=== PATIENT | male | born 1960 | race Caucasian/White ===

== ENCOUNTER 2023-05-03 13:20 | Emergency (ER) | payer MEDICARE, MEDICAID, SELFPAY ==
[2023-05-03 13:27] VITALS: BP 167/88; PULSE 70; RESP 18; TEMP 36.6; O2SAT 98; BMI 37.2
--- NOTE | 2023-05-03 13:41 | XR_ITS ---
The [address] [address] Patient Name: DIMITRY BENJAMIN MRN: [id number] date: 1960 Sex: M Assigned Patient Location: ER Current Patient Location: ED.MAIN Accession/Order Number: [id number] Exam Date: 05/03/2023 14:04 Report Date: 05/03/2023 14:52 At the request of: ROHITH TOUSSAINT Procedure: XR hip LT 2V w/ pelvis PROCEDURE: XR hip LT 2V w/ pelvis COMPARISON: None. HISTORY: pain FINDINGS: BONES:No acute fracture or dislocation. Mild to moderate bilateral hip osteoarthropathy, left greater than right. Moderate degenerative changes of the spine SOFT TISSUES:Negative. No visible soft tissue swelling. EFFUSION:None visible. OTHER: Negative. XR/XR hip LT 2V w/ pelvis IMPRESSION: Mild to moderate osteoarthritis Electronically authenticated by: DECLAN TORRES Date: 05/03/2023 14:52
--- NOTE | 2023-05-03 13:43 | PC.NURSE ---
left hip pain that has been progressively getting worse over the last 2 wks
[2023-05-03] MEDS: KETOROLAC TROMETHAMINE 60 MG/2 ML VIAL IM (14:17)
--- NOTE | 2023-05-03 14:34 | ED.GENADUL1 ---
HPI - General Adult General Chief complaint: Extremity Injury, Lower Stated complaint: LOWER BACK AND LEFT HIP PAIN Time Seen by Provider: 05/03/23 13:41 Source: patient Mode of arrival: Wheelchair History of Present Illness HPI narrative: 63-year-old male presents with chief complaint of left hip and lower lumbar pain. Patient states he started with lower lumbar pain approximate three weeks ago and now radiates down the buttock and leg he has numbness and tingling to his toes. Patient denies any injury or trauma. Patient denies loss of bowel or bladder function. Patient states she's having difficulty sitting and laying down due to pain. Denies a history of sciatica in the past Related Data Previous Rx's Medication Instructions Recorded prednisone 20 mg tablet 20 mg PO BID #10 tabs 05/03/23 Allergies Allergy/AdvReac Type Severity Reaction Status Date / Time No Known Drug Allergies Allergy Verified 05/03/23 13:32 Review of Systems ROS Narrative All Systems are negative except as noted/marked.All systems reviewed and otherwise negative Exam Narrative Exam Narrative: Nurses note and vital signs reviewed and patient is not hypoxic. General: The patient appears well and in no apparent distress. Patient is resting comfortably on cart. Skin: Warm, dry, no pallor noted. There is no rash noted. Respiratory: Patient is in no distress, no accessory muscle use, lungs are clear to auscultation, no wheezing, rales or rhonchi Back: non-tender, no CVA tenderness bilaterally to percussion. GI: Normal bowel sounds, no tenderness to palpation, no masses appreciated. No rebound, guarding, or rigidity noted. Musculoskeletal:Patient's lower extremity without swelling or deformity no leg shortening, full range of motion. Patient has increased pain with abduction and abduction states he has numbness and tingling, paresthesias lower extremity remainder of musculoskeletal exam unremarkable Neurological: A&O x4, normal speech Psychiatric: Cooperative Constitutional Vital Signs, click to edit/add: Last Vital Signs Temp 97.8 F 05/03/23 13:27 Pulse 70 05/03/23 13:27 Resp 18 05/03/23 13:27 BP 167/88 H 05/03/23 13:27 Pulse Ox 98 05/03/23 13:27 O2 Del Method Room Air 05/03/23 13:43 Course Vital Signs Vital signs: Vital Signs Temperature 97.8 F 05/03/23 13:27 Pulse Rate 70 05/03/23 13:27 Respiratory Rate 18 05/03/23 13:27 Blood Pressure 167/88 H 05/03/23 13:27 Pulse Oximetry 98 05/03/23 13:27 Oxygen Delivery Method Room Air 05/03/23 13:27 Temperature 97.8 F 05/03/23 13:27 Pulse Rate 70 05/03/23 13:27 Respiratory Rate 18 05/03/23 13:27 Blood Pressure 167/88 H 05/03/23 13:27 Pulse Oximetry 98 05/03/23 13:27 Oxygen Delivery Method Room Air 05/03/23 13:43 Medical Decision Making MDM Narrative Medical decision making narrative: Patient presented to the emergency room with lower lumbar pain radiating down the lower extremity consistent with sciatica. Medicated here with Toradol in the emergency room. X-rays performed showed no acute deformities or fractures. Patient encouraged to follow-up with his primary care physician PT therapy was discussed. Patient will be given a small prescription of pain medicine and steroids. MRSA follow-up as discussed. Rest ice to the lumbar region. Patient does walk with a cane. Medical Records Medical records reviewed: Yes I reviewed the patient's medical records Imaging Data hip: Attestation: I have reviewed the pertinent imaging results. My impression: neg Discharge Plan Discharge Chief Complaint: Extremity Injury, Lower Clinical Impression: Sciatica Patient Disposition: Home, Self-Care Time of Disposition Decision: 14:28 Condition: Good Prescriptions / Home Meds: New prednisone 20 mg tablet 20 mg PO BID Qty: 10 0RF Instructions: Sciatica (ED) Stand Alone Forms: Portal Instructions Referrals: Gerber Alvarado MD [Primary Care Provider] - 1 week
== END 2023-05-03 14:56 | disposition home or self-care (01) ==
PROVIDERS: Emergency Provider Emergency Medicine; PCP Family Medicine
DX: M54.42 Lumbago with sciatica, left side (principal)
CPT/HCPCS: 73502; 96372; 99284

== ENCOUNTER 2023-05-13 10:29 | Outpatient (OUT) | payer MEDICARE, MEDICAID, SELFPAY ==
[2023-05-13 11:03] LABS: Estimated Average Glucose 123 mg/dL; Glycohemoglobin A1C 5.9 % (4.5-6.2)
== END 2023-05-13 10:30 | disposition home or self-care (01) ==
LOC: LAB 10:31
PROVIDERS: PCP Family Medicine; Visit Provider Family Medicine
DX: E11.65 Type 2 diabetes mellitus with hyperglycemia (principal)
CPT/HCPCS: 36415; 83036

== ENCOUNTER 2023-09-18 09:05 | Outpatient (OUT) | payer MEDICARE, MEDICAID, SELFPAY ==
--- NOTE | 2023-09-18 09:08 | MR_ITS ---
[address] [address] Patient Name: DIMITRY BENJAMIN MRN: [facility]:[id number] date: 1960 Sex: M Assigned Patient Location: MRI Current Patient Location: MRI Accession/Order Number: [id number] Exam Date: 09/18/2023 09:52 Report Date: 09/18/2023 11:25 At the request of: FILIPE SALAZAR Procedure: MR lumbar spine wo con EXAM: MR lumbar spine wo con CLINICAL INDICATION: Degenerative Disc Disease M51.36 p COMPARISON: None TECHNIQUE/PROTOCOL: Noncontrast lumbar spine MR protocol (Sagittal T1, T2, STIR and axial T1, T2 sequences). FINDINGS: Segmentation: Normal. Conus: Terminates at L1. Spinal Cord and Cauda Equina: Normal. Pedicles: Digitally shortened. Epidural Space: Prominent dorsal epidural lipomatosis throughout the lumbar spine. Alignment: Normal. Marrow Signal: Degenerative marrow endplate changes at L2-L3. Vertebral Body Heights: Maintained. Sacroiliac Joints: Grossly normal given only partially visualized. Paraspinal Soft Tissues: Normal. Retroperitoneal Soft Tissues: No acute abnormalities. Spondylotic Changes: Multilevel spondylotic changes include diffuse disc desiccation and varying degrees of intervertebral disc height loss, osteophytic ridging, and facet/ligamentum flavum hypertrophy. T12-L1: Disc bulge indents the ventral thecal sac. This in conjunction with mild bilateral facet/ligamentum flavum hypertrophy and epidural lipomatosis overall results in moderate spinal canal narrowing. No high-grade foraminal narrowing. L1-L2: Disc bulge with left central disc protrusion together indent the ventral thecal sac. These in conjunction with mild bilateral facet/ligamentum flavum hypertrophy and epidural lipomatosis overall result in moderate spinal canal narrowing. Mild bilateral foraminal narrowing. L2-L3: Disc bulge effaces the ventral thecal sac. This in conjunction with mild bilateral facet/ligamentum flavum hypertrophy and epidural lipomatosis overall results in advanced spinal canal narrowing. Disc material extends into the right foramen and results in moderate right foraminal narrowing. Mild left foraminal narrowing. L3-L4: Disc bulge effaces the ventral thecal sac. This in conjunction with mild bilateral facet/ligamentum flavum hypertrophy and epidural lipomatosis overall results in advanced spinal canal narrowing. Moderate to advanced bilateral foraminal narrowing. L4-L5: Disc bulge effaces the ventral thecal sac. This in conjunction with moderate bilateral facet/ligamentum flavum hypertrophy and epidural lipomatosis overall results in advanced spinal canal narrowing. Advanced bilateral foraminal narrowing. L5-S1: No disc bulge or herniation. No high-grade spinal canal or foraminal narrowing. Mild bilateral facet hypertrophy. MR/MR lumbar spine wo con IMPRESSION: 1. Multilevel spondylotic changes are superimposed on congenitally shortened pedicles and epidural lipomatosis. Spinal canal narrowing is advanced at L2-L3, L3-L4, and L4-L5. 2. Foraminal narrowing is advanced bilaterally at L4-L5. Foraminal narrowing is moderate to advanced bilaterally at L3-L4. Electronically authenticated by: FANI SCHAFER Date: 09/18/2023 11:25
--- OUTSIDE RECORDS SUMMARY | 2023-09-18 09:22 | XMS_ITS | CCD ---
Author Organization [facility] Care Team Providers Care Defense Analyst Name Role Phone MARYDICK TORREY Referring Unavailable AMARO, MCKENNA A Primary Care Unavailable AMARO, MCKENNA A Referring Unavailable AMARO, MCKENNA A Primary Care Unavailable BURROUGHS, FORREST R Referring Unavailable AMARO, MCKENNA A Primary Care Unavailable BURROUGHS, FORREST R Referring Unavailable AMARO, MCKENNA A Primary Care Unavailable AMARO, MCKENNA A Primary Care Unavailable VILMA BROWN Attending Unavailable BURROUGHS, FORREST R Referring Unavailable AMARO, MCKENNA A Primary Care Unavailable MISC, DR AHMADI Attending Unavailable MISC, DR AHMADI Admitting Unavailable NADERER, DR FILIPE Rogel Consulting Unavailable NADERER, DR FILIPE Rogel Primary Care Unavailable NADERER, DR FILIEP Rogel Admitting Unavailable NADERER, DR FILIPE Rogel Attending Unavailable NADERER, DR FILIPE Rogel Primary Care Unavailable NADERER, DR FILIPE Rogel Admitting Unavailable NADERER, DR FILIPE Rogel Attending Unavailable NADERER, DR FILIPE Rogel Consulting Unavailable NADERER, DR FILIPE Rogel Primary Care Unavailable JOHN HERR Attending Unavailable NADERER, FILIPE Attending Unavailable Allergies Allergy Classification Reported Allergen(s) Allergy Type Date of Onset Reaction(s) Facility (1 source) Amino Acids Drug Allergy [facility] Repository Problems Problem Classification Problem Date Documented Da te Episodic/Chronic Diabetes mellitus with complications (5 sources) Type 2 diabetes mellitus with hyperglycemia; Translations: [TYPE 2 DM W/HYPERGLYCEMIA] Onset: 11-15-2021 Chronic Disorders of lipid metabolism (5 sources) Hyperlipidemia, unspecified; Translations: [HYPERLIPIDEMIA UNSPECIFIED] Onset: 10-13-2022 Chronic Essential hypertension (1 source) Essential (primary) hypertension; Translations: [ESSENTIAL PRIMARY HYPERTENSION] Onset: 10-25-2022 Chronic Other aftercare (5 sources) Other mcfp (current) drug therapy; Translations: [OTH RENEWABLE ENERGY CONSULTANT CURRENT DRUG THERAPY] Onset: 10-04-2022 Episodic Other nutritional; endocrine; and metabolic disorders (1 source) Morbid (severe) obesity due to excess calories; Translations: [MORBID SEVERE OBES D/T EXCESS MARIA FERNANDA] Onset: 10-13-2022 Chronic Other screening for suspected conditions (not mental disorders or infectious disease) (1 source) Encounter for screening for malignant neoplasm of prostate; Translations: [ENC SCREEN MALIG NEOPLASM PROSTATE] Onset: 10-25-2022 Episodic Results Test Name Value Interpretation Reference Range Facility CBC AUTO DIFFon 10-19-2022 BASO # 0.1 103/ul Normal 0.0-0.1 [facility] Comment on above: Performed By: #### C BC #### [facility] [address] [address] [address] Cindi Underwood Basophils/100 WBC (Bld) 0.5 % Normal 0.2-2.0 [facility] Comment on above: Performed By: #### C BC #### [facility] [address] [address] [address] Cindi Underwood EO # 0.2 103/ul Normal 0.0-0.7 [facility] Comment on above: Performed By: #### C BC #### [facility] [address] [address] [address] Cindi Underwood Eosinophils/100 WBC (Bld) 1.8 % Normal 0.9-7.0 [facility] Comment on above: Performed By: #### C BC #### [facility] [address] [address] [address] Cindi Underwood Erythrocyte distribution width (RBC) [Ratio] 14.5 % Normal 11.0-15.0 [facility] Comment on above: Performed By: #### C BC #### [facility] [address] [address] [address] Cindi Underwood Hematocrit (Bld) [Volume fraction] 52.4 % Normal 42.0-54.0 [facility] Comment on above: Performed By: #### C BC #### [facility] [address] [place] [address] Dr. Cindi Underwood Hemoglobin (Bld) [Mass/Vol] 17.3 g/dL Normal 14.0-18.0 [facility] Comment on above: Performed By: #### C BC #### [facility] [address] [place] [address] Dr. Cindi Underwood IG # 0.04 10e3/ul Critically high 0.00-0.03 [facility] Comment on above: Performed By: #### C BC #### [facility] [address] [place] [address] Dr. Cindi Underwood IG % 0.4 % Normal 0.0-0.5 [facility] Comment on above: Performed By: #### C BC #### [facility] [address] [place] [address] Dr. Cindi Underwood LYMPH # 1.9 103/ul Normal 1.2-3.8 [facility] Comment on above: Performed By: #### C BC #### [facility] [address] [place] [address] Dr. Cindi Underwood Lymphocytes/100 WBC (Bld) 20.8 % Normal 20.5-60.0 [facility] Comment on above: Performed By: #### C BC #### [facility] [address] [place] [address] Dr. Cindi Underwood MANUAL DIFF REQ NO Normal [facility] Comment on above: Performed By: #### C BC #### [facility] [address] [place] [address] Dr. Cindi Underwood MCH (RBC) [Entitic mass] 30.7 pg Normal 25.9-34.0 [facility] Comment on above: Performed By: #### C BC #### [facility] [address] [place] [address] Dr. Cindi Underwood MCHC (RBC) [Mass/Vol] 33.0 g/dL Normal 29.9-35.2 [facility] Comment on above: Performed By: #### C BC #### [facility] [address] [place] [address] Dr. Cindi Underwood MCV (RBC) [Entitic vol] 93.1 fL Normal 80.0-94.0 [facility] Comment on above: Performed By: #### C BC #### [facility] [address] [place] [address] Dr. Cindi Underwood MONO # 0.5 103/ul Normal 0.3-0.8 [facility] Comment on above: Performed By: #### C BC #### [facility] [address] [place] [address] Dr. Cindi Underwood Monocytes/100 WBC (Bld) 5.6 % Normal 1.7-12.0 [facility] Comment on above: Performed By: #### C BC #### [facility] [address] [place] [address] Dr. Cindi Underwood NEUT # 6.5 103/ul Normal 1.4-6.5 [facility] Comment on above: Performed By: #### C BC #### [facility] [address] [place] [address] Dr. Cindi Underwood Neutrophils/100 WBC (Bld) 70.9 % Normal 43.0-75.0 [facility] Comment on above: Performed By: #### C BC #### [facility] [address] [place] [address] Dr. Cindi Underwood Platelet mean volume (Bld) [Entitic vol] 10.8 fL Normal 9.5-13.5 [facility] Comment on above: Performed By: #### C BC #### [facility] [address] [place] [address] Dr. Cindi Underwood PLT 190 103/ul Normal 150-450 [facility] Comment on above: Performed By: #### C BC #### [facility] [address] [place] [address] Dr. Cindi Underwood RBC 5.63 106/ul Normal 4.70-6.10 [facility] Comment on above: Performed By: #### C BC #### [facility] [address] [place] [address] Dr. Cindi Underwood WBC 9.1 103/ul Normal 4.0-11.0 [facility] Comment on above: Performed By: #### C BC #### [facility] [address] [address] [address] Cindi Underwood GLYCOHEMOGLOBIN A1Con 2022 ADA RECOMMENDATION SEE BELOW Normal [facility] Comment on above: Result Comment: ADA RECOMMENDED LIMIT 4.0 - 6.0 ADA THERAPEUTIC TARGET < 7.0 ACTION SUGGESTED > 7.0 Performed By: #### A 1C #### [facility] [address] [address] [address] Cindi Underwood Glucose [Mass/Vol] 163 mg/dL Normal [facility] Comment on above: Performed By: #### A 1C #### [facility] [address] [address] [address] Cindi Underwood HbA1c (Bld) [Mass fraction] 7.3 % Critically high 4.5-6.2 [facility] Comment on above: Performed By: #### A 1C #### [facility] [address] [place] [address] Dr. Cindi Underwood LIPID PROFILEon 10-19-2022 CHOL-HDL RATIO NORM SEE BELOW Normal [facility] Comment on above: Result Comment: 3.3 - 4.4 LOW RISK 4.4 - 7.1 AVERAGE RISK 7.1 - 11.0 MODERATE RISK >11.0 HIGH RISK Performed By: #### L IPID, TSH, BMP, LIVER #### [facility] [address] [address] [address] Cindi Underwood Cholesterol [Mass/Vol] 189 mg/dL Normal <=200 [facility] Comment on above: Performed By: #### L IPID, TSH, BMP, LIVER #### [facility] [address] [address] [address] Cindi Underwood Cholesterol in HDL [Mass/Vol] 33 mg/dL Critically low 40-60 [facility] Comment on above: Performed By: #### L IPID, TSH, BMP, LIVER #### [facility] [address] [address] [address] Cindi Underwood Cholesterol in LDL [Mass/Vol] 123.6 mg/dL Normal [facility] Comment on above: Performed By: #### L IPID, TSH, BMP, LIVER #### [facility] [address] [place] [address] Dr. Cindi Underwood Cholesterol.total/C holesterol in HDL [Mass ratio] 5.7 {ratio} Normal [facility] Comment on above: Performed By: #### L IPID, TSH, BMP, LIVER #### [facility] [address] [address] [address] Cindi Underwood HDL NORMAL > or = 60 mg/dl - LO W CARDIOVASCULAR RISK <40 mg/dl - HIGH CARDIOVASCULAR RISK Normal [facility] Comment on above: Performed By: #### L IPID, TSH, BMP, LIVER #### [facility] [address] [place] [address] Dr. Cindi Underwood LDL CALC NORMAL SEE BELOW Normal [facility] Comment on above: Result Comment: <100 mg/dl OPTIMAL 100 - 129 mg/dl NEAR OR ABOVE OPTIMAL 130 - 159 mg/dl BORDERLINE HIGH 160 - 189 mg/dl HIGH >190 mg/dl VERY HIGH Performed By: #### L IPID, TSH, BMP, LIVER #### [facility] [address] [place] [address] Dr. Cindi Underwood Triglyceride [Mass/Vol] 162 mg/dL Critically high <=150 [facility] Comment on above: Performed By: #### L IPID, TSH, BMP, LIVER #### [facility] [address] [place] [address] Dr. Cindi Underwood VLDL CALC 32.4 mg/dL Normal [facility] Comment on above: Performed By: #### L IPID, TSH, BMP, LIVER #### [facility] [address] [address] [address] Cindi Underwood LIVER PROFILEon 10-19-2022 Albumin [Mass/Vol] 3.7 g/dL Normal 3.4-5.0 [facility] Comment on above: Performed By: #### L IPID, TSH, BMP, LIVER #### [facility] [address] [place] [address] Dr. Cindi Underwood Albumin/Globulin [Mass ratio] 0.9 {ratio} Normal [facility] Comment on above: Performed By: #### L IPID, TSH, BMP, LIVER #### [facility] [address] [address] [address] Cindi Underwood ALP [Catalytic activity/Vol] 89 U/L Normal 46-116 [facility] Comment on above: Performed By: #### L IPID, TSH, BMP, LIVER #### [facility] [address] [address] [address] Cindi Underwood ALT [Catalytic activity/Vol] 44 U/L Normal 16-63 [facility] Comment on above: Performed By: #### L IPID, TSH, BMP, LIVER #### [facility] [address] [place] [address] Dr. Cindi Underwood AST [Catalytic activity/Vol] 21 U/L Normal 15-37 [facility] Comment on above: Performed By: #### L IPID, TSH, BMP, LIVER #### [facility] [address] [place] [address] Dr. Cindi Underwood BILI, CONJUGATED 0.1 mg/dL Normal 0.0-0.2 [facility] Comment on above: Performed By: #### L IPID, TSH, BMP, LIVER #### [facility] [address] [place] [address] Dr. Cindi Underwood Bilirubin [Mass/Vol] 0.6 mg/dL Normal 0.2-1.0 [facility] Comment on above: Performed By: #### L IPID, TSH, BMP, LIVER #### [facility] [address] [place] [address] Dr. Cindi Underwood Globulin (S) [Mass/Vol] 4.1 g/dL Normal [facility] Comment on above: Performed By: #### L IPID, TSH, BMP, LIVER #### [facility] [address] [place] [address] Dr. Cindi Underwood Protein [Mass/Vol] 7.8 g/dL Normal 6.4-8.2 [facility] Comment on above: Performed By: #### L IPID, TSH, BMP, LIVER #### [facility] [address] [place] [address] Dr. Cindi Underwood MICROALBUMIN, RAND URon 04-2 mALB 2.9 mg/L Normal <=30.0 [facility] Comment on above: Performed By: #### M ALBR #### [facility] [address] [place] [address] Dr. Cindi Underwood PROF CHEM 8 (BAS METB)on Anion gap [Moles/Vol] 8.6 mmol/L Normal [facility] Comment on above: Performed By: #### L IPID, TSH, BMP, LIVER #### [facility] [address] [place] [address] Dr. Cindi Underwood Calcium [Mass/Vol] 9.2 mg/dL Normal 8.5-10.1 [facility] Comment on above: Performed By: #### L IPID, TSH, BMP, LIVER #### [facility] [address] [place] [address] Dr. Cindi Underwood Chloride [Moles/Vol] 102 mmol/L Normal 98-107 [facility] Comment on above: Performed By: #### L IPID, TSH, BMP, LIVER #### [facility] [address] [place] [address] Dr. Cindi Underwood CO2 [Moles/Vol] 34.3 mmol/L Critically high 21.0-32.0 [facility] Comment on above: Performed By: #### L IPID, TSH, BMP, LIVER #### [facility] [address] [place] [address] Dr. Cindi Underwood Creatinine [Mass/Vol] 0.87 mg/dL Normal 0.70-1.30 [facility] Comment on above: Performed By: #### L IPID, TSH, BMP, LIVER #### [facility] [address] [place] [address] Dr. Cindi Underwood EGFR-AF GHANAIAN >60 Normal >=60 [facility] Comment on above: Performed By: #### L IPID, TSH, BMP, LIVER #### [facility] [address] [address] [address] Cindi Underwood EGFR-NON AF GHANAIAN >60 Normal >=60 [facility] Comment on above: Performed By: #### L IPID, TSH, BMP, LIVER #### [facility] [address] [address] [address] Cindi Underwood Glucose [Mass/Vol] 132 mg/dL Critically high 74-106 T [facility] Comment on above: Performed By: #### L IPID, TSH, BMP, LIVER #### [facility] [address] [address] [address] Cindi Underwood Potassium [Moles/Vol] 3.9 mmol/L Normal 3.5-5.1 [facility] Comment on above: Performed By: #### L IPID, TSH, BMP, LIVER #### [facility] [address] [place] [address] Dr. Cindi Underwood Sodium [Moles/Vol] 141 mmol/L Normal 136-145 [facility] Comment on above: Performed By: #### L IPID, TSH, BMP, LIVER #### [facility] [address] [address] [address] Cindi Underwood Urea nitrogen [Mass/Vol] 9.0 mg/dL Normal 7.0-18.0 [facility] Comment on above: Performed By: #### L IPID, TSH, BMP, LIVER #### [facility] [address] [place] [address] Dr. Cindi Underwood Urea nitrogen/Creatinine [Mass ratio] 10.3 mg/mg Normal [facility] Comment on above: Performed By: #### L IPID, TSH, BMP, LIVER #### [facility] [address] [address] [address] Cindi Underwood TSHon 10-19-2022 TSH 2.454 uIU/mL Normal 0.358-3.740 [facility] Comment on above: Performed By: #### L IPID, TSH, BMP, LIVER #### [facility] [address] [place] [address] Dr. Cindi Underwood GLYCOHEMOGLOBIN A1Con 2021 ADA RECOMMENDATION SEE BELOW Normal [facility] Comment on above: Result Comment: ADA RECOMMENDED LIMIT 4.0 - 6.0 ADA THERAPEUTIC TARGET < 7.0 ACTION SUGGESTED > 7.0 Performed By: #### A 1C #### [facility] [address] [address] [address] Cindi Underwood Glucose [Mass/Vol] 160 mg/dL Normal [facility] Comment on above: Performed By: #### A 1C #### [facility] [address] [address] [address] Cindi Underwood HbA1c (Bld) [Mass fraction] 7.2 % Critically high 4.5-6.2 [facility] Comment on above: Performed By: #### A 1C #### [facility] [address] cervical spine wo conon 0 10-06-2020 CT cervical spine wo con [facility] [place] [address] CT Scan Report Signed Patient: Dimitry Benjamin MR#: [id number] : 1960 Acct:[id number] Age/Sex: 60 / M ADM Date: 10/06/20 Loc: ER Room: Type: [facility] ER Attending Dr: Ordering Provider: Albino New MD Date of Service: 10/06/20 CT/CT head/brain wo con: fall ([id number]) CT/CT cervical spine wo con: fall Copies to: Albino New MD CLINICAL DATA: Patient fell and hit the back of the head. Neck pain radiating to the shoulders. CT BRAIN WITHOUT CONTRAST: COMPARISON: None TECHNIQUE: Contiguous axial unenhanced images were obtained through the brain. This CT exam was performed using one or more following dose reduction techniques: Automated exposure control, adjustment of the mA and/or kV according to patient size, or use of iterative reconstruction technique. FINDINGS: The ventricles are within normal limits for size and position. A potential perivascular space is seen in the basal ganglia region on the right. There are no areas of abnormal attenuation. There is no hemorrhage, mass effect or extra-axial collections. The calvarium is intact. Minor ethmoid mucosal thickening is present. CT/CT head/brain wo con IMPRESSION: NO ACUTE INTRACRANIAL TRAUMA. CT CERVICAL SPINE WITHOUT CONTRAST WITH 3D RECONSTRUCTIONS: COMPARISON: 06/05/2019 TECHNIQUE: Spiral axial unenhanced images were obtained through the cervical spine. Sagittal, coronal and 3D volume-rendered reconstructions were also reviewed. This CT exam was performed using one or more following dose reduction techniques: Automated exposure control, adjustment of the mA and/or kV according to patient size, or use of iterative reconstruction technique. FINDINGS: There is reversal the normal cervical lordosis. Patient is status post anterior fusion with plate and screws extending from C3 through C7. Hardware is also present at the time the prior. The vertebral bodies show increasing sclerosis through this area. There is no definite acute fracture. There is still slight anterolisthesis of C2 on C3. There is disc space narrowing at the cervicothoracic junction. There is some endplate spurring and facet disease. There is multilevel thecal sac effacement and bilateral foraminal encroachment. The atlantoaxial relationship is maintained. The prevertebral soft tissues appear prominent however is uncertain if this is related to patient's habitus. Small shotty cervical lymph nodes are present. There is carotid artery plaque. IMPRESSION: POSTOPERATIVE AND DEGENERATIVE CHANGES. NO ACUTE BONY INJURY. Impression dictated by: Leona Argueta M.D.10/06/2020 4:49 PM Dictation Location: [place] [address] Transcribed By: [facility] 10/06/20 1649 Dictated By: Leona Argueta MD 10/06/20 1639 Signed By: 10/06/20 1649 Normal [facility] CT lumbar spine wo conon CT lumbar spine wo con [facility] [place] [address] CT Scan Report Signed Patient: Dimitry Benjamin MR#: [id number] : 1960 Acct:[id number] Age/Sex: 60 / M ADM Date: 10/06/20 Loc: ER Room: Type: [facility] ER Attending Dr: Ordering Provider: Albino New MD Date of Service: 10/06/20 CT/CT lumbar spine wo con: fall ([id number]) CT/CT thoracic spine wo con: fall Copies to: Albino New MD CT THORACIC AND LUMBAR SPINE WITHOUT CONTRAST WITH 3-D RECONSTRUCTIONS COMPARISON: None CLINICAL DATA: Patient fell and hit the back of head. Neck pain radiating to the shoulders. Spiral images were obtained through the thoracic and lumbar spine without contrast. Sagittal, coronal and 3-D Rendered reconstructions were reviewed. This CT exam was performed using one or more following dose reduction techniques: Automated exposure control, adjustment of the mA and/or kV according to patient size, or use of iterative reconstruction technique. The thoracic spine shows subtle dextroscoliotic curvature. No acute compression fractures or displacement are seen. There is partially imaged anterior fusion hardware at the lower cervical spine. No disproportionate thoracic disc space narrowing is identified though there is multilevel endplate spurring. The imaged ribs are intact. No paraspinal soft tissue abnormalities are present. The ascending aorta is ectatic and there is atherosclerotic disease. There are small mediastinal lymph nodes. The heart is borderline prominent. There is dependent atelectasis within the field of view. No pleural effusion or pneumothorax is seen. Subtle levoscoliotic curvature is present. There is partial sacralization of L5 on the right with a pseudoarthrosis. No lumbar compression fractures are noted. There is minor retrolisthesis of L1 on L2, L2 on L3 and L3 on L4. There is disc space narrowing L1-2 and L2-3. There is moderate endplate sclerosis at the L2-3 level. There is vacuum phenomenon from L1-2 through L4-5. There is endplate spurring. There is minor facet disease. There is also a small thecal sac from L2 down raising question of arachnoiditis. There is mild degenerative change at the SI joints. The sacrum, imaged iliac bones and proximal femora are intact. There is no dislocation at the hips. The abdominal viscera within the field of view show no significant findings. There is additional atherosclerotic disease involving the aorta and its branches. There are multiple calcifications of the prostate. There is no ascites or hematoma. CT/CT thoracic spine wo con IMPRESSION: NO ACUTE BONY INJURY. SLIGHT SCOLIOSIS AND MULTILEVEL DEGENERATIVE CHANGES, DESCRIBED. QUESTION OF ARACHNOIDITIS. Impression dictated by: Leona Argueta M.D.10/06/2020 5:20 PM Dictation Location: RADIO--02 Transcribed By: NIKHIL 10/06/201719 Dictated By: Leona Argueta MD 10/06/20 1650 Signed By: 10/06/20 1720 [facility] XR shoulder BI min 2Von XR shoulder BI min 2V [facility] [place] [address] XRay Report Signed Patient: Dimitry Benjamin MR#: [id number] : 1960 Acct:[id number] Age/Sex: 60 / M ADM Date: 10/06/20 Loc: ER Room: Type: [facility] ER Attending Dr: Ordering Provider: Albino New MD Date of Service: 10/06/20 XR/XR shoulder BI min 2V: Fall Copies to: Albino New MD BILATERAL SHOULDERS - 3 views each CLINICAL HISTORY: Patient fell off a chair and hit head on the ground. Bilateral shoulder pain, greater on the right. COMPARISON: None AP, Y and Grashey views were obtained. There is no acute fracture or dislocation. There is minor hypertrophic degenerative change at the acromioclavicular and inferior glenohumeral joints. There is also minor sclerosis at the greater tuberosities. A fusion plate and degenerative changes are visualized at the lower cervical spine. There are no significant soft tissue abnormalities. XR/XR shoulder BI min 2V IMPRESSION: NO ACUTE BONY INJURY. Impression dictated by: Leona Argueta M.D.10/06/2020 6:11 PM Dictation Location: --02 Transcribed By: NIKHIL 10/06/201810 Dictated By: Leona Argueta MD 10/06/20 1800 Signed By: 10/06/201810 [facility] Ambulatory Clinical Summaryo n 08-09-2020 Ambulatory Clinical Summary {[id number]}CD: [id number] [facility] Patient Educationon 08-09-19 Patient Education Benign Prostatic Hyperplasia You have an enlarged prostate. This is common in elderly males. It is called BPH. This stands for benign prostate hyperplasia. The prostate gland is located in base of the bladder. When it grows, the prostate blocks the urethra. This is the tube which drains urine from the bladder. SYMPTOMS ? Weak urine stream. ? Dribbling. ? Feeling like the bladder has not emptied completely. ? Difficulty starting urination. ? Getting up frequently at night to urinate. ? Urinating more frequently during the day. Complete urinary blockage or severe pain with urination requires immediate attention. DIAGNOSIS ? Your caregiver often has a good idea what is wrong by taking a history and doing a physical exam. ? Special x-rays may be done. TREATMENT ? For mild problems, no treatment may be necessary. ? If the problems are moderate, medications may provide relief. Some of these work by making the prostate gland smaller. The herb saw palmetto is commonly used. ? If complete blockage occurs, a Rodriguez catheter is usually left in place for a few days. ? Surgery is often needed for more severe problems. TURP is the prostate surgery for BPH which is done through the urethra. TURP stands for transurethral resection of the prostate. It involves cutting away chips from the prostate. It is done by removing chips so that they can come out through the penis. ? Techniques using heat, microwave and laser to remove the prostate blockage are also being used. HOME CARE INSTRUCTIONS ? Give yourself time when you urinate. ? Stay away from alcohol. ? Beverages containing caffeine such as coffee, tea and irais can make the problems worse. ? Decongestants, antihistamines, and some prescription medicines can also make the problem worse. ? Follow up with your caregiver for further treatment as recommended. SEEK IMMEDIATE MEDICAL CARE IF: ? You develop increased pain with urination or are unable to pass your water. ? You develop severe abdominal pain, vomiting, a high fever, or fainting. ? You develop back pain or blood in your urine. MAKE SURE YOU: ? Understand these instructions. ? Will watch your condition. ? Will get help right away if you are not doing well or get worse. Document Released: 06/17/2006 Document Revised: 09/08/2012 Document Reviewed: 02/20/2008 ExitCare? Patient Information ?2013 [employer] [facility]. [facility] Urology Office/Clinic Noteon 08-09-2020 Urology Office/Clinic Note Chief Complaint This is a 60 year old male with the H/O of urgency, incomplete bladder emptying, BPH with LUTS, membraanous urethral stricture, Rt flank pain and urge incontinence HPI Staff Pt. is here to discuss plan since insurance denied CT. Flomax 0.4 BID therapy. Pain with urination:No Blood in urine:No Incomplete bladder emptying:No Frequency:No Urgency:No Nocturia:Mild2-3x's Stream:No pt. states good stream Post-void dribbling:mild Leaking before getting to the restroom:mild Urinary incontinence without sensory awareness:No Flank/Back pain:No Abdominal pain:No History of Present Illness reviewed UA. reviewed last encounter. reviewed PVR. There have been no associated fever, chills, flank pain or blood in the urine. Pt is not having any burning with voiding. Review of Systems ROS - Provider Constitutional: denies weight loss, denies hot flashes. Eyes: denies eye problems. Gastrointestinal: denies nausea, denies vomiting. Cardiovascular: denies chest pain or angina. Integumentary: no dryness Musculoskeletal: denies musculoskeletal symptoms. ENMT: denies otopharyngeal symptoms. Respiratory: no shortness of breath. Heme/Lymph: denies easy bleeding tendency, denies easy bruising tendency. Psychiatric: no confusion, no anxiety. Genitourinary: denies dysuria, denies hematuria, denies discharge, denies urinary frequency, denies urinary hesitancy, mild nocturia, mild incontinence, denies genital sores, denies decreased libido, and denies erectile dysfunction. Physical Exam Vitals & Measurements HR: 75(Peripheral) RR: 16 BP: 158/86 HT: 173 cm HT: 173.0 cm WT: 129.9 kg WT: 129.9 kg BMI: 43.4 General Appearance: alert, no distress, well nourished, well developed male. Genitourinary: normal scrotum, normal testes, normal urethra, normal epididymis, normal vas deferens/spermatic cord. Flank Pain: none. Bladder: nonpalpable. Prostate: normal prostate, estimated weight 35 gms, no hard nodule observed. Assessment/Plan This patient's voiding pattern has significantly improved after increasing the dose of tamsulosin to 0.4 mg twice a day. His PVR today was less than 100 cc and he states that he is emptying his bladder completely now the flank pain that he complained of before has resolved. Urinalysis today was negative for infection. We will plan to continue tamsulosin 0.4 mg twice a day. A new prescription has been sent to the drugstore. We will plan to see how he is doing in 3 months. He has been started to contact our office if for some reason his voiding pattern should resolve in something less than optimal. We did discuss the possibility of cystoscopy and dilation of his urethral stricture if needed in the future. 1. BPH with urinary obstruction (N40.1: Benign prostatic hyperplasia with lower urinary tract symptoms) Tamsulosin dosage was increased at the last encounter. Tamsulosin 0.4mg BID therapy, pt states that he as seen improvement. Pt states that he is having a mild nocturia with 2-3x a night along with post dribbling. PVR today is showing 82ml compared to last PVR at 518ml done 05/2020. UA is clear of any blood or infections at this time. D/C Oxybutynin therapy and will send a new rx for Tamsulosin therapy. Pt will return in 3 months with PVR. Pt is to call the office if there is any changes in sx. Ordered: Urnls Dip Stick Auto w/o Microscopy POC 96366 2. 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 3. Urge incontinence (N39.41: Urge incontinence) Pt is having some leaking on the way to the bathroom. Orders: ciprofloxacin, 500 mg = 1 tab(s), Oral, q12hr, take 1 tablet the day prior to procedure, take 2nd tablet the day of the procedure, # 2 tab(s), Refills(s) 0, Pharmacy: [facility] [facility] 173, cm, 12/08/19 13:22:00 EDT, Height/Length Measured, 115, kg, 12/08/19... tamsulosin, 0.4 mg = 1 cap(s), Oral, Daily, # 30 cap(s), Refills(s) 1, Pharmacy: [facility] 173, cm, 05/24/20 8:18:00 EST, Height/Length Dosing, 115, kg, 05/24/20 8:18:00 EST, Weight Dosing tamsulosin, 0.4 mg = 1 cap(s), Oral, BID, # 60 cap(s), Refills(s) 3, [facility]acy: [facility] [facility], 173, cm, 08/09/20 13:55:00 EST, Height/Length Dosing, 129.9, kg, 08/09/20 13:55:00 EST, Weight Dosing I have reviewed the previous health record information and history for this patient from Dr. Gonzalez Follow-up With When Contact Information Carlos Elizalde MD, King Stark In 3 months [facility] [address], [place] [id number]- Additional Instructions: PVR Patient Education Benign Prostatic Hyperplasia I, Puja Garvin, personally scribed for Dr. Gonzalez on 08/09/2020 14:47:58. . Documentation recorded by the scribe, Puja Garvin, accurately reflects the services(s) I performed and decisions made by me. Authenticated by Dr. Gonzalez on 08/09/2020 14:50:49. Problem List/Past Medical History Ongoing Arthritis BPH with urinary obstruction Chronic obstructive pulmonary disease Depression Diabetes type 2, controlled Dysuria Edema of scrotum Enuresis Frequency of urination Hyperlipidemia Hypertension Incomplete bladder emptying Membranous urethral stricture Mixed incontinence Nocturia PTSD (post-traumatic stress disorder) Right flank pain Urge incontinence Urgency incontinence Urgency of urination Historical No qualifying data Procedure/Surgical History Cystourethroscopy with dilation of urethral stricture (01/18/2020), History of surgical procedure on cervical spine. Medications alprazolam 1 mg Tab, 1 mg= 1 tab(s), Oral, TID, PRN amLODIPine 10 mg Tab, 10 mg= 1 tab(s), Oral, Daily hydrochlorothiazide, 25 mg, Oral, Daily paroxetine 20 mg Tab, 20 mg= 1 tab(s), Oral, Daily polymyxin B ophthalmic traZODONE 100 mg Tab, 100 mg= 1 tab(s), Oral, Daily Allergies No Known Allergies Social History Alcohol - Low Risk, 12/08/2019 Substance Abuse - Denies Substance Abuse, 01/18/2020 Tobacco - High Risk, 01/18/2020 10 or more cigarettes (1/2 pack or more)/day in last 30 days Tobacco Use:. Cigarettes, Yes, 08/09/2020 Family History Arthritis: Father. Diabetes mellitus: Mother. Hypertension: Mother. Primary malignant neoplasm of bone: Sister. Lab Results Ambulatory Point of Care Results Bilirubin Urine Dipstick: Negative (08/09/20 13:46:00) Blood Urine Dipstick: Negative (08/09/20 13:46:00) Glucose Urine Dipstick: Negative (08/09/20 13:46:00) Ketones Urine Dipstick: Negative (08/09/20 13:46:00) Leukocytes Urine Dipstick: Negative (08/09/20 13:46:00) Nitrite Urine Dipstick: Negative (08/09/20 13:46:00) Protein Urine Dipstick: Negative (08/09/20 13:46:00) Specific [place] Urine Dipstick: 1.025 (08/09/20 13:46:00) Urine Appearance Urine Dipstick: Clear (08/09/20 13:46:00) Urine Color Urine Dipstick: Yellow (08/09/20 13:46:00) Urobilinogen Urine Dipstick: 2 EU/dl (08/09/20 13:46:00) pH Urine Dipstick: 7 (08/09/20 13:46:00) Diagnostic Results Urinalysis was reviewed and shows no evidence of infection. PVR today was 82 cc. [facility] Comment on above: Result Comment: Elec tronically Signed By: Carlos Elizalde MD, King Stark\.br\Date and Time Signed: 08/09/20 14:51 EST\.br\Electronically Co-Signed By: Puja Garvin MA\.br\Date and Time Co-Signed: 08/09/20 14:48 EST Pre-Certification Formon Pre-Certification Form [id number]:127 [facility] Ambulatory Clinical Summaryo n 06-28-2020 Ambulatory Clinical Summary {[id number]}CD: [id number] [facility] Patient Educationon 06-28-20 20 Patient Education Family Medicine Abdominal Pain Abdominal pain can be caused by many things. Your caregiver decides the seriousness of your pain by an examination and possibly blood tests and X-rays. Many cases can be observed and treated at home. Most abdominal pain is not caused by a disease and will probably improve without treatment. However, in many cases, more time must pass before a clear cause of the pain can be found. Before that point, it may not be known if you need more testing, or if hospitalization or surgery is needed. HOME CARE INSTRUCTIONS ? Do not take laxatives unless directed by your caregiver. ? Take pain medicine only as directed by your caregiver. ? Only take [id number] or prescription medicines for pain, discomfort, or fever as directed by your caregiver. ? Try a clear liquid diet (broth, tea, or water) for as long as directed by your caregiver. Slowly move to a bland diet as tolerated. SEEK IMMEDIATE MEDICAL CARE IF: ? The pain does not go away. ? You have a fever. ? You keep throwing up (vomiting ). ? The pain is felt only in portions of the abdomen. Pain in the right side could possibly be appendicitis. In an adult, pain in the left lower portion of the abdomen could be colitis or diverticulitis. ? You pass bloody or black tarry stools. MAKE SURE YOU: ? Understand these instructions. ? Will watch your condition. ? Will get help right away if you are not doing well or get worse. Document Released: 03/27/2006 Document Revised: 09/08/2012 Document Reviewed: 02/02/2009 ExitCare? Patient Information ?2013 [employer] [facility] Urology Office/Clinic Noteon 06-28-2020 Urology Office/Clinic Note Chief Complaint Pt is here one month w PVR This patient is a 60-year-old gentleman with a history of bladder outlet obstruction symptoms and urinary retention. Is been taking tamsulosin 0.4 mg daily. He is here today for follow-up visit. HPI Staff Pt is here for one month PVR. PVR was done 06/28/2020 and showed 518ml.Previous dx BPH, Mixed incontinence, Nocturia, Incomplete bladder emptying, Post traumatic membranous urethral stricture, and Edema of scrotum. Pain with urination:Pt states no pain but burning off and on Blood in urine:Pt denies Incomplete bladder emptying:Pt states not all the time Frequency:Pt states that he drinks a lot of water and coffee Urgency:No Nocturia:Pt states 4 to 5 times, pt states that last night he urinated on his self 5 to 6 times and had burning last night and this morning. Hesitancy:Pt denies Urination requires straining:Pt denies Stream:Pt states strong to average stream Stream starts and stops:Pt denies Post-void dribbling:pt states most of the time Leaking before getting to the restroom:Pt states it depends on how much pressure he gets Urinary incontinence without sensory awareness:Pt states most of the time Temporarily unable to restrain urination with body movement:Pt denies Wearing pad/Depends:Pt states sometimes he does and sometimes he does not Urine odor:Pt denies Flank/Back pain:Pt states lower Rt flank pain Abdominal pain:Pt denies History of Present Illness reviewed UA. Reviewed last encounter. There have been no associated fever, chills, flank pain or blood in the urine. Pt is not having any burning. Review of Systems ROS - Provider Constitutional: denies weight loss, denies hot flashes. Eyes: denies eye problems. Gastrointestinal: denies nausea, denies vomiting. Cardiovascular: denies chest pain or angina. Integumentary: no dryness Musculoskeletal: denies musculoskeletal symptoms. ENMT: denies otolaryngeal symptoms. Respiratory: no shortness of breath. Heme/Lymph: denies easy bleeding tendency, denies easy bruising tendency. Psychiatric: no confusion, no anxiety. Genitourinary: denies dysuria, denies hematuria, denies discharge, denies urinary frequency, denies urinary hesitancy, denies nocturia, denies incontinence, denies genital sores, denies decreased libido, and denies erectile dysfunction. Physical Exam Vitals & Measurements HR: 84(Peripheral) RR: 16 BP: 137/70 HT: 173.0 cm HT: 173 cm WT: 124.6 kg WT: 124.6 kg BMI: 41.63 General Appearance: alert, no distress, well nourished, well developed male. Genitourinary: normal scrotum, normal testes, normal urethra, normal epididymis, normal vas deferens/spermatic cord. Flank Pain: none. Bladder: nonpalpable. Assessment/Plan Patient continues to have urinary retention. I met him in the increased tamsulosin to 0.4 mg twice a day. We will schedule a CT scan because of complaint of some right-sided flank pain that seems to be fairly severe. He has discontinued oxybutynin and we will plan to see him back in the office in 2 weeks with a PVR. We did discuss the possibility of needing to repeat the cystoscopic examination and we will plan transurethral resection of prostate. 1. Urgency of urination (R39.15: Urgency of urination) mild/moderate Ordered: Urnls Dip Stick Auto w/o Microscopy POC 70248 2. Incomplete bladder emptying (R33.9: Retention of urine, unspecified) PVR today shows 518ml, pt has stopped the Oxybutynin. Ordered: CT Abdomen w/ Contrast Measure Post Void residual urine and/or bladder capacity by US- non-imaging 06681 3. BPH with urinary obstruction (N40.1: Benign prostatic hyperplasia with lower urinary tract symptoms) pt is taking Tamsulosin 0.4mg qd therapy. Will increase Tamsulosin to BID. UA is clear of any infections. Pt is to call the office if he needs any refills or any changes in symptoms. Pt will return in a couple weeks to go over CT and have a PVR to ensure he is emptying with the increase of tamsulosin. If he does not empty will then move forward with a procedure. Ordered: CT Abdomen w/ Contrast 4. Membranous urethral stricture (N35.012: Post-traumatic membranous urethral stricture) Cysto/UD done 01/18/2020. 5. Nocturia (R35.1: Nocturia) moderate sx. 4-5x 6. Right flank pain (R10.9: Unspecified abdominal pain) Will have a CT with contrast due to right flank pain. UA is clear of any blood at this time. Ordered: CT Abdomen w/ Contrast 7. Urge incontinence (N39.41: Urge incontinence) Pt states that recently he has had issues with urge incontinence at night. I have reviewed the previous health record information and history for this patient from Dr. Davis Follow-up With When Contact Information Carlos Elizalde MD, King Stark In 2 weeks [facility] [address] [place] [address]- Additional Instructions: Patient Education Abdominal Pain I, Puja Garvin, personally scribed for Dr. Gonzalez on 06/28/2020 12:08:37. . Documentation recorded by the scribe, Puja Garvin, accurately reflects the services(s) I performed and decisions made by me. Authenticated by Dr. Gonzalez on 06/28/2020 13:25:05. Problem List/Past Medical History Ongoing Arthritis BPH with urinary obstruction Chronic obstructive pulmonary disease Depression Diabetes type 2, controlled Dysuria Edema of scrotum Enuresis Frequency of urination Hyperlipidemia Hypertension Incomplete bladder emptying Membranous urethral stricture Mixed incontinence Nocturia PTSD (post-traumatic stress disorder) Right flank pain Urge incontinence Urgency incontinence Urgency of urination Historical No qualifying data Procedure/Surgical History Cystourethroscopy with dilation of urethral stricture (01/18/2020), History of surgical procedure on cervical spine. Medications alprazolam 1 mg Tab, 1 mg= 1 tab(s), Oral, TID, PRN amLODIPine 10 mg Tab, 10 mg= 1 tab(s), Oral, Daily Cipro 500 mg Tab, 500 mg= 1 tab(s), Oral, q12hr, Not taking Flomax 0.4 mg Cap, 0.4 mg= 1 cap(s), Oral, Daily, 1 refills hydrochlorothiazide, 25 mg, Oral, Daily oxybutynin 10 mg ER Tab, 10 mg= 1 tab(s), Oral, Daily, Not taking paroxetine 20 mg Tab, 20 mg= 1 tab(s), Oral, Daily polymyxin B ophthalmic traZODONE 100 mg Tab, 100 mg= 1 tab(s), Oral, Daily Allergies No Known Allergies Social History Alcohol - Low Risk, 12/08/2019 Substance Abuse - Denies Substance Abuse, 01/18/2020 Tobacco - High Risk, 01/18/2020 10 or more cigarettes (1/2 pack or more)/day in last 30 days Tobacco Use:. Cigarettes, Yes, 06/28/2020 Family History Arthritis: Father. Diabetes mellitus: Mother. Hypertension: Mother. Primary malignant neoplasm of bone: Sister. Lab Results Ambulatory Point of Care Results Bilirubin Urine Dipstick: Negative (06/28/20 11:26:00) Blood Urine Dipstick: Negative (06/28/20 11::00) Glucose Urine Dipstick: Negative (06/28/20 11::00) Ketones Urine Dipstick: Negative (06/28/20::00) Leukocytes Urine Dipstick: Trace (06/28/20 11::00) Nitrite Urine Dipstick: Negative (06/28/20 11::00) Protein Urine Dipstick: Negative (06/28/20 11::00) Specific [place] Urine Dipstick: 1.010 (06/28/20 11::00) Urine Appearance Urine Dipstick: Clear (06/28/20::00) Urine Color Urine Dipstick: Light yellow (06/28/20::00) Urobilinogen Urine Dipstick: Normal 0.2-1 EU/dl (06/28/20 11::00) pH Urine Dipstick: 7 (06/28/20 11::00) Diagnostic Results PVR today is over 500 cc. Urinalysis is negative for infection. [facility] Comment on above: Result Comment: Elec tronically Signed By: Carlos Elizalde MD, King Stark\.br\Date and Time Signed: 06/28/20 13:25 EST\.br\Electronically Co-Signed By: Puja Garvin MA\.br\Date and Time Co-Signed: 06/28/20 12:09 EST Ambulatory Clinical Summaryo n 05-24-2020 Ambulatory Clinical Summary {[id number]}CD: [id number] [facility] Patient Educationon 05-24-20 Patient Education Family Medicine Benign Prostatic Hypertrophy The prostate gland is part of the reproductive system of men. A normal prostate is about the size and shape of a walnut. The prostate gland makes a fluid that is mixed with sperm to make semen. This gland surrounds the urethra and is located in front of the rectum and just below the bladder. The bladder is where urine is stored. The urethra is the tube through which urine passes from the bladder to get out of the body. The prostate grows as a man ages. An enlarged prostate not caused by cancer is called benign prostatic hypertrophy (BPH). This is a common health problem in men over age 50. This condition is a normal part of aging. An enlarged prostate presses on the urethra. This makes it harder to pass urine. In the early stages of enlargement, the bladder can get by with a narrowed urethra by forcing the urine through. If the problem gets worse, medical or surgical treatment may be required. This condition should be followed by your caregiver. Longstanding back pressure on the kidneys can cause infection. Back pressure and infection can progress to bladder damage and kidney (renal ) failure. If needed, your caregiver may refer you to a specialist in kidney and prostate disease (urologist ). CAUSES The exact cause is not known. SYMPTOMS ? You are not able to completely empty your bladder. ? Getting up often during the night to urinate. ? Need to urinate frequently during the day. ? Difficultly in starting urine flow. ? Decrease in size and strength of the urine stream. ? Dribbling after urination. ? Pain on urination (more common with infection). ? Inability to pass your water. This needs immediate treatment. DIAGNOSIS These tests will help your caregiver understand your problem: ? Digital rectal exam (LUIZA). In a rectal exam, your caregiver checks your prostate by putting a gloved, lubricated finger into the rectum to feel the back of your prostate gland. This exam detects the size of the gland and abnormal lumps or growths. ? Urinalysis (exam of the urine). This may include a culture if there is concern about infection. ? Prostate Specific Antigen (PSA). This is a blood test used to screen for prostate cancer. It is not used alone for diagnosing prostate cancer. ? Rectal ultrasound (sonogram). This test uses sound waves to electronically produce a picture of the prostate. It helps examine the prostate gland for cancer. TREATMENT Mild symptoms may not need treatment. Simple observation and yearly exams may be all that is required. Medications and surgery are options for more severe problems. Your caregiver can help you make an informed decision for what is best. Two classes of medications are available for relief of prostate symptoms: ? Medications that shrink the prostate. This helps relieve symptoms. ? Uncommon side effects include problems with sexual function. ? Medications to relax the muscle of the prostate. This also relieves the obstruction. ? Side effects can include dizziness, fatigue, lightheadedness, and retrograde ejaculation (diminished volume of ejaculate). Several types of surgical treatments are available for relief of prostate symptoms: ? Transurethral resection of the prostate (TURP). In this treatment, an instrument is inserted through opening at the tip of the penis. It is used to cut away pieces of the inner core of the prostate. The pieces are removed through the same opening of the penis. This removes the obstruction and helps get rid of the symptoms. ? Transurethral incision (TUIP). In this procedure, small cuts are made in the prostate. This lessens the prostates pressure on the urethra. ? Transurethral microwave thermotherapy (TUMT). This procedure uses microwaves to create heat. The heat destroys and removes a small amount of prostate tissue. ? Transurethral needle ablation (TUNA). This is a procedure that uses radio frequencies to do the same as TUMT. ? Interstitial laser coagulation (ILC). This is a procedure that uses a laser to do the same as TUMT and TUNA. ? Transurethral electrovaporization (TUVP). This is a procedure that uses electrodes to do the same as the procedures listed above. Regardless of the method of treatment chosen, you and your caregiver will discuss the options. With this knowledge, you along with your caregiver can decide upon the best treatment for you. SEEK MEDICAL CARE IF: ? You develop chills, fever of 100.5? F (38.1? C), or night sweats. ? There is unexplained back pain. ? Symptoms are not helped by medications prescribed. ? You develop medication side effects. ? Your urine becomes very dark or has a bad smell. SEEK IMMEDIATE MEDICAL CARE IF: ? You are suddenly unable to urinate. This is an emergency. You should be seen immediately. ? There are large amounts of blood or clots in the urine. ? Your urinary problems become unmanageable. ? You develop lightheadedness, severe dizziness, or you feel faint. ? You develop moderate to severe low back or flank pain. ? You develop chills or fever. Document Released: 06/17/2006 Document Revised: 09/08/2012 Document Reviewed: 03/08/2008 ExitCare? Patient Information ?2013 Gift Card Combo. [facility] Urology Office/Clinic Noteon 05-24-2020 Urology Office/Clinic Note Chief Complaint Pt. here due to swollen testicles. This patient is a 60-year-old gentleman with a history of prostatic hyperplasia with bladder outlet obstruction symptoms he also has a history of scrotal swelling which has resolved since his initial complaint. He is here today for urologic evaluation. [facility] Staff Pt. here due to having swollen testicles. Pervious DX: BPH w/LUTS, post traumatic membranous urethral stricture, frequency, dysuria, urgency and urge incontinence. S/P Cysto/UD done 01/18/2020. Pt. was not able to give urine sample today. PVR 300ml. Pain with urination:Mild Pt. states when his testicles were swollen had some pain. Pt. states still have occasional burning. Blood in urine:No Incomplete bladder emptying:Moderate Frequency:Severe Urgency:Severe pt. states when testicles were swollen he was having severe urgency Nocturia:Mild 2x's Pt. states occasionally will wake up 4-5x's. Hesitancy:No Urination requires straining:Moderate Stream:Mild pt. states occasionally will have a weak stream. Stream starts and stops:No Post-void dribbling:Moderate Leaking before getting to the restroom:Severe Pt. states when his testicles were swollen. Urinary incontinence without sensory awareness:Moderate pt. states at night. Temporarily unable to restrain urination with body movement:_ Wearing pad/Depends:Yes Urine odor:No Flank/Back pain:No Abdominal pain:Mild Pt. states having some pressure. Male genital symptoms testicular:Moderate pt. states not at this time. Pt. states for about two week both testicles were swollen. pt. states the testicles were very hard. Pt. states its been about a week since the swelling went done. History of Present Illness Reviewed last encounter. There have been no associated fever, chills, flank pain or blood in the urine. Pt. denies any pain/burning with urination at this time. Review of Systems ROS - Provider Constitutional: denies weight loss, denies hot flashes. Eyes: denies eye problems. Gastrointestinal: denies nausea, denies vomiting. Cardiovascular: denies chest pain or angina. Integumentary: no dryness Musculoskeletal: denies musculoskeletal symptoms. ENMT: denies otolaryngeal symptoms. Respiratory: no shortness of breath. Heme/Lymph: denies easy bleeding tendency, denies easy bruising tendency. Psychiatric: no confusion, no anxiety. Genitourinary: denies dysuria, denies hematuria, denies discharge, denies urinary frequency, denies urinary hesitancy, denies nocturia, denies incontinence, denies genital sores, denies decreased libido, and denies erectile dysfunction. Physical Exam Vitals & Measurements HT: 173 cm HT: 173.0 cm WT: 115 kg WT: 115.0 kg BMI: 38.42 General Appearance: alert, no distress, well nourished, well developed male. Genitourinary: normal scrotum, normal testes, normal urethra, normal epididymis, normal vas deferens/spermatic cord. From today's exam, pt. has a lot of fluid around his scrotum. Flank Pain: none. Bladder: nonpalpable. Assessment/Plan Most of this patient symptoms are related to outlet obstruction symptoms. He had a urethral dilation in December 2019 and therefore has little chance of having an outlet obstruction caused by stricture. I will start him on tamsulosin 0.4 mg a day for what I suspect is prostatic hyperplasia. We will plan to see him back in the office in 1 month with PVR determination and to determine how well he is managed using this new medication. Oxybutynin which is taking 10 mg daily is probably limiting his ability to completely empty. We will ask him to consider stopping that medication after the first 2 weeks of using tamsulosin. We will see him back in the office in 1 month with PVR. 1. BPH with urinary obstruction (N40.1: Benign prostatic hyperplasia with lower urinary tract symptoms) Pt. is not on any BPH meds. at this time. Last PSA drawn on 12/14/2019 w/ a level of 0.6 and 23.3% F&T. Will start pt. on Flomax 0.4mg qhs. Discussed the medication side effects, and the patient will monitor closely for these, as well as for symptom improvement. If severe side effects occur, the medication should be stopped and the office notified. Script sent to [facility]. All questions/concerns were discussed. Pt. to call the office if heencounters any issues prior. Pt. acknowledges understanding. F/u in 1mos. w/ PVR. 2. Mixed incontinence (N39.46: Mixed incontinence) Moderate urge and stress incontinence. Pt. states that he does have to wear pads/depends for protection. Pt. is taking Oxybutynin 10mg ER qd. Pt. to continue med. as directed and to call when refills are needed. 3. Nocturia (R35.1: Nocturia) 2-3x/night. 4. Incomplete bladder emptying (R33.9: Retention of urine, unspecified) Pt. states that he never feels that he is completely emptying. Pt. was unable to give a UA today. Bladder residual today - 300ml. 5. 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 Ordered: Measure Post Void residule urine and/or bladder capacity by US- non-imaging [id number] 6. Edema of scrotum (N50.89: Other specified disorders of the male genital organs) Pt. states that he has had swollen testicles for the past two week. Pt. denies any bothersome symptoms at this time. Pt. From today's exam, pt. has a lot of fluid around his scrotum. I informed pt. that it is likely due to his water pill and to continue monitor. Pt. acknowledges understanding. Orders: tamsulosin, 0.4 mg = 1 cap(s), Oral, Daily, # 30 cap(s), Refills(s) 1, Pharmacy: [address], 173, cm, 05/24/20 8:18:00 EST, Height/Length Dosing, 115, kg, 05/24/20 8:18:00 EST, Weight Dosing I have reviewed the previous health record information and history for this pt. from Dr. Gonzalez. Follow-up With When Contact Information Carlos Elizalde MD, King Stark [address] [place] [address]- Additional Instructions: 1mos. w/ PVR Patient Education Benign Prostatic Hypertrophy Haritha Andrews , personally scribed for Dr. Gonzalez on 05/24/2020 08:56:40. . Documentation recorded by the scribe, Haritha Jean, accurately reflects the services(s) I performed and decisions made by me. Authenticated by Dr. Gonzalez on 05/24/2020 10:32:17. Problem List/Past Medical History Ongoing Arthritis BPH with urinary obstruction Chronic obstructive pulmonary disease Depression Diabetes type 2, controlled Dysuria Edema of scrotum Enuresis Frequency of urination Hyperlipidemia Hypertension Incomplete bladder emptying Membranous urethral stricture Mixed incontinence Nocturia PTSD (post-traumatic stress disorder) Urgency incontinence Urgency of urination Historical No qualifying data Procedure/Surgical History Cystourethroscopy with dilation of urethral stricture (01/18/2020), History of surgical procedure on cervical spine. Medications alprazolam 1 mg Tab, 1 mg= 1 tab(s), Oral, TID, PRN amLODIPine 10 mg Tab, 10 mg= 1 tab(s), Oral, Daily Cipro 500 mg Tab, 500 mg= 1 tab(s), Oral, q12hr hydrochlorothiazide, 25 mg, Oral, Daily oxybutynin 10 mg ER Tab, 10 mg= 1 tab(s), Oral, Daily paroxetine 20 mg Tab, 20 mg= 1 tab(s), Oral, Daily polymyxin B ophthalmic traZODONE 100 mg Tab, 100 mg= 1 tab(s), Oral, Daily Allergies No Known Allergies Social History Alcohol - Low Risk, 12/08/2019 Substance Abuse - Denies Substance Abuse, 01/18/2020 Tobacco - High Risk, 01/18/2020 10 or more cigarettes (1/2 pack or more)/day in last 30 days Tobacco Use:. Cigarettes, Yes, 05/24/2020 Family History Arthritis: Father. Diabetes mellitus: Mother. Hypertension: Mother. Primary malignant neoplasm of bone: Sister. Lab Results Test Name Test Result Date/Time PSA, External 0.6 ng/mL 12/14/2019 15:10 EDT Diagnostic Results PSA 0.6 ng/mL. This is within reasonable range for this patient. Normal [facility] Comment on above: Result Comment: Elec tronically Signed By: Carlos Elizalde MD, King Stark\.br\Date and Time Signed: 05/24/20 10:32 EST\.br\Electronically Co-Signed By: Haritha Jean MA\.br\Date and Time Co-Signed: 05/24/20 08:57 EST Provider Letteron 02-23-2020 Provider Letter (Inserted Image. Mary ble to display) February 23, 2020 DIMITRY BENJAMIN [address] [place] [address] DIMITRY BENJAMIN 1960 Dear Dimitry Benjamin, This letter is to inform you that you have missed at least two appointments in our office within a twelve-month period which you did not cancel. According to our records those missed appointments were on: 02/09/2020 + 02/23/2020. We make every effort to accommodate patients as quickly as possible. If we know you are not able to make an appointment, we can schedule another patient who needs to see one of our providers. As our previous letter stated, there is a $30.00 charge for a second missed *no show* appointment. This is in accordance with our office policy. If you are unable to keep future appointments, please let us know 24 hours in advance. Sincerely, [facility] Provider Letteron 02-09-2020 Provider Letter (Inserted Image. Mary ble to display) February 09, 2020 DIMITRY BENJAMIN [address] [place] [address] DIMITRY BENJAMIN 1960 Dear Dimitry Benjamin, You missed your scheduled appointment on: 02-09-2020 and the purpose of this letter is to inform you of our *No Show Policy*. Our appointment slots fill rapidly and when we have a no show appointment that time is lost. We could have used that time slot to care for a patient who needed to see one of our providers. Therefore, we ask that you call 24 hours in advance to cancel your appointment. After your second no show within a twelve (12) month period, you will be assessed a $30 charge. This policy is in place so that we can meet the needs of all of our patients and we do appreciate your understanding. Sincerely, [facility] [address] [place] [address] [facility] Urology Office/Clinic Noteon 02-01-2020 Urology Office/Clinic Note Chief Complaint cysto/ud HPI Staff cysto/ud. scope #3 used. abx started. History of Present Illness Pt is here for Cysto/UD. Physical Exam Vitals & Measurements HR: 84(Peripheral) RR: 16 BP: 135/63 HT: 173 cm WT: 115 kg BMI: 38.42 Procedure Operative Information Anesthesia Type: Local Procedure: Local Cystoscopy with Urethral Dilation Complications: None Surgical risks, benefits, details of the procedure have been explained to the patient. Full informed consent has been obtained. Intraoperative Information Prepped: Patient is brought back to the endoscopy suite. Patient is placed in supine position. Patient prepped in the usual fashion with Betadine solution. 2% Xylocaine Jelly is placed per Urethra. After waiting several minutes, the Cystoscope is introduced. The Urethra is: Tight The Prostatic Urethra is: _ The Bladder: _, Trabeculated: _ The Ureteral orifices: Show efflux of clear urine The Urethra was dilated to: 24 Cymraes with sounds. Removal: Cystoscope is removed. The patient tolerated it well. Postoperative Information Patient is discharged home with antibiotic coverage. Follow up arranged. Assessment/Plan Will return for follow up in 1 month w/PVR. 1. BPH with urinary obstruction (N40.1: Benign prostatic hyperplasia with lower urinary tract symptoms) Pt's PSA is 0.6 and 23.3%. Pt's Renal US is normal. 2. 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 3. Frequency of urination (R35.0: Frequency of micturition) 4. Dysuria (R30.0: Dysuria) 5. Urgency of urination (R39.15: Urgency of urination) 6. Urgency incontinence (N39.41: Urge incontinence) Follow-up With When Contact Information Carlos Elizalde MD, King Stark In 1 month [phone] Additional Instructions: w/PVR Patient Education Urinary Frequency Dysuria Benign Prostatic Hypertrophy Gricel Andrews, personally scribed for Dr. Gonzalez on 01/18/2020 14:37:11. . Problem List/Past Medical History Ongoing Arthritis BPH with urinary obstruction Chronic obstructive pulmonary disease Depression Diabetes type 2, controlled Dysuria Enuresis Frequency of urination Hyperlipidemia Hypertension Membranous urethral stricture PTSD (post-traumatic stress disorder) Urgency incontinence Urgency of urination Historical No qualifying data Procedure/Surgical History Cystourethroscopy with dilation of urethral stricture (01/18/2020), History of surgical procedure on cervical spine. Medications alprazolam 1 mg Tab, 1 mg= 1 tab(s), Oral, TID, PRN amLODIPine 10 mg Tab, 10 mg= 1 tab(s), Oral, Daily Cipro 500 mg Tab, 500 mg= 1 tab(s), Oral, q12hr hydrochlorothiazide, 25 mg, Oral, Daily oxybutynin 10 mg ER Tab, 10 mg= 1 tab(s), Oral, Daily paroxetine 20 mg Tab, 20 mg= 1 tab(s), Oral, Daily polymyxin B ophthalmic traZODONE 100 mg Tab, 100 mg= 1 tab(s), Oral, Daily Allergies No Known Allergies Social History Alcohol - Low Risk, 12/08/2019 Substance Abuse - Denies Substance Abuse, 01/18/2020 Tobacco - High Risk, 01/18/2020 10 or more cigarettes (1/2 pack or more)/day in last 30 days Tobacco Use:. Cigarettes, Yes, 12/08/2019 Family History Arthritis: Father. Diabetes mellitus: Mother. Hypertension: Mother. Primary malignant neoplasm of bone: Sister. [facility] Comment on above: Result Comment: Elec tronically Signed By: Carlos Elizalde MD, King Stark\.br\Date and Time Signed: 02/01/20 08:59 EDT\.br\Electronically Co-Signed By: Gricel Pizarro\.br\Date and Time Co-Signed: 01/18/20 14:37 EDT Consent for Procedure/Surger yon 01-20-2020 Consent for Procedure/Surgery [id number]:127 [facility] Ambulatory Clinical Summaryo n 01-18-2020 Ambulatory Clinical Summary {[id number]}CD: [id number] [facility] Ambulatory Clinical Summary {[id number]}CD: [id number] [facility] Ambulatory Clinical Summary {[id number]}CD: [id number] Normal [facility] Lab Reportson 12-22-2019 Lab Reports [id number]:127 Normal [facility] RAD - Ultrasound Reporton RAD - Ultrasound Report [id number]:127 Normal [facility] Ambulatory Clinical Summaryo n 12-08-2019 Ambulatory Clinical Summary {[id number]}CD: [id number] Normal [facility] Reminderson 12-08-2019 Reminders - From: Roselia Camacho To: [facility] - Clinical; Sent: 12/08/2019 16:01:29 EDT Show up: 12/15/2019 16:01:00 EDT Subject: Ambulatory Reminder Reminder/Recall 12/14/19 Renal US and PSA @ [facility]. Patient has cysto scheduled 12/27 to review results! Normal [facility] MRI CERVICAL SPINE WO CONTRA STon 02-09-2019 MRI CERVICAL SPINE WO CONTRAST MRI of the cervical spine without contrast. History: Neck pain radiating into left arm. Technique: Multiplanar multisequence MRI of the cervical spine was performed without contrast. Comparison: Cervical spine radiographs from August 11, 2018 Findings: No aggressive bone marrow signal abnormality. Cervical spine vertebral body heights are preserved. Slight reversal of the cervical lordosis centered at C4-C5. Disc desiccation throughout the cervical spine. Mild intervertebral disc height loss throughout the cervical spine. Multilevel degenerative endplate changes with spurring most significant at C3-4 through C6-7. C2-C3: No significant disc bulge. Moderate right and mild left facet arthropathy. Mild right and moderate left neuroforaminal stenosis. No spinal canal stenosis. C3-C4: Small disc bulge. Mild bilateral facet arthropathy. Moderate bilateral uncovertebral hypertrophy. Moderate to severe left and severe right neuroforaminal stenosis. Mild spinal canal stenosis. C4-C5: Reversal of the cervical lordosis, small disc bulge, mild bilateral uncovertebral hypertrophy, and mild facet arthropathy result in severe bilateral neuroforaminal stenosis and severe spinal canal stenosis. Amorphous low-level hyperintense signal within the spinal cord at this level measuring up to 15 mm in craniocaudal dimension compatible with cord edema versus myelomalacia. C5-C6: Small disc bulge. Advanced left and moderate right uncovertebral hypertrophy. Mild facet arthropathy. Severe bilateral neuroforaminal stenosis. Moderate to severe spinal canal stenosis. C6-C7: Small disc bulge. Moderate bilateral uncovertebral hypertrophy. Mild facet arthropathy. Moderate to severe bilateral neuroforaminal stenosis. Severe spinal canal stenosis. C7-T1: Small disc bulge. Mild facet arthropathy. Mild bilateral uncovertebral hypertrophy. Mild right and moderate left neuroforaminal stenosis. Mild spinal canal stenosis. Visualized paravertebral soft tissues are grossly unremarkable. IMPRESSION: Multilevel degenerative changes of the cervical spine as detailed above resulting in severe spinal canal stenosis at C4-5 and C6-7, moderate to severe spinal canal stenosis at C5-6, and mild spinal canal stenosis at C3-4 and C7-T1. Amorphous low-level hyperintense signal within the spinal cord at the C4-C5 level compatible with cord edema or myelomalacia. High-grade neuroforaminal stenosis at multiple levels as detailed. Interpreted by: Gilberto Cordoba DO Signed by: Gilberto Cordoba DO 02/10/19 Final result Normal [facility] CT HEAD WO CONTRASTon 2018 CT HEAD WO CONTRAST CT Brain Contrast medium: Not utilized. History: Tremors in left hand and legs. Cerebellar stroke syndrome. Comparison: None Findings: Extra-axial spaces: Normal. Intracranial hemorrhage: None. Ventricular system: Ventricles mildly enlarged. Sulci mildly prominent. Basal Cisterns: Normal. Cerebral Parenchyma: Normal. Midline Shift: None. Cerebellum: No areas of abnormal increased or decreased attenuation. No mass effect. Paranasal sinuses and mastoid air cells: Normal. Visualized Orbits: Normal. IMPRESSION: Impression: No acute findings.. All CT scans at this facility use dose modulation, iterative reconstruction, and/or weight based dosing when appropriate to reduce radiation dose to as low as reasonably achievable. Interpreted by: Erik Mckeon MD Signed by: Erik Mckeon MD 10/09/18 Final result Normal [facility] PULMONARY FUNCTIONon [address] [place] [address] PULMONARY FUNCTION PATIENT NAME: DIMITRY BENJAMIN : 1960 MED REC NO: [id number] ROOM: ACCOUNT NO: [id number] ADMIT DATE: 09/02/2018 PROVIDER: Caio Craig MD DATE OF PROCEDURE: 09/02/2018 Spirometry was done on this 58-year-old patient who is 5 feet 9 inches, weighs 295 pounds with 44-year smoking history presenting with dyspnea and cough. Spirometry showed a forced vital capacity of 2.75 liters, which is 60% of predicted. FEV1 was 2.04 liters, which is 59% of predicted, FEV1/FVC ratio was 74% at baseline. FEF 25-75% was 1.52 liters per second, which is 53% of predicted. After bronchodilator therapy, forced vital capacity increased by 23%, which caused a significant reduction in FEV1/FVC ratio down to 61%. Otherwise, no significant reversibility noted in other parameters. OVERALL IMPRESSION: This study is consistent with moderate obstructive ventilatory impairment with mild reversibility after bronchodilators suggesting underlying COPD. Clinical correlation is needed. CAIO CRAIG MD ABDOULAYE/[email or web address] Doc#: [id number] CC: Normal [facility] XR CERVICAL SPINE (2-3 VIEWS )on 08-11-2018 XR CERVICAL SPINE (2-3 VIEWS) EXAMINATION: XR CERVICAL SPINE, 3 VIEWS: DATE AND TIME: 08/11/2018 at 8:34 AM. CLINICAL HISTORY: SEVERE POSTERIOR NECK PAIN. OTALGIA, UNSPECIFIED LATERALITY. COMPARISON: None. FINDINGS: Alignment is normal. There is advanced degenerative narrowing and spurring throughout the lower cervical spine beginning at C3-C4. No acute fracture. Dens atlas articulation within normal limits. Probable uncovertebral prominence bilaterally at C5-C6 and C6-C7. IMPRESSION: ADVANCED DEGENERATIVE CHANGES. NO ACUTE FRACTURE. Interpreted by: Lopez Paniagua MD Signed by: Lopez Paniagua MD 08/11/18 Final result Normal [facility] CBC With Platelet No Differe ntialon 07-17-2018 Erythrocyte distribution width Ratio (RBC) 13.4 % Normal 11.5-14.5 [facility] Hematocrit Volume Fraction (Bld) 48.9 % Normal 42.0-52.0 [facility] Hemoglobin mass conc (Bld) 16.8 g/dL Normal 14.0-18.0 [facility] MCH Entitic mass (RBC) 32.0 pg Critically high 27.0-31.3 [facility] MCHC mass conc (RBC) 34.4 % Normal 33.0-37.0 [facility] MCV Entitic volume (RBC) 93.1 fL Normal 80.0-100.0 [facility] Platelets #/vol (Bld) 170 10*3/uL Normal 130-400 [facility] RBC #/vol (Bld) 5.25 10*6/uL Normal 4.70-6.10 [facility] WBC #/vol (Bld) 8.0 10*3/uL Normal 4.8-10.8 [facility] Comprehensive Metabolic Pane [place] 07-17-2018 Albumin mass conc 4.1 g/dL Normal 3.9-4.9 [facility] ALP enzyme act/vol 80 U/L Normal 35-104 [facility] ALT enzyme act/vol 30 U/L Normal 0-41 [facility] Anion gap molar conc 10 mmol/L Normal 7-13 [facility] AST enzyme act/vol 20 U/L Normal 0-40 [facility] Bilirubin mass conc 0.6 mg/dL Normal 0.0-1.2 [facility] Calcium mass conc 8.6 mg/dL Normal 8.6-10.2 [facility] Chloride molar conc 98 mmol/L Normal 98-107 [facility] CO2 molar conc 32 mmol/L Critically high 22-29 [facility] Creatinine mass conc 0.80 mg/dL Normal 0.70-1.20 [facility] GFR/1.73 sq M predicted among blacks MDRD vol rate/area (S/P/Bld) mL/min/{1.73_m2} Normal >60 [facility] Comment on above: Result Comment: >60 mL/min/1.73m2 EGFR, calc. for ages 18 and older using the MDRD formula (not corrected for weight), is valid for stable renal function. GFR/1.73 sq M.predicted MDRD vol rate/area mL/min/{1.73_m2} Normal >60 [facility] Comment on above: Result Comment: >60 mL/min/1.73m2 EGFR, calc. for ages 18 and older using the MDRD formula (not corrected for weight), is valid for stable renal function. Globulin mass conc (S) 2.8 g/dL Normal 2.3-3.5 [place] Glucose mass conc 146 mg/dL Critically high 74-109 [facility] Potassium molar conc 4.2 mmol/L Normal 3.5-5.1 [place] Protein mass conc 6.9 g/dL Normal 6.4-8.1 [place] Sodium molar conc 140 mmol/L Normal 132-144 [place] Urea nitrogen mass conc 10 mg/dL Normal 8-23 [place] Creatine Kinaseon 07-17-2018 CK enzyme act/vol 266 U/L Critically high 0-190 [facility] Culture, Urineon 07-17-2018 Culture, Urine OR DERED BY: MCKENNA AMARO SOURCE: Urine Voided COLLECTED: 07/17/18 08:24 ANTIBIOTICS AT JACQUIE.: RECEIVED : 07/17/18 10:16 Culture, Urine FINAL 07/19/18 10:34 No growth 24 hours Normal [place] Hemoglobin A1con 07-17-2018 Hemoglobin A1c/Hemoglobin.tota l mass fraction (Bld) 6.9 % Critically high 4.8-5.9 [place] Lipid Panelon 07-17-2018 Cholesterol in HDL mass conc 29 mg/dL Low 40-59 [place] Comment on above: Result Comment: ATP III HDL Cholestrol Classification is low. Expected Values: Males: >55 = No Risk 35-55 = Moderate Risk <35 = High Risk Females: >65 = No Risk 45-65 = Moderate Risk <45 = High Risk NCEP Guidelines: Third Report October 2000 >59 = negative risk factor for CHD <40 = major risk factor for CHD Cholesterol in LDL mass conc 123 mg/dL Normal 0-129 [place] Comment on above: Result Comment: ATP III LDL Classification is Near Optimal. Cholesterol mass conc 211 mg/dL Critically high 0-199 [place] Comment on above: Result Comment: ATP III Cholesterol Classification is Borderline High. Triglyceride mass conc 295 mg/dL Critically high 0-200 [place] Comment on above: Result Comment: ATP III Triglycerides Classification is High. TSH w/out Reflexon 9 Thyrotropin Qn 4.170 uIU/mL Normal 0.270-4.20 [place] Thyroxine Freeon 07-17-2018 Thyroxine Free 1.03 ng/dL Normal 0.93-1.70 [place] UR Drugs of Abuse Panelon Drug Screen Comment see below Normal [place] Comment on above: Result Comment: This method is a screening test to detect only these drug classes as part of a medical workup. Confirmatory testing by another method should be ordered if clinically indicated. UR Amphetamines Screen Negative Normal Negative < [place] UR Barbiturates Screen Negative Normal Negative < [place] UR Benzo Screen Negative Normal Negative < [place] UR Cannabinoids Screen Negative Normal Negative < [place] UR Cocaine Screen Negative Normal Negative < [place] UR Opiates Screen Negative Normal Negative < [place] UR PCP Screen Negative Normal Negative < [place] UR Microalbumin/Creatinine R atio Randomon 07-17-2018 Microalbumin/creati nine Ratio see below Normal 0.0-30.0 [place] Comment on above: Result Comment: - UR Microalbumin concentration is less than 1.2 mg/dL. - Unable to calculate Microalbumin/Creatinine Ratio without a Microalbumin concentration. UR Creatinine Random 144.8 mg/dL Normal Not Establ [place] UR Microalbumin Random <1.20 Normal [facility] [place] Urinalysis, reflex to micros copicon 07-17-2018 Bilirubin Ql (U) Negative Normal Negative [place] Clarity Nom (U) Clear Normal Clear [place] Color Nom (U) Yellow Normal Straw/[place] Glucose Ql (U) Negative Normal Negative [place] Hemoglobin Ql (U) Negative Normal Negative [place] Ketones Ql (U) Negative Normal Negative [place] Leukocyte esterase Test strip Ql (U) TRACE Abnormal Negative [place] Nitrite Ql (U) Negative Normal Negative [place] pH (U) 7.5 [pH] Normal 5.0-9.0 [place] Protein Ql (U) Negative Normal Negative [place] Specific gravity Relative Density (U) 1.015 Normal 1.005-1.03 [place] Urobilinogen Qn (U) 1.0 {Nunu'U}/dL Normal < 2.0 [place] Urine Microscopicon 07-17-19 19 Bacteria LM.HPF #/area (Urine sed) Negative Normal [place] RBC #/vol (U) 3-5 Abnormal 0-5 [place] Comment on above: Result Comment: Effe ctive 05/26/2018 Urinalysis microscopic performed using the automated methodology (AUWI analyzer). Urine Epithelial Cells Auto 0-2 Normal 0-5 [place] Comment on above: Result Comment: Effe ctive 05/26/2018 Urinalysis microscopic performed using the automated methodology (AUWI analyzer). Urine Hyaline Casts Auto 0-1 Normal 0-5 [place] Comment on above: Result Comment: Effe ctive 05/26/2018 Urinalysis microscopic performed using the automated methodology (AUWI analyzer). Urine WBC Auto 6-10 Abnormal 0-5 [place] Comment on above: Result Comment: Effe ctive 05/26/2018 Urinalysis microscopic performed using the automated methodology (AUWI analyzer). CBC With Platelet No Differe ntialon 03-18-2018 Erythrocyte distribution width Ratio (RBC) 14.7 % Critically high 11.5-14.5 [place] Hematocrit Volume Fraction (Bld) 48.0 % Normal 42.0-52.0 [place] Hemoglobin mass conc (Bld) 16.1 g/dL Normal 14.0-18.0 [place] MCH Entitic mass (RBC) 31.9 pg Critically high 27.0-31.3 [place] MCHC mass conc (RBC) 33.6 % Normal 33.0-37.0 [place] MCV Entitic volume (RBC) 94.9 fL Normal 80.0-100.0 [place] Platelets #/vol (Bld) 145 10*3/uL Normal 130-400 [place] RBC #/vol (Bld) 5.05 10*6/uL Normal 4.70-6.10 [place] WBC #/vol (Bld) 5.5 10*3/uL Normal 4.8-10.8 [place] CKMB with Indexon 03-18-2018 CK enzyme act/vol 397 U/L Critically high 0-[address] [facility] CK.MB mass conc 9.6 ng/mL Critically high 0.0-6.7 [facility] CK.MB mass conc 2.4 % Normal 0.0-3.5 [place] Comprehensive Metabolic Pane [place] 03-18-2018 Albumin mass conc 4.4 g/dL Normal 3.9-4.9 [place] ALP enzyme act/vol 69 U/L Normal 35-104 [place] ALT enzyme act/vol 33 U/L Normal 0-41 [place] Anion gap molar conc 9 mmol/L Normal 7-13 [place] AST enzyme act/vol 26 U/L Normal 0-40 [place] Bilirubin mass conc 0.5 mg/dL Normal 0.0-1.2 [place] Calcium mass conc 8.9 mg/dL Normal 8.6-10.2 [place] Chloride molar conc 98 mmol/L Normal 98-107 [place] CO2 molar conc 31 mmol/L Critically high 22-29 [place] Creatinine mass conc 0.79 mg/dL Normal 0.70-1.20 [place] GFR/1.73 sq M predicted among blacks MDRD vol rate/area (S/P/Bld) mL/min/{1.73_m2} Normal >60 [place] Comment on above: Result Comment: >60 mL/min/1.73m2 EGFR, calc. for ages 18 and older using the MDRD formula (not corrected for weight), is valid for stable renal function. GFR/1.73 sq M.predicted MDRD vol rate/area mL/min/{1.73_m2} Normal >60 [place] Comment on above: Result Comment: >60 mL/min/1.73m2 EGFR, calc. for ages 18 and older using the MDRD formula (not corrected for weight), is valid for stable renal function. Globulin mass conc (S) 2.4 g/dL Normal 2.3-3.5 [place] Glucose mass conc 110 mg/dL Critically high 74-[address] [facility] Potassium molar conc 5.2 mmol/L Critically high 3.5-5.1 [place] Protein mass conc 6.8 g/dL Normal 6.4-8.1 [place] Sodium molar conc 138 mmol/L Normal 132-144 [place] Urea nitrogen mass conc 10 mg/dL Normal 8-23 [place] Hemoglobin A1con 03-18-2018 Hemoglobin A1c/Hemoglobin.tota l mass fraction (Bld) 6.7 % Critically high 4.8-5.9 [place] Hepatitis C Antibodyon 03-18 Hepatitis C Antibody Interp Non-reactive Normal [place] Lipid Panelon 03-18-2018 Cholesterol in HDL mass conc 25 mg/dL Low 40-59 [place] Comment on above: Result Comment: ATP III HDL Cholestrol Classification is low. Expected Values: Males: >55 = No Risk 35-55 = Moderate Risk <35 = High Risk Females: >65 = No Risk 45-65 = Moderate Risk <45 = High Risk NCEP Guidelines: Third Report October 2000 >59 = negative risk factor for CHD <40 = major risk factor for CHD Cholesterol in LDL mass conc 119 mg/dL Normal 0-129 [place] Comment on above: Result Comment: ATP III LDL Classification is Near Optimal. Cholesterol mass conc 172 mg/dL Normal 0-199 [place] Comment on above: Result Comment: ATP III Cholesterol classification is Desirable. Triglyceride mass conc 140 mg/dL Normal 0-200 [place] Comment on above: Result Comment: ATP III Triglycerides Classification is Normal. PSA Total with Free PSAon GFR/1.73 sq M predicted among non-blacks MDRD vol rate/area (S/P/Bld) 0.1 ng/mL Normal [place] Prostate Specific Ag, Percent Free 25 % Normal [place] Comment on above: Result Comment: INTE RPRETIVE INFORMATION: Prostate Specific Antigen, Free Percentage [facility] uses the Juan Carlos Free PSA electrochemiluminescent immunoassay method in conjunction with the Juan Carlos PSA electrochemiluminescent immunoassay method to determine the free PSA percentage. Values obtained with different assay methods should not be used interchangeably. The free PSA percentage is an aid in distinguishing prostate cancer from benign prostatic conditions in men age 50 and older with a total PSA between 3 and 10 ng/mL and negative digital rectal examination findings. Prostatic biopsy is required for the diagnosis of cancer. In patients with total PSA concentrations of 4-10 ng/mL, the probability of finding prostate cancer on needle biopsy by age in years is: %fPSA 50-59 60-69 70 or older 0 - 10% 49% 58% 65% 11 - 18% 27% 34% 41% 19 - 25% 18% 24% 30% Greater than 25% 9% 12% 16% Other factors may help determine the actual risk of prostate cancer in individual patients. For related information, see [email or web address] Performed by [facility], [address] [place] [id number] [email or web address], Boaz Lu MD - Lab. Director Prostate Specific Ag, Total 0.4 ng/mL Normal 0.0-4.0 [place] Comment on above: Result Comment: INTE RPRETIVE INFORMATION: Prostate Specific Antigen The Juan Carlos PSA electrochemiluminescent immunoassay was used. Results obtained with different test methods or kits cannot be used interchangeably. The Juan Carlos PSA method is approved for use as an aid in the detection of prostate cancer when used in conjunction with a digital rectal exam in men age 50 and older. The Juan Carlos PSA method is also indicated for the serial measurement of PSA to aid in the prognosis and management of prostate cancer patients. Elevated PSA concentrations can only suggest the presence of prostate cancer until biopsy is performed. PSA concentrations can also be elevated in benign prostatic hyperplasia or inflammatory conditions of the prostate. PSA is generally not elevated in healthy men or men with non-prostatic carcinoma. CBC With Platelet No Differe ntialon 08-21-2017 Erythrocyte distribution width Ratio (RBC) 13.7 % Normal 11.5-14.5 [place] Hematocrit Volume Fraction (Bld) 50.3 % Normal 42.0-52.0 [place] Hemoglobin mass conc (Bld) 16.7 g/dL Normal 14.0-18.0 [place] MCH Entitic mass (RBC) 31.5 pg Critically high 27.0-31.3 [facility] MCHC mass conc (RBC) 33.3 % Normal 33.0-37.0 [place] MCV Entitic volume (RBC) 94.7 fL Normal 80.0-100.0 [place] Platelets #/vol (Bld) 158 10*3/uL Normal 130-400 [place] RBC #/vol (Bld) 5.31 10*6/uL Normal 4.70-6.10 [place] WBC #/vol (Bld) 7.7 10*3/uL Normal 4.8-10.8 [place] Comprehensive Metabolic Pane [place] 08-21-2017 Anion gap molar conc 10 mmol/L Normal 7-13 [place] Albumin mass conc 4.4 g/dL Normal 3.9-4.9 [place] ALP enzyme act/vol 76 U/L Normal 35-104 [place] ALT enzyme act/vol 31 U/L Normal 0-41 [place] AST enzyme act/vol 19 U/L Normal 0-40 [place] Bilirubin mass conc 0.4 mg/dL Normal 0.0-1.2 [place] Calcium mass conc 9.0 mg/dL Normal 8.6-10.2 [place] Chloride molar conc 96 mmol/L Low 98-107 [place] CO2 molar conc 33 mmol/L Critically high 22-29 [place] Creatinine mass conc 0.59 mg/dL Low 0.70-1.20 [place] GFR/1.73 sq M predicted among blacks MDRD vol rate/area (S/P/Bld) mL/min/{1.73_m2} Normal >60 [place] Comment on above: Result Comment: >60 mL/min/1.73m2 EGFR, calc. for ages 18 and older using the MDRD formula (not corrected for weight), is valid for stable renal function. GFR/1.73 sq M.predicted MDRD vol rate/area mL/min/{1.73_m2} Normal >60 [place] Comment on above: Result Comment: >60 mL/min/1.73m2 EGFR, calc. for ages 18 and older using the MDRD formula (not corrected for weight), is valid for stable renal function. Globulin mass conc (S) 2.3 g/dL Normal 2.3-3.5 [place] Glucose mass conc 114 mg/dL Critically high 74-109 [facility] Potassium molar conc 4.8 mmol/L Normal 3.5-5.1 [place] Protein mass conc 6.7 g/dL Normal 6.4-8.1 [place] Sodium molar conc 139 mmol/L Normal 132-144 [place] Urea nitrogen mass conc 13 mg/dL Normal 6-20 [place] Hemoglobin A1con 08-21-2017 Hemoglobin A1c/Hemoglobin.tota l mass fraction (Bld) 8.1 % Critically high 4.8-5.9 [place] Lipid Panelon 08-21-2017 Cholesterol in HDL mass conc 31 mg/dL Low 40-59 [place] Comment on above: Result Comment: ATP III HDL Cholestrol Classification is low. Expected Values: Males: >55 = No Risk 35-55 = Moderate Risk <35 = High Risk Females: >65 = No Risk 45-65 = Moderate Risk <45 = High Risk NCEP Guidelines: Third Report October 2000 >59 = negative risk factor for CHD <40 = major risk factor for CHD Cholesterol in LDL mass conc 161 mg/dL Critically high 0-129 [place] Comment on above: Result Comment: ATP III LDL Classification is High. Cholesterol mass conc 226 mg/dL Critically high 0-199 [place] Comment on above: Result Comment: ATP III Cholesterol Classification is Borderline High. Triglyceride mass conc 171 mg/dL Normal 0-200 [place] Comment on above: Result Comment: ATP III Triglycerides Classification is Borderline High. TSH w/out Reflexon 8 Thyrotropin Qn 3.750 uIU/mL Normal 0.270-4.20 [place] Encounters Encounter Date Encounter Type Care Provider Facility Start: 09-09-2023 End: 09-09-2023 ambulatory FILIPE SALAZAR Not Available Start: 07-16-2023 End: 07-16-2023 ambulatory JOHN HERR Not Available Start: 10-19-2022 End: 10-20-[address] DOCTOR MOSQUERA Facility:[facility] Start: 10-04-2022 End: 10-05-[address] FILIPE SALAZAR Facility:[facility] Start: 11-15-2021 End: 11-16-[address] FILIPE SALAZAR Facility: Start: 02-09-2019 End: 02-12-2019 Patient encounter procedure [facility] Start: 02-02-2019 End: 02-02-2019 Emergency department patient visit MCKENNA [facility] Start: 10-20-2018 End: 10-23-2018 Patient encounter procedure [facility] Start: 10-09-2018 End: 10-12-2018 Patient encounter procedure FORREST Diamond [facility] Start: 09-02-2018 End: 09-03-2018 Patient encounter procedure MCKENNA [facility] Start: 08-11-2018 End: 08-14-2018 Patient encounter procedure TORREY DAY [place] Procedures Date Procedure Procedure Detail Performing Clinician Start: 10-19-[address] DOCTOR MOSQUERA Comment on above: Performed By: #### P SASC #### [facility] [address] [place] [address] Dr. Cindi Underwood Start: 02-09-2019 Mri spinal canal cer vical w/o contrast matrl TORREYSABINO DAY Start: 10-09-2018 Ct head/brain w/o co ntrast material TORREY DAY Start: 09-02-2018 Lung differential function TORREY DAY Start: 08-11-2018 [facility] spine cervical 2 or 3 views TORREY DAY Payers Date Payer Category Payer Unknown [id number] 1961 Medicaid [id number] 1961 Medicare [id number] 1960 Unknown [id number] 2.16.8 [id number] 1960 Unknown [id number] 2.16.8 [id number] 1958 Unknown [id number] 2.16.8 [id number] 1958 Unknown [id number] 2.16.8 [id number] 1958 Unknown [id number] 2.16.8 [id number] 1958 Unknown [id number] 2.16.8 [id number] 1958 Unknown [id number] 2.16.84 [id number] 1958 Unknown [id number] 2.16.84 [id number] 1958 Unknown [id number] 2.16.84 [id number] 1958 Unknown [id number] 2.16.84 [id number] 1958 Unknown [id number] 2.16.84 [id number] Summary Purpose Family History No Family History Records FoundNo Family History Records FoundNo Family History Records FoundNo Family History Records FoundNo Family History Records FoundNo Family History Records Found Advance Directives No Advanced Directives Records FoundNo Advanced Directives Records FoundNo Advanced Directives Records FoundNo Advanced Directives Records FoundNo Advanced Directives Records FoundNo Advanced Directives Records Found Additional Source Comments (unrecognized sect ion and content) No Status Records FoundNo Status Records FoundNo Status Records FoundNo Status Records FoundNo Status Records FoundNo Status Records Found INFORMATION SOURCE (unrecogn ized section and content) DATE CREATED AUTHOR 07/27/2018 [facility] [place] DATE CREATED AUTHOR AUTHOR'S ORGANIZ ATION 02/12/2019 [facility] DATE CREATED AUTHOR AUTHOR'S ORGANIZ ATION 08/10/2020 [facility] DATE CREATED AUTHOR AUTHOR'S ORGANIZ ATION 08/13/2021 [facility] DATE CREATED AUTHOR AUTHOR'S ORGANIZ ATION 10/26/2022 [facility] DATE CREATED AUTHOR AUTHOR'S ORGANIZ ATION 09/09/2023 [facility] EPIC FOR RECORDS PERTAINING TO PATIENTS WHO ARE OR HAVE BEEN ENROLLED IN A CHEMICAL DEPENDENCY/SUBSTANCEABUSE PROGRAM, SOME INFORMATION MAY BE OMITTED. This clinical summary was aggregated from multiple sources. Caution should be exercised in using it in the provision of clinical care. This summary normalizes information from multiple sources, and as a consequence, information in this document may materially change the coding, format and clinical context of patient data. In addition, data may be omitted in some cases. CLINICAL DECISIONS SHOULD BE BASED ON THE PRIMARY CLINICAL RECORDS. [facility]. provides no warranty or guarantee of the accuracy or completeness of information in this document.
== END 2023-09-18 09:06 | disposition home or self-care (01) ==
LOC: MRI 09:05
PROVIDERS: PCP Family Medicine; Visit Provider Family Medicine
DX: M51.36 Other intervertebral disc degeneration, lumbar region (principal)
CPT/HCPCS: 72148

== ENCOUNTER 2023-12-11 07:22 | Outpatient (OUT) | payer MEDICARE, MEDICAID, SELFPAY ==
--- OUTSIDE RECORDS SUMMARY | 2023-12-11 07:27 | XMS_ITS | CCD ---
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 Name Role Phone TORREY DAY Referring Unavailable AMARO, MCKENNA A Primary Care [...] HERR Attending Unavailable NADERER, FILIPE Attending Unavailable BROWNJOHN Attending Unavailable NADERER, FILIPE Attending Unavailable Allergies Allergy Classification Reported Allergen(s) Allergy Type Date of Onset Reaction(s) Facility (1 source) Amino Acids Drug Allergy [facility] Repository Problems Problem Classification Problem Date Documented Da te Episodic/Chronic Diabetes mellitus with complications (5 sources) Type 2 diabetes mellitus with hyperglycemia; Translations: [TYPE 2 DM W/HYPERGLYCEMIA] Onset: 11-15-2021 Chronic Disorders of lipid metabolism (5 sources) Hyperlipidemia, unspecified; Translations: [HYPERLIPIDEMIA UNSPECIFIED] Onset: 10-13-2022 Chronic Essential hypertension (1 source) Essential (primary) hypertension; Translations: [ESSENTIAL PRIMARY HYPERTENSION] Onset: 10-25-2022 Chronic Other aftercare (5 sources) 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 Cindi Underwood Basophils/100 WBC (Bld) 0.5 % Normal 0.2-2.0 [facility] Comment on above: Performed By: #### C BC #### [facility] [address] [address] [address] Cindi Underwood EO # 0.2 103/ul Normal 0.0-0.7 [facility] Comment on above: Performed By: #### C BC #### [facility] [address] [address] [address] Cindi Underwood Eosinophils/100 WBC (Bld) 1.8 % Normal 0.9-7.0 [facility] Comment on above: Performed By: #### C BC #### [facility] [address] [address] [address] Cindi Underwood Erythrocyte distribution width (RBC) [Ratio] 14.5 % Normal 11.0-15.0 [facility] Comment on above: Performed By: #### C BC #### [facility] [address] [place] [address] Dr. Cindi Underwood Hematocrit (Bld) [Volume fraction] 52.4 % Normal 42.0-54.0 [facility] Comment on above: Performed By: #### C BC #### [facility] [address] [address] [address] Cindi Underwood Hemoglobin (Bld) [Mass/Vol] 17.3 g/dL Normal 14.0-18.0 [facility] Comment on above: Performed By: #### C BC #### [facility] [address] [address] [address] Cindi Underwood IG # 0.04 10e3/ul Critically high 0.00-0.03 [facility] Comment on above: Performed By: #### C BC #### [facility] [address] [address] [address] Cindi Underwood IG % 0.4 % Normal 0.0-0.5 [facility] Comment on above: Performed By: #### C BC #### [facility] [address] [place] [address] Dr. Cindi Underwood LYMPH # 1.9 103/ul Normal 1.2-3.8 [facility] Comment on above: Performed By: #### C BC #### [facility] [address] [place] [address] Dr. Cindi Underwood Lymphocytes/100 WBC (Bld) 20.8 % Normal 20.5-60.0 [facility] Comment on above: Performed By: #### C BC #### [facility] [address] [place] [address] Dr. Cindi Underwood MANUAL DIFF REQ NO Normal [facility] Comment on above: Performed By: #### C BC #### [facility] [address] [place] [address] Dr. Cindi Underwood MCH (RBC) [Entitic mass] 30.7 pg Normal 25.9-34.0 [facility] Comment on above: Performed By: #### C BC #### [facility] [address] [place] [address] Dr. Cindi Underwood MCHC (RBC) [Mass/Vol] 33.0 g/dL Normal 29.9-35.2 [facility] Comment on above: Performed By: #### C BC #### [facility] [address] [address] [address] Cindi Underwood MCV (RBC) [Entitic vol] 93.1 fL Normal 80.0-94.0 [facility] Comment on above: Performed By: #### C BC #### [facility] [address] [address] [address] Cindi Underwood MONO # 0.5 103/ul Normal 0.3-0.8 [facility] Comment on above: Performed By: #### C BC #### [facility] [address] [address] [address] Cindi Underwood Monocytes/100 WBC (Bld) 5.6 % Normal 1.7-12.0 [facility] Comment on above: Performed By: #### C BC #### [facility] [address] [place] [address] Dr. Cindi Underwood NEUT # 6.5 103/ul Normal 1.4-6.5 [facility] Comment on above: Performed By: #### C BC #### [facility] [address] [place] [address] Dr. Cindi Underwood Neutrophils/100 WBC (Bld) 70.9 % Normal 43.0-75.0 [facility] Comment on above: Performed By: #### C BC #### [facility] [address] [place] [address] Dr. Cindi Underwood Platelet mean volume (Bld) [Entitic vol] 10.8 fL Normal 9.5-13.5 [facility] Comment on above: Performed By: #### C BC #### [facility] [address] [place] [address] Dr. Cindi Underwood PLT 190 103/ul Normal 150-450 [facility] Comment on above: Performed By: #### C BC #### [facility] [address] [place] [address] Dr. Cindi Underwood RBC 5.63 106/ul Normal 4.70-6.10 [facility] Comment on above: Performed By: #### C BC #### [facility] [address] [address] [address] Cindi Underwood WBC 9.1 103/ul Normal 4.0-11.0 [facility] Comment on above: Performed By: #### C BC #### [facility] [address] [address] [address] Cindi Underwood GLYCOHEMOGLOBIN A1Con 2022 ADA RECOMMENDATION SEE BELOW Normal [facility] Comment on above: Result Comment: ADA RECOMMENDED LIMIT 4.0 - 6.0 ADA THERAPEUTIC TARGET < 7.0 ACTION SUGGESTED > 7.0 Performed By: #### A 1C #### [facility] [address] [place] [address] Dr. Cindi Underwood Glucose [Mass/Vol] 163 mg/dL Normal [facility] Comment on above: Performed By: #### A 1C #### [facility] [address] [place] [address] Dr. Cindi Underwood HbA1c (Bld) [Mass fraction] 7.3 % Critically high 4.5-6.2 [facility] Comment on above: Performed By: #### A 1C #### [facility] [address] [place] [address] Dr. Cindi Underwood LIPID PROFILEon 10-19-2022 CHOL-HDL RATIO NORM SEE BELOW Normal [facility] Comment on above: Result Comment: 3.3 - 4.4 LOW RISK 4.4 - 7.1 AVERAGE RISK 7.1 - 11.0 MODERATE RISK >11.0 HIGH RISK Performed By: #### L IPID, TSH, BMP, LIVER #### [facility] [address] [place] [address] Dr. Cindi Underwood Cholesterol [Mass/Vol] 189 mg/dL Normal <=200 [facility] Comment on above: Performed By: #### L IPID, TSH, BMP, LIVER #### [facility] [address] [place] [address] Dr. Cindi Underwood Cholesterol in HDL [Mass/Vol] 33 mg/dL Critically low 40-60 [facility] Comment on above: Performed By: #### L IPID, TSH, BMP, LIVER #### [facility] [address] [address] [address] Cindi Underwood Cholesterol in LDL [Mass/Vol] 123.6 mg/dL Normal [facility] Comment on above: Performed By: #### L IPID, TSH, BMP, LIVER #### [facility] [address] [place] [address] Dr. Cindi Underwood Cholesterol.total/C holesterol in HDL [Mass ratio] 5.7 {ratio} Normal [facility] Comment on above: Performed By: #### L IPID, TSH, BMP, LIVER #### [facility] [address] [address] [address] Cindi Underwood HDL NORMAL > or = 60 mg/dl - LO W CARDIOVASCULAR RISK <40 mg/dl - HIGH CARDIOVASCULAR RISK Normal [facility] Comment on above: Performed By: #### L IPID, TSH, BMP, LIVER #### [facility] [address] [place] [address] Dr. Cindi Underwood LDL CALC NORMAL SEE BELOW Normal [facility] Comment on above: Result Comment: <100 mg/dl OPTIMAL 100 - 129 mg/dl NEAR OR ABOVE OPTIMAL 130 - 159 mg/dl BORDERLINE HIGH 160 - 189 mg/dl HIGH >190 mg/dl VERY HIGH Performed By: #### L IPID, TSH, BMP, LIVER #### [facility] [address] [place] [address] Dr. Cindi Underwood Triglyceride [Mass/Vol] 162 mg/dL Critically high <=150 [facility] Comment on above: Performed By: #### L IPID, TSH, BMP, LIVER #### [facility] [address] [place] [address] Dr. Cindi Underwood VLDL CALC 32.4 mg/dL Normal [facility] Comment on above: Performed By: #### L IPID, TSH, BMP, LIVER #### [facility] [address] [place] [address] Dr. Cindi Underwood LIVER PROFILEon 10-19-2022 Albumin [Mass/Vol] 3.7 g/dL Normal 3.4-5.0 [facility] Comment on above: Performed By: #### L IPID, TSH, BMP, LIVER #### [facility] [address] [address] [address] Cindi Underwood Albumin/Globulin [Mass ratio] 0.9 {ratio} Normal [facility] Comment on above: Performed By: #### L IPID, TSH, BMP, LIVER #### [facility] [address] [address] [address] Cindi Underwood ALP [Catalytic activity/Vol] 89 U/L Normal 46-116 [facility] Comment on above: Performed By: #### L IPID, TSH, BMP, LIVER #### [facility] [address] [address] [address] Cindi Underwood ALT [Catalytic activity/Vol] 44 U/L Normal 16-63 [facility] Comment on above: Performed By: #### L IPID, TSH, BMP, LIVER #### [facility] [address] [place] [address] Dr. Cindi Underwood AST [Catalytic activity/Vol] 21 U/L Normal 15-37 [facility] Comment on above: Performed By: #### L IPID, TSH, BMP, LIVER #### [facility] [address] [address] [address] Cindi Underwood BILI, CONJUGATED 0.1 mg/dL Normal 0.0-0.2 [facility] Comment on above: Performed By: #### L IPID, TSH, BMP, LIVER #### [facility] [address] [address] [address] Cindi Underwood Bilirubin [Mass/Vol] 0.6 mg/dL Normal 0.2-1.0 [facility] Comment on above: Performed By: #### L IPID, TSH, BMP, LIVER #### [facility] [address] [address] [address] Cindi Underwood Globulin (S) [Mass/Vol] 4.1 g/dL Normal [facility] Comment on above: Performed By: #### L IPID, TSH, BMP, LIVER #### [facility] [address] [address] [address] Cindi Underwood Protein [Mass/Vol] 7.8 g/dL Normal 6.4-8.2 [facility] Comment on above: Performed By: #### L IPID, TSH, BMP, LIVER #### [facility] [address] [address] [address] Cindi Underwood MICROALBUMIN, RAND URon 04-2 mALB 2.9 mg/L Normal <=30.0 [facility] Comment on above: Performed By: #### M ALBR #### [facility] [address] [address] [address] Cindi Underwood PROF CHEM 8 (BAS METB)on Anion gap [Moles/Vol] 8.6 mmol/L Normal [facility] Comment on above: Performed By: #### L IPID, TSH, BMP, LIVER #### [facility] [address] [place] [address] Dr. Cindi Underwood Calcium [Mass/Vol] 9.2 mg/dL Normal 8.5-10.1 [facility] Comment on above: Performed By: #### L IPID, TSH, BMP, LIVER #### [facility] [address] [address] [address] Cindi Underwood Chloride [Moles/Vol] 102 mmol/L Normal 98-107 [facility] Comment on above: Performed By: #### L IPID, TSH, BMP, LIVER #### [facility] [address] [address] [address] Cindi Underwood CO2 [Moles/Vol] 34.3 mmol/L Critically high 21.0-32.0 [facility] Comment on above: Performed By: #### L IPID, TSH, BMP, LIVER #### [facility] [address] [address] [address] Cindi Underwood Creatinine [Mass/Vol] 0.87 mg/dL Normal 0.70-1.30 [facility] Comment on above: Performed By: #### L IPID, TSH, BMP, LIVER #### [facility] [address] [address] [address] Cindi Underwood EGFR-AF SOUTH AFRICAN >60 Normal >=60 [facility] Comment on above: Performed By: #### L IPID, TSH, BMP, LIVER #### [facility] [address] [address] [address] Cindi Underwood EGFR-NON AF SOUTH AFRICAN >60 Normal >=60 [facility] Comment on above: Performed By: #### L IPID, TSH, BMP, LIVER #### [facility] [address] [address] [address] Cindi Underwood Glucose [Mass/Vol] 132 mg/dL Critically high 74-106 [facility] Comment on above: Performed By: #### L IPID, TSH, BMP, LIVER #### [facility] [address] [address] [address] Cindi Underwood Potassium [Moles/Vol] 3.9 mmol/L Normal 3.5-5.1 [facility] Comment on above: Performed By: #### L IPID, TSH, BMP, LIVER #### [facility] [address] [address] [address] Cindi Underwood Sodium [Moles/Vol] 141 mmol/L Normal 136-145 [facility] Comment on above: Performed By: #### L IPID, TSH, BMP, LIVER #### [facility] [address] [address] [address] Cindi Underwood Urea nitrogen [Mass/Vol] 9.0 mg/dL Normal 7.0-18.0 [facility] Comment on above: Performed By: #### L IPID, TSH, BMP, LIVER #### [facility] [address] [place] [address] Dr. Cindi Underwood Urea nitrogen/Creatinine [Mass ratio] 10.3 mg/mg Normal [facility] Comment on above: Performed By: #### L IPID, TSH, BMP, LIVER #### [facility] [address] [place] [address] Dr. Cindi Underwood TSHon 10-19-2022 TSH 2.454 uIU/mL Normal 0.358-3.740 [facility] Comment on above: Performed By: #### L IPID, TSH, BMP, LIVER #### [facility] [address] [address] [address] Cindi Underwood GLYCOHEMOGLOBIN A1Con 2021 ADA RECOMMENDATION SEE BELOW Normal [facility] Comment on above: Result Comment: ADA RECOMMENDED LIMIT 4.0 - 6.0 ADA THERAPEUTIC TARGET < 7.0 ACTION SUGGESTED > 7.0 Performed By: #### A 1C #### [facility] [address] [address] [address] Cindi Underwood Glucose [Mass/Vol] 160 mg/dL Normal [facility] Comment on above: Performed By: #### A 1C #### [facility] [address] [address] [address] Cindi Underwood HbA1c (Bld) [Mass fraction] 7.2 % Critically high 4.5-6.2 [facility] Comment on above: Performed By: #### A 1C #### [facility] [address] [address] [address] cervical spine wo conon 0 10-06-2020 CT cervical spine wo con [facility] [address] CT Scan Report Signed Patient: Dimitry Benjamin MR#: [id number] 646 : 1960 Acct:[id number] Age/Sex: 60 / M ADM Date: 10/06/20 Loc: ER Room: Type: [facility] ER Attending Dr: Ordering Provider: Albino New MD Date of Service: 10/06/20 CT/CT head/brain wo con: fall ([id number]) CT/CT cervical spine wo con: fall Copies [...] Leona Argueta M.D.10/06/2020 4:49 PM Dictation Location: [place] [address] Transcribed By: [facility] 10/06/20 1649 Dictated By: Leona Argueta MD 10/06/20 1639 Signed By: 10/06/20 [address] [facility] [address] lumbar spine wo [facility] CT lumbar spine wo [facility] [place] [address] [place] [address] CT Scan Report Signed Patient: Dimitry Benjamin MR#: [id number] 646 : 1960 Acct:[id number] Age/Sex: 60 / M ADM Date: 10/06/20 Loc: ER Room: Type: [facility] ER Attending Dr: Ordering Provider: Albino New MD Date of Service: 10/06/20 CT/CT lumbar spine wo con: fall ([id number]) CT/CT thoracic spine wo con: fall Copies [...] Leona Argueta M.D.10/06/2020 5:20 PM Dictation Location: [facility] Transcribed By: NIKHIL 10/06/201719 Dictated By: Leona Argueta MD 10/06/20 1650 Signed By: 10/06/20 1720 [facility] XR shoulder BI min 2Von 04- XR shoulder BI min 2V [facility] [place] [address] XRay Report Signed Patient: Dimitry Benjamin MR#: [id number] 646 : 1960 Acct:[id number] Age/Sex: 60 / M ADM Date: 10/06/20 Loc: ER Room: Type: [facility] ER Attending Dr: Ordering Provider: Albino [...] Leona Argueta M.D.10/06/2020 6:11 PM Dictation Location: [facility] Transcribed By: NIKHIL 10/06/201810 Dictated By: Leona Argueta MD 10/06/20 1800 Signed By: 10/06/201810 [facility] Ambulatory Clinical Summaryo n 08-09-2020 Ambulatory Clinical Summary {[id number]}CD: [id number] [facility] Patient Educationon 08-09-19 Patient Education Benign Prostatic [...] Document Reviewed: 02/20/2008 ExitCare? Patient Information ?[address] [facility] Urology Office/Clinic Noteon 08-09-2020 Urology Office/Clinic Note [...] Urnls Dip Stick Auto w/o Microscopy POC 27878 2. 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 3. Urge incontinence (N39.41: Urge incontinence) Pt is having some leaking on the way to the bathroom. Orders: ciprofloxacin, 500 mg = 1 tab(s), Oral, q12hr, take 1 tablet the day prior to procedure, take 2nd tablet the day of the procedure, # 2 tab(s), Refills(s) 0, Pharmacy: [id number] [facility] 173, cm, 12/08/19 13:22:00 EDT, Height/Length Measured, 115, kg, 12/08/19... tamsulosin, 0.4 mg = 1 cap(s), Oral, Daily, # 30 cap(s), Refills(s) 1, Pharmacy: [facility] [facility] 173, cm, 05/24/20 8:18:00 EST, Height/Length Dosing, 115, kg, 05/24/20 8:18:00 EST, Weight Dosing tamsulosin, 0.4 mg = 1 cap(s), Oral, BID, # 60 cap(s), Refills(s) 3, Pharmacy: [facility], 173, cm, 08/09/20 13:55:00 EST, Height/Length Dosing, 129.9, kg, 08/09/20 13:55:00 EST, Weight Dosing I have reviewed the previous health record information and history for this patient from Dr. Gonzalez Follow-up With When Contact Information Carlos Elizalde MD, King Stark In 3 months [facility] [address] [place] [address]- Additional Instructions: PVR Patient Education Benign Prostatic [...] Protein Urine Dipstick: Negative (08/09/20 13:46:00) Specific [place] Urine Dipstick: 1.025 (08/09/20 13:46:00) Urine Appearance Urine Dipstick: Clear (08/09/20 13:46:00) Urine Color Urine Dipstick: Yellow (08/09/20 13:46:00) Urobilinogen Urine Dipstick: 2 EU/dl (08/09/20 13:46:00) pH Urine Dipstick: 7 (08/09/20 13:46:00) Diagnostic Results Urinalysis was reviewed and shows no evidence of infection. PVR today was 82 cc. Normal [facility] Comment on above: Result Comment: Elec tronically Signed By: Carlos Elizalde MD, King Stark\.br\Date and Time Signed: 08/09/20 14:51 EST\.br\Electronically Co-Signed By: Puja Garvin MA\.br\Date and Time Co-Signed: 08/09/20 14:48 EST Pre-Certification Formon Pre-Certification Form [id number]:127 Normal [facility] Ambulatory Clinical Summaryo n 06-28-2020 Ambulatory Clinical Summary {[id number]}CD: [id number] Normal [facility] Patient Educationon 06-28-20 20 Patient Education [...] directed by your caregiver. ? Only take [id number]-prl-[id number] or prescription medicines for pain, discomfort, or [...] Document Reviewed: 02/02/2009 ExitCare? Patient Information ?2013 OMG. Normal [facility] Urology Office/Clinic Noteon 06-28-2020 Urology Office/Clinic [...] Urnls Dip Stick Auto w/o Microscopy POC 76673 2. Incomplete bladder emptying (R33.9: Retention of urine, unspecified) PVR today shows 518ml, pt has stopped the Oxybutynin. Ordered: CT Abdomen w/ Contrast Measure Post Void residual urine and/or bladder capacity by US- non-imaging 88857 3. BPH with urinary obstruction (N40.1: Benign [...] In 2 weeks [facility] [address] [place] [address]- Additional Instructions: Patient Education Abdominal Pain I, [...] Care Results Bilirubin Urine Dipstick: Negative (06/28/20 11::00) Blood Urine Dipstick: Negative (06/28/20::00) Glucose Urine Dipstick: Negative (06/28/20::00) Ketones Urine Dipstick: Negative (06/28/20::00) Leukocytes Urine Dipstick: Trace (06/28/20::00) Nitrite Urine Dipstick: Negative (06/28/20::00) Protein Urine Dipstick: Negative (06/28/20::00) Specific [place] Urine Dipstick: 1.010 (06/28/20::00) Urine Appearance Urine Dipstick: Clear (06/28/20::) Urine Color Urine Dipstick: Light yellow (06/28/20::00) Urobilinogen Urine Dipstick: Normal 0.2-1 EU/dl (06/28/20::) pH Urine Dipstick: 7 (06/28/20::00) Diagnostic Results PVR today is over 500 cc. Urinalysis is negative for infection. Normal [facility] Comment on above: Result Comment: Elec tronically Signed By: King Gonzalez Jr., MD\.br\Date and Time Signed: 06/28/20 13:25 EST\.br\Electronically Co-Signed By: Puja Garvin MA\.br\Date and Time Co-Signed: 06/28/20 12:09 EST Ambulatory Clinical Summaryo n 05-24-2020 Ambulatory Clinical Summary {[id number]}CD: [id number] Normal [facility] Patient Educationon 05-24-20 Patient Education Family [...] Document Reviewed: 03/08/2008 ExitCare? Patient Information ?2013 OMG. [facility] Urology Office/Clinic Noteon 05-24-2020 Urology Office/Clinic Note Chief Complaint Pt. here due to swollen testicles. This patient is a 60-year-old gentleman with a history of prostatic hyperplasia with bladder outlet obstruction symptoms he also has a history of scrotal swelling which has resolved since his initial complaint. He is here today for urologic evaluation. HPI Staff Pt. here due to having swollen [...] urine and/or bladder capacity by US- non-imaging [id number] 6. Edema of scrotum (N50.89: Other specified [...] Daily, # 30 cap(s), Refills(s) 1, Pharmacy: [place] [address] [address] [facility], 173, cm, 05/24/20 8:18:00 EST, Height/Length Dosing, 115, kg, 05/24/20 8:18:00 EST, Weight Dosing I have reviewed the previous health record information and history for this pt. from Dr. Gonzalez. Follow-up With When Contact Information Carlos Elizalde MD, King Stark [address] [place] [address] [place] [address]- Additional Instructions: 1mos. w/ PVR Patient Education Benign Prostatic Hypertrophy IHaritha , personally scribed for Dr. Gonzalez on [...] within reasonable range for this patient. Normal [facility] Comment on above: Result Comment: Elec tronically Signed By: Carlos Elizalde MD, King Stark\.br\Date and Time Signed: 05/24/20 10:32 EST\.br\Electronically Co-Signed By: Ted NUNO, Haritha Gill\.br\Date and Time Co-Signed: 05/24/20 08:57 EST Provider Letteron 02-23-2020 Provider Letter (Inserted Image. Mary ble to display) February 23, 2020 DIMITRY BENJAMIN [address] [place] [address] DIMITRY BENJAMIN 1960 Dear Dimitry Benjamin, This [...] us know 24 hours in advance. Sincerely, [facility] Provider Letteron 02-09-2020 Provider Letter (Inserted Image. Mary ble to display) February 09, 2020 DIMITRY BENJAMIN [address] [place] [address] DIMITRY BENJAMIN 1960 Dear Dimitry Benjamin, You [...] [facility] [address], [place] [address] [facility] Urology Office/Clinic Noteon 02-01-2020 Urology Office/Clinic Note [...] urine The Urethra was dilated to: 24 Azeri with sounds. Removal: Cystoscope is removed. The [...] Urge incontinence) Follow-up With When Contact Information King Gonzalez Jr., MD In 1 month [id number] Additional Instructions: w/PVR Patient Education Urinary Frequency Dysuria Benign Prostatic Hypertrophy I, Gricel Pizarro, personally scribed for Dr. Gonzalez on 01/18/2020 [...] Mother. Primary malignant neoplasm of bone: Sister. [facility] Comment on above: Result Comment: Elec tronically Signed By: Carlos Elizalde MD, King Stark\.br\Date and Time Signed: 02/01/20 08:59 EDT\.br\Electronically Co-Signed By: Gricel Pizarro\.br\Date and Time Co-Signed: 01/18/20 14:37 EDT Consent for Procedure/Surger yon 01-20-2020 Consent for Procedure/Surgery [id number]:127 [facility] Ambulatory Clinical Summaryo n 01-18-2020 Ambulatory Clinical Summary {[id number]}CD: [id number] [facility] Ambulatory Clinical Summary {[id number]}CD: 200073 Normal [facility] Ambulatory Clinical Summary {[id number]}CD: [id number] Normal [facility] Lab Reportson 12-22-2019 Lab Reports [id number]:127 Normal [facility] RAD - Ultrasound Reporton RAD - Ultrasound Report [id number]:127 Normal [facility] Ambulatory Clinical Summaryo n 12-08-2019 Ambulatory Clinical Summary {[id number]}CD: [id number] Normal [facility] Reminderson 12-08-2019 Reminders - From: Roselia Camacho To: EU - Clinical; Sent: 12/08/2019 16:01:29 EDT Show up: 12/15/2019 16:01:00 EDT Subject: Ambulatory Reminder Reminder/Recall 12/14/19 Renal US and PSA @ [facility]. Patient has cysto scheduled 12/27 to review results! Normal [facility] MRI CERVICAL SPINE WO CONTRA STon [...] Gilberto Cordoba DO 02/10/19 Final result Normal [facility] CT HEAD WO CONTRASTon 2018 CT HEAD [...] Erik Mckeon MD 10/09/18 Final result Normal [facility] PULMONARY FUNCTIONon [address] [place] [address] PULMONARY FUNCTION PATIENT NAME: DIMITRY BENJAMIN : 1960 MED REC NO: [id number] ROOM: ACCOUNT NO: [id number] ADMIT DATE: 09/02/2018 PROVIDER: Caio Craig MD [...] is needed. CAIO CRAIG MD ABDOULAYE/[id number] Doc#: [id number] CC: Normal [facility] XR CERVICAL SPINE (2-3 VIEWS )on 08-11-2018 [...] Lopez Paniagua MD 08/11/18 Final result Normal [facility] CBC With Platelet No Differe ntialon 07-17-2018 Erythrocyte distribution width Ratio (RBC) 13.4 % Normal 11.5-14.5 [facility] Hematocrit Volume Fraction (Bld) 48.9 % Normal 42.0-52.0 [facility] Hemoglobin mass conc (Bld) 16.8 g/dL Normal 14.0-18.0 [facility] MCH Entitic mass (RBC) 32.0 pg Critically high 27.0-31.3 [facility] MCHC mass conc (RBC) 34.4 % Normal 33.0-37.0 [facility] MCV Entitic volume (RBC) 93.1 fL Normal 80.0-100.0 [facility] Platelets #/vol (Bld) 170 10*3/uL Normal 130-400 [facility] RBC #/vol (Bld) 5.25 10*6/uL Normal 4.70-6.10 [facility] WBC #/vol (Bld) 8.0 10*3/uL Normal 4.8-10.8 [facility] Comprehensive Metabolic Pane madison 07-17-2018 Albumin mass conc 4.1 g/dL Normal 3.9-4.9 [facility] ALP enzyme act/vol 80 U/L Normal 35-104 [facility] ALT enzyme act/vol 30 U/L Normal 0-41 [facility] Anion gap molar conc 10 mmol/L Normal 7-13 [facility] AST enzyme act/vol 20 U/L Normal 0-40 [facility] Bilirubin mass conc 0.6 mg/dL Normal 0.0-1.2 [facility] Calcium mass conc 8.6 mg/dL Normal 8.6-10.2 [facility] Chloride molar conc 98 mmol/L Normal 98-107 [facility] CO2 molar conc 32 mmol/L Critically high 22-29 [facility] Creatinine mass conc 0.80 mg/dL Normal 0.70-1.20 [facility] GFR/1.73 sq M predicted among blacks MDRD vol rate/area (S/P/Bld) mL/min/{1.73_m2} Normal >60 [facility] Comment on above: Result Comment: >60 mL/min/1.73m2 EGFR, calc. for ages 18 and older using the MDRD formula (not corrected for weight), is valid for stable renal function. GFR/1.73 sq M.predicted MDRD vol rate/area mL/min/{1.73_m2} Normal >60 [facility] Comment on above: Result Comment: >60 mL/min/1.73m2 EGFR, calc. for ages 18 and older using the MDRD formula (not corrected for weight), is valid for stable renal function. Globulin mass conc (S) 2.8 g/dL Normal 2.3-3.5 [facility] Glucose mass conc 146 mg/dL Critically high 74-109 [facility] Potassium molar conc 4.2 mmol/L Normal 3.5-5.1 [facility] Protein mass conc 6.9 g/dL Normal 6.4-8.1 [facility] Sodium molar conc 140 mmol/L Normal 132-144 [facility] Urea nitrogen mass conc 10 mg/dL Normal 8-23 [facility] Creatine Kinaseon 07-17-2018 CK enzyme act/vol 266 U/L Critically high 0-190 [facility] Culture, Urineon 07-17-2018 Culture, Urine OR DERED BY: MCKENNA AMARO SOURCE: Urine Voided COLLECTED: 07/17/18 08:24 ANTIBIOTICS AT JACQUIE.: RECEIVED : 07/17/18 10:16 Culture, Urine FINAL 07/19/18 10:34 No growth 24 hours Normal [facility] Hemoglobin A1con 07-17-2018 Hemoglobin A1c/Hemoglobin.tota l mass fraction (Bld) 6.9 % Critically high 4.8-5.9 [facility] Lipid Panelon 07-17-2018 Cholesterol in HDL mass conc 29 mg/dL Low 40-59 [facility] Comment on above: Result Comment: ATP III [...] LDL mass conc 123 mg/dL Normal 0-129 [facility] Comment on above: Result Comment: ATP III LDL Classification is Near Optimal. Cholesterol mass conc 211 mg/dL Critically high 0-199 [facility] Comment on above: Result Comment: ATP III Cholesterol Classification is Borderline High. Triglyceride mass conc 295 mg/dL Critically high 0-200 [facility] Comment on above: Result Comment: ATP III Triglycerides Classification is High. TSH w/out Reflexon 9 Thyrotropin Qn 4.170 uIU/mL Normal 0.270-4.20 [facility] Thyroxine Freeon 07-17-2018 Thyroxine Free 1.03 ng/dL Normal 0.93-1.70 [facility] UR Drugs of Abuse Panelon Drug Screen Comment see below Normal [facility] Comment on above: Result Comment: This method is a screening test to detect only these drug classes as part of a medical workup. Confirmatory testing by another method should be ordered if clinically indicated. UR Amphetamines Screen Negative Normal Negative < [facility] UR Barbiturates Screen Negative Normal Negative < [facility] UR Benzo Screen Negative Normal Negative < [facility] UR Cannabinoids Screen Negative Normal Negative < [facility] UR Cocaine Screen Negative Normal Negative < [facility] UR Opiates Screen Negative Normal Negative < [facility] UR PCP Screen Negative Normal Negative < [facility] UR Microalbumin/Creatinine R atio Randomon 07-17-2018 Microalbumin/creati nine Ratio see below Normal 0.0-30.0 [facility] Comment on above: Result Comment: - UR Microalbumin concentration is less than 1.2 mg/dL. - Unable to calculate Microalbumin/Creatinine Ratio without a Microalbumin concentration. UR Creatinine Random 144.8 mg/dL Normal Not Establ [facility] UR Microalbumin Random <1.20 Normal Not Establ [facility] Urinalysis, reflex to micros copicon 07-17-2018 Bilirubin Ql (U) Negative Normal Negative [facility] Clarity Nom (U) Clear Normal Clear [facility] Color Nom (U) Yellow Normal Straw/Graves [facility] Glucose Ql (U) Negative Normal Negative [facility] Hemoglobin Ql (U) Negative Normal Negative [facility] Ketones Ql (U) Negative Normal Negative [facility] Leukocyte esterase Test strip Ql (U) TRACE Abnormal Negative [facility] Nitrite Ql (U) Negative Normal Negative [facility] pH (U) 7.5 [pH] Normal 5.0-9.0 [facility] Protein Ql (U) Negative Normal Negative [facility] Specific gravity Relative Density (U) 1.015 Normal 1.005-1.03 [facility] Urobilinogen Qn (U) 1.0 {Nunu'U}/dL Normal < 2.0 [facility] Urine Microscopicon 07-17-19 19 Bacteria LM.HPF #/area (Urine sed) Negative Normal [facility] RBC #/vol (U) 3-5 Abnormal 0-5 [facility] Comment on above: Result Comment: Effe ctive 05/26/2018 Urinalysis microscopic performed using the automated methodology (AUWI analyzer). Urine Epithelial Cells Auto 0-2 Normal 0-5 [facility] Comment on above: Result Comment: Effe ctive 05/26/2018 Urinalysis microscopic performed using the automated methodology (AUWI analyzer). Urine Hyaline Casts Auto 0-1 Normal 0-[address] [place] [address] Comment on above: Result Comment: Effe ctive 05/26/2018 Urinalysis microscopic performed using the automated methodology (AUWI analyzer). Urine WBC Auto 6-10 Abnormal 0-5 [facility] Comment on above: Result Comment: Effe ctive 05/26/2018 Urinalysis microscopic performed using the automated methodology (AUWI analyzer). CBC With Platelet No Differe ntialon 03-18-2018 Erythrocyte distribution width Ratio (RBC) 14.7 % Critically high 11.5-14.5 [facility] Hematocrit Volume Fraction (Bld) 48.0 % Normal 42.0-52.0 [facility] Hemoglobin mass conc (Bld) 16.1 g/dL Normal 14.0-18.0 [facility] MCH Entitic mass (RBC) 31.9 pg Critically high 27.0-31.3 [facility] MCHC mass conc (RBC) 33.6 % Normal 33.0-37.0 [facility] MCV Entitic volume (RBC) 94.9 fL Normal 80.0-100.0 [facility] Platelets #/vol (Bld) 145 10*3/uL Normal 130-400 [facility] RBC #/vol (Bld) 5.05 10*6/uL Normal 4.70-6.10 [facility] WBC #/vol (Bld) 5.5 10*3/uL Normal 4.8-10.8 [facility] CKMB with Indexon 03-18-2018 CK enzyme act/vol 397 U/L Critically high 0-190 [facility] CK.MB mass conc 9.6 ng/mL Critically high 0.0-6.7 [facility] CK.MB mass conc 2.4 % Normal 0.0-3.5 [facility] Comprehensive Metabolic Pane madison 03-18-2018 Albumin mass conc 4.4 g/dL Normal 3.9-4.9 [facility] ALP enzyme act/vol 69 U/L Normal 35-104 [facility] ALT enzyme act/vol 33 U/L Normal 0-41 [facility] Anion gap molar conc 9 mmol/L Normal 7-13 [facility] AST enzyme act/vol 26 U/L Normal 0-40 [facility] Bilirubin mass conc 0.5 mg/dL Normal 0.0-1.2 [facility] Calcium mass conc 8.9 mg/dL Normal 8.6-10.2 [facility] Chloride molar conc 98 mmol/L Normal 98-107 [facility] CO2 molar conc 31 mmol/L Critically high 22-29 [facility] Creatinine mass conc 0.79 mg/dL Normal 0.70-1.20 [facility] GFR/1.73 sq M predicted among blacks MDRD vol rate/area (S/P/Bld) mL/min/{1.73_m2} Normal >60 [facility] Comment on above: Result Comment: >60 mL/min/1.73m2 EGFR, calc. for ages 18 and older using the MDRD formula (not corrected for weight), is valid for stable renal function. GFR/1.73 sq M.predicted MDRD vol rate/area mL/min/{1.73_m2} Normal >60 [facility] Comment on above: Result Comment: >60 mL/min/1.73m2 EGFR, calc. for ages 18 and older using the MDRD formula (not corrected for weight), is valid for stable renal function. Globulin mass conc (S) 2.4 g/dL Normal 2.3-3.5 [facility] Glucose mass conc 110 mg/dL Critically high 74-109 [facility] Potassium molar conc 5.2 mmol/L Critically high 3.5-5.1 [facility] Protein mass conc 6.8 g/dL Normal 6.4-8.1 [facility] Sodium molar conc 138 mmol/L Normal 132-144 [facility] Urea nitrogen mass conc 10 mg/dL Normal 8-23 [facility] Hemoglobin A1con 03-18-2018 Hemoglobin A1c/Hemoglobin.tota l mass fraction (Bld) 6.7 % Critically high 4.8-5.9 [facility] Hepatitis C Antibodyon 03-18 Hepatitis C Antibody Interp Non-reactive Normal [facility] Lipid Panelon 03-18-2018 Cholesterol in HDL mass conc 25 mg/dL Low 40-59 [facility] Comment on above: Result Comment: ATP III [...] LDL mass conc 119 mg/dL Normal 0-129 [facility] Comment on above: Result Comment: ATP III LDL Classification is Near Optimal. Cholesterol mass conc 172 mg/dL Normal 0-199 [facility] Comment on above: Result Comment: ATP III Cholesterol classification is Desirable. Triglyceride mass conc 140 mg/dL Normal 0-200 [facility] Comment on above: Result Comment: ATP III Triglycerides Classification is Normal. PSA Total with Free PSAon GFR/1.73 sq M predicted among non-blacks MDRD vol rate/area (S/P/Bld) 0.1 ng/mL Normal [facility] Prostate Specific Ag, Percent Free 25 % Normal [facility] Comment on above: Result Comment: INTE RPRETIVE [...] in individual patients. For related information, see [email or web address] Performed by [facility], [address] [place] [id number] [email or web address], Boaz Lu MD - Lab. Director Prostate Specific Ag, Total 0.4 ng/mL Normal 0.0-4.0 [facility] Comment on above: Result Comment: INTE RPRETIVE [...] width Ratio (RBC) 13.7 % Normal 11.5-14.5 [facility] Hematocrit Volume Fraction (Bld) 50.3 % Normal 42.0-52.0 [facility] Hemoglobin mass conc (Bld) 16.7 g/dL Normal 14.0-18.0 [facility] MCH Entitic mass (RBC) 31.5 pg Critically high 27.0-31.3 [facility] mass conc (RBC) 33.3 % Normal 33.0-37.0 [facility] MCV Entitic volume (RBC) 94.7 fL Normal 80.0-100.0 [facility] Platelets #/vol (Bld) 158 10*3/uL Normal 130-400 [facility] RBC #/vol (Bld) 5.31 10*6/uL Normal 4.70-6.10 [facility] WBC #/vol (Bld) 7.7 10*3/uL Normal 4.8-10.8 [facility] Comprehensive Metabolic Pane madison 08-21-2017 Anion gap molar conc 10 mmol/L Normal 7-13 [facility] Albumin mass conc 4.4 g/dL Normal 3.9-4.9 [facility] ALP enzyme act/vol 76 U/L Normal 35-104 [facility] ALT enzyme act/vol 31 U/L Normal 0-41 [facility] AST enzyme act/vol 19 U/L Normal 0-40 [facility] Bilirubin mass conc 0.4 mg/dL Normal 0.0-1.2 [facility] Calcium mass conc 9.0 mg/dL Normal 8.6-10.2 [facility] Chloride molar conc 96 mmol/L Low 98-107 [facility] CO2 molar conc 33 mmol/L Critically high 22-29 [facility] Creatinine mass conc 0.59 mg/dL Low 0.70-1.20 [facility] GFR/1.73 sq M predicted among blacks MDRD vol rate/area (S/P/Bld) mL/min/{1.73_m2} Normal >60 [facility] Comment on above: Result Comment: >60 mL/min/1.73m2 EGFR, calc. for ages 18 and older using the MDRD formula (not corrected for weight), is valid for stable renal function. GFR/1.73 sq M.predicted MDRD vol rate/area mL/min/{1.73_m2} Normal >60 [facility] Comment on above: Result Comment: >60 mL/min/1.73m2 EGFR, calc. for ages 18 and older using the MDRD formula (not corrected for weight), is valid for stable renal function. Globulin mass conc (S) 2.3 g/dL Normal 2.3-3.5 [facility] Glucose mass conc 114 mg/dL Critically high 74-109 [facility] Potassium molar conc 4.8 mmol/L Normal 3.5-5.1 [facility] Protein mass conc 6.7 g/dL Normal 6.4-8.1 [facility] Sodium molar conc 139 mmol/L Normal 132-144 [facility] Urea nitrogen mass conc 13 mg/dL Normal 6-20 [facility] Hemoglobin A1con 08-21-2017 Hemoglobin A1c/Hemoglobin.tota l mass fraction (Bld) 8.1 % Critically high 4.8-5.9 [facility] Lipid Panelon 08-21-2017 Cholesterol in HDL mass conc 31 mg/dL Low 40-59 [facility] Comment on above: Result Comment: ATP III [...] mass conc 161 mg/dL Critically high 0-129 [facility] Comment on above: Result Comment: ATP III LDL Classification is High. Cholesterol mass conc 226 mg/dL Critically high 0-199 [facility] Comment on above: Result Comment: ATP III Cholesterol Classification is Borderline High. Triglyceride mass conc 171 mg/dL Normal 0-200 [facility] Comment on above: Result Comment: ATP III Triglycerides Classification is Borderline High. TSH w/out Reflexon 8 Thyrotropin Qn 3.750 uIU/mL Normal 0.270-4.20 [facility] Encounters Encounter Date Encounter Type Care Provider Facility Start: 12-02-2023 End: 12-02-2023 ambulatory FILIPE SALAZAR Not Available Start: 09-24-2023 End: 09-24-2023 ambulatory JOHN HERR Not Available Start: 09-09-2023 End: 09-09-2023 ambulatory FILIPE SALAZAR Not Available Start: 07-16-2023 End: 07-16-2023 ambulatory JOHN HERR Not Available Start: 10-19-2022 End: 10-20-[address] DOCTOR MOSQUERA Facility:[facility] Start: 10-04-2022 End: 10-05-[address] FILIPE SALAZAR Facility:[facility] Start: 11-15-2021 End: 11-16-[address] FILIPE SALAZAR Facility:[facility] Start: 02-09-2019 End: 02-12-2019 Patient encounter procedure [facility] Start: 02-02-2019 End: 02-02-2019 Emergency department patient visit MCKENNA A [facility] Start: 10-20-2018 End: 10-23-2018 Patient encounter procedure [facility] Start: 10-09-2018 End: 10-12-2018 Patient encounter procedure [facility] Start: 09-02-2018 End: 09-03-2018 Patient encounter procedure MCKENNA Pebbles [facility] Start: 08-11-2018 End: 08-14-2018 Patient encounter procedure TORREYSABINO DAY [facility] Procedures Date Procedure Procedure Detail Performing Clinician Start: 10-19-[address] DOCTOR MOSQUERA Comment on above: Performed By: #### P [facility] #### [facility] [address] [place] [address] Dr. Cindi Underwood Start: 02-09-2019 Mri spinal canal cer vical w/o contrast matrl TORREY DAY Start: 10-09-2018 Ct head/brain w/o co ntrast material TORREY DAY Start: 09-02-2018 Lung differential function TORREY DAY Start: 08-11-2018 [facility]x spine cervical 2 or 3 views TORREY DAY Payers Date Payer Category Payer Unknown [id number] 1961 Medicaid [id number] 1961 Medicare [id number] 1960 Unknown [id number] 2.16.8 [id number] 1960 Unknown [id number] 2.16.8 [id number] 1960 Unknown [id number] 2.16.8 [id number] 1960 Unknown [id number] 2.16.8 40.1.659538.3.579.2.182 1960 Unknown [id number] 2.16.8 40.1.623307.3.579.2.182 1960 Unknown [id number] 2.16.8 40.1.094412.3.579.2.182 1960 Unknown [id number] 2.16.84 0.1.827194.3.579.2.593 1960 Unknown [id number] 2.16.84 0.1.985081.3.579.2.593 1960 Unknown [id number] 2.16.84 0.1.373136.3.579.2.593 1960 Unknown [id number] 2.16.84 0.1.172698.3.579.2.1259 1960 Unknown [id number] 2.16.84 0.1.666056.3.579.2.1259 1960 Unknown [id number] 2.16.84 0.1.994980.3.579.2.1259 1960 Unknown [id number] 2.16.84 0.1.576712.3.579.2.1259 Summary Purpose Family History No Family History [...] section and content) DATE CREATED AUTHOR 07/27/2018 [facility] DATE CREATED AUTHOR AUTHOR'S ORGANIZ ATION 02/12/2019 [facility] [place] DATE CREATED AUTHOR AUTHOR'S ORGANIZ ATION 08/10/2020 Jeffy Bowden [facility] DATE CREATED AUTHOR AUTHOR'S ORGANIZ ATION 08/13/2021 [facility] DATE CREATED AUTHOR AUTHOR'S ORGANIZ ATION 10/26/2022 [facility] DATE CREATED AUTHOR AUTHOR'S ORGANIZ ATION 12/03/2023 [facility] FOR RECORDS PERTAINING TO PATIENTS WHO ARE [...] BE BASED ON THE PRIMARY CLINICAL RECORDS. [employer] provides no warranty or guarantee of the accuracy or completeness of information in this document.
[2023-12-11 08:02] LABS: Basophils Absolute Auto 0.1 10^3/uL (0.0-0.1); Basophils Percent Auto 0.7 % (0.2-2.0); Eosinophils Absolute Auto 0.6 10^3/uL (0.0-0.7); Eosinophils Percent Auto 5.3 % (0.9-7.0); Hematocrit 46.8 % (42.0-54.0); Hemoglobin 15.2 g/dL (14.0-18.0); Immature Granulocytes Abs Auto 0.04 10^3/uL (0.00-0.03); Immature Granulocytes Pct Auto 0.4 % (0.0-0.5); Lymphocytes Absolute Auto 2.4 10^3/uL (1.2-3.8); Lymphocytes Percent Auto 21.5 % (20.5-60.0); Mean Corpuscular HGB Conc 32.5 g/dL (29.9-35.2); Mean Corpuscular Hemoglobin 30.6 pg (25.9-34.0); Mean Corpuscular Volume 94.2 fL (80.0-94.0); Mean Platelet Volume 10.4 fL (9.5-13.5); Monocytes Absolute Auto 0.7 10^3/uL (0.3-0.8); Monocytes Percent Auto 6.4 % (1.7-12.0); Neutrophils Absolute Auto 7.2 10^3/uL (1.4-6.5); Neutrophils Percent Auto 65.7 % (43.0-75.0); Platelet Count 194 10^3/uL (150-450); Red Blood Count 4.97 10^6/uL (4.70-6.10); Red Cell Distribution Width 13.4 % (11.0-15.0)
[2023-12-11 08:07] LABS: Estimated Average Glucose 128 mg/dL; Glycohemoglobin A1C 6.1 % (4.5-6.2)
[2023-12-11 08:54] LABS: Alanine Aminotransferase 35 U/L (16-63); Albumin Globulin Ratio 1.2; Albumin Level 3.8 g/dL (3.4-5.0); Alkaline Phosphatase 79 U/L (46-116); Anion Gap 12.3; Aspartate Amino Transferase 30 U/L (15-37); BUN Creatinine Ratio 16.7; Bilirubin Direct 0.3 mg/dL (0.0-0.2); Bilirubin Total 1.1 mg/dL (0.2-1.0); Calcium 8.7 mg/dL (8.5-10.1); Carbon Dioxide 29.7 mmol/L (21.0-32.0); Chloride 100 mmol/L (98-107); Chol HDL Ratio 4.9; Cholesterol 188 mg/dL (<=200); Estimated GFR (African America >60 (>=60); Estimated GFR (Non-African Ame >60 (>=60); Globulin 3.3 g/dL; Glucose 103 mg/dL (74-106); HDL Cholesterol 38 mg/dL (40-60); Sodium 138 mmol/L (136-145); Thyroid Stimulating Hormone 4.884 uIU/mL (0.358-3.740); Total Protein 7.1 g/dL (6.4-8.2); Triglycerides 119 mg/dL (<=150); VLDL CHOLESTEROL 23.8 mg/dL
[2023-12-11 10:05] LABS: Microalbumin Urine Random 1.4 mg/dL (<=30.0)
[2023-12-11 10:17] LABS: Prostate Specific Antigen Dx 0.84 ng/mL (<=4.00)
== END 2023-12-11 07:23 | disposition home or self-care (01) ==
LOC: LAB 07:25
PROVIDERS: PCP Family Medicine; Visit Provider Family Medicine
DX: E11.65 Type 2 diabetes mellitus with hyperglycemia (principal); I10 Essential (primary) hypertension; Z79.899 Other long term (current) drug therapy; E78.5 Hyperlipidemia, unspecified; Z12.5 Encounter for screening for malignant neoplasm of prostate; E66.9 Obesity, unspecified
CPT/HCPCS: 36415; 80048; 80061; 80076; 82043; 83036; 84153; 84443; 85025

== ENCOUNTER 2024-03-11 13:53 | Emergency (ER) | payer MEDICARE, MEDICAID, SELFPAY ==
[2024-03-11 13:58] VITALS: BP 171/87; PULSE 81; TEMP 36.6; O2SAT 95; BMI 39.5
--- NOTE | 2024-03-11 14:16 | XR_ITS ---
The [address] [address] Patient Name: DIMITRY BENJAMIN MRN: [id number] date: 1960 Sex: M Assigned Patient Location: ED.MAIN Current Patient Location: ER Accession/Order Number: [id number] Exam Date: 03/11/2024 14:45 Report Date: 03/11/2024 15:20 At the request of: ELLY OMER Procedure: XR chest 2V EXAMINATION: XR chest 2V HISTORY: cough, congestion COMPARISON: 01/26/2021 TECHNIQUE: PA and lateral FINDINGS: LUNGS: No significant pulmonary parenchymal abnormalities. VASCULATURE: No increased pulmonary vasculature. PLEURA: No pneumothorax, effusion, or pleural thickening. CARDIAC: No cardiomegaly or cardiac silhouette abnormality. MEDIASTINUM: No visible mass or adenopathy. BONES: No fracture or visible bone lesion. Cervical fusion hardware OTHER: Negative. XR/XR chest 2V IMPRESSION: No acute cardiopulmonary process Electronically authenticated by: DECLAN TORRES Date: 03/11/2024 15:20
--- NOTE | 2024-03-11 14:19 | ED.BACK1 ---
HPI HPI - Back Pain/Injury General Chief Complaint: Back Pain/Injury Stated Complaint: LOWER BACK PAIN Time Seen by Provider: 03/11/24 13:58 Source: patient Mode of arrival: walk-in Limitations: no limitations History of Present Illness HPI Narrative: 64-year-old male presents to the emergency department with chief complaint of back pain. Onset about 2 weeks ago. Has been fairly steady and constant. Locating pain to the left mid to lower back. Describes as an ache. Worsens with palpation, movement, walking. Has had some history of sciatica in the past. Does note intermittent radiation going down his leg with some numbness in his toes. + COPD, hx of recent cough, congestion. Denies any fever, chills, loss of bowel or bladder control, saddle anesthesias. No reported history of IV drug use. Denies any motor or sensory changes, weakness. Quality:?As above Severity:?Moderate Timing:?2 weeks Context: Normal setting and activity? Modifying factors:?As above Associated symptoms: As above Related Data Home Medications ?Medication ?Instructions ?Recorded ?Confirmed alprazolam 1 mg tablet 1 mg PO QID 03/11/24 03/11/24 atorvastatin 40 mg tablet 40 mg PO BEDTIME 03/11/24 03/11/24 hydrochlorothiazide 25 mg tablet 50 mg PO DAILY 03/11/24 03/11/24 metformin 500 mg tablet,extended 500 mg PO BID 03/11/24 03/11/24 release 24 hr semaglutide 14 mg tablet (Rybelsus) 14 mg PO DAILY 03/11/24 03/11/24 tiotropium bromide 18 mcg capsule 1 cap inhalation DAILY 03/11/24 03/11/24 with inhalation device (Spiriva with HandiHaler) zolpidem 10 mg tablet 10 mg PO BEDTIME 03/11/24 03/11/24 Previous Rx's ?Medication ?Instructions ?Recorded prednisone 20 mg tablet 20 mg PO BID #10 tabs 05/03/23 hydrocodone 5 mg-acetaminophen 300 1 tab PO Q6H PRN pain 3 days #7 03/11/24 mg tablet tabs ibuprofen 600 mg tablet 600 mg PO Q8H PRN pain #20 tabs 03/11/24 lidocaine 5 % topical patch 1 patch topical DAILY #15 ea 03/11/24 (Lidoderm) tizanidine 4 mg capsule 4 mg PO Q8H #14 caps 03/11/24 Allergies Allergy/AdvReac Type Severity Reaction Status Date / Time No Known Drug Allergies Allergy Verified 05/03/23 13:32 Opioid HPI Opioid Management Most Recent Opioid Data: Last Pain Scale 8 03/11/24 15:10 Last ED Pain Assessment 03/11/24 15:10 Last MAR Pain Assessment 03/11/24 14:27 Review of Systems ROS Constitutional Denies: fever or chills Cardiovascular Denies: chest pain Respiratory Reports: cough and chest congestion; Denies: shortness of breath Gastrointestinal Denies: abdominal pain, nausea or other (Loss of bowel control) Genitourinary Denies: blood in urine Musculoskeletal Reports: back pain and extremity pain; Denies: muscle weakness Neurological Reports: numbness in extremities (toes); Denies: weakness in extremities PFSH PFSH Social History Little interest or pleasure in doing things: not at all Feeling down, depressed, or hopeless: not at all Exam Constitutional Vital Signs, click to edit/add: Last Vital Signs Temp 97.9 F 03/11/24 13:58 Pulse 75 03/11/24 15:51 Resp 18 03/11/24 15:51 BP 171/87 H 03/11/24 13:58 Pulse Ox 99 03/11/24 15:51 O2 Del Method Room Air 03/11/24 15:51 Common normals: no apparent distress, oriented x3 and alert HENMT Common normals: normocephalic and head/scalp atraumatic Head and scalp: normocephalic and atraumatic Back & Pelvis Lumbar spine/lower back: normal to inspection and straight leg raise positive left; no lumbar spinal tenderness, no paraspinal muscle tenderness and no paraspinal muscle spasm Pelvis: no sciatic notch tenderness Other: Patient has point tenderness over the left latissimus dorsi muscle. No swelling, erythema, bruising, crepitus, step-off noted to his back on exam. No tenderness over his ribs. Dorsiflexion, plantarflexion, hallux dorsiflexion strong and equal bilaterally. Extremity Left lower extremity: ankle joint Left ankle: ROM (full with DF, PF, halux DF) Neuro Common normals: oriented x3, moves all extremities, no focal motor deficits, no sensory deficits noted and deep tendon reflexes 2+ bilaterally Sensorium/orientation: alert Speech: speech normal Psych Common normals: mental status grossly normal, thought process normal and cooperative Thought process: normal thought process Course Reevaluation(s) Reevaluation #1: Patient reports overall improvement of his pain after treatment. Discussed with patient results, plan, and disposition. He is agreeable to plan. He states he is going to follow-up with his primary care provider early next Time: 15:45 Vital Signs Vital signs: Vital Signs Temperature 97.9 F 03/11/24 13:58 Pulse Rate 81 03/11/24 13:58 Respiratory Rate 20 03/11/24 13:58 Blood Pressure 171/87 H 03/11/24 13:58 Pulse Oximetry 95 03/11/24 13:58 Oxygen Delivery Method Room Air 03/11/24 13:58 Temperature 97.9 F 03/11/24 13:58 Pulse Rate 75 03/11/24 15:51 Respiratory Rate 18 03/11/24 15:51 Blood Pressure 171/87 H 03/11/24 13:58 Pulse Oximetry 99 03/11/24 15:51 Oxygen Delivery Method Room Air 03/11/24 15:51 MDM - Back Pain/Injury MDM Narrative Medical decision making narrative: This is a pleasant 64-year-old male who presents to the emergency department with complaint of left lower back pain. Locating pain just below his ribs in the region of his latissimus dorsi. Has been ongoing over the past 2 weeks. Worse with palpation, movement, ambulating, coughing. Has history of COPD and has had some congestion recently. Does note some occasional radiation going down his leg. States history of sciatica. He has had some numbness in his toes. Denies any fever, history of IV drug use, motor or sensory changes, loss of bowel or bladder control, saddle anesthesias. On arrival, afebrile, vital signs are stable. Exam, nontoxic, well-appearing patient in no distress. Point tenderness over his latissimus dorsi. No erythema, rash, swelling, concern for shingles. No focal neurologic findings on exam. Dorsiflexion, plantarflexion, hallux dorsiflexion strong and equal bilaterally. Achilles and patellar reflexes are intact. Sensory intact. 2+ palpable dorsalis pedal pulses are present. With history of cough, congestion, chest x-ray obtained which, per radiology report reveals no acute or concerning changes. Favor musculoskeletal pain Fracture less likely no midline tenderness, no blunt trauma, no risks for pathologic fracture Cauda equina less likely based on history and physical exam, no weakness, normal neurologic exam Pneumonia less likely based on imaging Epidural abscess less likely based on history and physical, no fever, history of IV drug use, midline tenderness Additional records reviewed: PDMP Reevaluation: See ED course above. Patient clinically improved and was feeling better. Disposition ? The patient was discharged. Plan: Patient will be discharged to home. Condition at time of disposition: stable and improved He was sent home with prescription for limited supply of hydrocodone, Motrin, Lidoderm patches, tizanidine ? Advised to follow up with primary provider. Advised to return for any worsening and/or development of new, concerning signs or symptoms PLEASE NOTE: Portions of the medical record may have been produced using electronic licensed final expense agents and may contain errors with respect to translation of words which may not have been identified prior to finalization of the chart. Medical Records Attestation: I reviewed the patient's medical records. Imaging Data Chest x-ray: Radiologist's impression: ITS Impressions Chest X-Ray 03/11/24 14:16 IMPRESSION: No acute cardiopulmonary process Electronically authenticated by: DECLAN TORRES Date: 03/11/2024 15:20 Discharge Plan Discharge Chief Complaint: Back Pain/Injury Clinical Impression: Back pain Qualifiers: Back pain location: low back pain Chronicity: acute Back pain laterality: left Sciatica presence: without sciatica Qualified Code(s): M54.50 - Low back pain, unspecified Back strain Qualifiers: Encounter type: initial encounter Qualified Code(s): S39.012A - Strain of muscle, fascia and tendon of lower back, initial encounter Patient Disposition: Home, Self-Care Time of Disposition Decision: 15:42 Condition: Good Mode of Transportation: Private Vehicle Prescriptions / Home Meds: New ibuprofen 600 mg tablet 600 mg PO Q8H PRN (Reason: pain) Qty: 20 0RF hydrocodone-acetaminophen 5-300 mg tablet 1 tab PO Q6H PRN (Reason: pain) 3 Days Qty: 7 0RF tizanidine 4 mg capsule 4 mg PO Q8H Qty: 14 0RF lidocaine [Lidoderm] 5 % adhesive patch,medicated 1 patch topical DAILY Qty: 15 0RF Rx Instructions: leave on most painful area for up to 12 hrs No Action prednisone 20 mg tablet 20 mg PO BID Qty: 10 0RF alprazolam 1 mg tablet 1 mg PO QID hydrochlorothiazide 25 mg tablet 50 mg PO DAILY metformin 500 mg tablet extended release 24 hr 500 mg PO BID atorvastatin 40 mg tablet 40 mg PO BEDTIME Rybelsus 14 mg tablet 14 mg PO DAILY tiotropium bromide [Spiriva with HandiHaler] 18 mcg capsule, w/inhalation device 1 cap INHALATION DAILY zolpidem 10 mg tablet 10 mg PO BEDTIME Print Language: Danish Instructions: Back Pain (ED) Referrals: Gerber Alvarado MD [Primary Care Provider] - 1 week Discharge Date/Time: 03/11/24 15:52
[2024-03-11] MEDS: TIZANIDINE HCL 4 MG TABLET PO (14:27)
[2024-03-11] MEDS: IBUPROFEN 600 MG TABLET PO (14:27)
[2024-03-11] MEDS: MORPHINE SULFATE 4 MG/ML VIAL IM (14:27)
[2024-03-11 15:51] VITALS: PULSE 75; O2SAT 99
== END 2024-03-11 15:52 | disposition home or self-care (01) ==
PROVIDERS: Emergency Provider Emergency Medicine; PCP Family Medicine
DX: S39.012A Strain of muscle, fascia and tendon of lower back, initial encounter (principal); J44.9 Chronic obstructive pulmonary disease, unspecified; R20.0 Anesthesia of skin; X58.XXXA Exposure to other specified factors, initial encounter
CPT/HCPCS: 71046; 96372; 99284; J2270

== ENCOUNTER 2024-04-04 10:25 | Outpatient (OUT) | payer MEDICARE, MEDICAID, SELFPAY ==
--- NOTE | 2024-04-04 | XR_ITS ---
The [address] [address] Patient Name: DIMITRY BENJAMIN MRN: [id number] date: 1960 Sex: M Assigned Patient Location: [facility] Current Patient Location: Accession/Order Number: [id number] Exam Date: 04/04/2024 10:58 Report Date: 04/05/2024 08:16 At the request of: NON-STAFF PHYSICIAN Procedure: XR cervical spine 2-3V EXAMINATION: XR cervical spine 2-3V HISTORY: Neck pain COMPARISON: XR C-spine 08/26/2019 FINDINGS: BONES: Mechanical fusion C3-C7 via anterior plate and screws; no appreciable hardware fracture loosening. Reversal normal lordotic curvature; unchanged. Multilevel moderate degenerative facet arthropathy. DISC SPACES: Osseous fusion C3-C4 through C6-C7. PARASPINOUS: Negative. No paraspinous abnormality is seen. OTHER: Negative. XR/XR cervical spine 2-3V IMPRESSION: 1. Grossly stable surgical changes and degenerative changes. Limited evaluation of lower cervical spine due to obscuration by shoulder structures. Electronically authenticated by: NATO MAGANA Date: 04/05/2024 08:16
--- NOTE | 2024-04-04 | XR_ITS ---
The [address] [address] Patient Name: DIMITRY BENJAMIN MRN: [id number] date: 1960 Sex: M Assigned Patient Location: [facility] Current Patient Location: [facility] Accession/Order Number: [id number] Exam Date: 04/04/2024 10:58 Report Date: 04/05/2024 08:23 At the request of: NON-STAFF PHYSICIAN Procedure: XR lumbar spine min 4V EXAMINATION: XR lumbar spine min 4V HISTORY: Low back pain COMPARISON: No relevant comparison available. FINDINGS: BONES: Mild anterior wedging of L1. Grade 1 retrolisthesis of L2 on 3 and; no change in alignment during flexion and extension. Prominent sclerotic degenerative endplate changes at C2-C3. Mild degenerative facet arthropathy L4-L5, L5-S1. DISC SPACES: Marked narrowing L2-L3. Moderate narrowing L1-L2, and L4-L5. Mild narrowing at remaining levels. PARASPINOUS: Negative. No paraspinous abnormality is seen. OTHER: Negative. XR/XR lumbar spine min 4V IMPRESSION: 1. Mild anterior wedging of L1 vertebral body favoring remote compression fracture. 2. L2-L3 marked degenerative disc disease. Grade 1 retrolisthesis of L2 on 3 without appreciable change during flexion and extension. 3. Multilevel degenerative disc disease Electronically authenticated by: NATO MAGANA Date: 04/05/2024 08:23
--- OUTSIDE RECORDS SUMMARY | 2024-04-04 10:29 | XMS_ITS | CCD ---
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 Name Role Phone MARYDICK TORREY Referring Unavailable [...] MISC, DR AHMADI Admitting Unavailable NADERER, DR GERBER Rogel Consulting Unavailable NADERER, DR GERBER Rogel Primary Care Unavailable NADERER, DR GERBER Rogel Admitting Unavailable NADERER, DR GERBER Rogel Attending Unavailable NADERER, DR GERBER Rogel Primary Care Unavailable NADERER, DR GERBER Rogel Admitting Unavailable NADERER, DR GERBER Rogel Attending Unavailable NADERER, DR GERBER Rogel Consulting Unavailable NADERER, DR GERBER Rogel Primary Care Unavailable BROWNJOHN Attending Unavailable NADERER, GERBER Attending Unavailable BROWN, JOHN Rogel Attending Unavailable NADERER, GERBER Attending Unavailable NADERER, GERBER Attending Unavailable BROWN, JOHN Rogel Attending Unavailable Allergies Allergy Classification Reported Allergen(s) Allergy Type Date of Onset Reaction(s) Facility (1 source) Amino Acids Drug Allergy [facility] Repository Medications Current Medications Medication Drug Class(es) Dates Sig (Normalized) Sig (Original) acetaminophen 500 mg oral tablet (2 sources) Start: 06-17-2019 take 1000 mg by mouth every six hours Acetaminophen Active 1000 MG PO Q6H 120 30 June 17, 2019 1:00am Start: 06-12-2019 End: 06-17-2019 take 1 tablet by mouth every eight hours Acetaminophen (Tylenol 8 Hour) 650 mg tablet extended release Discontinued 650 MG PO Q8H 20 June 12, 2019 1:00am June 17, 2019 3:24pm atorvastatin 40 mg oral tablet (2 sources) HMG-CoA Reductase Inhibitor Start: 05-21-2019 End: 06-17-2019 take 40 mg by mouth once daily at bedtime Atorvastatin Active 40 MG PO Daily at bedtime 30 June 17, 2019 1:00am metFORMIN hydrochloride 500 mg oral tablet (2 sources) Biguanide Start: 06-17-2019 take 500 mg by mouth twice daily at mealtime Metformin Active 500 MG PO Twice daily with meals 60 June 17, 2019 1:00am Start: 05-21-2019 End: 06-17-2019 take 500 mg by mouth twice daily at mealtime Metformin Discontinued 500 MG PO Twice daily with meals May 21, 2019 1:00am June 17, 2019 3:24pm Completed/Discontinued Medications Medication Drug Class(es) Dates Sig (Normalized) Sig (Original) acetaminophen 325 mg / oxyCODONE hydrochloride 5 mg oral tablet (2 sources) Opioid Agonist Start: 10-06-2020 End: 03-26-2024 take 1 tablet by mouth every four to six hours Oxycodone-Acetamino phen (Percocet) 5-325 mg tablet Discontinued 1 TAB PO EVERY 4-6 HOURS 14 October 06, 2020 March 26, 2024 1:36pm Start: 06-12-2019 End: 06-17-2019 take 1 tablet by mouth every four hours Oxycodone-Acetaminophen (Percocet) 5-325 mg tablet Discontinued 1 TAB PO Q4H 20 June 12, 2019 June 17, 2019 3:24pm albuterol 0.83 mg/ml inhalation solution (3 sources) beta2-Adrenergic Agonist Start: 06-12-2019 End: 06-17-2019 take 2.5 mg by inhalation every three hours Albuterol Sulfate Discontinued 2.5 MG INHALATION Q3H 0 June 12, 2019 1:00am June 17, 2019 3:24pm Start: 05-21-2019 End: 06-17-2019 take 1 puff(s) by inhalation every four hours Albuterol Sulfate (Ventolin Hfa) 90 mcg/actuation Hfa Aerosol Inhaler Active 2 PUFF INHALATION Q4H 30 June 17, 2019 1:00am ALPRAZolam 1 mg oral tablet (5 sources) Benzodiazepine Start: 03-26-2024 Alprazolam Act karolyn MG PO March 26, 2024 12:00am Start: 06-12-2019 End: 03-26-2024 take 0.5 mg by mouth twice daily Alprazolam Discontinued 0.5 MG PO Twice daily 0 June 17, 2019 1:00am March 26, 2024 1:36pm Start: 05-21-2019 End: 06-12-2019 take 0.5 mg by mouth three times daily Alprazolam Discontinued 0.5 MG PO Three times daily May 21, 2019 1:00am June 12, 2019 12:07pm amoxicillin 875 mg / clavulanate 125 mg oral tablet (1 source) Penicillin-class Antibacterial Start: 06-18-2019 End: 03-26-2024 take 1 tablet by mouth twice daily Amoxicillin-Pot Clavulanate Discontinued 1 TAB PO Twice daily 20 June 18, 2019 1:00am March 26, 2024 1:36pm 120 actuat budesonide 0.08 mg/actuat / formoterol fumarate 0.0045 mg/actuat metered dose inhaler (1 source) Corticosteroid, beta2-Adrenergic Agonist Start: 03-26-2024 Budesonide-Formoterol (Symbicort) 80-4.5 mcg/actuation HFA aerosol inhaler Active 1 INH INHALATION Twice daily March 26, 2024 12:00am cyclobenzaprine hydrochloride 10 mg oral tablet (1 source) Muscle Relaxant Start: 06-04-2019 End: 06-12-2019 take 10 mg by mouth every eight hours Cyclobenzaprine Discontinued 10 MG PO Every 8 hours 29 04June 04, 2019 1:00am June 12, 2019 12:07pm dexamethasone 4 mg oral tablet (1 source) Corticosteroid Start: 06-04-2019 End: 06-04-2019 take 4 mg by mouth twice daily Dexamethasone Discontinued 4 MG PO Twice daily 10 June 04, 2019 1:00am June 04, 2019 4:37pm docusate sodium 100 mg oral capsule (1 source) Start: 06-17-2019 End: 03-26-2024 take 100 mg by mouth twice daily Docusate Sodium Discontinued 100 MG PO Twice daily 60 June 17, 2019 1:00am March 26, 2024 1:36pm Doxepin (1 source) Tricyclic Antidepressant Start: 03-26-2024 Doxepin Active MG PO March 26, 2024 12:00am fluticasone propionate 0.05 mg/actuat metered dose nasal spray (1 source) Corticosteroid Start: 05-21-2019 End: 06-17-2019 Fluticasone Propionate Discontinued 2 SPRAY INTRANASAL Daily May 21, 2019 1:00am June 17, 2019 3:24pm 30 actuat fluticasone furoate 0.1 mg/actuat / vilanterol 0.025 mg/actuat dry powder inhaler (1 source) Corticosteroid, beta2-Adrenergic Agonist Start: 05-21-2019 End: 03-26-2024 Fluticasone Furoate-Vilanterol (Breo Ellipta) 100-25 mcg/dose Blister With Device Discontinued 1 INH INHALATION Daily May 21, 2019 1:00am March 26, 2024 1:31pm 12 hr guaiFENesin 600 mg extended release oral tablet (1 source) Start: 06-17-2019 End: 03-26-2024 take 1 tablet by mouth twice daily, then take 1 tablet by mouth every twelve hours Guaifenesin (Mucinex) 600 mg Tablet Extended Release 12hr Discontinued 600 MG PO Twice daily June 17, 2019 1:00am March 26, 2024 1:36pm hydroCHLOROthiazide 25 mg oral tablet (2 sources) Thiazide Diuretic Start: 05-21-2019 End: 06-17-2019 take 25 mg by mouth once daily Hydrochlorothiazide Discontinued 25 MG PO Daily June 13, 2019 1:00am June 17, 2019 3:24pm lisinopril 20 mg oral tablet (1 source) Angiotensin Converting Enzyme Inhibitor Start: 05-21-2019 End: 06-12-2019 take 20 mg by mouth once daily in the morning Lisinopril Discontinued 20 MG PO Every morning May 21, 2019 1:00am June 12, 2019 12:07pm mirtazapine 7.5 mg oral tablet (1 source) Start: 06-17-2019 End: 03-26-2024 take 7.5 mg by mouth once daily at bedtime Mirtazapine Discontinued 7.5 MG PO Daily at bedtime 30 June 17, 2019 1:00am March 26, 2024 1:36pm 24 hr nicotine 0.875 mg/hr transdermal system (2 sources) Cholinergic Nicotinic Agonist Start: 06-04-2019 End: 03-26-2024 Nicotine Discontinued 1 EACH TRANSDERML Daily June 17, 2019 1:00am March 26, 2024 1:36pm omeprazole 20 mg delayed release oral capsule (3 sources) Proton Pump Inhibitor Start: 06-17-2019 End: 03-26-2024 take 40 mg by mouth once daily Omeprazole Discontinued 40 MG PO Daily June 17, 2019 1:00am March 26, 2024 1:36pm Start: 06-12-2019 End: 06-17-2019 take 40 mg by mouth once daily Omeprazole Discontinued 40 MG PO Daily June 12, 2019 12:06pm June 17, 2019 3:24pm Start: 05-21-2019 End: 06-12-2019 take 40 mg by mouth twice daily Omeprazole Discontinued 40 MG PO Twice daily May 21, 2019 1:00am June 12, 2019 12:07pm oxyCODONE hydrochloride 5 mg oral tablet (2 sources) Opioid Agonist Start: 06-04-2019 End: 06-04-2019 take 5 mg by mouth every four to six hours Oxycodone Discontinued 5 MG PO EVERY 4-6 HOURS June 04, 2019 4:27pm June 04, 2019 4:34pm microencapsulated potassium chloride 20 meq extended release oral tablet (1 source) Start: 06-17-2019 End: 03-26-2024 Potassium Chloride (Klor-Con M20) 20 mEq Tablet,Er Particles/Crystals Discontinued 20 MEQ PO Daily June 17, 2019 1:00am March 26, 2024 1:36pm prazosin 2 mg oral capsule (3 sources) alpha-Adrenerg ic Charlie Start: 06-05-2019 End: 03-26-2024 take 2 mg by mouth at bedtime Prazosin Discontinued 2 MG PO Bedtime June 17, 2019 3:23pm March 26, 2024 1:36pm Semaglutide (Rybelsus) 14 mg tablet (1 source) Start: 03-26-2024 Semaglutide (Rybelsus) 14 mg tablet Active MG PO March 26, 2024 12:00am tamsulosin hydrochloride 0.4 mg oral capsule (4 sources) alpha-Adrenerg ic Charlie Start: 06-12-2019 End: 03-26-2024 take 0.4 mg by mouth once daily Tamsulosin Discontinued 0.4 MG PO Daily June 17, 2019 1:00am March 26, 2024 1:36pm Start: 06-05-2019 End: 06-12-2019 take 0.8 mg by mouth once daily Tamsulosin Discontinue d 0.8 MG PO Daily June 05, 2019 1:00am June 12, 2019 12:10pm Start: 05-21-2019 End: 06-05-2019 take 0.4 mg by mouth once daily in the morning Tamsulosin Discontinued 0.4 MG PO Every morning May 21, 2019 1:00am June 05, 2019 8:33am Tiotropium [place] (Spiriva With Handihaler) 18 mcg capsule, w/inhalation device (1 source) Start: 03-26-2024 take 1 capsule by inhalation once daily Tiotropium [place] (Spiriva With Handihaler) 18 mcg capsule, w/inhalation device Active 1 CAP INHALATION Daily March 26, 2024 12:00am puncture 1 cap using device; one dose = 2 inhalations Problems Problem Classification Problem Date Documented Da te Episodic/Chronic Administrative/social admission (1 source) Other reduced mobility; Translations: [Impaired mobility and activities of daily living] 06-12-2023 Episodic Anxiety disorders (1 source) Posttraumatic stress disorder; Translations: [Post-traumatic stress disorder, unspecified] 06-12-2023 Chronic Chronic obstructive pulmonary disease and bronchiectasis (1 source) Chronic obstructive lung disease; Translations: [Chronic obstructive pulmonary disease, unspecified] 06-13-2019 Chronic Diabetes mellitus with complications (5 sources) Type 2 diabetes mellitus with hyperglycemia; Translations: [TYPE 2 DM W/HYPERGLYCEMIA] Onset: 2 Chronic Diabetes mellitus without complication (1 source) Diabetes mellitus; Translations: [Type 2 diabetes mellitus without complications] 06-13-2019 Chronic Diseases of white blood cells (1 source) Leukocytosis; Translations: [Elevated white blood cell count, unspecified] 06-12-2023 Chronic Disorders of lipid metabolism (5 sources) Hyperlipidemia, unspecified; Translations: [HYPERLIPIDEMIA UNSPECIFIED] Onset: 3 Chronic Esophageal disorders (2 sources) Gastroesophageal reflux disease; Translations: [Gastro-esophageal reflux disease without esophagitis] 06-13-2019 Chronic Essential hypertension (2 sources) Essential (primary) hypertension; Translations: [Hypertensive disorder] Onset: 3 06-13-2019 Chronic Fever of unknown origin (2 sources) Fever; Translations: [Fever, unspecified] 06-12-2023 Episodic Fluid and electrolyte disorders (1 source) Hyponatremia; Translations: [Hypo-osmolality and hyponatremia] 06-12-2023 Episodic Hyperplasia of prostate (1 source) Benign prostatic hyperplasia; Translations: [Benign prostatic hyperplasia without lower urinary tract symptoms] 06-13-2019 Chronic Other aftercare (5 sources) Other supervisor intermediates (current) drug therapy; Translations: [OTH COMMUNICATIONS SPECIALIST CURRENT DRUG THERAPY] Onset: 3 Episodic Other connective tissue disease (1 source) History of cervical spine fusion; Translations: [Arthrodesis status] 06-12-2023 Episodic Other gastrointestinal disorders (1 source) Dysphagia; Translations: [Dysphagia, unspecified] 06-12-2023 Episodic Other injuries and conditions due to external causes (1 source) Minor head injury; Translations: [Unspecified injury of head, initial encounter] 06-12-2023 Episodic Other lower respiratory disease (1 source) Respiratory obstruction; Translations: [Other specified respiratory disorders] 06-12-2023 Episodic Other nervous system disorders (1 source) Postoperative pain ; Translations: [Other acute postprocedural pain] 06-12-2023 Episodic Other nutritional; endocrine; and metabolic disorders (1 source) Morbid (severe) obesity due to excess calories; Translations: [MORBID SEVERE OBES D/T EXCESS MARIA FERNANDA] Onset: 3 Chronic Other screening for suspected conditions (not mental disorders or infectious disease) (1 source) Encounter for screening for malignant neoplasm of prostate; Translations: [ENC SCREEN MALIG NEOPLASM PROSTATE] Onset: 3 Episodic Residual codes; unclassified (1 source) Tobacco user; Translations: [Tobacco use] 06-13-2019 Episodic Residual codes; unclassified (1 source) Patient encounter status; Translations: [Encounter for prophylactic measures, unspecified] 06-12-2023 Episodic Respiratory failure; insufficiency; arrest (adult) (1 source) Respiratory failure; Translations: [Respiratory failure, unspecified, unspecified whether with hypoxia or hypercapnia] 12-13-2023 Episodic Spondylosis; intervertebral disc disorders; other back problems (1 source) Cervical spondylosis; Translations: [Other spondylosis with myelopathy, cervical region] 06-12-2023 Chronic Spondylosis; intervertebral disc disorders; other back problems (1 source) Neck pain; Translations: [Cervicalgia] 06-12-2023 Episodic Results Test Name Value Interpretation Reference Range Facility CBC AUTO DIFFon 10-19-2022 BASO # 0.1 103/ul Normal 0.0-0.1 [facility] Comment on above: Performed By: #### C BC #### [facility] [address] [address] [address] Cindi Underwood Basophils/100 WBC (Bld) 0.5 % Normal 0.2-2.0 [facility] Comment on above: Performed By: #### C BC #### [facility] [address] [address] [address] Cindi Underwood EO # 0.2 103/ul Normal 0.0-0.7 [facility] Comment on above: Performed By: #### C BC #### [facility] [address] [place] [address] Dr. Cindi Underwood Eosinophils/100 WBC (Bld) 1.8 % Normal 0.9-7.0 [facility] Comment on above: Performed By: #### C BC #### [facility] [address] [address] [address] Cindi Underwood Erythrocyte distribution width (RBC) [Ratio] 14.5 % Normal 11.0-15.0 [facility] Comment on above: Performed By: #### C BC #### [facility] [address] [place] [address] Dr. Cindi Underwood Hematocrit (Bld) [Volume fraction] 52.4 % Normal 42.0-54.0 [facility] Comment on above: Performed By: #### C BC #### [facility] [address] [place] [address] Dr. Cindi Underwood Hemoglobin (Bld) [Mass/Vol] 17.3 g/dL Normal 14.0-18.0 [facility] Comment on above: Performed By: #### C BC #### [facility] [address] [place] [address] Dr. Cindi Underwood IG # 0.04 10e3/ul Critically high 0.00-0.03 [facility] Comment on above: Performed By: #### C BC #### [facility] [address] [address] [address] Cindi Underwood IG % 0.4 % Normal 0.0-0.5 [facility] Comment on above: Performed By: #### C BC #### [facility] [address] [place] [address] Dr. Cindi Underwood LYMPH # 1.9 103/ul Normal 1.2-3.8 [facility] Comment on above: Performed By: #### C BC #### [facility] [address] [place] [address] Dr. Cindi Underwood Lymphocytes/100 WBC (Bld) 20.8 % Normal 20.5-60.0 [facility] Comment on above: Performed By: #### C BC #### [facility] [address] [place] [address] Dr. Cindi Underwood MANUAL DIFF REQ NO Normal [facility] Comment on above: Performed By: #### C BC #### [facility] [address] [place] [address] Dr. Cindi Underwood MCH (RBC) [Entitic mass] 30.7 pg Normal 25.9-34.0 [facility] Comment on above: Performed By: #### C BC #### [facility] [address] [place] [address] Dr. Cindi Underwood MCHC (RBC) [Mass/Vol] 33.0 g/dL Normal 29.9-35.2 [facility] Comment on above: Performed By: #### C BC #### [facility] [address] [place] [address] Dr. Cindi Underwood MCV (RBC) [Entitic vol] 93.1 fL Normal 80.0-94.0 [facility] Comment on above: Performed By: #### C BC #### [facility] [address] [place] [address] Dr. Cindi Underwood MONO # 0.5 103/ul Normal 0.3-0.8 [facility] Comment on above: Performed By: #### C BC #### [facility] [address] [address] [address] Cindi Underwood Monocytes/100 WBC (Bld) 5.6 % Normal 1.7-12.0 [facility] Comment on above: Performed By: #### C BC #### [facility] [address] [address] [address] Cindi Underwood NEUT # 6.5 103/ul Normal 1.4-6.5 [facility] Comment on above: Performed By: #### C BC #### [facility] [address] [place] [address] Dr. Cindi Underwood Neutrophils/100 WBC (Bld) 70.9 % Normal 43.0-75.0 [facility] Comment on above: Performed By: #### C BC #### [facility] [address] [place] [address] Dr. Cindi Underwood Platelet mean volume (Bld) [Entitic vol] 10.8 fL Normal 9.5-13.5 [facility] Comment on above: Performed By: #### C BC #### [facility] [address] [place] [address] Dr. Cindi Underwood PLT 190 103/ul Normal 150-450 [facility] Comment on above: Performed By: #### C BC #### [facility] [address] [place] [address] Dr. Cindi Underwood RBC 5.63 106/ul Normal 4.70-6.10 [facility] Comment on above: Performed By: #### C BC #### [facility] [address] [place] [address] Dr. Cindi Underwood WBC 9.1 103/ul Normal 4.0-11.0 [facility] Comment on above: Performed By: #### C BC #### [facility] [address] [place] [address] Dr. Cindi Underwood GLYCOHEMOGLOBIN A1Con 2022 ADA RECOMMENDATION SEE BELOW Normal [facility] Comment on above: Result Comment: ADA RECOMMENDED LIMIT 4.0 - 6.0 ADA THERAPEUTIC TARGET < 7.0 ACTION SUGGESTED > 7.0 Performed By: #### A 1C #### [facility] [address] [place] [address] Dr. Cindi Underwood Glucose [Mass/Vol] 163 mg/dL Normal [facility] Comment on above: Performed By: #### A 1C #### [facility] [address] [address] [address] Cindi Underwood HbA1c (Bld) [Mass fraction] 7.3 % Critically high 4.5-6.2 [facility] Comment on above: Performed By: #### A 1C #### [facility] [address] [place] [address] Dr. Cindi Underwood LIPID PROFILEon 10-19-2022 CHOL-HDL RATIO NORM SEE BELOW Normal [facility] Comment on above: Result Comment: 3.3 - 4.4 LOW RISK 4.4 - 7.1 AVERAGE RISK 7.1 - 11.0 MODERATE RISK >11.0 HIGH RISK Performed By: #### L IPID, TSH, BMP, LIVER #### [facility] [address] [place] [address] Dr. Cindi Underwood Cholesterol [Mass/Vol] 189 mg/dL Normal <=200 [facility] Comment on above: Performed By: #### L IPID, TSH, BMP, LIVER #### [facility] [address] [place] [address] Dr. Cindi Underwood Cholesterol in HDL [Mass/Vol] 33 mg/dL Critically low 40-60 [facility] Comment on above: Performed By: #### L IPID, TSH, BMP, LIVER #### [facility] [address] [place] [address] Dr. Cindi Underwood Cholesterol in LDL [Mass/Vol] 123.6 mg/dL Normal [facility] Comment on above: Performed By: #### L IPID, TSH, BMP, LIVER #### [facility] [address] [place] [address] Dr. Cindi Underwood Cholesterol.total/C holesterol in HDL [Mass ratio] 5.7 {ratio} Normal [facility] Comment on above: Performed By: #### L IPID, TSH, BMP, LIVER #### [facility] [address] [address] [address] Cindi Underwood HDL NORMAL > or = 60 mg/dl - LO W CARDIOVASCULAR RISK <40 mg/dl - HIGH CARDIOVASCULAR RISK Normal [facility] Comment on above: Performed By: #### L IPID, TSH, BMP, LIVER #### [facility] [address] [address] [address] Cindi Underwood LDL CALC NORMAL SEE BELOW Normal [facility] Comment on above: Result Comment: <100 mg/dl OPTIMAL 100 - 129 mg/dl NEAR OR ABOVE OPTIMAL 130 - 159 mg/dl BORDERLINE HIGH 160 - 189 mg/dl HIGH >190 mg/dl VERY HIGH Performed By: #### L IPID, TSH, BMP, LIVER #### [facility] [address] [address] [address] Cindi Underwood Triglyceride [Mass/Vol] 162 mg/dL Critically high <=150 [facility] Comment on above: Performed By: #### L IPID, TSH, BMP, LIVER #### [facility] [address] [place] [address] Dr. Cindi Underwood VLDL CALC 32.4 mg/dL Normal [facility] Comment on above: Performed By: #### L IPID, TSH, BMP, LIVER #### [facility] [address] [address] [address] Cindi Underwood LIVER PROFILEon 10-19-2022 Albumin [Mass/Vol] 3.7 g/dL Normal 3.4-5.0 [facility] Comment on above: Performed By: #### L IPID, TSH, BMP, LIVER #### [facility] [address] [place] [address] Dr. Cindi Underwood Albumin/Globulin [Mass ratio] 0.9 {ratio} Normal [facility] Comment on above: Performed By: #### L IPID, TSH, BMP, LIVER #### [facility] [address] [place] [address] Dr. Cindi Underwood ALP [Catalytic activity/Vol] 89 U/L Normal 46-116 [facility] Comment on above: Performed By: #### L IPID, TSH, BMP, LIVER #### [facility] [address] [address] [address] Cindi Underwood ALT [Catalytic activity/Vol] 44 U/L Normal 16-63 [facility] Comment on above: Performed By: #### L IPID, TSH, BMP, LIVER #### [facility] [address] [place] [address] Dr. Cindi Underwood AST [Catalytic activity/Vol] 21 U/L Normal 15-37 [facility] Comment on above: Performed By: #### L IPID, TSH, BMP, LIVER #### [facility] [address] [place] [address] Dr. Cindi Underwood BILI, CONJUGATED 0.1 mg/dL Normal 0.0-0.2 [facility] Comment on above: Performed By: #### L IPID, TSH, BMP, LIVER #### [facility] [address] [place] [address] Dr. Cindi Underwood Bilirubin [Mass/Vol] 0.6 mg/dL Normal 0.2-1.0 [facility] Comment on above: Performed By: #### L IPID, TSH, BMP, LIVER #### [facility] [address] [place] [address] Dr. Cindi Underwood Globulin (S) [Mass/Vol] 4.1 g/dL Normal [facility] Comment on above: Performed By: #### L IPID, TSH, BMP, LIVER #### [facility] [address] [place] [address] Dr. Cindi Underwood Protein [Mass/Vol] 7.8 g/dL Normal 6.4-8.2 [facility] Comment on above: Performed By: #### L IPID, TSH, BMP, LIVER #### [facility] [address] [place] [address] Dr. Cindi Underwood MICROALBUMIN, RAND URon 04-2 mALB 2.9 mg/L Normal <=30.0 [facility] Comment on above: Performed By: #### M ALBR #### [facility] [address] [place] [address] Dr. Cindi Underwood PROF CHEM 8 (BAS METB)on Anion gap [Moles/Vol] 8.6 mmol/L Normal [facility] Comment on above: Performed By: #### L IPID, TSH, BMP, LIVER #### [facility] [address] [address] [address] Cindi [place] Calcium [Mass/Vol] 9.2 mg/dL Normal 8.5-10.1 [facility] Comment on above: Performed By: #### L IPID, TSH, BMP, LIVER #### [facility] [address] [place] [address] Dr. Cindi Underwood Chloride [Moles/Vol] 102 mmol/L Normal 98-107 [facility] Comment on above: Performed By: #### L IPID, TSH, BMP, LIVER #### [facility] [address] [place] [address] Dr. Cindi Underwood CO2 [Moles/Vol] 34.3 mmol/L Critically high 21.0-32.0 [facility] Comment on above: Performed By: #### L IPID, TSH, BMP, LIVER #### [facility] [address] [place] [address] Dr. Cindi Underwood Creatinine [Mass/Vol] 0.87 mg/dL Normal 0.70-1.30 [facility] Comment on above: Performed By: #### L IPID, TSH, BMP, LIVER #### [facility] [address] [place] [address] Dr. Cindi Underwood EGFR-AF ANGUILLAN >60 Normal >=60 [facility] Comment on above: Performed By: #### L IPID, TSH, BMP, LIVER #### [facility] [address] [place] [address] Dr. Cindi Underwood EGFR-NON AF ANGUILLAN >60 Normal >=60 [facility] Comment on above: Performed By: #### L IPID, TSH, BMP, LIVER #### [facility] [address] [address] [address] Cindi Underwood Glucose [Mass/Vol] 132 mg/dL Critically high 74-106 [facility] Comment on above: Performed By: #### L IPID, TSH, BMP, LIVER #### [facility] [address] [place] [address] Dr. Cindi Underwood Potassium [Moles/Vol] 3.9 mmol/L Normal 3.5-5.1 [facility] Comment on above: Performed By: #### L IPID, TSH, BMP, LIVER #### [facility] [address] [place] [address] Dr. Cindi Underwood Sodium [Moles/Vol] 141 mmol/L Normal 136-145 [facility] Comment on above: Performed By: #### L IPID, TSH, BMP, LIVER #### [facility] [address] [place] [address] Dr. Cindi Underwood Urea nitrogen [Mass/Vol] 9.0 mg/dL Normal 7.0-18.0 [facility] Comment on above: Performed By: #### L IPID, TSH, BMP, LIVER #### [facility] [address] [place] [address] Dr. Cindi Underwood Urea nitrogen/Creatinine [Mass ratio] 10.3 mg/mg Normal [facility] Comment on above: Performed By: #### L IPID, TSH, BMP, LIVER #### [facility] [address] [place] [address] Dr. Cindi Underwood TSHon 10-19-2022 TSH 2.454 uIU/mL Normal 0.358-3.740 [facility] Comment on above: Performed By: #### L IPID, TSH, BMP, LIVER #### [facility] [address] [place] [address] Dr. Cindi Underwood GLYCOHEMOGLOBIN A1Con 2021 ADA RECOMMENDATION SEE BELOW Normal [facility] Comment on above: Result Comment: ADA RECOMMENDED LIMIT 4.0 - 6.0 ADA THERAPEUTIC TARGET < 7.0 ACTION SUGGESTED > 7.0 Performed By: #### A 1C #### [facility] [address] [address] [address] Cindi Underwood Glucose [Mass/Vol] 160 mg/dL Normal [facility] Comment on above: Performed By: #### A 1C #### [facility] [address] [address] [address] Cindi Underwood HbA1c (Bld) [Mass fraction] 7.2 % Critically high 4.5-6.2 [facility] Comment on above: Performed By: #### A 1C #### [facility] [address] cervical spine wo conon 0 10-06-2020 CT cervical spine wo con [facility] Main [place]ie [address] [place] [address] CT Scan Report Signed Patient: Dimitry Benjamin MR#: [id number] : 1960 Acct:[id number] Age/Sex: 60 / M ADM Date: 10/06/20 Loc: ER Room: Type: [facility] ER Attending Dr: Ordering Provider: Albino New MD Date of Service: 10/06/20 CT/CT head/brain wo con: fall ([id number]) CT/CT cervical spine wo con: fall Copies [...] Leona Argueta M.D.10/06/2020 4:49 PM Dictation Location: [place] [address] Transcribed By: [facility] 10/06/20 1649 Dictated By: Leona Argueta MD 10/06/20 1639 Signed By: 10/06/20 164[address] [facility] [place] [place] [address] CT Scan Report Signed Patient: Dimitry Benjamin MR#: [id number] : 1960 Acct:[id number] Age/Sex: 60 / M ADM Date: 10/06/20 Loc: ER Room: Type: [facility] ER Attending Dr: Ordering Provider: Albino New MD Date of Service: 10/06/20 CT/CT lumbar spine wo con: fall ([id number]) CT/CT thoracic spine wo con: fall Copies [...] Leona Argueta M.D.10/06/2020 5:20 PM Dictation Location: [place] [address] Transcribed By: [facility] 10/06/20 172 Dictated By: Leona Argueta MD 10/06/20 1650 Signed By: 10/06/20 172 [facility] XR shoulder BI min 2Von 04-0 8-2021 XR shoulder BI min 2V [facility] [place] [address] XRay Report Signed Patient: Dimitry Benjamin MR#: [id number] : 1960 Acct:[id number] Age/Sex: 60 / M ADM Date: 10/06/20 Loc: ER Room: Type: [facility] ER Attending Dr: Ordering Provider: Albino [...] Leona Argueta M.D.10/06/2020 6:11 PM Dictation Location: [place] [address] Transcribed By: [facility] 10/06/201810 Dictated By: Leona Argueta MD 10/06/20 1800 Signed By: 10/06/201810 [facility] Ambulatory Clinical Summaryo n 08-09-2020 Ambulatory Clinical Summary {[id number]}CD: [id number] [facility] Patient Educationon 08-09-19 Patient Education Benign [...] Document Reviewed: 02/20/2008 ExitCare? Patient Information ?2013 [email or web address]. [facility] Urology Office/Clinic Noteon 08-09-2020 Urology Office/Clinic [...] Urnls Dip Stick Auto w/o Microscopy POC 84360 2. 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 3. Urge incontinence (N39.41: Urge incontinence) Pt is having some leaking on the way to the bathroom. Orders: ciprofloxacin, 500 mg = 1 tab(s), Oral, q12hr, take 1 tablet the day prior to procedure, take 2nd tablet the day of the procedure, # 2 tab(s), Refills(s) 0, Pharmacy: [facility] [facility] 173, cm, 12/08/19 13:22:00 EDT, Height/Length Measured, 115, kg, 12/08/19... tamsulosin, 0.4 mg = 1 cap(s), Oral, Daily, # 30 cap(s), Refills(s) 1, [facility]acy: [facility] 173, cm, 05/24/20 8:18:00 EST, Height/Length Dosing, 115, kg, 05/24/20 8:18:00 EST, Weight Dosing tamsulosin, 0.4 mg = 1 cap(s), Oral, BID, # 60 cap(s), Refills(s) 3, Pharmacy: [facility] 173, cm, 08/09/20 13:55:00 EST, Height/Length Dosing, 129.9, kg, 08/09/20 13:55:00 EST, Weight Dosing I have reviewed the previous health record information and history for this patient from Dr. Gonzalez Follow-up With When Contact Information Carlos Elizalde MD, King Stark In 3 months [facility] [address] [place] [address]- Additional Instructions: PVR Patient Education Benign Prostatic [...] Protein Urine Dipstick: Negative (08/09/20 13:46:00) Specific [place] Urine Dipstick: 1.025 (08/09/20 13:46:00) Urine Appearance Urine Dipstick: Clear (08/09/20 13:46:00) Urine Color Urine Dipstick: Yellow (08/09/20 13:46:00) Urobilinogen Urine Dipstick: 2 EU/dl (08/09/20 13:46:00) pH Urine Dipstick: 7 (08/09/20 13:46:00) Diagnostic Results Urinalysis was reviewed and shows no evidence of infection. PVR today was 82 cc. Normal [facility] Comment on above: Result Comment: Elec tronically Signed By: Carlos Elizalde MD, King Stark\.br\Date and Time Signed: 08/09/20 14:51 EST\.br\Electronically Co-Signed By: Puja Garvin MA\.br\Date and Time Co-Signed: 08/09/20 14:48 EST Pre-Certification Formon Pre-Certification Form [id number]#[id number]:127 Normal [facility] Ambulatory Clinical Summaryo n 06-28-2020 Ambulatory Clinical Summary {[id number]}CD: [id number] Normal [facility] Patient Educationon 06-28-20 20 Patient Education Family [...] directed by your caregiver. ? Only take [id number]-auy-ekhzcjo or prescription medicines for pain, discomfort, or [...] Document Reviewed: 02/02/2009 ExitCare? Patient Information ?2013 [email or web address]. [facility] Urology Office/Clinic Noteon 06-28-2020 Urology [...] Urnls Dip Stick Auto w/o Microscopy POC 63828 2. Incomplete bladder emptying (R33.9: Retention of urine, unspecified) PVR today shows 518ml, pt has stopped the Oxybutynin. Ordered: CT Abdomen w/ Contrast Measure Post Void residual urine and/or bladder capacity by US- non-imaging 04654 3. BPH with urinary obstruction (N40.1: Benign [...] In 2 weeks [facility] [address], [place] [address]- Additional Instructions: Patient Education Abdominal Pain I, [...] (06/28/20 11:26:00) Blood Urine Dipstick: Negative (06/28/20 11:26:00) Glucose Urine Dipstick: Negative (06/28/20 11:26:00) Ketones Urine Dipstick: Negative (06/28/20 11:26:00) Leukocytes Urine Dipstick: Trace (06/28/20 11:26:00) Nitrite Urine Dipstick: Negative (06/28/20::00) Protein Urine Dipstick: Negative (06/28/20::) Specific [place] Urine Dipstick: 1.010 (06/28/20::00) Urine Appearance Urine Dipstick: Clear (06/28/20::00) Urine Color Urine Dipstick: Light yellow (06/28/20::00) Urobilinogen Urine Dipstick: Normal 0.2-1 EU/dl (06/28/20::00) pH Urine Dipstick: 7 (06/28/20::00) Diagnostic Results PVR today is over 500 cc. Urinalysis is negative for infection. Normal [facility] Comment on above: Result Comment: Elec tronically Signed By: Carlos Elizalde MD, King Stark\.br\Date and Time Signed: 06/28/20 13:25 EST\.br\Electronically Co-Signed By: Puja Garvin MA\.br\Date and Time Co-Signed: 06/28/20 12:09 EST Ambulatory Clinical Summaryo n 05-24-2020 Ambulatory Clinical Summary {[id number]}CD: [id number] Normal [facility] Patient Educationon 05-24-20 Patient Education Family Medicine [...] Document Reviewed: 03/08/2008 ExitCare? Patient Information ?2013 [email or web address]. [facility] Urology Office/Clinic Noteon 05-24-2020 Urology Office/Clinic [...] urine and/or bladder capacity by US- non-imaging 74211 6. Edema of scrotum (N50.89: Other specified [...] Daily, # 30 cap(s), Refills(s) 1, Pharmacy: [facility] [address] [facility], 173, cm, 05/24/20 8:18:00 EST, Height/Length Dosing, 115, kg, 05/24/20 8:18:00 EST, Weight Dosing I have reviewed the previous health record information and history for this pt. from Dr. Gonzalez. Follow-up With When Contact Information Carlos Elizalde MD, King Stark [address] [place] [address]- Additional Instructions: 1mos. w/ PVR Patient Education Benign Prostatic Hypertrophy IHaritha , personally scribed for Dr. Gonzalez on 05/24/2020 08:56:40. . Documentation recorded by the scribeHaritha, accurately reflects the services(s) I performed and [...] within reasonable range for this patient. Normal [facility] Comment on above: Result Comment: Elec tronically Signed By: Carlos Elizalde MD, King Stark\.br\Date and Time Signed: 05/24/20 10:32 EST\.br\Electronically Co-Signed By: Haritha Jean MA\.br\Date and Time Co-Signed: 05/24/20 08:57 EST Provider Letteron 02-23-2020 Provider Letter (Inserted Image. Mary ble to display) February 23, 2020 DIMITRY BENJAMIN [address] [place] [address] DIMITRY BENJAMIN 1960 Dear Dimitry Benjamin, This [...] us know 24 hours in advance. Sincerely, [facility] [employer] [address] [facility] Provider Letteron 02-09-2020 Provider Letter (Inserted Image. Mary ble to display) February 09, 2020 DIMITRY BENJAMIN [address] [place] [address] DIMITRY BENJAMIN 1960 Dear Dimitry Benjamin, You [...] [facility] [address], [place] [address] [facility] Urology Office/Clinic Noteon 02-01-2020 Urology Office/Clinic [...] urine The Urethra was dilated to: 24 Lao with sounds. Removal: Cystoscope is removed. The [...] Elizalde MD, King Stark In 1 month [phone] Additional Instructions: w/PVR Patient Education Urinary Frequency [...] Mother. Primary malignant neoplasm of bone: Sister. [facility] Comment on above: Result Comment: Elec tronically Signed By: Carlos Elizalde MD, King Stark\.br\Date and Time Signed: 02/01/20 08:59 EDT\.br\Electronically Co-Signed By: Gricel Pizarro\.br\Date and Time Co-Signed: 01/18/20 14:37 EDT Consent for Procedure/Surger yon 01-20-2020 Consent for Procedure/Surgery [id number]:127 [facility] Ambulatory Clinical Summaryo n 01-18-2020 Ambulatory Clinical Summary {[id number]}CD: [id number] [facility] Ambulatory Clinical Summary {[id number]}CD: [id number] [facility] Ambulatory Clinical Summary {[id number]}CD: [id number] [facility] Lab Reportson 12-22-2019 Lab Reports [id number]:127 Normal [facility] RAD - Ultrasound Reporton RAD - Ultrasound Report [id number]:127 Normal [facility] Ambulatory Clinical Summaryo n 12-08-2019 Ambulatory Clinical Summary {[id number]}CD: [id number] Normal [facility] Reminderson 12-08-2019 Reminders - From: Roselia Camacho To: [facility] - Clinical; Sent: 12/08/2019 16:01:29 EDT Show up: 12/15/2019 16:01:00 EDT Subject: Ambulatory Reminder Reminder/Recall 12/14/19 Renal US and PSA @ [facility]. Patient has cysto scheduled 12/27 to review results! Normal [facility] MRI CERVICAL SPINE WO CONTRA STon 02-09-2019 [...] Gilberto Cordoba DO 02/10/19 Final result Normal [facility] CT HEAD WO CONTRASTon 2018 CT [...] Erik Mckeon MD 10/09/18 Final result Normal [facility] PULMONARY FUNCTIONon 019 PULMONARY FUNCTION [place] [id number] PULMONARY FUNCTION PATIENT NAME: DIMITRY BENJAMIN : 1960 MED REC NO: [id number] ROOM: ACCOUNT NO: [id number] ADMIT DATE: 09/02/2018 PROVIDER: Caio Craig MD [...] is needed. CAIO CRAIG MD [id number] Doc#: [id number] CC: Normal [facility] XR CERVICAL SPINE (2-3 VIEWS )on [...] Lopez Paniagua MD 08/11/18 Final result Normal [facility] CBC With Platelet No Differe ntialon 07-17-2018 Erythrocyte distribution width Ratio (RBC) 13.4 % Normal 11.5-14.5 [facility] Hematocrit Volume Fraction (Bld) 48.9 % Normal 42.0-52.0 [facility] Hemoglobin mass conc (Bld) 16.8 g/dL Normal 14.0-18.0 [facility] MCH Entitic mass (RBC) 32.0 pg Critically high 27.0-31.3 [facility] MCHC mass conc (RBC) 34.4 % Normal 33.0-37.0 [facility] MCV Entitic volume (RBC) 93.1 fL Normal 80.0-100.0 [facility] Platelets #/vol (Bld) 170 10*3/uL Normal 130-400 [facility] RBC #/vol (Bld) 5.25 10*6/uL Normal 4.70-6.10 [facility] WBC #/vol (Bld) 8.0 10*3/uL Normal 4.8-10.8 [facility] Comprehensive Metabolic Pane [place] 07-17-2018 Albumin mass conc 4.1 g/dL Normal 3.9-4.9 [facility] ALP enzyme act/vol 80 U/L Normal 35-104 [facility] ALT enzyme act/vol 30 U/L Normal 0-41 [facility] Anion gap molar conc 10 mmol/L Normal 7-13 [facility] AST enzyme act/vol 20 U/L Normal 0-40 [facility] Bilirubin mass conc 0.6 mg/dL Normal 0.0-1.2 [facility] Calcium mass conc 8.6 mg/dL Normal 8.6-10.2 [facility] Chloride molar conc 98 mmol/L Normal 98-107 [facility] CO2 molar conc 32 mmol/L Critically high 22-29 [facility] Creatinine mass conc 0.80 mg/dL Normal 0.70-1.20 [facility] GFR/1.73 sq M predicted among blacks MDRD vol rate/area (S/P/Bld) mL/min/{1.73_m2} Normal >60 [facility] Comment on above: Result Comment: >60 mL/min/1.73m2 EGFR, calc. for ages 18 and older using the MDRD formula (not corrected for weight), is valid for stable renal function. GFR/1.73 sq M.predicted MDRD vol rate/area mL/min/{1.73_m2} Normal >60 [facility] Comment on above: Result Comment: >60 mL/min/1.73m2 EGFR, calc. for ages 18 and older using the MDRD formula (not corrected for weight), is valid for stable renal function. Globulin mass conc (S) 2.8 g/dL Normal 2.3-3.5 [facility] Glucose mass conc 146 mg/dL Critically high 74-109 [facility] Potassium molar conc 4.2 mmol/L Normal 3.5-5.1 [facility] Protein mass conc 6.9 g/dL Normal 6.4-8.1 [facility] Sodium molar conc 140 mmol/L Normal 132-144 [facility] Urea nitrogen mass conc 10 mg/dL Normal 8-23 [facility] Creatine Kinaseon 07-17-2018 CK enzyme act/vol 266 U/L Critically high 0-190 [facility] Culture, Urineon 07-17-2018 Culture, Urine OR DERED BY: MCKENNA AMARO SOURCE: Urine Voided COLLECTED: 07/17/18 08:24 ANTIBIOTICS AT JACQUIE.: RECEIVED : 07/17/18 10:16 Culture, Urine FINAL 07/19/18 10:34 No growth 24 hours Normal [facility] Hemoglobin A1con 07-17-2018 Hemoglobin A1c/Hemoglobin.tota l mass fraction (Bld) 6.9 % Critically high 4.8-5.9 [facility] Lipid Panelon 07-17-2018 Cholesterol in HDL mass conc 29 mg/dL Low 40-59 [facility] Comment on above: Result Comment: ATP [...] LDL mass conc 123 mg/dL Normal 0-129 [facility] Comment on above: Result Comment: ATP III LDL Classification is Near Optimal. Cholesterol mass conc 211 mg/dL Critically high 0-199 [facility] Comment on above: Result Comment: ATP III Cholesterol Classification is Borderline High. Triglyceride mass conc 295 mg/dL Critically high 0-200 [facility] Comment on above: Result Comment: ATP III Triglycerides Classification is High. TSH w/out Reflexon 9 Thyrotropin Qn 4.170 uIU/mL Normal 0.270-4.20 [facility] Thyroxine Freeon 07-17-2018 Thyroxine Free 1.03 ng/dL Normal 0.93-1.70 [facility] UR Drugs of Abuse Panelon Drug Screen Comment see below Normal [facility] Comment on above: Result Comment: This method is a screening test to detect only these drug classes as part of a medical workup. Confirmatory testing by another method should be ordered if clinically indicated. UR Amphetamines Screen Negative Normal Negative < [facility] UR Barbiturates Screen Negative Normal Negative < [facility] UR Benzo Screen Negative Normal Negative < [facility] UR Cannabinoids Screen Negative Normal Negative < [facility] UR Cocaine Screen Negative Normal Negative < [facility] UR Opiates Screen Negative Normal Negative < [facility] UR PCP Screen Negative Normal Negative < [facility] UR Microalbumin/Creatinine R atio Randomon 07-17-2018 Microalbumin/creati nine Ratio see below Normal 0.0-30.0 [facility] Comment on above: Result Comment: - UR Microalbumin concentration is less than 1.2 mg/dL. - Unable to calculate Microalbumin/Creatinine Ratio without a Microalbumin concentration. UR Creatinine Random 144.8 mg/dL Normal Not Establ [facility] UR Microalbumin Random <1.20 Normal Not [facility] Urinalysis, reflex to micros copicon 07-17-2018 Bilirubin Ql (U) Negative Normal Negative [facility] Clarity Nom (U) Clear Normal Clear [facility] Color Nom (U) Yellow Normal Straw/[place] [facility] Glucose Ql (U) Negative Normal Negative [facility] Hemoglobin Ql (U) Negative Normal Negative [facility] Ketones Ql (U) Negative Normal Negative [facility] Leukocyte esterase Test strip Ql (U) TRACE Abnormal Negative [facility] Nitrite Ql (U) Negative Normal Negative [facility] pH (U) 7.5 [pH] Normal 5.0-9.0 [facility] Protein Ql (U) Negative Normal Negative [facility] Specific gravity Relative Density (U) 1.015 Normal 1.005-1.03 [facility] Urobilinogen Qn (U) 1.0 {Nunu'U}/dL Normal < 2.0 [facility] Urine Microscopicon 07-17-19 19 Bacteria LM.HPF #/area (Urine sed) Negative Normal [facility] RBC #/vol (U) 3-5 Abnormal 0-5 [facility] Comment on above: Result Comment: Effe ctive 05/26/2018 Urinalysis microscopic performed using the automated methodology (AUWI analyzer). Urine Epithelial Cells Auto 0-2 Normal 0-5 [facility] Comment on above: Result Comment: Effe ctive 05/26/2018 Urinalysis microscopic performed using the automated methodology (AUWI analyzer). Urine Hyaline Casts Auto 0-1 Normal 0-5 [facility] Comment on above: Result Comment: Effe ctive 05/26/2018 Urinalysis microscopic performed using the automated methodology (AUWI analyzer). Urine WBC Auto 6-10 Abnormal 0-5 [facility] Comment on above: Result Comment: Effe ctive 05/26/2018 Urinalysis microscopic performed using the automated methodology (AUWI analyzer). CBC With Platelet No Differe ntialon 03-18-2018 Erythrocyte distribution width Ratio (RBC) 14.7 % Critically high 11.5-14.5 [facility] Hematocrit Volume Fraction (Bld) 48.0 % Normal 42.0-52.0 [facility] Hemoglobin mass conc (Bld) 16.1 g/dL Normal 14.0-18.0 [facility] MCH Entitic mass (RBC) 31.9 pg Critically high 27.0-31.3 [facility] MCHC mass conc (RBC) 33.6 % Normal 33.0-37.0 [facility] MCV Entitic volume (RBC) 94.9 fL Normal 80.0-100.0 [facility] Platelets #/vol (Bld) 145 10*3/uL Normal 130-400 [facility] [place] RBC #/vol (Bld) 5.05 10*6/uL Normal 4.70-6.10 [facility] [place] WBC #/vol (Bld) 5.5 10*3/uL Normal 4.8-10.8 [facility] [place] CKMB with Indexon 03-18-2018 CK enzyme act/vol 397 U/L Critically high 0-190 [facility] CK.MB mass conc 9.6 ng/mL Critically high 0.0-6.7 [facility] CK.MB mass conc 2.4 % Normal 0.0-3.5 [facility] [place] Comprehensive Metabolic Pane [place] 03-18-2018 Albumin mass conc 4.4 g/dL Normal 3.9-4.9 [facility] [place] ALP enzyme act/vol 69 U/L Normal 35-104 [facility] [place] ALT enzyme act/vol 33 U/L Normal 0-41 [facility] [place] Anion gap molar conc 9 mmol/L Normal 7-13 [facility] [place] AST enzyme act/vol 26 U/L Normal 0-40 [facility] [place] Bilirubin mass conc 0.5 mg/dL Normal 0.0-1.2 [facility] [place] Calcium mass conc 8.9 mg/dL Normal 8.6-10.2 [facility] [place] Chloride molar conc 98 mmol/L Normal 98-107 [facility] [place] CO2 molar conc 31 mmol/L Critically high 22-29 [facility] [place] Creatinine mass conc 0.79 mg/dL Normal 0.70-1.20 [facility] [place] GFR/1.73 sq M predicted among blacks MDRD vol rate/area (S/P/Bld) mL/min/{1.73_m2} Normal >60 [facility] [place] Comment on above: Result Comment: >60 mL/min/1.73m2 EGFR, calc. for ages 18 and older using the MDRD formula (not corrected for weight), is valid for stable renal function. GFR/1.73 sq M.predicted MDRD vol rate/area mL/min/{1.73_m2} Normal >60 [facility] [place] Comment on above: Result Comment: >60 mL/min/1.73m2 EGFR, calc. for ages 18 and older using the MDRD formula (not corrected for weight), is valid for stable renal function. Globulin mass conc (S) 2.4 g/dL Normal 2.3-3.5 [facility] [place] Glucose mass conc 110 mg/dL Critically high 74-109 [facility] Potassium molar conc 5.2 mmol/L Critically high 3.5-5.1 [facility] [place] Protein mass conc 6.8 g/dL Normal 6.4-8.1 [facility] [place] Sodium molar conc 138 mmol/L Normal 132-144 [facility] [place] Urea nitrogen mass conc 10 mg/dL Normal 8-23 [facility] [place] Hemoglobin A1con 03-18-2018 Hemoglobin A1c/Hemoglobin.tota l mass fraction (Bld) 6.7 % Critically high 4.8-5.9 [facility] [place] Hepatitis C Antibodyon 03-18 Hepatitis C Antibody Interp Non-reactive Normal [facility] [place] Lipid Panelon 03-18-2018 Cholesterol in HDL mass conc 25 mg/dL Low 40-59 [facility] [place] Comment on above: Result Comment: ATP [...] LDL mass conc 119 mg/dL Normal 0-129 [facility] [place] [place] Comment on above: Result Comment: ATP III LDL Classification is Near Optimal. Cholesterol mass conc 172 mg/dL Normal 0-199 [facility] [place] Comment on above: Result Comment: ATP III Cholesterol classification is Desirable. Triglyceride mass conc 140 mg/dL Normal 0-200 [facility] [place] Comment on above: Result Comment: ATP III Triglycerides Classification is Normal. PSA Total with Free PSAon GFR/1.73 sq M predicted among non-blacks MDRD vol rate/area (S/P/Bld) 0.1 ng/mL Normal [facility] [place] Prostate Specific Ag, Percent Free 25 % Normal [facility] [place] Comment on above: Result Comment: INTE RPRETIVE INFORMATION: Prostate Specific Antigen, Free Percentage [place] uses the [place] Free PSA electrochemiluminescent [...] in individual patients. For related information, see [email or web address] Performed by [facility], [address] [place] [id number] [email or web address], Boaz Lu MD - Lab. Director Prostate Specific Ag, Total 0.4 ng/mL Normal 0.0-4.0 [facility] [place] Comment on above: Result Comment: INTE [...] width Ratio (RBC) 13.7 % Normal 11.5-14.5 [facility] [place] Hematocrit Volume Fraction (Bld) 50.3 % Normal 42.0-52.0 [facility] [place] Hemoglobin mass conc (Bld) 16.7 g/dL Normal 14.0-18.0 [facility] [place] MCH Entitic mass (RBC) 31.5 pg Critically high 27.0-31.3 [facility] [place] MCHC mass conc (RBC) 33.3 % Normal 33.0-37.0 [facility] [place] MCV Entitic volume (RBC) 94.7 fL Normal 80.0-100.0 [facility] [place] Platelets #/vol (Bld) 158 10*3/uL Normal 130-400 [facility] [place] RBC #/vol (Bld) 5.31 10*6/uL Normal 4.70-6.10 [facility] [place] WBC #/vol (Bld) 7.7 10*3/uL Normal 4.8-10.8 [facility] [place] [place] Comprehensive Metabolic Pane [place] 08-21-2017 Anion gap molar conc 10 mmol/L Normal 7-13 [facility] [place] Albumin mass conc 4.4 g/dL Normal 3.9-4.9 [facility] [place] ALP enzyme act/vol 76 U/L Normal 35-104 [facility] [place] ALT enzyme act/vol 31 U/L Normal 0-41 [facility] [place] AST enzyme act/vol 19 U/L Normal 0-40 [facility] [place] Bilirubin mass conc 0.4 mg/dL Normal 0.0-1.2 [facility] [place] Calcium mass conc 9.0 mg/dL Normal 8.6-10.2 [facility] [place] Chloride molar conc 96 mmol/L Low 98-107 [facility] [place] CO2 molar conc 33 mmol/L Critically high 22-29 [facility] [place] Creatinine mass conc 0.59 mg/dL Low 0.70-1.20 [facility] [place] GFR/1.73 sq M predicted among blacks MDRD vol rate/area (S/P/Bld) mL/min/{1.73_m2} Normal >60 [facility] [place] [place] Comment on above: Result Comment: >60 mL/min/1.73m2 EGFR, calc. for ages 18 and older using the MDRD formula (not corrected for weight), is valid for stable renal function. GFR/1.73 sq M.predicted MDRD vol rate/area mL/min/{1.73_m2} Normal >60 [facility] [place] Comment on above: Result Comment: >60 mL/min/1.73m2 EGFR, calc. for ages 18 and older using the MDRD formula (not corrected for weight), is valid for stable renal function. Globulin mass conc (S) 2.3 g/dL Normal 2.3-3.5 [facility] [place] Glucose mass conc 114 mg/dL Critically high 74-109 [facility] Potassium molar conc 4.8 mmol/L Normal 3.5-5.1 [facility] [place] Protein mass conc 6.7 g/dL Normal 6.4-8.1 [facility] [place] Sodium molar conc 139 mmol/L Normal 132-144 [facility] [place] [place] Urea nitrogen mass conc 13 mg/dL Normal 6-20 [facility] [place] Hemoglobin A1con 08-21-2017 Hemoglobin A1c/Hemoglobin.tota l mass fraction (Bld) 8.1 % Critically high 4.8-5.9 [facility] [place] Lipid Panelon 08-21-2017 Cholesterol in HDL mass conc 31 mg/dL Low 40-59 [facility] [place] [place] Comment on above: Result Comment: ATP [...] mass conc 161 mg/dL Critically high 0-129 [facility] [place] [place] Comment on above: Result Comment: ATP III LDL Classification is High. Cholesterol mass conc 226 mg/dL Critically high 0-199 [facility] [place] [place] Comment on above: Result Comment: ATP III Cholesterol Classification is Borderline High. Triglyceride mass conc 171 mg/dL Normal 0-200 [facility] [place] [place] Comment on above: Result Comment: ATP III Triglycerides Classification is Borderline High. TSH w/out Reflexon 8 Thyrotropin Qn 3.750 uIU/mL Normal 0.270-4.20 [facility] [place] Vital Signs Date Time Vital Sign Value Performing Clinician Camille loyd 03-26-2024 13:19-040 Body height 171.45 cm [facility] 03-26-2024 13:19-0400 Body mass index (BMI) [Ratio] 40.6 kg/m2 [facility] 03-26-2024 13:040 Body weight 119.29 kg [facility] Encounters Encounter Date Encounter Type Care Provider Facility Start: 03-26-2024 End: 03-26-2024 ambulatory [facility] Work Phone: Start: 03-26-2024 End: 03-26-2024 Patient encounter procedure [facility] Work Phone: Start: 03-24-2024 End: 03-24-2024 ambulatory JOHN HERR Not Available Start: 03-17-2024 End: 03-17-2024 ambulatory GERBER SALAZAR Not Available Start: 12-02-2023 End: 12-02-2023 ambulatory GERBER SALAZAR Not Available Start: 09-24-2023 End: 09-24-2023 ambulatory JOHN HERR Not Available Start: 09-09-2023 End: 09-09-2023 ambulatory GERBER SALAZAR Not Available Start: 07-16-2023 End: 07-16-2023 ambulatory JOHN HERR Not Available Start: 10-19-2022 End: 10-20-[address] DOCTOR MOSQUERA Facility:[facility] Start: 10-04-2022 End: 10-05-[address] GERBER SALAZAR Facility:[facility] Start: 11-15-2021 End: 11-16-[address] GERBER SALAZAR Facility:[facility] Start: 02-09-2019 End: 02-12-2019 Patient encounter procedure [facility] Start: 02-02-2019 End: 02-02-2019 Emergency department patient visit [facility] Start: 10-20-2018 End: 10-23-2018 Patient encounter procedure [facility] Start: 10-09-2018 End: 10-12-2018 Patient encounter procedure [facility] Start: 09-02-2018 End: 09-03-2018 Patient encounter procedure [facility] Start: 08-11-2018 End: 08-14-2018 Patient encounter procedure TORREYSABINO CHANT [facility] [place] Procedures Date Procedure Procedure Detail Performing Clinician Start: 10-19-[address] DOCTOR MOSQUERA Comment on above: Performed By: #### [facility] #### [facility] [address] [place] [address] Dr. Cindi Underwood Start: 02-09-2019 Mri spinal canal cer vical w/o contrast matrl TORREY DAY Start: 10-09-2018 Ct head/brain w/o co ntrast material TORREY SHAY Start: 09-02-2018 Lung differential function TORREY DAY Start: 08-11-2018 [place]x spine cervical 2 or 3 views TORREY DAY Plan of Treatment Date Care Activity Detail Author XR Cervical spine 2 Views [facility] XR Lumbar spine 4 Views [facility] Payers Date Payer Category Payer Medicare [id number] 2015 Unknown [id number] 1961 Medicaid [id number] 1961 Medicare [id number] 1958 Unknown [id number] 2.16.8 [id number] 1958 Unknown [id number] 2.16.8 [id number] 1958 Unknown [id number] 2.16.8 [id number] 1958 Unknown [id number] 2.16.8 [id number] 1958 Unknown [id number] 2.16.8 40.1.740341.3.579.2.182 1958 Unknown [id number] 2.16.8 40.1.062943.3.579.2.182 1958 Unknown [id number] 2.16.84 0.1.385267.3.579.2.593 1958 Unknown [id number] 2.16.84 0.1.897387.3.579.2.593 1958 Unknown [id number] 2.16.84 0.1.964660.3.579.2.593 1958 Unknown [id number] 2.16.84 0.1.034447.3.579.2.1259 1958 Unknown [id number] 2.16.84 0.1.948716.3.579.2.1259 1958 Unknown [id number] 2.16.84 0.1.566365.3.579.2.1259 1958 Unknown [id number] 2.16.84 0.1.550758.3.579.2.1259 1958 Unknown [id number] 2.16.84 0.1.338808.3.579.2.1259 1958 Unknown [id number] 2.16.84 0.1.577801.3.579.2.1259 Medicare Anthem MCR PFFS [id number] Self-pay Self Pay [id number] Social History Date Type Detail Facility Start: 10-06-2020 Tobacco smoking stat [facility] Smoker (finding) [facility] Start: 1960 Sex Assigned At Male F [facility] Procedure Code Equipment Code Equipment Origin al Text Equipment Identifier Dates BONE 5MM DUO FDA Start: 06-02-2019 Bone-screw inter nal spinal fixation system, non-sterile ()[id number] FDA Start: 06-02-2019 BONE 5MM DUO FDA Start: 06-02-2019 BONE 6MM DUO FDA Start: 06-02-2019 BONE 6MM DUO FDA Start: 06-02-2019 Spinal fixation plate, non-bioabsorbable ()[id number] FDA Start: 06-02-2019 Bone-screw inter nal spinal fixation system, non-sterile ()[id number] FDA Start: 06-02-2019 Evaluation note Note Date & Type Note Facility Evaluation note No assessment information availa [facility] Work Phone: Summary Purpose Family History Relationship Condition Age at Onset Recorded Date/T shira mother Diabetes mellitus Unknown Congestive heart failure Unknown Hypertension Unknown father Arthritis Unknown sister Malignant neoplasm of colon Unknown sister Malignant neoplasm of bone Unknown Advance Directives Advance Directive Response Recorded Date/ Time Advance Directives No May 2:16pm Chief Complaint and Reason for Visit Chief Complaint low back pain Additional Source Comments (unrecognized sect ion and content) No Status Records FoundNo Status Records FoundNo Status Records FoundNo Status Records FoundNo Status Records FoundNo Status Records Found INFORMATION SOURCE (unrecogn ized section and content) DATE CREATED AUTHOR 07/27/2018 [facility] DATE CREATED AUTHOR AUTHOR'S ORGANIZ ATION 02/12/2019 [facility] DATE CREATED AUTHOR AUTHOR'S ORGANIZ ATION 08/10/2020 [facility] DATE CREATED AUTHOR AUTHOR'S ORGANIZ ATION 08/13/2021 [facility] DATE CREATED AUTHOR AUTHOR'S ORGANIZ ATION 10/26/2022 [facility] DATE CREATED AUTHOR AUTHOR'S ORGANIZ ATION 03/26/2024 [facility] EP[employer] Care Teams (unrecognized sec tion and content) Team Status: Active Member Role Status Dates Gerber Salazar MD Primary Care Provider Active Team Status: Inactive Member Role Status Dates Gerber Salazar MD Primary Care Provider Active S tart: March 26, 2024 End: March 26, 2024 Héctor King DO Attending Provider Active S tart: March 26, 2024 End: March 26, 2024 Goals (unrecognized section and content) Goals may be documented in a n alternate section FOR RECORDS PERTAINING TO PATIENTS WHO ARE [...] BE BASED ON THE PRIMARY CLINICAL RECORDS. [facility] [employer] provides no warranty or guarantee of the accuracy or completeness of information in this document.
== END 2024-04-04 10:26 | disposition home or self-care (01) ==
LOC: RAD 10:27
PROVIDERS: PCP Family Medicine
DX: M54.50 Low back pain, unspecified (principal); M54.2 Cervicalgia; M51.369 Other intervertebral disc degeneration, lumbar region without mention of lumbar back pain or lower extremity pain; M43.22 Fusion of spine, cervical region
CPT/HCPCS: 72040; 72110

== ENCOUNTER 2024-07-03 09:41 | Outpatient (OUT) | payer MEDICARE, MEDICAID, SELFPAY ==
--- OUTSIDE RECORDS SUMMARY | 2024-07-03 09:59 | XMS_ITS | CCD ---
Author Organization [facility] Care Team Providers Care Group Therapy Counselor Name Role Phone TORREY DAY Referring Unavailable [...] GERBER Rogel Admitting Unavailable NADERER, DR GERBER Roegl Attending Unavailable NADERER, DR GERBER Rogel Primary Care Unavailable NADERER, DR GERBER Rogel Admitting Unavailable NADERER, DR GERBER Rogel Attending Unavailable NADERER, DR GERBER Rogel Consulting Unavailable NADERER, DR GERBER Rogel Primary Care Unavailable Gerber Salazar MD Primary Care Provider MD Gerber Salazar Primary Care Provider [phone] DO Susana King Attending Provider [phone] Gerber Salazar MD Primary Care Provider [phone] Susana King DO Attending Provider Carrillo Toussaint MD Unavailable [phone] DAR LEO Attending Unavailable GERBER SALAZAR Attending Unavailable DAR LEO Attending Unavailable GERBER SALAZAR Attending Unavailable GERBER SALAZAR Attending Unavailable DAR LEO Attending Unavailable GERBER SALAZAR Attending Unavailable CARRILLO [place] Attending Unavailable SUSANA KING Referring Unavailable Edilberto Chan Admitting Unavailable Edilberto Chan Attending Unavailable Gerber Salazar Primary Care Unavailable Susana King Admitting Unavailable Susana King Attending Unavailable Gerber Salazar Primary Care Unavailable Allergies Allergy Classification Reported Allergen(s) Allergy Type Date of Onset Reaction(s) Facility (1 source) Amino Acids Drug Allergy [facility] Repository (15 sources) Lisinopril Propensity to adverse reactions 4 Shortness of breath [facility] (1 source) Lisinopril Drug Allergy 4 [facility] Repository Medications Current Medications Medication Drug Class(es) Dates Sig (Normalized) Sig (Original) acetaminophen 500 mg oral tablet (6 sources) Start: 06-17-2019 take 2 tablets by mouth every six hours as needed for pain Acetaminophen 500 mg Tablet Active 1000 MG PO Q6H as needed for Pain 4-7 120 June 17, 2019 12:00am Start: 06-17-2019 take 1000 mg by mout h every six hours Acetaminophen Active 1000 MG PO Q6H 120 June 17, 2019 12:00am Start: 06-12-2019 End: 06-17-2019 take 1 tablet by mouth every eight hours as needed for pain Acetaminophen (Tylenol 8 Hour) 650 mg tablet extended release Discontinued 650 MG PO Q8H as needed for fever or pain June 12, 2019 12:00am June 17, 2019 2:24pm acetaminophen 325 mg / oxyCODONE hydrochloride 5 mg oral tablet (18 sources) Opioid Agonist Start: 06-15-2024 End: 06-22-2024 take 1 tablet by mouth four times daily as needed for pain oxyCODONE-acetaminophen (Percocet) 5-325 MG tablet Indications: Lumbosacral spondylosis with radiculopathy Take 1 tablet by mouth 4 (four) times a day as needed for severe pain for up to 7 days 28 tablet 06/15/2024 06/22/2024 Active Start: 05-27-2024 End: 06-03-2024 take 1 tablet by mouth four times daily as needed for pain oxyCODONE-acetaminophen (Percocet) 5-325 MG tablet Indications: Lumbosacral spondylosis with radiculopathy Take 1 tablet by mouth 4 (four) times a day as needed for severe pain for up to 7 days 28 tablet 05/27/2024 06/03/2024 Active Start: 05-11-2024 End: 05-18-2024 take 1 tablet by mouth four times daily as needed for pain oxyCODONE-acetaminophen (Percocet) 5-325 MG tablet Indications: Lumbosacral spondylosis with radiculopathy Take 1 tablet by mouth 4 (four) times a day as needed for severe pain for up to 7 days 28 tablet 05/11/2024 05/18/2024 Active Start: 05-04-2024 Oxycodone-Acet aminophen 5-325 mg tablet Active TAB PO May 04, 2024 12:00am Start: 04-02-2024 End: 04-09-2024 take 1 tablet by mouth four times daily as needed for pain oxyCODONE-acetaminophen (Percocet) 5-325 MG tablet Indications: Lumbosacral spondylosis with radiculopathy Take 1 tablet by mouth 4 (four) times a day as needed for severe pain for up to 7 days 28 tablet 04/02/2024 04/09/2024 Active Start: 03-17-2024 End: 03-24-2024 take 1 tablet by mouth four times daily as needed for pain oxyCODONE-acetaminophen (Percocet) 5-325 MG tablet Indications: Lumbosacral spondylosis with radiculopathy Take 1 tablet by mouth 4 (four) times a day as needed for severe pain for up to 7 days 28 tablet 03/17/2024 03/24/2024 Active Start: 10-06-2020 End: 03-26-2024 take 1 tablet by mouth every four to six hours as needed for pain Oxycodone-Acetaminophen (Percocet) 5-325 mg tablet Discontinued 1 TAB PO EVERY 4-6 HOURS as needed for pain 14 October 06, 2020 March 26, 2024 12:36pm Start: 06-12-2019 End: 06-17-2019 take 1 tablet by mouth every four hours as needed for pain Oxycodone-Acetaminophen (Percocet) 5-325 mg tablet Discontinued 1 TAB PO Q4H as needed for pain 20 June 12, 2019 June 17, 2019 2:24pm [id number] 200 actuat albuterol 0.09 mg/actuat metered dose inhaler (20 sources) beta2-Adrenergic Agonist Start: 01-14-2024 take 2 puff(s) by inhalation every four hours for wheezing albuterol HFA 90 mcg/act inhaler Indications: Chronic obstructive pulmonary disease, unspecified COPD type (CMS/HCC) Inhale 2 puffs every 4 (four) hours if needed for wheezing or shortness of breath 18 g 3 01/14/2024 Active Start: 06-12-2019 End: 06-17-2019 take 2.5 mg by inhalation every three hours as needed Albuterol Sulfate 2.5 mg /3 mL (0.083 %) Solution For Nebulization Discontinued 2.5 MG INHALATION Q3H as needed for Shortness Of Breath 0 June 12, 2019 12:00am June 17, 2019 2:24pm Start: 05-21-2019 End: 06-17-2019 take 1 puff(s) by inhalation every four hours as needed for wheezing Albuterol Sulfate (Ventolin Hfa) 90 mcg/actuation Hfa Aerosol Inhaler Active 2 PUFF INHALATION Q4H as needed for Shortness Of Breath Or Wheezing 30 June 17, 2019 12:00am ALPRAZolam 1 mg oral tablet (20 sources) Benzodiazepine Start: 02-14-2024 End: 06-15-2024 take 1 tablet by mouth four times daily as needed for anxiety ALPRAZolam (Xanax) 1 MG tablet Indications: Generalized anxiety disorder ([facility]) TAKE 1 TABLET BY MOUTH FOUR TIMES DAILY NEEDED FOR ANXIETY 120 tablet 06/15/2024 Active Start: 06-12-2019 End: 03-26-2024 take 1 tablet by mouth twice daily as needed for anxiety Alprazolam 0.5 mg Tablet Discontinued 0.5 MG PO Twice daily as needed for Anxiety 0 June 17, 2019 12:00am March 26, 2024 12:36pm Start: 05-21-2019 End: 06-12-2019 take 1 tablet by mouth three times daily as needed for anxiety Alprazolam 0.5 mg tablet Discontinued 0.5 MG PO Three times daily as needed for Anxiety May 21, 2019 12:00am June 12, 2019 11:07am atorvastatin 40 mg oral tablet (20 sources) HMG-CoA Reductase Inhibitor Start: 05-12-2023 take 1 tablet by mouth at bedtime atorvastatin (Lipitor) 40 MG tablet Take 40 mg by mouth at bedtime 05/12/2023 Active Start: 05-21-2019 End: 06-17-2019 take 1 tablet by mouth once daily at bedtime Atorvastatin 40 mg Tablet Active 40 MG PO Daily at bedtime June 17, 2019 12:00am baclofen 10 mg oral tablet (15 sources) gamma-Aminobutyric Acid-ergic Agonist take 1 tablet by mouth three times daily as needed for muscle spasms baclofen (Lioresal) 10 MG tablet Take 10 mg by mouth 3 (three) times a day as needed for muscle spasms Active 120 actuat budesonide 0.08 mg/actuat / formoterol fumarate 0.0045 mg/actuat metered dose inhaler (17 sources) Corticosteroid, beta2-Adrenergic Agonist Start: 03-26-20 Budesonide-Formote rol (Symbicort) 80-4.5 mcg/actuation HFA aerosol inhaler Active 1 INH INHALATION Twice daily March 25, 2024 11:00pm take 2 puff(s) by in halation in the morning budesonide-formoterol (Symbicort) 160-4. 5 MCG/ACT inhaler Inhale 2 puffs in the morning and 2 puffs before bedtime. Rinse mouth with water after use to reduce aftertaste and incidence of candidiasis. Do not swallow.. Active doxepin hydrochloride 75 mg oral capsule (17 sources) Tricyclic Antidepressant Start: 03-26-2024 Doxep in Active MG PO March 25, 2024 11:00pm Start: 03-26-2024 Doxepin Active MG PO March 26, 2024 12:00am Start: 03-17-2024 take 1 capsule by [facility] at bedtime doxepin (SINEquan) 75 MG capsule Indications: Primary insomnia Take 1 capsule (75 mg) by mouth at bedtime 30 capsule 5 03/17/2024 Active hydroCHLOROthiazide 12.5 mg oral tablet (20 sources) Thiazide Diuretic Start: 05-04-2024 take 1 tablet by mouth once daily Hydrochlorothiazide 12.5 mg tablet Active 12.5 MG PO Daily May 04, 2024 12:00am Start: 07-04-2023 End: 07-03-2024 take 2 tablets by mouth in the morning hydroCHLOROthiazide (HYDRODiuril) 25 MG tablet Indications: Benign hypertension (CMS/HCC) Take 2 tablets (50 mg) by mouth in the morning. 60 tablet 11 07/04/2023 07/03/2024 Active Start: 05-21-2019 End: 06-17-2019 take 1 tablet by mouth once daily Hydrochlorothiazide 25 mg tablet Discontinued 25 MG PO Daily June 13, 2019 12:00am June 17, 2019 2:24pm 24 hr metFORMIN hydrochloride 500 mg extended release oral tablet (20 sources) Biguanide Start: 04-23-2024 End: 04-23-2024 take 1 tablet by mouth every twenty-four hours in the morning metFORMIN XR (Glucophage-XR) 500 MG 24 hr tablet Indications: Type 2 diabetes mellitus with hyperglycemia, without long-term current use of insulin (CMS/HCC) Take 1 tablet (500 mg) by mouth in the morning and 1 tablet (500 mg) before bedtime. 180 tablet 3 04/23/2024 Active Start: 06-17-2019 take 1 tablet by hector th twice daily at mealtime Metformin 500 mg Tablet Active 500 MG PO Twice daily with meals 60 30 June 17, 2019 12:00am Start: 05-21-2019 End: 06-17-2019 take 1 tablet by mouth twice daily at mealtime Metformin 500 mg tablet extended release 24 hr Discontinued 500 MG PO Twice daily with meals May 21, 2019 12:00am June 17, 2019 2:24pm take 1 tablet by hector th every twenty-four hours in the morning metFORMIN XR (Glucophage-XR) 500 MG 24 hr tablet Take 500 mg by mouth in the morning and 500 mg before bedtime. Active predniSONE 50 mg oral tablet (2 sources) Start: 03-17-2024 End: 03-23-2024 take 1 tablet by mouth once daily predniSONE (Deltasone) 50 MG tablet Indications: Lumbosacral spondylosis with radiculopathy Take 1 tablet (50 mg) by mouth Daily for 6 days 6 tablet 03/17/2024 03/23/2024 Active semaglutide 14 mg oral tablet (17 sources) Start: 02-14-2024 End: 04-23-2024 take 1 tablet by mouth before mealtime semaglutide (Rybelsus) 14 MG tablet Indications: Type 2 diabetes mellitus with hyperglycemia, without long-term current use of insulin (CMS/HCC) Take 1 tablet (14 mg) by mouth in the morning. Take before meals. 30 tablet 5 04/23/2024 Active Semaglutide (1 source) Start: 05-13-2024 Semaglutide (O zempic) 1 mg/dose (4 mg/3 mL) pen injector Active MG SUBCUT May 13, 2024 12:00am semaglutide (Ozempic, 1 MG/DOSE,) 4 MG/3ML solution pen-injector (5 sources) Start: 05-11-2024 inject 1 mg by subcutaneous injection every week semaglutide (Ozempic, 1 MG/DOSE,) 4 MG/3ML solution pen-injector Indications: Type 2 diabetes mellitus with hyperglycemia, without long-term current use of insulin (CMS/HCC) Inject 1 mg under the skin 1 (one) time per week 1 each 5 05/11/2024 Active Semaglutide (Rybelsus) 14 mg tablet (3 sources) Start: 03-26-2024 Semaglutide (R ybelsus) 14 mg tablet Active MG PO March 25, 2024 11:00pm Start: 03-26-2024 Semaglutide (R ybelsus) 14 mg tablet Active MG PO March 26, 2024 12:00am tiotropium 0.018 mg inhalation powder (15 sources) Anticholinergic Start: 08-14-2023 End: 08-13-2024 take 1 capsule by inhalation in the morning tiotropium (Spiriva HandiHaler) 18 MCG inhalation capsule Indications: Chronic obstructive pulmonary disease, unspecified COPD type (CMS/HCC) Place 1 capsule (18 mcg) into inhaler and inhale in the morning. 30 capsule 11 08/14/2023 08/13/2024 Active Tiotropium [place] (Spiriva With Handihaler) 18 mcg capsule, w/inhalation device (3 sources) Start: 03-26-2024 take 1 capsule by inhalation once daily Tiotropium [place] (Spiriva With Handihaler) 18 mcg capsule, w/inhalation device Active 1 CAP INHALATION Daily March 25, 2024 11:00pm puncture 1 cap using device; one dose = 2 inhalations Start: 03-26-2024 take 1 capsule by in halation once daily Tiotropium [place] (Spiriva With Handihaler) 18 mcg capsule, w/inhalation device Active 1 CAP INHALATION Daily March 26, 2024 12:00am puncture 1 cap using device; one dose = 2 inhalations Triamcinolone (6 sources) Corticosteroid Start: 05-13-2024 Triamcinolone Acetonide 0.5 % cream Active APPLIC TOPICAL May 13, 2024 12:00am Start: 05-11-2024 triamcinolone (Kenalog) 0.5 % cream Indications: Dermatitis Apply topically 3 (three) times a day 60 g 2 05/11/2024 Active zolpidem tartrate 10 mg oral tablet (3 sources) gamma-Aminobutyric Acid-ergic Agonist Start: 12-02-2023 End: 03-17-2024 zolpidem (Ambien) 10 MG tablet Indications: Primary insomnia Take 1 tablet (10 mg) by mouth as needed at bedtime for sleep 30 tablet 2 12/02/2023 03/17/2024 Discontinued Completed/Discontinued Medications Medication Drug Class(es) Dates Sig (Normalized) Sig (Original) amoxicillin 875 mg / clavulanate 125 mg oral tablet (3 sources) Penicillin-class Antibacterial Start: 06-18-2019 End: 03-26-2024 take 1 tablet by mouth twice daily Amoxicillin-Pot Clavulanate 875-125 mg Tablet Discontinued 1 TAB PO Twice daily 20 June 18, 2019 12:00am March 26, 2024 12:36pm cyclobenzaprine hydrochloride 10 mg oral tablet (3 sources) Muscle Relaxant Start: 06-04-2019 End: 06-12-2019 take 1 tablet by mouth every eight hours as needed for muscle spasms Cyclobenzaprine 10 mg Tablet Discontinued 10 MG PO Every 8 hours as needed for Muscle Spasm 30 June 04, 2019 12:00am June 12, 2019 11:07am dexamethasone 4 mg oral tablet (3 sources) Corticosteroid Start: 06-04-2019 End: 06-04-2019 take 1 tablet by mouth twice daily Dexamethasone 4 mg tablet Discontinued 4 MG PO Twice daily 04 04June 04, 2019 12:00am June 04, 2019 3:37pm docusate sodium 100 mg oral capsule (3 sources) Start: 06-17-2019 End: 03-26-2024 take 1 capsule by mouth twice daily as needed for constipation Docusate Sodium 100 mg Capsule Discontinued 100 MG PO Twice daily as needed for Constipation 60 June 17, 2019 12:00am March 26, 2024 12:36pm fluticasone propionate 0.05 mg/actuat metered dose nasal spray (3 sources) Corticosteroid Start: 05-21-2019 End: 06-17-2019 Fluticasone Propionate 50 mcg/actuation spray,suspension Discontinued 2 SPRAY INTRANASAL Daily as needed for Nasal Congestion May 21, 2019 12:00am June 17, 2019 2:24pm 30 actuat fluticasone furoate 0.1 mg/actuat / vilanterol 0.025 mg/actuat dry powder inhaler (3 sources) Corticosteroid, beta2-Adrenergic Agonist Start: 05-21-2019 End: 03-26-2024 Fluticasone Furoate-Vilanterol (Breo Ellipta) 100-25 mcg/dose Blister With Device Discontinued 1 INH INHALATION Daily May 21, 2019 12:00am March 26, 2024 12:31pm 12 hr guaiFENesin 600 mg extended release oral tablet (3 sources) Start: 06-17-2019 End: 03-26-2024 take 1 tablet by mouth twice daily, then take 1 tablet by mouth every twelve hours Guaifenesin (Mucinex) 600 mg Tablet Extended Release 12hr Discontinued 600 MG PO Twice daily 60 June 17, 2019 12:00am March 26, 2024 12:36pm lisinopril 20 mg oral tablet (3 sources) Angiotensin Converting Enzyme Inhibitor Start: 05-21-2019 End: 06-12-2019 take 1 tablet by mouth once daily in the morning Lisinopril 20 mg tablet Discontinued 20 MG PO Every morning May 21, 2019 12:00am June 12, 2019 11:07am mirtazapine 7.5 mg oral tablet (3 sources) Start: 06-17-2019 End: 03-26-2024 take 1 tablet by mouth once daily at bedtime Mirtazapine 7.5 mg Tablet Discontinued 7.5 MG PO Daily at bedtime June 17, 2019 12:00am March 26, 2024 12:36pm 24 hr nicotine 0.875 mg/hr transdermal system (6 sources) Cholinergic Nicotinic Agonist Start: 06-04-2019 End: 03-26-2024 apply 1 dose transdermal route every twenty-four hours Nicotine 21 mg/24 hr Patch 24 Hour Discontinued 1 EACH TRANSDERML Daily 30 June 17, 2019 12:00am March 26, 2024 12:36pm Start: 06-04-2019 End: 03-26-2024 Nicotine Discontinued 1 EACH TRANSDERML Daily June 17, 2019 12:00am March 26, 2024 12:36pm omeprazole 20 mg delayed release oral capsule (9 sources) Proton Pump Inhibitor Start: 06-17-2019 End: 03-26-2024 take 2 capsules by mouth once daily Omeprazole 20 mg Capsule,Delayed Release(Dr/Ec) Discontinued 40 MG PO Daily 60 June 17, 2019 12:00am March 26, 2024 12:36pm Start: 06-17-2019 End: 03-26-2024 take 40 mg by mouth once daily Omeprazole Discontinued 40 MG PO Daily 60 June 17, 2019 12:00am March 26, 2024 12:36pm Start: 06-12-2019 End: 06-17-2019 take 1 capsule by mouth once daily Omeprazole 40 mg capsule,delayed release(DR/EC) Discontinued 40 MG PO Daily 0 June 12, 2019 11:06am June 17, 2019 2:24pm Start: 05-21-2019 End: 06-12-2019 take 1 capsule by mouth twice daily Omeprazole 40 mg capsule,delayed release(DR/EC) Discontinued 40 MG PO Twice daily May 21, 2019 12:00am June 12, 2019 11:07am oxyCODONE hydrochloride 5 mg oral tablet (6 sources) Opioid Agonist Start: 06-04-2019 End: 06-04-2019 take 1 tablet by mouth every four to six hours as needed for pain Oxycodone 5 mg tablet Discontinued 5 MG PO EVERY 4-6 HOURS as needed for pain -June 04, 2019 3:27pm June 04, 2019 3:34pm microencapsulated potassium chloride 20 meq extended release oral tablet (3 sources) Start: 06-17-2019 End: 03-26-2024 Potassium Chloride (Klor-Con M20) 20 mEq Tablet,Er Particles/Crystals Discontinued 20 MEQ PO Daily 30 June 17, 2019 12:00am March 26, 2024 12:36pm prazosin 2 mg oral capsule (9 sources) alpha-Adrenerg ic Charlie Start: 06-05-2019 End: 03-26-2024 take 1 capsule by mouth at bedtime Prazosin 2 mg capsule Discontinued 2 MG PO Bedtime June 17, 2019 2:23pm March 26, 2024 12:36pm tamsulosin hydrochloride 0.4 mg oral capsule (12 sources) alpha-Adrenerg ic Charlie Start: 06-12-2019 End: 03-26-2024 take 1 capsule by mouth once daily Tamsulosin 0.4 mg Capsule Discontinued 0.4 MG PO Daily June 17, 2019 12:00am March 26, 2024 12:36pm Start: 06-05-2019 End: 06-12-2019 take 2 capsules by mouth once daily Tamsulosin 0.4 mg capsule Discontinued 0.8 MG PO Daily June 05, 2019 12:00am June 12, 2019 11:10am Start: 06-05-2019 End: 06-12-2019 take 0.8 mg by mouth once daily Tamsulosin Discontinue d 0.8 MG PO Daily June 05, 2019 12:00am June 12, 2019 11:10am Start: 05-21-2019 End: 06-05-2019 take 1 capsule by mouth once daily in the morning Tamsulosin 0.4 mg capsule Discontinued 0.4 MG PO Every morning May 21, 2019 12:00am June 05, 2019 7:33am Problems Active Problems Problem Classification Problem Date Documented Date Episodic/Chronic Administrative/socia l admission (3 sources) Other reduced mobility; Translations: [Impaired mobility and activities of daily living] 06-12-2023 Episodic Comment on above: Problem List clean-u p per request of Phys. EHR Cmte Allergic reactions (2 sources) Inflammatory dermatosis; Translations: [Dermatitis, unspecified] 05-11-2024 Episodic Anxiety disorders (20 sources) Posttraumatic stress disorder; Translations: [Post-traumatic stress disorder, unspecified] Onset: 08-05-2023 Resolved: 09-09-2023 06-12-2023 Chronic Comment on above: Problem List clean-u p per request of Phys. EHR Cmte Chronic obstructive pulmonary disease and bronchiectasis (20 sources) Chronic obstructive lung disease; Translations: [Chronic obstructive pulmonary disease, unspecified] Onset: 08-05-2023 06-13-2019 Chronic Diabetes mellitus with complications (20 sources) Type 2 diabetes mellitus with hyperglycemia; Translations: [Hyperglycemia due to type 2 diabetes mellitus] Onset: 11-15-2021 Chronic Diabetes mellitus without complication (3 sources) Diabetes mellitus; Translations: [Type 2 diabetes mellitus without complications] 06-13-2019 Chronic Diseases of white blood cells (3 sources) Leukocytosis; Translations: [Elevated white blood cell count, unspecified] 06-12-2023 Chronic Comment on above: Problem List clean-u p per request of Phys. EHR Cmte Disorders of lipid metabolism (20 sources) Hyperlipidemia, unspecified; Translations: [Dyslipidemia] Onset: 10-13-2022 Chronic Esophageal disorders (20 sources) Gastroesophageal reflux disease; Translations: [Gastro-esophageal reflux disease without esophagitis] Onset: 08-05-2023 06-13-2019 Chronic Comment on above: Problem List clean-u p per request of Phys. EHR Cmte Essential hypertension (20 sources) Essential (primary) hypertension; Translations: [Hypertensive disorder] Onset: 10-25-2022 06-13-2019 Chronic Fever of unknown origin (6 sources) Fever; Translations: [Fever, unspecified] 06-12-2023 Episodic Comment on above: Problem List clean-u p per request of Phys. EHR Cmte Fluid and electrolyte disorders (3 sources) Hyponatremia; Translations: [Hypo-osmolality and hyponatremia] 06-12-2023 Episodic Comment on above: Problem List clean-u p per request of Phys. EHR Cmte Hyperplasia of prostate (18 sources) Benign prostatic hyperplasia; Translations: [Benign prostatic hyperplasia without lower urinary tract symptoms] Onset: 08-05-2023 06-13-2019 Chronic Miscellaneous mental health disorders (17 sources) Primary insomnia; Translations: [Primary insomnia] Onset: 09-09-2023 09-09-2023 Chronic Mycoses (2 sources) Onychomycosis; Translations: [Tinea unguium] 03-20-2024 Episodic Osteoarthritis (15 sources) Primary coxarthrosis, bilateral; Translations: [Bilateral primary osteoarthritis of hip] Onset: 09-09-2023 09-09-2023 Chronic Other acquired deformities (15 sources) Acquired kyphosis; Translations: [Other secondary kyphosis, cervical region] Onset: 08-05-2023 08-05-2023 Chronic Other aftercare (5 sources) Other oysterman (current) drug therapy; Translations: [OTH RESTORATIVE ART EMBALMER CURRENT DRUG THERAPY] Onset: 10-04-2022 Episodic Other aftercare (6 sources) Patient encounter status; Translations: [Encounter for prophylactic measures, unspecified] Onset: 12-02-2023 06-12-2023 Episodic Comment on above: Problem List clean-u p per request of Phys. EHR Cmte Other connective tissue disease (3 sources) History of cervical spine fusion; Translations: [Arthrodesis status] 06-12-2023 Episodic Comment on above: Problem List clean-u p per request of Phys. EHR Cmte Other connective tissue disease (2 sources) Pain of toes of bilateral feet; Translations: [Pain in right toe(s)] 03-20-2024 Episodic Other ear and sense organ disorders (8 sources) Impacted cerumen in right ear; Translations: [Impacted cerumen, right ear] Onset: 05-11-2024 05-11-2024 Episodic Other injuries and conditions due to external causes (3 sources) Minor head injury; Translations: [Unspecified injury of head, initial encounter] 06-12-2023 Episodic Comment on above: Problem List clean-u p per request of Phys. EHR Cmte Other lower respiratory disease (3 sources) Respiratory obstruction; Translations: [Other specified respiratory disorders] 06-12-2023 Episodic Comment on above: Problem List clean-u p per request of Phys. EHR Cmte Other nervous system disorders (1 source) Chronic pain; Translations: [Other chronic pain] 05-13-2024 Chronic Other nervous system disorders (2 sources) Other chronic pain; Translations: [Other chronic pain] Onset: 06-02-2024 05-13-2024 Chronic Other nervous system disorders (3 sources) Postoperative pain ; Translations: [Other acute postprocedural pain] 06-12-2023 Episodic Comment on above: Problem List clean-u p per request of Phys. EHR Cmte Other nutritional; endocrine; and metabolic disorders (1 source) Morbid (severe) obesity due to excess calories; Translations: [MORBID SEVERE OBES D/T EXCESS MARIA FERNANDA] Onset: 10-13-2022 Chronic Other nutritional; endocrine; and metabolic disorders (14 sources) Morbid obesity; Translations: [Morbid (severe) obesity due to excess calories] Onset: 03-17-2024 03-17-2024 Chronic Other nutritional; endocrine; and metabolic disorders (2 sources) Obesity caused by energy imbalance; Translations: [Morbid (severe) obesity due to excess calories] 03-17-2024 Chronic Other skin disorders (2 sources) Asteatosis cutis; Translations: [Xerosis cutis] 03-20-2024 Episodic Other upper respiratory disease (15 sources) Allergic rhinitis due to pollen; Translations: [Allergic rhinitis due to pollen] Onset: 09-09-2023 09-09-2023 Chronic Residual codes; unclassified (3 sources) Tobacco user; Translations: [Tobacco use] 06-13-2019 Episodic Respiratory failure; insufficiency; arrest (adult) (3 sources) Respiratory failure; Translations: [Respiratory failure, unspecified, unspecified whether with hypoxia or hypercapnia] 06-12-2023 Episodic Comment on above: Problem List clean-u p per request of Phys. EHR Cmte Spondylosis; intervertebral disc disorders; other back problems (20 sources) Cervical spondylosis; Translations: [Other spondylosis with myelopathy, cervical region] Onset: 08-05-2023 06-12-2023 Chronic Comment on above: Problem List clean-u p per request of Phys. EHR Cmte Spondylosis; intervertebral disc disorders; other back problems (13 sources) Neck pain; Translations: [Cervicalgia] Onset: 04-29-2024 06-12-2023 Episodic Comment on above: Problem List clean-u p per request of Phys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 EHR Cmte Other nutritional; endocrine; and metabolic disorders (17 sources) Body mass index 30+ - obesity; Translations: [Obesity, unspecified] Onset: 08-05-2023 Resolved: 03-17-2024 03-17-2024 Chronic Other screening for suspected conditions (not mental disorders or infectious disease) (20 sources) Encounter for screening for malignant neoplasm of prostate; Translations: [Patient encounter status] Onset: 10-25-2022 09-09-2023 Episodic Results Test Name Value Interpretation Reference Range Facility EMG 2 Extremitieson 06-09-20 24 [facility] Healthcare NVC 11-12 Nerveson 4 [facility] CBC AUTO DIFFon 10-19-2022 BASO # 0.1 103/ul Normal 0.0-0.1 [facility] Comment on above: Performed By: #### C BC #### [facility] [address] [place] [address] Dr. Cindi Underwood Basophils/100 WBC (Bld) 0.5 % Normal 0.2-2.0 [facility] Comment on above: Performed By: #### C BC #### [facility] [address] [address] [address] Cindi Underwood EO # 0.2 103/ul Normal 0.0-0.7 [facility] Comment on above: Performed By: #### C BC #### [facility] [address] [address] [address] Cindi Underwood Eosinophils/100 WBC (Bld) 1.8 % Normal 0.9-7.0 [facility] Comment on above: Performed By: #### C BC #### [facility] [address] [address] [address] Cindi Underwood Erythrocyte distribution width (RBC) [Ratio] 14.5 % Normal 11.0-15.0 [facility] Comment on above: Performed By: #### C BC #### [facility] [address] [place] [address] Dr. Cindi Underwood Hematocrit (Bld) [Volume fraction] 52.4 % Normal 42.0-54.0 [facility] Comment on above: Performed By: #### C BC #### [facility] [address] [address] [address] Cindi Underwood Hemoglobin (Bld) [Mass/Vol] 17.3 g/dL Normal 14.0-18.0 [facility] Comment on above: Performed By: #### C BC #### [facility] [address] [address] [address] Cindi Underwood IG # 0.04 10e3/ul Critically high 0.00-0.03 [facility] Comment on above: Performed By: #### C BC #### [facility] [address] [place] [address] Dr. Cindi Underwood IG % 0.4 % Normal 0.0-0.5 [facility] Comment on above: Performed By: #### C BC #### [facility] [address] [place] [address] Dr. Cindi Underwood LYMPH # 1.9 103/ul Normal 1.2-3.8 [facility] Comment on above: Performed By: #### C BC #### [facility] [address] [place] [address] Dr. Cindi Underwood Lymphocytes/100 WBC (Bld) 20.8 % Normal 20.5-60.0 [facility] Comment on above: Performed By: #### C BC #### [facility] [address] [place] [address] Dr. Cindi Underwood MANUAL DIFF REQ NO Normal [facility] Comment on above: Performed By: #### C BC #### [facility] [address] [place] [address] Dr. Cindi Underwood MCH (RBC) [Entitic mass] 30.7 pg Normal 25.9-34.0 [facility] Comment on above: Performed By: #### C BC #### [facility] [address] [place] [address] Dr. Cindi Underwood MCHC (RBC) [Mass/Vol] 33.0 g/dL Normal 29.9-35.2 [facility] Comment on above: Performed By: #### C BC #### [facility] [address] [address] [address] Cindi Underwood MCV (RBC) [Entitic vol] 93.1 fL Normal 80.0-94.0 [facility] Comment on above: Performed By: #### C BC #### [facility] [address] [address] [address] Cindi Underwood MONO # 0.5 103/ul Normal 0.3-0.8 [facility] Comment on above: Performed By: #### C BC #### [facility] [address] [address] [address] Cindi Underwood Monocytes/100 WBC (Bld) 5.6 % Normal 1.7-12.0 [facility] Comment on above: Performed By: #### C BC #### [facility] [address] [place] [address] Dr. Cindi Underwood NEUT # 6.5 103/ul Normal 1.4-6.5 [facility] Comment on above: Performed By: #### C BC #### [facility] [address] [place] [address] Dr. Cindi Underwood Neutrophils/100 WBC (Bld) 70.9 % Normal 43.0-75.0 [facility] Comment on above: Performed By: #### C BC #### [facility] [address] [place] [address] Dr. Cindi Underwood Platelet mean volume (Bld) [Entitic vol] 10.8 fL Normal 9.5-13.5 [facility] Comment on above: Performed By: #### C BC #### [facility] [address] [place] [address] Dr. Cindi Underwood PLT 190 103/ul Normal 150-450 [facility] Comment on above: Performed By: #### C BC #### [facility] [address] [place] [address] Dr. Cindi Underwood RBC 5.63 106/ul Normal 4.70-6.10 [facility] Comment on above: Performed By: #### C BC #### [facility] [address] [place], [place] [id number] Dr. Cindi Underwood WBC 9.1 103/ul Normal 4.0-11.0 [facility] Comment on above: Performed By: #### C BC #### [facility] [address] [place] [address] Dr. Cindi Underwood GLYCOHEMOGLOBIN A1Con 2022 ADA RECOMMENDATION SEE BELOW Normal [facility] Comment on above: Result Comment: ADA RECOMMENDED LIMIT 4.0 - 6.0 ADA THERAPEUTIC TARGET < 7.0 ACTION SUGGESTED > 7.0 Performed By: #### A 1C #### [facility] [address] [place] [address] Dr. Cindi Underwood Glucose [Mass/Vol] 163 mg/dL Normal [facility] Comment on above: Performed By: #### A 1C #### [facility] [address] [place] [address] Dr. Cindi Underwood HbA1c (Bld) [Mass fraction] 7.3 % Critically high 4.5-6.2 [facility] Comment on above: Performed By: #### A 1C #### [facility] [address] [place] [address] Dr. Cindi Underwood LIPID PROFILEon 10-19-2022 CHOL-HDL RATIO NORM SEE BELOW Normal [facility] Comment on above: Result Comment: 3.3 - 4.4 LOW RISK 4.4 - 7.1 AVERAGE RISK 7.1 - 11.0 MODERATE RISK >11.0 HIGH RISK Performed By: #### L IPID, TSH, BMP, LIVER #### [facility] [address] [place] [address] Dr. Cindi Underwood Cholesterol [Mass/Vol] 189 mg/dL Normal <=200 [facility] Comment on above: Performed By: #### L IPID, TSH, BMP, LIVER #### [facility] [address] [place] [address] Dr. Cindi Underwood Cholesterol in HDL [Mass/Vol] 33 mg/dL Critically low 40-60 [facility] Comment on above: Performed By: #### L IPID, TSH, BMP, LIVER #### [facility] [address] [place] [address] Dr. Cindi Underwood Cholesterol in LDL [Mass/Vol] 123.6 mg/dL Normal [facility] Comment on above: Performed By: #### L IPID, TSH, BMP, LIVER #### [facility] [address] [address] [address] Cindi Underwood Cholesterol.total/ Cholesterol in HDL [Mass ratio] 5.7 {ratio} Normal [facility] Comment on above: Performed By: #### L IPID, TSH, BMP, LIVER #### [facility] [address] [address] [address] Cindi Underwood HDL NORMAL > or = 60 mg/dl - LO W CARDIOVASCULAR RISK <40 mg/dl - HIGH CARDIOVASCULAR RISK Normal [facility] Comment on above: Performed By: #### L IPID, TSH, BMP, LIVER #### [facility] [address] [place] [address] Dr. Cindi Underwood LDL CALC NORMAL SEE BELOW Normal [facility] Comment on above: Result Comment: <100 mg/dl OPTIMAL 100 - 129 mg/dl NEAR OR ABOVE OPTIMAL 130 - 159 mg/dl BORDERLINE HIGH 160 - 189 mg/dl HIGH >190 mg/dl VERY HIGH Performed By: #### L IPID, TSH, BMP, LIVER #### [facility] [address] [address] [address] Cindi Underwood Triglyceride [Mass/Vol] 162 mg/dL Critically high <=150 [facility] Comment on above: Performed By: #### L IPID, TSH, BMP, LIVER #### [facility] [address] [address] [address] Cindi Underwood VLDL CALC 32.4 mg/dL Normal [facility] Comment on above: Performed By: #### L IPID, TSH, BMP, LIVER #### [facility] [address] [address] [address] Cindi Underwood LIVER PROFILEon 10-19-2022 Albumin [Mass/Vol] 3.7 g/dL Normal 3.4-5.0 [facility] Comment on above: Performed By: #### L IPID, TSH, BMP, LIVER #### [facility] [address] [address] [address] Cindi Underwood Albumin/Globulin [Mass ratio] 0.9 {ratio} Normal [facility] Comment on above: Performed By: #### L IPID, TSH, BMP, LIVER #### [facility] [address] [address] [address] Cindi Underwood ALP [Catalytic activity/Vol] 89 U/L Normal 46-116 [facility] Comment on above: Performed By: #### L IPID, TSH, BMP, LIVER #### [facility] [address] [address] [address] Cindi Underwood ALT [Catalytic activity/Vol] 44 U/L Normal 16-63 [facility] Comment on above: Performed By: #### L IPID, TSH, BMP, LIVER #### [facility] [address] [place] [address] Dr. Cindi Underwood AST [Catalytic activity/Vol] 21 U/L Normal 15-37 [facility] Comment on above: Performed By: #### L IPID, TSH, BMP, LIVER #### [facility] [address] [place] [address] Dr. Cindi Underwood BILI, CONJUGATED 0.1 mg/dL Normal 0.0-0.2 [facility] Comment on above: Performed By: #### L IPID, TSH, BMP, LIVER #### [facility] [address] [place] [address] Dr. Cindi Underwood Bilirubin [Mass/Vol] 0.6 mg/dL Normal 0.2-1.0 [facility] Comment on above: Performed By: #### L IPID, TSH, BMP, LIVER #### [facility] [address] [place] [address] Dr. Cindi Underwood Globulin (S) [Mass/Vol] 4.1 g/dL Normal [facility] Comment on above: Performed By: #### L IPID, TSH, BMP, LIVER #### [facility] [address] [address] [address] Cindi Underwood Protein [Mass/Vol] 7.8 g/dL Normal 6.4-8.2 [facility] Comment on above: Performed By: #### L IPID, TSH, BMP, LIVER #### [facility] [address] [place] [address] Dr. Cindi Underwood MICROALBUMIN, RAND URon 04-2 mALB 2.9 mg/L Normal <=30.0 [facility] Comment on above: Performed By: #### M ALBR #### [facility] [address] [place] [address] Dr. Cindi Underwood PROF CHEM 8 (BAS METB)on Anion gap [Moles/Vol] 8.6 mmol/L Normal [facility] Comment on above: Performed By: #### L IPID, TSH, BMP, LIVER #### [facility] [address] [place] [address] Dr. Cindi Underwood Calcium [Mass/Vol] 9.2 mg/dL Normal 8.5-10.1 [facility] Comment on above: Performed By: #### L IPID, TSH, BMP, LIVER #### [facility] [address] [place] [address] Dr. Cindi Underwood Chloride [Moles/Vol] 102 mmol/L Normal 98-107 [facility] Comment on above: Performed By: #### L IPID, TSH, BMP, LIVER #### [facility] [address] [place] [address] Dr. Cindi Underwood CO2 [Moles/Vol] 34.3 mmol/L Critically high 21.0-32.0 [facility] Comment on above: Performed By: #### L IPID, TSH, BMP, LIVER #### [facility] [address] [place] [address] Dr. Cindi Underwood Creatinine [Mass/Vol] 0.87 mg/dL Normal 0.70-1.30 [facility] Comment on above: Performed By: #### L IPID, TSH, BMP, LIVER #### [facility] [address] [place] [address] Dr. Cindi Underwood EGFR-AF [place]LANDER >60 Normal >=60 [facility] Comment on above: Performed By: #### L IPID, TSH, BMP, LIVER #### [facility] [address] [address] [address] Cindi Underwood EGFR-NON AF [place]ER >60 Normal >=60 [facility] Comment on above: Performed By: #### L IPID, TSH, BMP, LIVER #### [facility] [address] [address] [address] Cindi Underwood Glucose [Mass/Vol] 132 mg/dL Critically high 74-106 [facility] Comment on above: Performed By: #### L IPID, TSH, BMP, LIVER #### [facility] [address] [address] [address] Cindi Underwood Potassium [Moles/Vol] 3.9 mmol/L Normal 3.5-5.1 [facility] Comment on above: Performed By: #### L IPID, TSH, BMP, LIVER #### [facility] [address] [address] [address] Cindi Underwood Sodium [Moles/Vol] 141 mmol/L Normal 136-145 [facility] Comment on above: Performed By: #### L IPID, TSH, BMP, LIVER #### [facility] [address] [place] [address] Dr. Cindi Underwood Urea nitrogen [Mass/Vol] 9.0 mg/dL Normal 7.0-18.0 [facility] Comment on above: Performed By: #### L IPID, TSH, BMP, LIVER #### [facility] [address] [place] [address] Dr. Cindi Underwood Urea nitrogen/Creatinin e [Mass ratio] 10.3 mg/mg Normal [facility] Comment on above: Performed By: #### L IPID, TSH, BMP, LIVER #### [facility] [address] [place] [address] Dr. Cindi Underwood TSHon 10-19-2022 TSH 2.454 uIU/mL Normal 0.358-3.740 [facility] Comment on above: Performed By: #### L IPID, TSH, BMP, LIVER #### [facility] [address] [address] [address] Cindi Underwood GLYCOHEMOGLOBIN A1Con 2021 ADA RECOMMENDATION SEE BELOW Normal [facility] Comment on above: Result Comment: ADA RECOMMENDED LIMIT 4.0 - 6.0 ADA THERAPEUTIC TARGET < 7.0 ACTION SUGGESTED > 7.0 Performed By: #### A 1C #### [facility] [address] [address] [address] Cindi Underwood Glucose [Mass/Vol] 160 mg/dL Normal [facility] Comment on above: Performed By: #### A 1C #### [facility] [address] [address] [address] Cindi Underwood HbA1c (Bld) [Mass fraction] 7.2 % Critically high 4.5-6.2 [facility] Comment on above: Performed By: #### A 1C #### [facility] [address] [address] [address] Cindi Underwood Ambulatory Clinical Summaryo n 08-09-2020 Ambulatory Clinical Summary {[id number]}CD: [id number] Normal [facility] Patient Educationon 08-09-19 Patient Education Benign Prostatic [...] Document Reviewed: 02/20/2008 ExitCare? Patient Information ?2013 [employer] [facility] Urology Office/Clinic Noteon 08-09-2020 Urology Office/Clinic [...] Urnls Dip Stick Auto w/o Microscopy POC 08446 2. 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 3. Urge incontinence (N39.41: Urge incontinence) Pt is having some leaking on the way to the bathroom. Orders: ciprofloxacin, 500 mg = 1 tab(s), Oral, q12hr, take 1 tablet the day prior to procedure, take 2nd tablet the day of the procedure, # 2 tab(s), Refills(s) 0, Pharmacy: [id number] [facility] [place], 173, cm, 12/08/19 13:22:00 EDT, Height/Length Measured, 115, kg, 12/08/19... tamsulosin, 0.4 mg = 1 cap(s), Oral, Daily, # 30 cap(s), Refills(s) 1, Pharmacy: [facility] [facility] [address] 173, cm, 05/24/20 8:18:00 EST, Height/Length Dosing, 115, kg, 05/24/20 8:18:00 EST, Weight Dosing tamsulosin, 0.4 mg = 1 cap(s), Oral, BID, # 60 cap(s), Refills(s) 3, [facility]acy: [facility] [facility] 173, cm, 08/09/20 13:55:00 EST, Height/Length Dosing, 129.9, kg, 08/09/20 13:55:00 EST, Weight Dosing I have reviewed the previous health record information and history for this patient from Dr. Gonzalez Follow-up With When Contact Information Carlos Elizalde MD, King Stark In 3 months [facility] [address], [place] [address]- Additional Instructions: PVR Patient Education Benign Prostatic [...] Protein Urine Dipstick: Negative (08/09/20 13:46:00) Specific [place] Urine Dipstick: 1.025 (08/09/20 13:46:00) Urine Appearance Urine Dipstick: Clear (08/09/20 13:46:00) Urine Color Urine Dipstick: Yellow (08/09/20 13:46:00) Urobilinogen Urine Dipstick: 2 EU/dl (08/09/20 13:46:00) pH Urine Dipstick: 7 (08/09/20 13:46:00) Diagnostic Results Urinalysis was reviewed and shows no evidence of infection. PVR today was 82 cc. Normal [facility] Comment on above: Result Comment: Elec tronically Signed By: Carlos Elizalde MD, King Stark\.br\Date and Time Signed: 08/09/20 14:51 EST\.br\Electronically Co-Signed By: Puja Garvin MA\.br\Date and Time Co-Signed: 08/09/20 14:48 EST Pre-Certification Formon Pre-Certification Form [id number]:127 Normal [facility] Ambulatory Clinical Summaryo n 06-28-2020 Ambulatory Clinical Summary {[id number]}CD: [id number] Normal [facility] Patient Educationon 06-28-20 20 Patient [...] directed by your caregiver. ? Only take [id number] or prescription medicines for pain, discomfort, or [...] Document Reviewed: 02/02/2009 ExitCare? Patient Information ?2013 [employer] [facility] Urology Office/Clinic Noteon 06-28-2020 Urology Office/Clinic [...] Urnls Dip Stick Auto w/o Microscopy POC 55493 2. Incomplete bladder emptying (R33.9: Retention of urine, unspecified) PVR today shows 518ml, pt has stopped the Oxybutynin. Ordered: CT Abdomen w/ Contrast Measure Post Void residual urine and/or bladder capacity by US- non-imaging 55743 3. BPH with urinary obstruction (N40.1: Benign [...] weeks [facility] [address] [place] [address]- Additional Instructions: Patient Education Abdominal Pain I, [...] Trace (06/28/20 11:26:00) Nitrite Urine Dipstick: Negative (06/28/20 11:26:00) Protein Urine Dipstick: Negative (06/28/20 11:26:00) Specific [place] Urine Dipstick: 1.010 (06/28/20 11:26:00) Urine Appearance Urine Dipstick: Clear (06/28/20 11:26:00) Urine Color Urine Dipstick: Light yellow (06/28/20 11:26:00) Urobilinogen Urine Dipstick: Normal 0.2-1 EU/dl (06/28/20 11:26:00) pH Urine Dipstick: 7 (06/28/20 11:26:00) Diagnostic Results PVR today is over 500 cc. Urinalysis is negative for infection. Normal [facility] Comment on above: Result Comment: Elec tronically Signed By: Carlos Elizalde MD, King Stark\.br\Date and Time Signed: 06/28/20 13:25 EST\.br\Electronically Co-Signed By: Puja Garvin MA\.br\Date and Time Co-Signed: 06/28/20 12:09 EST Ambulatory Clinical Summaryo n 05-24-2020 Ambulatory Clinical Summary {[id number]}CD: [id number] Normal [facility] Patient Educationon 05-24-20 Patient Education [...] Document Reviewed: 03/08/2008 ExitCare? Patient Information ?2013 [employer] [facility] Urology Office/Clinic Noteon 05-24-2020 Urology Office/Clinic Note Chief Complaint Pt. here due to swollen testicles. This patient is a 60-year-old gentleman with a history of prostatic hyperplasia with bladder outlet obstruction symptoms he also has a history of scrotal swelling which has resolved since his initial complaint. He is here today for urologic evaluation. [facility] Staff Pt. here due to having swollen [...] the office notified. Script sent to Jakob Lerma. All questions/concerns were discussed. Pt. to call [...] urine and/or bladder capacity by US- non-imaging 43491 6. Edema of scrotum (N50.89: Other specified [...] Daily, # 30 cap(s), Refills(s) 1, Pharmacy: [facility], 173, cm, 05/24/20 8:18:00 EST, Height/Length Dosing, 115, kg, 05/24/20 8:18:00 EST, Weight Dosing I have reviewed the previous health record information and history for this pt. from Dr. Gonzalez. Follow-up With When Contact Information Carlos Elizalde MD, King Stark [address] [place] [address] Additional Instructions: 1mos. w/ PVR Patient Education Benign Prostatic Hypertrophy I, Haritha Jean , personally scribed for Dr. Gonzalez on [...] within reasonable range for this patient. Normal [facility] Comment on above: Result Comment: Elec tronically Signed By: Carlos Elizalde MD, King Stark\.br\Date and Time Signed: 05/24/20 10:32 EST\.br\Electronically Co-Signed By: Haritha Jean MA\.br\Date and Time Co-Signed: 05/24/20 08:57 EST Provider Letteron 02-23-2020 Provider Letter (Inserted Image. Mary ble to display) February 23, 2020 DIMITRY BENJAMIN [address] [place] [address] DIMITRY BENJAMIN 1960 Dear Dimitry Benjamin, This [...] us know 24 hours in advance. Sincerely, [employer], [employer] Normal [facility] Provider Letteron 02-09-2020 Provider Letter (Inserted Image. Mary ble to display) February 09, 2020 DIMITRY BENJAMIN [address] [place] [address] CASSIDYDIMITRY Gia 1960 Dear Dimitry Benjamin, You missed your [...] [facility] [address], [place] [address] [facility] Urology Office/Clinic Noteon 02-01-2020 Urology Office/Clinic [...] urine The Urethra was dilated to: 24 Marshallese with sounds. Removal: Cystoscope is removed. The [...] Elizalde MD, King Stark In 1 month [id number] Additional Instructions: w/PVR Patient Education Urinary Frequency [...] Mother. Primary malignant neoplasm of bone: Sister. [facility] Comment on above: Result Comment: Elec tronically Signed By: King Gonzalez Jr., MD\.br\Date and Time Signed: 02/01/20 08:59 EDT\.br\Electronically Co-Signed By: Gricel Pizarro\.br\Date and Time Co-Signed: 01/18/20 14:37 EDT Consent for Procedure/Surger yon 01-20-2020 Consent for Procedure/Surgery [id number]:127 [facility] Ambulatory Clinical Summaryo n 01-18-2020 Ambulatory Clinical Summary {[id number]}CD: [id number] [facility] [facility] Ambulatory Clinical Summary {[id number]}CD: [id number] [facility] Ambulatory Clinical Summary {[id number]}CD: [id number] [facility] Lab Reportson 12-22-2019 Lab Reports [id number]:127 [facility] RAD - Ultrasound Reporton RAD - Ultrasound Report [id number]:127 [facility] Ambulatory Clinical Summaryo n 12-08-2019 Ambulatory Clinical Summary {[id number]}CD: [id number] [facility] Reminderson 12-08-2019 Reminders - From: Roselia Camacho To: EU - Clinical; Sent: 12/08/2019 16:01:29 EDT Show up: 12/15/2019 16:01:00 EDT Subject: Ambulatory Reminder Reminder/Recall 12/14/19 Renal US and PSA @ [facility]. Patient has cysto scheduled 12/27 to review results! Normal [facility] MRI CERVICAL SPINE WO CONTRA [...] Gilberto Cordoba DO 02/10/[address] [facility] CT HEAD WO CONTRASTon 2018 CT HEAD [...] Erik Mckeon MD 10/09/[address] [facility] PULMONARY FUNCTIONon 019 [place] [address] PULMONARY FUNCTION PATIENT NAME: DIMITRY BENJAMIN : 1960 MED REC NO: [id number] ROOM: ACCOUNT NO: [id number] ADMIT DATE: 09/02/2018 PROVIDER: Caio Craig MD [...] is needed. CAIO CRAIG MD [email or web address]/[email or web address] Doc#: [id number] CC: Normal [facility] XR CERVICAL SPINE (2-3 VIEWS )on 08-11-2018 [...] Lopez Paniagua MD 08/11/[address] [facility] CBC With Platelet No Differe ntialon 07-17-2018 Erythrocyte distribution width Ratio (RBC) 13.4 % Normal 11.5-14.5 [facility] Hematocrit Volume Fraction (Bld) 48.9 % Normal 42.0-52.0 [facility] Hemoglobin mass conc (Bld) 16.8 g/dL Normal 14.0-18.0 [facility] MCH Entitic mass (RBC) 32.0 pg Critically high 27.0-31.3 [facility] MCHC mass conc (RBC) 34.4 % Normal 33.0-37.0 [facility] MCV Entitic volume (RBC) 93.1 fL Normal 80.0-100.0 [facility] Platelets #/vol (Bld) 170 10*3/uL Normal 130-400 [facility] RBC #/vol (Bld) 5.25 10*6/uL Normal 4.70-6.10 [facility] WBC #/vol (Bld) 8.0 10*3/uL Normal 4.8-10.8 [facility] Comprehensive Metabolic Pane madison 07-17-2018 Albumin mass conc 4.1 g/dL Normal 3.9-4.9 [facility] ALP enzyme act/vol 80 U/L Normal 35-104 [facility] ALT enzyme act/vol 30 U/L Normal 0-41 [facility] Anion gap molar conc 10 mmol/L Normal 7-13 [facility] AST enzyme act/vol 20 U/L Normal 0-40 [facility] Bilirubin mass conc 0.6 mg/dL Normal 0.0-1.2 [facility] Calcium mass conc 8.6 mg/dL Normal 8.6-10.2 [facility] Chloride molar conc 98 mmol/L Normal 98-107 [facility] CO2 molar conc 32 mmol/L Critically high 22-29 [facility] Creatinine mass conc 0.80 mg/dL Normal 0.70-1.20 [facility] GFR/1.73 sq M predicted among blacks MDRD vol rate/area (S/P/Bld) mL/min/{1.73_m2} Normal >60 [facility] Comment on above: Result Comment: >60 mL/min/1.73m2 EGFR, calc. for ages 18 and older using the MDRD formula (not corrected for weight), is valid for stable renal function. GFR/1.73 sq M.predicted MDRD vol rate/area mL/min/{1.73_m2} Normal >60 [facility] Comment on above: Result Comment: >60 mL/min/1.73m2 EGFR, calc. for ages 18 and older using the MDRD formula (not corrected for weight), is valid for stable renal function. Globulin mass conc (S) 2.8 g/dL Normal 2.3-3.5 [facility] Glucose mass conc 146 mg/dL Critically high 74-109 [facility] Potassium molar conc 4.2 mmol/L Normal 3.5-5.1 [facility] Protein mass conc 6.9 g/dL Normal 6.4-8.1 [facility] Sodium molar conc 140 mmol/L Normal 132-144 [facility] Urea nitrogen mass conc 10 mg/dL Normal 8-23 [facility] Creatine Kinaseon 07-17-2018 CK enzyme act/vol 266 U/L Critically high 0-190 [facility] Culture, Urineon 07-17-2018 Culture, Urine OR DERED BY: MCKENNA AMARO SOURCE: Urine Voided COLLECTED: 07/17/18 08:24 ANTIBIOTICS AT JACQUIE.: RECEIVED : 07/17/18 10:16 Culture, Urine FINAL 07/19/18 10:34 No growth [address] [facility] Hemoglobin A1con 07-17-2018 Hemoglobin A1c/Hemoglobin.tot al mass fraction (Bld) 6.9 % Critically high 4.8-5.9 [facility] Lipid Panelon 07-17-2018 Cholesterol in HDL mass conc 29 mg/dL Low 40-59 [facility] Comment on above: Result Comment: ATP III [...] LDL mass conc 123 mg/dL Normal 0-129 [facility] Comment on above: Result Comment: ATP III LDL Classification is Near Optimal. Cholesterol mass conc 211 mg/dL Critically high 0-199 [facility] Comment on above: Result Comment: ATP III Cholesterol Classification is Borderline High. Triglyceride mass conc 295 mg/dL Critically high 0-200 [facility] Comment on above: Result Comment: ATP III Triglycerides Classification is High. TSH w/out Reflexon 9 Thyrotropin Qn 4.170 uIU/mL Normal 0.270-4.20 [facility] Thyroxine Freeon 07-17-2018 Thyroxine Free 1.03 ng/dL Normal 0.93-1.70 [facility] UR Drugs of Abuse Panelon Drug Screen Comment see below Normal [facility] Comment on above: Result Comment: This method is a screening test to detect only these drug classes as part of a medical workup. Confirmatory testing by another method should be ordered if clinically indicated. UR Amphetamines Screen Negative Normal Negative < [facility] UR Barbiturates Screen Negative Normal Negative < [facility] UR Benzo Screen Negative Normal Negative < [facility] UR Cannabinoids Screen Negative Normal Negative < [facility] UR Cocaine Screen Negative Normal Negative < [facility] UR Opiates Screen Negative Normal Negative < [facility] UR PCP Screen Negative Normal Negative < [facility] UR Microalbumin/Creatinine R atio Randomon 07-17-2018 Microalbumin/creat inine Ratio see below Normal 0.0-30.0 [facility] Comment on above: Result Comment: - UR Microalbumin concentration is less than 1.2 mg/dL. - Unable to calculate Microalbumin/Creatinine Ratio without a Microalbumin concentration. UR Creatinine Random 144.8 mg/dL Normal Not Establ [facility] UR Microalbumin Random <1.20 Normal [facility] Urinalysis, reflex to micros copicon 07-17-2018 Bilirubin Ql (U) Negative Normal Negative [facility] Clarity Nom (U) Clear Normal Clear [facility] Color Nom (U) Yellow Normal Straw/[place] [facility] Glucose Ql (U) Negative Normal Negative [facility] Hemoglobin Ql (U) Negative Normal Negative [facility] Ketones Ql (U) Negative Normal Negative [facility] Leukocyte esterase Test strip Ql (U) TRACE Abnormal Negative [facility] Nitrite Ql (U) Negative Normal Negative [facility] pH (U) 7.5 [pH] Normal 5.0-9.0 [facility] Protein Ql (U) Negative Normal Negative [facility] Specific gravity Relative Density (U) 1.015 Normal 1.005-1.03 [facility] Urobilinogen Qn (U) 1.0 {Nunu'U}/dL Normal < 2.0 [facility] Urine Microscopicon 07-17-19 19 Bacteria LM.HPF #/area (Urine sed) Negative Normal [facility] RBC #/vol (U) 3-5 Abnormal 0-5 [facility] Comment on above: Result Comment: Effe ctive 05/26/2018 Urinalysis microscopic performed using the automated methodology (AUWI analyzer). Urine Epithelial Cells Auto 0-2 Normal 0-5 [facility] Comment on above: Result Comment: Effe ctive 05/26/2018 Urinalysis microscopic performed using the automated methodology (AUWI analyzer). Urine Hyaline Casts Auto 0-1 Normal 0-5 [facility] Comment on above: Result Comment: Effe ctive 05/26/2018 Urinalysis microscopic performed using the automated methodology (AUWI analyzer). Urine WBC Auto 6-10 Abnormal 0-5 [facility] Comment on above: Result Comment: Effe ctive 05/26/2018 Urinalysis microscopic performed using the automated methodology (AUWI analyzer). CBC With Platelet No Differe ntialon 03-18-2018 Erythrocyte distribution width Ratio (RBC) 14.7 % Critically high 11.5-14.5 [facility] Hematocrit Volume Fraction (Bld) 48.0 % Normal 42.0-52.0 [facility] Hemoglobin mass conc (Bld) 16.1 g/dL Normal 14.0-18.0 [facility] MCH Entitic mass (RBC) 31.9 pg Critically high 27.0-31.3 [facility] MCHC mass conc (RBC) 33.6 % Normal 33.0-37.0 [facility] MCV Entitic volume (RBC) 94.9 fL Normal 80.0-100.0 [facility] Platelets #/vol (Bld) 145 10*3/uL Normal 130-400 [facility] RBC #/vol (Bld) 5.05 10*6/uL Normal 4.70-6.10 [facility] WBC #/vol (Bld) 5.5 10*3/uL Normal 4.8-10.8 [facility] CKMB with Indexon 03-18-2018 CK enzyme act/vol 397 U/L Critically high 0-190 [facility] CK.MB mass conc 9.6 ng/mL Critically high 0.0-6.7 [facility] CK.MB mass conc 2.4 % Normal 0.0-3.5 [facility] Comprehensive Metabolic Pane [place] 03-18-2018 Albumin mass conc 4.4 g/dL Normal 3.9-4.9 [facility] ALP enzyme act/vol 69 U/L Normal 35-104 [facility] ALT enzyme act/vol 33 U/L Normal 0-41 [facility] Anion gap molar conc 9 mmol/L Normal 7-13 [facility] AST enzyme act/vol 26 U/L Normal 0-40 [facility] Bilirubin mass conc 0.5 mg/dL Normal 0.0-1.2 [facility] Calcium mass conc 8.9 mg/dL Normal 8.6-10.2 [facility] Chloride molar conc 98 mmol/L Normal 98-107 [facility] CO2 molar conc 31 mmol/L Critically high 22-29 [facility] Creatinine mass conc 0.79 mg/dL Normal 0.70-1.20 [facility] GFR/1.73 sq M predicted among blacks MDRD vol rate/area (S/P/Bld) mL/min/{1.73_m2} Normal >60 [facility] Comment on above: Result Comment: >60 mL/min/1.73m2 EGFR, calc. for ages 18 and older using the MDRD formula (not corrected for weight), is valid for stable renal function. GFR/1.73 sq M.predicted MDRD vol rate/area mL/min/{1.73_m2} Normal >60 [facility] Comment on above: Result Comment: >60 mL/min/1.73m2 EGFR, calc. for ages 18 and older using the MDRD formula (not corrected for weight), is valid for stable renal function. Globulin mass conc (S) 2.4 g/dL Normal 2.3-3.5 [facility] Glucose mass conc 110 mg/dL Critically high 74-109 [facility] Potassium molar conc 5.2 mmol/L Critically high 3.5-5.1 [facility] Protein mass conc 6.8 g/dL Normal 6.4-8.1 [facility] Sodium molar conc 138 mmol/L Normal 132-144 [facility] Urea nitrogen mass conc 10 mg/dL Normal 8-23 [facility] Hemoglobin A1con 03-18-2018 Hemoglobin A1c/Hemoglobin.tot al mass fraction (Bld) 6.7 % Critically high 4.8-5.9 [facility] Hepatitis C Antibodyon 03-18 Hepatitis C Antibody Interp Non-reactive Normal [facility] Lipid Panelon 03-18-2018 Cholesterol in HDL mass conc 25 mg/dL Low 40-59 [facility] Comment on above: Result Comment: ATP III [...] LDL mass conc 119 mg/dL Normal 0-129 [facility] Comment on above: Result Comment: ATP III LDL Classification is Near Optimal. Cholesterol mass conc 172 mg/dL Normal 0-199 [facility] Comment on above: Result Comment: ATP III Cholesterol classification is Desirable. Triglyceride mass conc 140 mg/dL Normal 0-200 [facility] Comment on above: Result Comment: ATP III Triglycerides Classification is Normal. PSA Total with Free PSAon GFR/1.73 sq M predicted among non-blacks MDRD vol rate/area (S/P/Bld) 0.1 ng/mL Normal [facility] Prostate Specific Ag, Percent Free 25 % Normal [facility] Comment on above: Result Comment: INTE RPRETIVE INFORMATION: Prostate Specific Antigen, Free Percentage BLOVES uses the Juan Carlos Free PSA electrochemiluminescent [...] in individual patients. For related information, see [email or web address] Performed by [facility], [address] [place] [id number] [email or web address], Boaz Lu MD - Lab. Director Prostate Specific Ag, Total 0.4 ng/mL Normal 0.0-4.0 [facility] Comment on above: Result Comment: INTE RPRETIVE [...] width Ratio (RBC) 13.7 % Normal 11.5-14.5 [facility] Hematocrit Volume Fraction (Bld) 50.3 % Normal 42.0-52.0 [facility] Hemoglobin mass conc (Bld) 16.7 g/dL Normal 14.0-18.0 [facility] MCH Entitic mass (RBC) 31.5 pg Critically high 27.0-31.3 [facility] MCHC mass conc (RBC) 33.3 % Normal 33.0-37.0 [facility] MCV Entitic volume (RBC) 94.7 fL Normal 80.0-100.0 [facility] Platelets #/vol (Bld) 158 10*3/uL Normal 130-400 [facility] RBC #/vol (Bld) 5.31 10*6/uL Normal 4.70-6.10 [facility] WBC #/vol (Bld) 7.7 10*3/uL Normal 4.8-10.8 [facility] Comprehensive Metabolic Pane [place] 08-21-2017 Anion gap molar conc 10 mmol/L Normal 7-13 [facility] Albumin mass conc 4.4 g/dL Normal 3.9-4.9 [facility] ALP enzyme act/vol 76 U/L Normal 35-104 [facility] ALT enzyme act/vol 31 U/L Normal 0-41 [facility] AST enzyme act/vol 19 U/L Normal 0-40 [facility] Bilirubin mass conc 0.4 mg/dL Normal 0.0-1.2 [facility] Calcium mass conc 9.0 mg/dL Normal 8.6-10.2 [facility] Chloride molar conc 96 mmol/L Low 98-107 [facility] CO2 molar conc 33 mmol/L Critically high 22-29 [facility] Creatinine mass conc 0.59 mg/dL Low 0.70-1.20 [facility] GFR/1.73 sq M predicted among blacks MDRD vol rate/area (S/P/Bld) mL/min/{1.73_m2} Normal >60 [facility] Comment on above: Result Comment: >60 mL/min/1.73m2 EGFR, calc. for ages 18 and older using the MDRD formula (not corrected for weight), is valid for stable renal function. GFR/1.73 sq M.predicted MDRD vol rate/area mL/min/{1.73_m2} Normal >60 [facility] Comment on above: Result Comment: >60 mL/min/1.73m2 EGFR, calc. for ages 18 and older using the MDRD formula (not corrected for weight), is valid for stable renal function. Globulin mass conc (S) 2.3 g/dL Normal 2.3-3.5 [facility] Glucose mass conc 114 mg/dL Critically high 74-109 [facility] Potassium molar conc 4.8 mmol/L Normal 3.5-5.1 [facility] Protein mass conc 6.7 g/dL Normal 6.4-8.1 [facility] Sodium molar conc 139 mmol/L Normal 132-144 [facility] Urea nitrogen mass conc 13 mg/dL Normal 6-20 [facility] Hemoglobin A1con 08-21-2017 Hemoglobin A1c/Hemoglobin.tot al mass fraction (Bld) 8.1 % Critically high 4.8-5.9 [facility] Lipid Panelon 08-21-2017 Cholesterol in HDL mass conc 31 mg/dL Low 40-59 [facility] Comment on above: Result Comment: ATP III [...] mass conc 161 mg/dL Critically high 0-129 [facility] Comment on above: Result Comment: ATP III LDL Classification is High. Cholesterol mass conc 226 mg/dL Critically high 0-199 [facility] Comment on above: Result Comment: ATP III Cholesterol Classification is Borderline High. Triglyceride mass conc 171 mg/dL Normal 0-200 [facility] Comment on above: Result Comment: ATP III Triglycerides Classification is Borderline High. TSH w/out Reflexon 8 Thyrotropin Qn 3.750 uIU/mL Normal 0.270-4.20 [facility] Vital Signs Date Time Vital Sign Value Performing Clinician Facility 05-11-2024 11:15-0500 Body height 172.7 cm Gerber Salazar MD Work Phone: [facility] 05-11-2024 11:15-0500 Body mass index (BMI) [Ratio] 42.57 kg/m2 Gerber Salazar MD Work Phone: [facility] 05-11-2024 11:15-0500 Body temperature 97.3 [degF] Gerber Salazar MD Work Phone: [facility] 05-11-2024 11:15-0500 Body weight 127.01 kg Gerber Salazar MD Work Phone: [facility] 05-11-2024 11:15-0500 Diastolic blood pressure 78 mm[Hg] Gerber Salazar MD Work Phone: [facility] 05-11-2024 11:15-0500 Heart rate 84 /min Gerber Salazar MD Work Phone: [facility] 05-11-2024 11:15-0500 Respiratory rate 22 /min Gerber Salazar MD Work Phone: [facility] 05-11-2024 11:15-0500 SaO2% (BldA) [Mass fraction] 96 % Gerber Salazar MD Work Phone: [facility] 05-11-2024 11:15-0500 Systolic blood pressure 132 mm[Hg] Gerber Salazar MD Work Phone: [facility] 05-04-2024 13:06-0500 Body height 171.45 cm MD Gerber Salazar Work Phone: [facility] 05-04-2024 13:06-0500 Body mass index (BMI) [Ratio] 42.4 kg/m2 MD Gerber Salazar Work Phone: [facility] 05-04-2024 13:06-0500 Body weight 124.73 kg MD Gerber Salazar Work Phone: [facility] 03-26-2024 13:19-0400 Body height 171.45 cm [facility] 03-26-2024 13:19-0400 Body mass index (BMI) [Ratio] 40.6 kg/m2 [facility] 03-26-2024 13:19-0400 Body weight 119.29 kg [facility] 03-24-2024 08:47-0400 Body height 172.7 cm Dar Leo DPM Work Phone: [facility] 03-24-2024 08:47-0400 Body mass index (BMI) [Ratio] 40.29 kg/m2 Dar Leo DPM Work Phone: [facility] 03-24-2024 08:47-0400 Body weight 120.2 kg Dar Leo DPM Work Phone: [facility] 03-24-2024 08:47-0400 Diastolic blood pressure 80 mm[Hg] Dar Leo DPM Work Phone: [facility] 03-24-2024 08:47-0400 Heart rate 75 /min Dar Leo DPM Work Phone: [facility] 03-24-2024 08:47-0400 Respiratory rate 18 /min Dar Leo DPM Work Phone: [facility] 03-24-2024 08:47-0400 Systolic blood pressure 126 mm[Hg] Dar Leo DPM Work Phone: [facility] 03-17-2024 10:23-0400 Body height 172.7 cm Gerber Salazar MD Work Phone: [facility] 03-17-2024 10:23-0400 Body mass index (BMI) [Ratio] 40.29 kg/m2 Gerber Salazar MD Work Phone: [facility] 03-17-2024 10:23-0400 Body temperature 97.11 [degF] Gerber Salazar MD Work Phone: [facility] 03-17-2024 10:23-0400 Body weight 120.2 kg Gerber Salazar MD Work Phone: [facility] 03-17-2024 10:23-0400 Diastolic blood pressure 64 mm[Hg] Gerber Salazar MD Work Phone: [facility] 03-17-2024 10:23-0400 Heart rate 75 /min Gerber Salazar MD Work Phone: [facility] 03-17-2024 10:23-0400 Respiratory rate 20 /min Gerber Salazar MD Work Phone: [facility] 03-17-2024 10:23-0400 SaO2% (BldA) [Mass fraction] 93 % Gerber Salazar MD Work Phone: [facility] 03-17-2024 10:23-0400 Systolic blood pressure 126 mm[Hg] Gerber Salazar MD Work Phone: [facility] Healthcare Encounters Encounter Date Encounter Type Care Provider Facility Start: 06-15-2024 End: 06-15-2024 Refill Gerber Salazar MD Work Phone: [facility] Comment on above: Generalized anxiety disorder (CMS/HCC); Lumbosacral spondylosis with radiculopathy Start: 06-09-2024 End: 06-09-2024 Patient encounter procedure Carrillo Toussaint MD Work Phone: [facility] Comment on above: Lumbar radiculopathy (Primary Dx) Start: 06-09-2024 End: 06-09-2024 ambulatory CARRILLO TOUSSAINT Not Available Start: 06-02-2024 End: 06-02-2024 ambulatory [facility] Facility:[facility] Start: 05-27-2024 End: 05-27-2024 Refill Gerber Salazar MD Work Phone: [facility] Comment on above: Lumbosacral spondylo sis with radiculopathy Start: 05-13-2024 End: 05-13-2024 ambulatory Gerber Salazar MD Work Phone: [facility] Work Phone: Start: 05-13-2024 End: 05-13-2024 Patient encounter procedure Gerber Salazar MD Work Phone: [facility] Work Phone: Start: 05-11-2024 End: 05-11-2024 Bamboo flowsheet Gerber Salazar MD Work Phone: [facility] Start: 05-11-2024 End: 05-11-2024 Bamboo flowsheet Gerber Salazar MD Work Phone: [facility] Start: 05-11-2024 End: 05-11-2024 Patient encounter procedure Gerber Salazar MD Work Phone: [facility] Start: 05-11-2024 End: 05-11-2024 Postop follow up visit related to original px Gerber Salazar MD Work Phone: [facility] Comment on above: Medicare annual well ness visit, subsequent (Primary Dx); Type 2 diabetes mellitus with hyperglycemia, without long-term current use of insulin ([facility]); Lumbosacral spondylosis with radiculopathy; Right ear impacted cerumen; Dermatitis Start: 05-11-2024 End: 05-11-2024 ambulatory GERBER SALAZAR Not Available Start: 05-04-2024 End: 05-04-2024 ambulatory MD Gerber Salazar Work Phone: [facility] Work Phone: Start: 05-04-2024 End: 05-04-2024 Patient encounter procedure MD Gerber Salazar Work Phone: [facility] Work Phone: Start: 04-29-2024 End: 04-29-2024 ambulatory Susana King Facility:[facility] Start: 04-29-2024 Registered Recurring MD Gerber low Work Phone: [facility] [place] Work Phone: Start: 04-23-2024 End: 04-23-2024 Refill Gerber Salazar MD Work Phone: [facility] Comment on above: Generalized anxiety disorder (CMS/HCC); Type 2 diabetes mellitus with hyperglycemia, without long-term current use of insulin (CMS/HCC) Start: 04-17-2024 End: 04-17-2024 Refill Gerber Salazar MD Work Phone: [facility] Comment on above: Generalized anxiety disorder (CMS/HCC) Start: 04-02-2024 End: 04-02-2024 Refill Gerber Salazar MD Work Phone: [facility] Comment on above: Type 2 diabetes laure itus with hyperglycemia, without long-term current use of insulin (CMS/HCC); Lumbosacral spondylosis with radiculopathy Start: 03-26-2024 End: 03-26-2024 ambulatory [facility] Work Phone: Start: 03-26-2024 End: 03-26-2024 Patient encounter procedure [facility] Work Phone: Start: 03-24-2024 End: 03-24-2024 Bamboo flowsheet Dar Leo DPM Work Phone: [facility] Start: 03-24-2024 End: 03-24-2024 Bamboo flowsheet Dar Leo DPM Work Phone: [facility] Start: 03-24-2024 End: 03-24-2024 Patient encounter procedure Dar Leo DPM Work Phone: [facility] Comment on above: Diabetes mellitus du e to underlying condition with diabetic polyneuropathy, unspecified whether oysterman insulin use (CMS/HCC) (Primary Dx); Onychomycosis; Toe pain, bilateral; Xerosis cutis Start: 03-24-2024 End: 03-24-2024 ambulatory DAR LEO Not Available Start: 03-17-2024 End: 03-17-2024 Bamboo flowsheet Gerber Salazar MD Work Phone: [facility] Start: 03-17-2024 End: 03-17-2024 Bamboo flowsheet Gerber Salazar MD Work Phone: [facility] Start: 03-17-2024 End: 03-17-2024 Office outpatient visit 25 minutes Gerber Salazar MD Work Phone: [facility] Comment on above: Type 2 diabetes laure itus with hyperglycemia, without long-term current use of insulin (CMS/HCC) (Primary Dx); Essential hypertension (CMS/HCC); Lumbosacral spondylosis with radiculopathy; MITZY (generalized anxiety disorder) (CMS/HCC); Primary insomnia; Chronic obstructive pulmonary disease, unspecified COPD type (CMS/HCC); Colon cancer screening; Morbid (severe) obesity due to excess calories (CMS/HCC); Body mass index (BMI) 38.0-38.9, adult Start: 03-17-2024 End: 03-17-2024 ambulatory GERBER SALAZAR Not Available Start: 12-02-2023 End: 12-02-2023 ambulatory GERBER SALAZAR Not Available Start: 09-24-2023 End: 09-24-2023 ambulatory DAR LEO Not Available Start: 09-09-2023 End: 09-09-2023 ambulatory GERBER SALAZAR Not Available Start: 07-16-2023 End: 07-16-2023 ambulatory DAR LEO Not Available Start: 10-19-2022 End: 10-20-[address] DOCTOR MOSQUERA Facility:[facility]1 Start: 10-04-2022 End: 10-05-[address] GERBER SALAZAR Facility:[facility] Start: 11-15-2021 End: 11-16-[address] GERBER SALAZAR Facility:[facility] Start: 02-09-2019 End: 02-12-2019 Patient encounter procedure [facility] Start: 02-02-2019 End: 02-02-2019 Emergency department patient visit [facility] Start: 10-20-2018 End: 10-23-2018 Patient encounter procedure [facility] Start: 10-09-2018 End: 10-12-2018 Patient encounter procedure [facility] Start: 09-02-2018 End: 09-03-2018 Patient encounter procedure [facility] Start: 08-11-2018 End: 08-14-2018 [facility] Procedures Date Procedure Procedure Detail Performing Clinician Start: 06-09-2024 End: 06-09-2024 Needle emg ea extremty w/paraspinl area complete Carrillo Toussaint MD Work Phone: Start: 10-19-[address] DOCTOR MOSQUERA Comment on above: Performed By: #### [facility] #### [facility] [address] [place] [address] Dr. Cindi Underwood Start: 02-09-2019 Mri spinal canal cer vical w/o contrast matrl [facility] DAY Start: 10-09-2018 Ct head/brain w/o co ntrast material [facility] DAY Start: 09-02-2018 Lung differential function [facility] DAY Start: 08-11-2018 Radex spine cervical 2 or 3 views [facility] DAY Plan of Treatment Date Care Activity Detail Author Start: 05-11-2025 Medicare Annual Wellness (AWV) Medicare Annual Wellness (AWV) [facility] Start: 12-10-2024 Urine screening for protein Diabetes: Urine Protein Screening [facility] Start: 09-03-2024 Glaucoma screening Diabetes: R etinopathy Screening [facility] Start: 08-10-2024 End: 08-10-2024 Patient encounter procedure 08/10/2024 10:45 AM EST Office Visit [facility] [address] [place] [address] Gerber Salazar MD [address] [place] [address] [facility] Start: 06-11-2024 Hemoglobin A1c measurement Diabetes: Hemoglobin A1C [facility] Start: 06-09-2024 End: 06-09-2024 Patient encounter procedure 06/09/2024 11:30 AM EST Procedure Visit [facility] [address] [facility] [address] [place] [phone] Carrillo Toussaint MD [address] [place], [place] [id number] [facility] Start: 06-02-2024 End: 06-02-2024 Patient encounter procedure 06/02/2024 10:00 AM EST Office Visit [facility] [address] [place] [phone] Dar Leo DPM [address] [id number] [facility] Start: 05-11-2024 End: 05-11-2025 Hemoglobin A1c/Hemoglobin.total in Blood Hemoglobin A1c Lab Routine Type 2 diabetes mellitus with hyperglycemia, without long-term current use of insulin ([facility]) Expected: 05/11/2024 (Approximate), Expires: 05/11/2025 [facility] Work Phone: Comment on above: Expected: 05/11/2024 (Approximate), Expires: 05/11/2025 Start: 05-07-2024 End: 05-07-2024 Patient encounter procedure 05/07/2024 10:30 AM EST Office Visit [facility] [address] [place] [address] Gerber Salazar MD [address] [place] [phone] [facility] Start: 05-04-2024 Patient referral [facility] Work Phone: Start: 03-26-2024 Patient referral [facility] Work Phone: Start: 03-24-2024 End: 03-24-2024 Patient encounter procedure [facility] Comment on above: Diabetes mellitus du e to underlying condition with diabetic polyneuropathy, unspecified whether oysterman insulin use ([facility]) (Primary Dx); Onychomycosis; Toe pain, bilateral; Xerosis cutis Start: 03-17-2024 End: 03-17-2024 Patient encounter procedure 03/17/2024 10:30 AM EDT Office [facility] [address] [place] [phone] Gerber Salazar MD [address] [place] [phone] Arrived [facility] Comment on above: Arrived Start: 03-01-2024 Influenza vaccination Influenza Vacc ine (#1) [facility] Start: 10-20-2023 Urine screening for protein Diabetes: Urine Protein Screening [facility] Start: 04-16-2019 Hemoglobin A1c measurement Diabetes: Hemoglobin A1C [facility] Start: 01-30-1964 Pneumococcal Vaccine : 65+ Years (1 of 2 - PCV) Pneumococcal Vaccine: 65+ Years (1 of 2 - PCV) [facility] Start: 1960 Medicare Annual Wellness (AWV) Medicare Annual Wellness (AWV) [facility] Start: 1960 Screening for malign ant neoplasm of colon [facility] Noninvasive colorect al cancer DNA and occult blood screening [Presence] in Stool Cologuard colon cancer screening Lab Routine Colon cancer screening Ordered: 03/17/2024 [facility] Work Phone: Comment on above: Ordered: 03/17/2024 Patient Education Low back pain in adults [facility] Work Phone: Patient referral [facility] Work Phone: XR Cervical spine [address] [facility] XR Lumbar spine 4 Views [facility] Immunizations Immunization Date Immunization Notes Care Provider Fa cility 05-05-2022 Influenza, injectabl e, Madin Edilma Canine Kidney, preservative free, quadrivalent Gerber Salazar MD Work Phone: [facility] 05-05-2022 influenza virus vacc ine, unspecified formulation Gerber Salazar MD Work Phone: [facility] 02-01-2020 tetanus toxoid, redu talia diphtheria toxoid, and acellular pertussis vaccine, adsorbed Gerber Salazar MD Work Phone: [facility] Payers Date Payer Category Payer Self-pay [id number] 2024 Medicare [id number] 2024 Medicare (Managed Care) BJ MADRIGAL [id number] 2024 Medicare [id number] 2020 Medicaid [id number] 2020 Medicare [id number] [id number]. [id number] 2015 Unknown [id number] 1959 Medicaid [id number] 1959 Medicare [id number] 1958 Unknown [id number] 2.16.840.1.453321.3.579.2. 182 1958 Unknown [id number] 2.16.840.1.498250.3.579.2. 182 1958 Unknown [id number] 2.16.840.1.174818.3.579.2. 182 1958 Unknown [id number] 2.16.840.1.446796.3.579.2. 182 1958 Unknown [id number] 2.16.840.1.851455.3.579.2. 182 1958 Unknown [id number] 2.16.840.1.716515.3.579.2. 182 1958 Unknown [id number] 2.16.840.1.605235.3.579.2. 593 1958 Unknown [id number] 2.16.840.1.568404.3.579.2. 593 1958 Unknown [id number] 2.16.840.1.340618.3.579.2. 593 1958 Unknown [id number] 2.16.840.1.734437.3.579.2. 1259 1958 Unknown [id number] 2.16.840.1.966368.3.579.2. 1259 1958 Unknown [id number] 2.16.840.1.759209.3.579.2. 1259 1958 Unknown [id number] 2.16.840.1.641089.3.579.2. 1259 1958 Unknown [id number] 2.16.840.1.613657.3.579.2. 1259 1958 Unknown [id number] 2.16.840.1.794150.3.579.2. 1259 1958 Unknown [id number] 2.16.840.1.303481.3.579.2. 1259 1958 Unknown [id number] 2.16.840.1.766847.3.579.2. 1259 Unknown [id number] 2.16.840.1.623209.3.579.2. 531 Unknown [id number] 2.16.840.1.047667.3.579.2. 531 Social History Date Type Detail Facility Start: 10-06-2020 End: 10-06-2020 Tobacco smoking status NHIS Smoker (finding) [facility] Start: 1960 Sex Assigned At Male F [facility] Start: 12-02-2023 End: 03-24-2024 Tobacco smoking status OHIS Smokes tobacco daily [facility] End: 06-02-2019 History of tobacco use Cigarette Smoker [facility] Start: 12-02-2023 End: 03-24-2024 Tobacco use and exposure Smokeless tobacco non-user [facility] Start: 03-17-2024 End: 03-24-2024 Alcoholic beverage intake Lifetime non-drinker (finding) [facility] Start: 03-17-2024 End: 03-24-2024 History of Social function [facility] Start: 03-17-2024 End: 03-24-2024 Tobacco use panel [facility] Start: 09-09-2023 Tobacco Comment Last smoked : < 1 month [facility] Start: 07-16-2023 Alcohol Comment caffeine intak e: 2-3 cups per day [facility] Start: 1960 Sex assigned at Not on file [facility] Start: 05-13-2024 Sex Male (finding) [facility] Medical Equipment Procedure Code Equipment Code Equipment Origin al Text Equipment Identifier Dates BONE 5MM DUO FDA Start: 06-02-2019 Bone-screw inter nal spinal fixation system, non-sterile ()[id number] FDA Start: 06-02-2019 BONE 5MM DUO FDA Start: 06-02-2019 BONE 6MM DUO FDA Start: 06-02-2019 BONE 6MM DUO FDA Start: 06-02-2019 Spinal fixation plate, non-bioabsorbable ()[id number] FDA Start: 06-02-2019 Bone-screw inter nal spinal fixation system, non-sterile ()[id number] FDA Start: 06-02-2019 BONE 5MM DUO FDA Start: 06-02-2019 BONE 5MM DUO FDA Start: 06-02-2019 BONE 6MM DUO FDA Start: 06-02-2019 BONE 6MM DUO FDA Start: 06-02-2019 BONE 5MM DUO FDA Start: 06-02-2019 BONE 5MM DUO FDA Start: 06-02-2019 BONE 6MM DUO FDA Start: 06-02-2019 BONE 6MM DUO FDA Start: 06-02-2019 Clinical Notes 03-17-2024 to 06-09-2024 Komal Tovar MA - 06/09/2024 11:30 AM Rufina Salazar MD - 05/11/2024 12:18 PM Rufina Salazar MD - 05/11/2024 12:18 PM Rufina Salazar MD - 05/11/2024 11:00 AM EST Note Date & Type Note Facility 06-09-2024 History of Presen t illness Narrative Images from the original note were not included. Reason for Appointment: EMG Patient: Dimitry Benjamin : 1960 EMG Computer: [employer] Referring Physician: Dr. 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 Difficulty standing for long periods of time. Back pain. Hx of neck surgery. Hx of DM, not taking blood thinners. Comments: Procedure explained to the patient who expressed understanding. documented in this encounter [facility] 05-11-2024 History of Presen t illness Narrative Associated Problem(s): Right ear impacted cerumen Ear plugged and impaction on exam. Ear irrigated with water and cerumen removed with speculum. Canal clear after procedure. Use debrox or drops of baby oil to prevent build up of wax in future. Do not use q-tips inside ear. Associated Problem(s): Medicare annual wellness visit, subsequent Reviewed labs. Discussed proper diet and regular aerobic exercise. Need aerobic exercise 5-6 days a week for 30 minutes at a time. Smaller portions and limit total calories. Needs to complete cologuard. Tetanus every 10 years. Advised not to smoke. Images from the original note were not included. Subjective Patient ID: Dimitry Benjamin is a 64 y.o. male who presents for Medicare Annual Wellness Visit Subsequent (Wellness/). Presents for medicare annual wellness visit. Patient feels well today. Weight down 14 pounds in the past year but up 15 pounds in past several months. Not active and no regular exercise. Tries to watch diet and eat healthy. Increased fruits and vegetables. Smaller portions and limits snacking. Tries to limit total daily calories. Due for A1C. C/o right ear plugged for several weeks. Hearing muffled and feels like something in ear. No drainage. Tried OTC drops and no change. Decreased hearing on left but much worse on right. Review of Systems Constitutional: Negative for fatigue. Respiratory: Negative for cough, shortness of breath and wheezing. Cardiovascular: Negative for chest pain and palpitations. Gastrointestinal: Negative for abdominal pain, diarrhea, nausea and vomiting. Genitourinary: Negative for dysuria. Objective Physical Exam Constitutional: General: He is not in acute distress. Appearance: Normal appearance. HENT: Head: Normocephalic. Left Ear: Tympanic membrane and ear canal normal. Ears: Comments: Right canal obstructed with cerumen Eyes: Extraocular Movements: Extraocular movements intact. Pupils: Pupils are equal, round, and reactive to light. Cardiovascular: Rate and Rhythm: Normal rate and regular rhythm. Heart sounds: No murmur heard. No friction rub. No gallop. Pulmonary: Breath sounds: Normal breath sounds. No wheezing, rhonchi or rales. Abdominal: General: Bowel sounds are normal. There is no distension. Palpations: Abdomen is soft. Tenderness: There is no abdominal tenderness. There is no guarding or rebound. Musculoskeletal: General: Normal range of motion. Left lower leg: No edema. Neurological: General: No focal deficit present. Mental Status: He is alert. Cranial Nerves: No cranial nerve deficit. Deep Tendon Reflexes: Reflexes normal. Assessment/Plan Problem List Items Addressed This Visit Type 2 diabetes mellitus with hyperglycemia, without long-term current use of insulin ([facility]) Relevant Medications semaglutide (Ozempic, 1 MG/DOSE,) 4 MG/3ML solution pen-injector Other Relevant Orders Hemoglobin A1c Lumbosacral spondylosis with radiculopathy Relevant Medications oxyCODONE-acetaminophen (Percocet) 5-325 MG tablet Medicare annual wellness visit, subsequent - Primary Reviewed labs. Discussed proper diet and regular aerobic exercise. Need aerobic exercise 5-6 days a week for 30 minutes at a time. Smaller portions and limit total calories. Needs to complete cologuard. Tetanus every 10 years. Advised not to smoke. Right ear impacted cerumen Ear plugged and impaction on exam. Ear irrigated with water and cerumen removed with speculum. Canal clear after procedure. Use debrox or drops of baby oil to prevent build up of wax in future. Do not use q-tips inside ear. documented in this encounter [facility] 04-23-2024 Telephone encounter Note Form atting of this note might be different from the original. Percocet needs filled as well please. [facility] [place]. [facility] 04-23-2024 Miscellaneous Notes Formattin g of this note might be different from the original. Percocet needs filled as well please. [facility] [place]. documented in this encounter [facility] 03-26-2024 Evaluation note Diagnosis Onset Date Resolution Lumbar back pain acute Septembe r 2023 1:22pm Lumbar back pain acute May 04, 2024 1:07pm Chronic pain acute May 9:36am Other low back pain acute Novem 2023 9:36am Other spondylosis with radiculopathy, lumbar region acute May 13, 2 024 9:36am [facility] Work Phone: [phone] 277-395809-24-2024 History of Present illness Narrative* Dar Pebbles Leo, DPM - 03/24/2024 9:00 AM EDT Patient: Dimitry Benjamin : 1960 PCP: Gerber Salazar MD SUBJECTIVE This is a 64 y.o. male that presents today with a CC of elongated, thick nails. Pt states nails have been elongated and thick for many years and cause pain with ambulation in shoegear. Pt has tried previous treatment with minimal relief. Pt presents today for nail care and treatment. Patient is DM2 Patient also has history of xerosis to feet. Allergies: Allergies Allergen Reactions Lisinopril Shortness of breath Past Medical History: Past Medical History: Diagnosis Date Anxiety BPH (benign prostatic hyperplasia) COPD (chronic obstructive pulmonary disease) ([facility]) Diabetes ([facility]) Dysphagia HLD (hyperlipidemia) ([facility]) HTN (hypertension) ([facility]) Medications: Current Outpatient Medications: albuterol HFA 90 mcg/act inhaler, Inhale 2 puffs every 4 (four) hours if needed for wheezing or shortness of breath, Disp: 18 g, Rfl: 3 ALPRAZolam (Xanax) 1 MG tablet, Take 1 tablet (1 mg) by mouth 4 (four) times a day as needed for anxiety, Disp: 120 tablet, Rfl: 1 atorvastatin (Lipitor) 40 MG tablet, Take 40 mg by mouth at bedtime, Disp: , Rfl: baclofen (Lioresal) 10 MG tablet, Take 10 mg by mouth 3 (three) times a day as needed for muscle spasms, Disp: , Rfl: budesonide-formoterol (Symbicort) 160-4.5 MCG/ACT inhaler, Inhale 2 puffs in the morning and 2 puffs before bedtime. Rinse mouth with water after use to reduce aftertaste and incidence of candidiasis. Do not swallow.., Disp: , Rfl: doxepin (SINEquan) 75 MG capsule, Take 1 capsule (75 mg) by mouth at bedtime, Disp: 30 capsule, Rfl: 5 hydroCHLOROthiazide (HYDRODiuril) 25 MG tablet, Take 2 tablets (50 mg) by mouth in the morning., Disp: 60 tablet, Rfl: 11 metFORMIN XR (Glucophage-XR) 500 MG 24 hr tablet, Take 500 mg by mouth in the morning and 500 mg before bedtime., Disp: , Rfl: oxyCODONE-acetaminophen (Percocet) 5-325 MG tablet, Take 1 tablet by mouth 4 (four) times a day as needed for severe pain for up to 7 days, Disp: 28 tablet, Rfl: 0 predniSONE (Deltasone) 50 MG tablet, Take 1 tablet (50 mg) by mouth Daily for 6 days, Disp: 6 tablet, Rfl: 0 semaglutide (Rybelsus) 14 MG tablet, Take 1 tablet (14 mg) by mouth in the morning. Take before meals., Disp: 30 tablet, Rfl: 5 tiotropium (Spiriva HandiHaler) 18 MCG inhalation capsule, Place 1 capsule (18 mcg) into inhaler and inhale in the morning., Disp: 30 capsule, Rfl: 11 Social History: Social History Socioeconomic History Marital status: Spouse name: Not on file Number of children: Not on file Years of education: Not on file Highest education level: Not on file Occupational History Not on file Tobacco Use Smoking status: Every Day Current packs/day: 0.00 Types: Cigarettes Last attempt to quit: 06/02/2019 Years since quittin.8 Smokeless tobacco: Never Tobacco comments: Last smoked : < 1 month Vaping Use Vaping status: Never Used Substance and Sexual Activity Alcohol use: Never Comment: caffeine intake: 2-3 cups per day Drug use: Never Sexual activity: Defer Other Topics Concern Not on file Social History Narrative Not on file Social Determinants of Health Financial Resource Strain: Not on file Food Insecurity: Not on file Transportation Needs: Not on file Physical Activity: Not on file Stress: Not on file Social Connections: Not on file Intimate Partner Violence: Unknown (08/22/2023) Re[facility] from [facility] Safety & Environment Fear of Current or Ex-Partner: Not on file Emotionally Abused: Not on file Physically Abused: Not on file Sexually Abused: Not on file Physically or Sexually Abused: Not on file Housing Stability: Not on file ROS: General: denies fever, chills, fatigue, malaise Musculoskeletal: Positive generalized arthritis to joints and denies loss of strength. Positive history of major back arthritis OBJECTIVE LE EXAM: DERM: Elongated thick yellow crumbly nails digits 1 through 10. Negative hair growth with thin shiny atrophic skin bilaterally. Greatly diminished Dry and scaly skin to bilateral feet and ankles withnegative openings and skin or drainage VASC: Negative DP and negative PT pedal pulses NEURO: 5.07 Hitchita Gwen monofilament test diminished to digits and forefoot bilaterally 125Hz tuning fork diminished to 1st MPJ bilaterally ORTHO: Positive pain on palpation to nails 1 through 10 ASSESSMENT 1. Diabetes mellitus due to underlying condition with diabetic polyneuropathy, unspecified whether oysterman insulin use ([facility]) 2. Onychomycosis 3. Toe pain, bilateral 4. Xerosis cutis PLAN Discussed proper foot care with patient today. Debride nails in length and thickness digits 1 through 10 Patient educated today on proper diabetic foot care including monitoring feet daily for any signs of infection openings in the skin or irregularities to both feet. Patient had a diabetic neurologicalexam today to both their feet and discussed proper shoe gear. Patient education on condition and treatment of condition. Continue with creams and lotions to feet daily Dar Leo DPM [id number] History of Present illness Narrative* Gerber Salazar MD - 03/17/2024 10:55 AM EDTAssociated Problem(s): Type 2 diabetes mellitus with hyperglycemia, without long-term current use of insulin ([facility]) Not checking BS but recent A1C 6.1. Stick to ADA diet and limit carbs. * Gerber Salazar MD - 03/17/2024 10:55 AM EDTAssociated Problem(s): Primary insomnia Not sleeping well and try doxepin. * Gerber Salazar MD - 03/17/2024 10:54 AM EDTAssociated Problem(s): Lumbosacral spondylosis with radiculopathy Increased pain and radicular symptoms. Prior MRI abnormal and refer to pain management. Use percocet PRN. Treat with prednisone. * Gerber Salazar MD - 03/17/2024 10:53 AM EDTAssociated Problem(s): MITZY (generalized anxiety disorder) (CMS/HCC) Symptoms stable with xanax and use PRN. * Gerber Salazar MD - 03/17/2024 10:53 AM EDTAssociated Problem(s): Essential hypertension (CMS/HCC) BP controlled and monitor PRN. * Gerber Salazar MD - 03/17/2024 10:53 AM EDTAssociated Problem(s): Chronic obstructive pulmonary disease (CMS/HCC) Breathing stable and continue spiriva. Use albuterol PRN. Discussed need to stop smoking. * Gerber Salazar MD - 03/17/2024 10:30 AM EDT Images from the original note were not included. Subjective Patient ID: Dimitry Benjamin is a 64 y.o. male who presents for Follow-up (3 m). Follow up DM, HTN, pain, anxiety, insomnia, and COPD. C/o worsening pain in low back. To ER 03/11 and given shot of toradol and zanaflex. Given norco but not helping. Severe pain in low back and across top hips. Pain with walking and standing. Frequent pain shooting into left gluteal region and leftleg. MRI abnormal in August but at the time didn't want referrals. Now wants to see surgeon to discuss options. Not checking BS away from office and last A1C 6.1. Tries to eat well and stick to ADA diet. Denies signs of elevated BS such as polyuria, polyphagia or polydipsia. Checking BP PRN and typically controlled. BP normal today. Taking medication daily and tolerating without side effects. Pain getting worse. Increased pain in neck and hips. Pain with walking and standing. Using OTC PRN and not much relief. Anxiety stable. Not as stressed out or overwhelmed. Not as nervous or worry as much.Not as quinones or irritable. Using xanax PRN and helps when needed. Still not sleeping well. Not ableto fall asleep or stay asleep. Wakes up often at night and not rested in am. Tried ambien but no change. COPD stable. Mild SOB and cough with exertion. Mild sputum in am. Using spiriva and symbicort daily. Using albuterol PRN which helps. Continues to smoke 1 PPD. Review of Systems Constitutional: Negative for fatigue. Respiratory: Negative for cough, shortness of breath and wheezing. Cardiovascular: Negative for chest pain and palpitations. Gastrointestinal: Negative for abdominal pain, diarrhea, nausea and vomiting. Genitourinary: Negative for dysuria. Objective Physical Exam Constitutional: General: He is not in acute distress. Appearance: Normal appearance. HENT: Head: Normocephalic. Right Ear: Tympanic membrane and ear canal normal. Left Ear: Tympanic membrane and ear canal normal. Eyes: Extraocular Movements: Extraocular movements intact. Pupils: Pupils are equal, round, and reactive to light. Cardiovascular: Rate and Rhythm: Normal rate and regular rhythm. Heart sounds: No murmur heard. No friction rub. No gallop. Pulmonary: Breath sounds: Normal breath sounds. No wheezing, rhonchi or rales. Abdominal: General: Bowel sounds are normal. There is no distension. Palpations: Abdomen is soft. Tenderness: There is no abdominal tenderness. There is no guarding or rebound. Musculoskeletal: Left lower leg: No edema. Neurological: Mental Status: He is alert. Assessment/Plan Problem List Items Addressed This Visit Chronic obstructive pulmonary disease (CMS/HCC) Breathing stable and continue spiriva. Use albuterol PRN. Discussed need to stop smoking. Essential hypertension (CMS/HCC) BP controlled and monitor PRN. Type 2 diabetes mellitus with hyperglycemia, without long-term current use of insulin (CMS/HCC) - Primary Not checking BS but recent A1C 6.1. Stick to ADA diet and limit carbs. MITZY (generalized anxiety disorder) (CMS/HCC) Symptoms stable with xanax and use PRN. Primary insomnia Not sleeping well and try doxepin. Relevant Medications doxepin (SINEquan) 75 MG capsule Colon cancer screening Relevant Orders Cologuard colon cancer screening Lumbosacral spondylosis with radiculopathy Increased pain and radicular symptoms. Prior MRI abnormal and refer to pain management. Use percocet PRN. Treat with prednisone. Relevant Medications predniSONE (Deltasone) 50 MG tablet oxyCODONE-acetaminophen (Percocet) 5-325 MG tablet Other Relevant Orders Ambulatory referral to Neurosurgery [facility] noteNo assessment information [facility] Work Phone: Evaluation note* Diagnosis Type 2 diabetes mellitus with hyperglycemia, without long-term current use of insulin ([facility]/HCC) Lumbosacral spondylosis with radiculopathy documented in [facility] encounter [facility]* Diagnosis Type 2 diabetes mellitus without complication, without long-term current use of insulin ([facility]/HCC)- Primary Essential hypertension ([facility]/HCC) Unspecified essential hypertension Type 2 diabetes mellitus with hyperglycemia, without long-term current use of insulin ([facility]/HCC) Bilateral primary osteoarthritis of hip DDD (degenerative disc disease), lumbar Degeneration of lumbar or lumbosacral intervertebral disc Dysphagia, unspecified type MITZY (generalized anxiety disorder) ([facility]/HCC) Generalized anxiety disorder Primary insomnia Persistent disorder of initiating or maintaining sleep Chronic obstructive pulmonary disease, unspecified COPD type (CMS/HCC) Colon cancer screening Special screening for malignant neoplasms, colon Seasonal allergic rhinitis due to pollen Type 2 diabetes mellitus with hyperglycemia, without long-term current use of insulin ([facility])- Primary Essential hypertension (CMS/HCC) Unspecified essential hypertension Cervical spondylosis with myelopathy Chronic obstructive pulmonary disease, unspecified COPD type (CMS/HCC) MITZY (generalized anxiety disorder) ([facility]/HCC) Generalized anxiety disorder Primary insomnia Persistent disorder of initiating or maintaining sleep Encounter for long-term (current) use of medications Encounter for long-term (current) use of other medications Screening PSA (prostate specific antigen) Special screening for malignant neoplasm of prostate Dyslipidemia (CMS/HCC) Other and unspecified hyperlipidemia Obesity (BMI 30-39.9) Generalized anxiety disorder (CMS/HCC) Generalized anxiety disorder Bilateral primary osteoarthritis of hip Body mass index [BMI] 37.0-37.9, adult (Z68.37) Type 2 diabetes mellitus with hyperglycemia, without long-term current use of insulin ([facility])- Primary Essential hypertension (CMS/HCC) Unspecified essential hypertension Lumbosacral spondylosis with radiculopathy MITZY (generalized anxiety disorder) ([facility]) Generalized anxiety disorder Primary insomnia Persistent disorder of initiating or maintaining sleep Chronic obstructive pulmonary disease, unspecified COPD type (CMS/HCC) Colon cancer screening Special screening for malignant neoplasms, colon Morbid (severe) obesity due to excess calories ([facility]) Body mass index (BMI) 38.0-38.9, adult Generalized anxiety disorder ([facility]) Generalized anxiety disorder documented in this encounter [facility] HealthcareEvaluation note* Diagnosis Type 2 diabetes mellitus without complication, without long-term current use of insulin ([facility])- Primary Essential hypertension ([facility]) Unspecified essential hypertension Type 2 diabetes mellitus with hyperglycemia, without long-term current use of insulin ([facility]) Bilateral primary osteoarthritis of hip DDD (degenerative disc disease), lumbar Degeneration of lumbar or lumbosacral intervertebral disc Dysphagia, unspecified type MITZY (generalized anxiety disorder) ([facility]/HCC) Generalized anxiety disorder Primary insomnia Persistent disorder of initiating or maintaining sleep Chronic obstructive pulmonary disease, unspecified COPD type (CMS/HCC) Colon cancer screening Special screening for malignant neoplasms, colon Seasonal allergic rhinitis due to pollen Type 2 diabetes mellitus with hyperglycemia, without long-term current use of insulin ([facility])- Primary Essential hypertension (CMS/HCC) Unspecified essential hypertension Cervical spondylosis with myelopathy Chronic obstructive pulmonary disease, unspecified COPD type (CMS/HCC) MITZY (generalized anxiety disorder) (CMS/HCC) Generalized anxiety disorder Primary insomnia Persistent disorder of initiating or maintaining sleep Encounter for long-term (current) use of medications Encounter for long-term (current) use of other medications Screening PSA (prostate specific antigen) Special screening for malignant neoplasm of prostate Dyslipidemia (CMS/HCC) Other and unspecified hyperlipidemia Obesity (BMI 30-39.9) Generalized anxiety disorder (CMS/HCC) Generalized anxiety disorder Bilateral primary osteoarthritis of hip Body mass index [BMI] 37.0-37.9, adult (Z68.37) Type 2 diabetes mellitus with hyperglycemia, without long-term current use of insulin (CMS/HCC)- Primary Essential hypertension (CMS/HCC) Unspecified essential hypertension Lumbosacral spondylosis with radiculopathy MITZY (generalized anxiety disorder) (CMS/HCC) Generalized anxiety disorder Primary insomnia Persistent disorder of initiating or maintaining sleep Chronic obstructive pulmonary disease, unspecified COPD type (CMS/HCC) Colon cancer screening Special screening for malignant neoplasms, colon Morbid (severe) obesity due to excess calories (CMS/HCC) Body mass index (BMI) 38.0-38.9, adult Generalized anxiety disorder (CMS/HCC) Generalized anxiety disorder Type 2 diabetes mellitus with hyperglycemia, without long-term current use of insulin (CMS/HCC) documented in this encounter [facility] HealthcareEvaluation note* Diagnosis Onset Date Resolution Status Lumbar back pain [facility] Work Phone: Evaluation note* Diagnosis Type 2 diabetes mellitus without complication, without long-term current use of insulin (CMS/HCC)- Primary Essential hypertension (CMS/HCC) Unspecified essential hypertension Type 2 diabetes mellitus with hyperglycemia, without long-term current use of insulin (CMS/HCC) Bilateral primary osteoarthritis of hip DDD (degenerative disc disease), lumbar Degeneration of lumbar or lumbosacral intervertebral disc Dysphagia, unspecified type MITZY (generalized anxiety disorder) (CMS/HCC) Generalized anxiety disorder Primary insomnia Persistent disorder of initiating or maintaining sleep Chronic obstructive pulmonary disease, unspecified COPD type (CMS/HCC) Colon cancer screening Special screening for malignant neoplasms, colon Seasonal allergic rhinitis due to pollen Type 2 diabetes mellitus with hyperglycemia, without long-term current use of insulin (CMS/HCC)- Primary Essential hypertension (CMS/HCC) Unspecified essential hypertension Cervical spondylosis with myelopathy Chronic obstructive pulmonary disease, unspecified COPD type (CMS/HCC) MITZY (generalized anxiety disorder) ([facility]/HCC) Generalized anxiety disorder Primary insomnia Persistent disorder of initiating or maintaining sleep Encounter for long-term (current) use of medications Encounter for long-term (current) use of other medications Screening PSA (prostate specific antigen) Special screening for malignant neoplasm of prostate Dyslipidemia ([facility]) Other and unspecified hyperlipidemia Obesity (BMI 30-39.9) Generalized anxiety disorder ([facility]/HCC) Generalized anxiety disorder Bilateral primary osteoarthritis of hip Body mass index [BMI] 37.0-37.9, adult (Z68.37) Type 2 diabetes mellitus with hyperglycemia, without long-term current use of insulin ([facility])- Primary Essential hypertension ([facility]) Unspecified essential hypertension Lumbosacral spondylosis with radiculopathy MITZY (generalized anxiety disorder) ([facility]) Generalized anxiety disorder Primary insomnia Persistent disorder of initiating or maintaining sleep Chronic obstructive pulmonary disease, unspecified COPD type ([facility]/HCC) Colon cancer screening Special screening for malignant neoplasms, colon Morbid (severe) obesity due to excess calories ([facility]) Body mass index (BMI) 38.0-38.9, adult Medicare annual wellness visit, subsequent- Primary Type 2 diabetes mellitus with hyperglycemia, without long-term current use of insulin ([facility]) Lumbosacral spondylosis with radiculopathy Right ear impacted cerumen Impacted cerumen Dermatitis Contact dermatitis and other eczema, due to unspecified cause documented in this encounter [facility]* Diagnosis Type 2 diabetes mellitus without complication, without long-term current use of insulin ([facility])- Primary Essential hypertension ([facility]) Unspecified essential hypertension Type 2 diabetes mellitus with hyperglycemia, without long-term current use of insulin ([facility]) Bilateral primary osteoarthritis of hip DDD (degenerative disc disease), lumbar Degeneration of lumbar or lumbosacral intervertebral disc Dysphagia, unspecified type MITZY (generalized anxiety disorder) ([facility]) Generalized anxiety disorder Primary insomnia Persistent disorder of initiating or maintaining sleep Chronic obstructive pulmonary disease, unspecified COPD type ([facility]/HCC) Colon cancer screening Special screening for malignant neoplasms, colon Seasonal allergic rhinitis due to pollen Type 2 diabetes mellitus with hyperglycemia, without long-term current use of insulin ([facility])- Primary Essential hypertension ([facility]/HCC) Unspecified essential hypertension Cervical spondylosis with myelopathy Chronic obstructive pulmonary disease, unspecified COPD type (CMS/HCC) MITZY (generalized anxiety disorder) (CMS/HCC) Generalized anxiety disorder Primary insomnia Persistent disorder of initiating or maintaining sleep Encounter for long-term (current) use of medications Encounter for long-term (current) use of other medications Screening PSA (prostate specific antigen) Special screening for malignant neoplasm of prostate Dyslipidemia (CMS/HCC) Other and unspecified hyperlipidemia Obesity (BMI 30-39.9) Generalized anxiety disorder (CMS/HCC) Generalized anxiety disorder Bilateral primary osteoarthritis of hip Body mass index [BMI] 37.0-37.9, adult (Z68.37) Type 2 diabetes mellitus with hyperglycemia, without long-term current use of insulin (CMS/HCC)- Primary Essential hypertension (CMS/HCC) Unspecified essential hypertension Lumbosacral spondylosis with radiculopathy MITZY (generalized anxiety disorder) ([facility]/HCC) Generalized anxiety disorder Primary insomnia Persistent disorder of initiating or maintaining sleep Chronic obstructive pulmonary disease, unspecified COPD type (CMS/HCC) Colon cancer screening Special screening for malignant neoplasms, colon Morbid (severe) obesity due to excess calories ([facility]) Body mass index (BMI) 38.0-38.9, adult Medicare annual wellness visit, subsequent- Primary Type 2 diabetes mellitus with hyperglycemia, without long-term current use of insulin ([facility]) Lumbosacral spondylosis with radiculopathy Right ear impacted cerumen Impacted cerumen Dermatitis Contact dermatitis and other eczema, due to unspecified cause Lumbosacral spondylosis with radiculopathy Diabetes mellitus due to underlying condition with diabetic polyneuropathy, unspecified whether oysterman insulin use ([facility])- Primary Pain due to onychomycosis of toenails of both feet Xerosis cutis Other specified disease of sebaceous glands documented in this encounter [facility]* Diagnosis Type 2 diabetes mellitus with hyperglycemia, without long-term current use of insulin ([facility])- Primary Essential hypertension (CMS/HCC) Unspecified essential hypertension Lumbosacral spondylosis with radiculopathy MITZY (generalized anxiety disorder) ([facility]/HCC) Generalized anxiety disorder Primary insomnia Persistent disorder of initiating or maintaining sleep Chronic obstructive pulmonary disease, unspecified COPD type (CMS/HCC) Colon cancer screening Special screening for malignant neoplasms, colon Morbid (severe) obesity due to excess calories ([facility]) Body mass index (BMI) 38.0-38.9, adult documented in this encounter [facility] HealthcareEvaluation note* Diagnosis Type 2 diabetes mellitus without complication, without long-term current use of insulin (CMS/HCC)- Primary Essential hypertension (CMS/HCC) Unspecified essential hypertension Type 2 diabetes mellitus with hyperglycemia, without long-term current use of insulin (CMS/HCC) Bilateral primary osteoarthritis of hip DDD (degenerative disc disease), lumbar Degeneration of lumbar or lumbosacral intervertebral disc Dysphagia, unspecified type MITZY (generalized anxiety disorder) (CMS/HCC) Generalized anxiety disorder Primary insomnia Persistent disorder of initiating or maintaining sleep Chronic obstructive pulmonary disease, unspecified COPD type (CMS/HCC) Colon cancer screening Special screening for malignant neoplasms, colon Seasonal allergic rhinitis due to pollen Type 2 diabetes mellitus with hyperglycemia, without long-term current use of insulin (CMS/HCC)- Primary Essential hypertension (CMS/HCC) Unspecified essential hypertension Cervical spondylosis with myelopathy Chronic obstructive pulmonary disease, unspecified COPD type (CMS/HCC) MITZY (generalized anxiety disorder) (CMS/HCC) Generalized anxiety disorder Primary insomnia Persistent disorder of initiating or maintaining sleep Encounter for long-term (current) use of medications Encounter for long-term (current) use of other medications Screening PSA (prostate specific antigen) Special screening for malignant neoplasm of prostate Dyslipidemia (CMS/HCC) Other and unspecified hyperlipidemia Obesity (BMI 30-39.9) Generalized anxiety disorder (CMS/HCC) Generalized anxiety disorder Bilateral primary osteoarthritis of hip Body mass index [BMI] 37.0-37.9, adult (Z68.37) Type 2 diabetes mellitus with hyperglycemia, without long-term current use of insulin (CMS/HCC)- Primary Essential hypertension (CMS/HCC) Unspecified essential hypertension Lumbosacral spondylosis with radiculopathy MITZY (generalized anxiety disorder) (CMS/HCC) Generalized anxiety disorder Primary insomnia Persistent disorder of initiating or maintaining sleep Chronic obstructive pulmonary disease, unspecified COPD type (CMS/HCC) Colon cancer screening Special screening for malignant neoplasms, colon Morbid (severe) obesity due to excess calories (CMS/[facility]) Body mass index (BMI) 38.0-38.9, adult Medicare annual wellness visit, subsequent- Primary Type 2 diabetes mellitus with hyperglycemia, without long-term current use of insulin (CMS/HCC) Lumbosacral spondylosis with radiculopathy Right ear impacted cerumen Impacted cerumen Dermatitis Contact dermatitis and other eczema, due to unspecified cause Lumbar radiculopathy- Primary Thoracic or lumbosacral neuritis or radiculitis, unspecified documented in this encounter [facility] HealthcareEvaluation note* Diagnosis Type 2 diabetes mellitus without complication, without long-term current use of insulin (CMS/HCC)- Primary Essential hypertension (CMS/HCC) Unspecified essential hypertension Type 2 diabetes mellitus with hyperglycemia, without long-term current use of insulin (CMS/HCC) Bilateral primary osteoarthritis of hip DDD (degenerative disc disease), lumbar Degeneration of lumbar or lumbosacral intervertebral disc Dysphagia, unspecified type MITZY (generalized anxiety disorder) (CMS/HCC) Generalized anxiety disorder Primary insomnia Persistent disorder of initiating or maintaining sleep Chronic obstructive pulmonary disease, unspecified COPD type (CMS/HCC) Colon cancer screening Special screening for malignant neoplasms, colon Seasonal allergic rhinitis due to pollen Type 2 diabetes mellitus with hyperglycemia, without long-term current use of insulin (CMS/HCC)- Primary Essential hypertension (CMS/HCC) Unspecified essential hypertension Cervical spondylosis with myelopathy Chronic obstructive pulmonary disease, unspecified COPD type (CMS/HCC) MITZY (generalized anxiety disorder) (CMS/HCC) Generalized anxiety disorder Primary insomnia Persistent disorder of initiating or maintaining sleep Encounter for long-term (current) use of medications Encounter for long-term (current) use of other medications Screening PSA (prostate specific antigen) Special screening for malignant neoplasm of prostate Dyslipidemia (CMS/HCC) Other and unspecified hyperlipidemia Obesity (BMI 30-39.9) Generalized anxiety disorder (CMS/HCC) Generalized anxiety disorder Bilateral primary osteoarthritis of hip Body mass index [BMI] 37.0-37.9, adult (Z68.37) Type 2 diabetes mellitus with hyperglycemia, without long-term current use of insulin (CMS/HCC)- Primary Essential hypertension (CMS/HCC) Unspecified essential hypertension Lumbosacral spondylosis with radiculopathy MITZY (generalized anxiety disorder) (CMS/HCC) Generalized anxiety disorder Primary insomnia Persistent disorder of initiating or maintaining sleep Chronic obstructive pulmonary disease, unspecified COPD type (CMS/HCC) Colon cancer screening Special screening for malignant neoplasms, colon Morbid (severe) obesity due to excess calories (CMS/[facility]) Body mass index (BMI) 38.0-38.9, adult Medicare annual wellness visit, subsequent- Primary Type 2 diabetes mellitus with hyperglycemia, without long-term current use of insulin (CMS/HCC) Lumbosacral spondylosis with radiculopathy Right ear impacted cerumen Impacted cerumen Dermatitis Contact dermatitis and other eczema, due to unspecified cause Generalized anxiety disorder (CMS/HCC) Generalized anxiety disorder Lumbosacral spondylosis with radiculopathy documented in this encounter [facility] HealthcareEvaluation note* Diagnosis Diabetes mellitus due to underlying condition with diabetic polyneuropathy, unspecified whether alf insulin use (CMS/[facility])- Primary Onychomycosis Dermatophytosis of nail Toe pain, bilateral Xerosis cutis Other specified disease of sebaceous glands [facility] Consultation (Routine) - Pending Review Specialty Diagnoses / Procedures Referred By Conttyron t Referred To Contact Neurosurgery Diagnoses Lumbosacral spondylosis with radiculopathy Gerber Salazar MD [address] [place] [address] Horacio Bermudez MD [address] [place] [address], [address] [place] [address] Referral ID Status Reason Start Date Expiration Date Visits Requested Visits Authorized [id number] Pending Review Specialty Services Required 03/17/2024 09/13/2024 1 1 [facility] for visit Narrative* Other Medical (Routine) - Closed Specialty Diagnoses / Procedures Referred By Contac t Referred To Contact Neurology Diagnoses Low back pain, unspecified Procedures AL NERVE CONDUCTION STUDIES 9-10 STUDIES AL NEEDLE EMG EA EXTREMTY W/PARASPINL AREA COMPLETE Susana King MD Phone: tel: fax: Marcus Ward DO [address] [place] [id number] Phone: tel: fax: Referral ID Status Reason Start Date Expiration Date V isits Requested Visits Authorized [id number] Closed Perform Procedure 05/12/2024 11/08/2024 1 1 [facility] Healthcare Summary Purpose Family History No Family History Records Found Relationship Condition Age at Onset Recorded Date/T shira mother Diabetes mellitus Unknown Congestive heart failure Unknown Hypertension Unknown father Arthritis Unknown sister Malignant neoplasm of colon Unknown sister Malignant neoplasm of bone Unknown Advance Directives No Advanced Directives Records Found Advance Directive Response Recorded Date/ Time Advance Directives No May 2:16pm Advance Directive Response Recorded Date/ Time Advance Directives No May 1:16pm Chief Complaint and Reason for Visit Chief Complaint low back pain Chief Complaint low back pain lumbar f/u after failed pt Reason for Visit Lumbar back pain Chief Complaint Admit Date low back pain March 26, 2024 1:22pm lumbar April 29, 2024 1 0:00am f/u after failed pt May 04, 2024 1 :07pm REFF BY DR. SUSANA KING May 13, 2024 9:36am Reason for Visit Admit Date Lumbar back pain March 26, 2024 1:22pm Lumbar back pain May 04, 2024 1 :07pm Chronic pain May 13, 2024 9:36am Other low back pain May 13, 2024 9:36am Other spondylosis with radiculopathy, [facility] May 13, 2024 9:36am Reason for Referral Specialty Diagnoses / Procedures Referred By Contac t Referred To Contact Diagnoses Lumbosacral spondylosis with radiculopathy Gerber Salazar MD [address] [place] [address] Referral ID Status Reason Start Date Expiration Date V isits Requested Visits Authorized [id number] Pending Review 04/02/2024 09/29/2024 1 1 Specialty Diagnoses / Procedures Referred By Contac t Referred To Contact Diagnoses Type 2 diabetes mellitus with hyperglycemia, without long-term current use of insulin ([facility]) Gerber Salazar MD [address] [place] [address] Referral ID Status Reason Start Date Expiration Date V isits Requested Visits Authorized [id number] Pending Review 04/02/2024 09/29/2024 1 1 Additional Source Comments (unrecognized sect ion and content) No Status Records FoundNo Status Records FoundNo Status Records FoundNo Status Records FoundNo Status Records FoundNo Status Records Found INFORMATION SOURCE (unrecogn ized section and content) DATE CREATED AUTHOR 07/27/2018 [facility] DATE CREATED AUTHOR AUTHOR'S ORGANIZ ATION [facility] DATE CREATED AUTHOR AUTHOR'S ORGANIZ ATION 08/10/2020 [facility] DATE CREATED AUTHOR AUTHOR'S ORGANIZ ATION 10/26/2022 [facility] DATE CREATED AUTHOR AUTHOR'S ORGANIZ ATION 06/12/2024 [facility] DATE CREATED AUTHOR AUTHOR'S ORGANIZ ATION 06/28/2024 [facility] Care Teams (unrecognized sec tion and content) Team Status: Active Member Role Status Dates Gerber Salazar MD Primary Care Provider Active Team Status: Inactive Member Role Status Dates Gerber Salazar MD Primary Care Provider Active S tart: March 26, 2024 End: March 26, 2024 Susana King DO Attending Provider Active S tart: March 26, 2024 End: March 26, 2024 Group Therapy Counselor Relationship Specialty Start Date End Date Gerber Salazar MD [address] [place] [phone] PCP - General Family Medicine 03/05/23 Group Therapy Counselor Relationship Specialty Start Date End Date Gerber Salazar MD [address] [place] [phone] PCP - General Family Medicine 03/05/23 Group Therapy Counselor Relationship Specialty Start Date End Date Gerber Salazar MD [address] [place] [phone] PCP - General Family Medicine 03/05/23 Team Status: Active Member Role Status Dates Gerber Salazar MD Primary Care Provider Active S tart: April 29, 2024 Susana King DO Attending Provider Active S tart: April 29, 2024 Team Status: Inactive Member Role Status Dates Gerber Salazar MD Primary Care Provider Active S tart: May 04, 2024 End: May 04, 2024 Susana King DO Attending Provider Active S tart: May 04, 2024 End: May 04, 2024 Team Status: Inactive Member Role Status Dates Gerber Salazar MD Primary Care Provider Active S tart: May 13, 2024 End: May 13, 2024 Edilberto Chan MD Attending Provider Active Sta rt: May 13, 2024 End: May 13, 2024 Susana King DO Referring Provider Active S tart: May 13, 2024 End: May 13, 2024 Group Therapy Counselor Relationship Specialty Start Date End Date Gerber Salazar MD [address] [place] [phone] PCP - General Family Medicine 03/05/23 Group Therapy Counselor Relationship Specialty Start Date End Date Gerber Salazar MD [address] [place] [phone] PCP - General Family Medicine 03/05/23 Group Therapy Counselor Relationship Specialty Start Date End Date Gerber Salazar MD [address] [place] [phone] PCP - General Family Medicine 03/05/23 Group Therapy Counselor Relationship Specialty Start Date End Date Gerber Salazar MD [address] [place] [phone] PCP - General Family Medicine 03/05/23 Group Therapy Counselor Relationship Specialty Start Date End Date Gerber Salazar MD [address] [place] [phone] PCP - General Family Medicine 03/05/23 Group Therapy Counselor Relationship Specialty Start Date End Date Gerber Salazar MD [address] [place] [phone] PCP - General Family Medicine 03/05/23 Carrillo Toussaint MD [address] [place] [address] Referring Physician Neurology 06/09/24 Group Therapy Counselor Relationship Specialty Start Date End Date Gerber Salazar MD [address] [phone] PCP - General Family Medicine 03/05/23 Carrillo Toussaint MD [address] [place] [address] Referring Physician Neurology 06/09/24 Group Therapy Counselor Relationship Specialty Start Date End Date Gerber Salazar MD [address] [place] [phone] PCP - General Family Medicine 03/05/23 Group Therapy Counselor Relationship Specialty Start Date End Date Gerber Salazar MD [address] [place] [phone] PCP - General Family Medicine 03/05/23 Goals (unrecognized section and content) Goals may be documented in a n alternate sectionGoals may be documented in an alternate sectionGoals may be documented in an alternate section Reason for Visit (unrecogniz ed section and content) Reason Onset Date Comments Med Refill 04/02/2024 Reason Comments Med Refill Reason Onset Date Comments Med Refill 04/23/2024 Reason Comments Medicare Annual Wellness Visit Subsequen t Wellness Reason Onset Date Comments Med Refill 05/27/2024 Reason Comments Follow-up 3 m Reason Comments Med Refill Reason Comments DM Foot Care Dm nail care FOR RECORDS PERTAINING TO PATIENTS WHO ARE [...] BE BASED ON THE PRIMARY CLINICAL RECORDS. [facility] [employer] [facility]. provides no warranty or guarantee of the accuracy or completeness of information in this document.
[2024-07-03 10:45] LABS: Estimated Average Glucose 143 mg/dL; Glycohemoglobin A1C 6.6 % (4.5-6.2)
== END 2024-07-03 09:42 | disposition home or self-care (01) ==
LOC: LAB 09:43
PROVIDERS: PCP Family Medicine; Visit Provider Family Medicine
DX: E11.65 Type 2 diabetes mellitus with hyperglycemia (principal)
CPT/HCPCS: 36415; 83036

== ENCOUNTER 2025-05-07 11:02 | Emergency (ER) | payer MEDICARE, MEDICAID, SELFPAY ==
[2025-05-07 11:11] VITALS: BP 160/86; PULSE 81; TEMP 36.4; O2SAT 96; BMI 35.7
--- OUTSIDE RECORDS SUMMARY | 2025-05-07 11:44 | XMS_ITS | Encounter Summary ---
Author Organization [facility] Address [address] [place] [address] Care Team Providers Care Crisis Therapist Name Role Phone Gerber Salazar MD Primary Care Provider [phone] Carrillo Jeffrey MD Unavailable [phone] Gerber Salazar MD Unavailable Encounter Details DateTypeDepartmentCare Team (Latest Contact Info)Owubtfluegg41/20/2024Clinisync Result Encounter [facility] Unsolicited Gerber Salazar MD [address] [place] [address] Social History Tobacco UseTypesPacks/DayYears UsedDateSmoking Tobacco: FormerCigarettesQuit: 06/02/2019Smokeless Tobacco: Never Comments:Last smoked : < 1 m onth Alcohol UseStandard Drinks/WeekCommentsNever0 (1 standard drink = 0.6 oz pure alcohol)caffeine intake: 2-3 cups per dayPHQ-2AnswerDate RecordedPatient Health Questionnaire-2 [id number] and Gender InformationValueDate RecordedSex Assigned at BirthNot on fileLegal XqxVutr1209/12/2022 7:26 PM EDTGender Identity Not on fileSexual OrientationNot on filedocumented as of this encounter Functional Status * Over the past 2 weeks, how often have you been bothered by any of the following problems?QuestionAnswerDate of AssessmentAuthorLittle interest or pleasure in doing thingsSeveral days05/11/2024 11:00 AM Sosa Solis MA Feeling down, depressed, or hopelessNot at all05/11/2024 11:00 AM Sosa Solis MAPatient Health Questionnaire-2 [id number] 11:00 AM Sosa Solis MA * QuestionAnswerDate of AssessmentAuthorTrouble falling or staying asleep, or sleeping too muchNearly every day05/11/2024 11:00 AM Sosa Solis MA Feeling tired or having little energyNearly every day05/11/2024 11:00 AM Sosa Jules MAPoor appetite or overeatingNearly every day05/11/2024 11:00 AM Sosa Solis MAFeeling bad about yourself - or that you are a failure or have let yourself or your family downNot at all05/11/2024 11:00 AM Sosa Jules MATroubilene concentrating on things, such as reading the newspaper or watching televisionNot at all05/11/2024 11:00 AM Sosa Solis MAMoving or speaking so slowly that other people could have noticed? Or the opposite - being so fidgety or restless that you have been moving around a lot more than usual.Not at all05/11/2024 11:00 AM Sosa Solis MAThoughts that you would be better off or hurting yourself in some way Not at all05/11/2024 11:00 AM Sosa Solis MAPatient Health Questionnaire-9 [id number] 11:00 AM Sosa Solis MA * How difficult have these problems made it for you to do your work, take care of things at home, or get along with other people?AnswerDate of Assessment AuthorNot difficult at all05/11/2024 11:00 AM Sosa Solis MA documented as of this encounter Plan of Treatment DateTypeDepartmentCare Team (Latest Contact Info)Oodmbtqodom66/11/2025 10:20 AM ESTOffice Visit [facility] [address] [facility] [address] [place] [phone] Dar Leo DPM [address] [facility] [address] [place] [address] documented as of this encounter Procedures Procedure NamePriorityDate/TimeAssociated DiagnosisCommentsMR LUMBAR SPINE WO CON09/18/2023 11:25 AM EDT documented in this encounter Results * MR LUMBAR SPINE WO CON (09/18/2023 11:25 AM EDT)Anatomical RegionLaterality ModalityOtherSpecimen (Source)Anatomical Location / LateralityCollection Method / VolumeCollection TimeReceived Time09/18/2023 11:25 AM EDT Narrative 09/18/2023 11:28 AM EDT [facility] ?[address] ? [place] [address] ? Magnetic Resonance Report ? Signed ? Patient: DIMITRY BENJAMIN ?MR#: [id number] ?? : 1960 ?Acct:[id number] ?? Age/Sex: 63 / M ?ADM Date: 09/18/23 ?? Loc: MRI ? Attending Dr: Gerber Salazar M.D. ? Ordering Physician: Gerber Salazar M.D. ?? Date of Service: 09/18/23 ?? Procedure(s): MR lumbar spine wo con ?? Accession Number(s): [id number] ? cc: Gerber Salazar M.D. ? [facility] ? [address] [place] [address] ? [place] [address] ? Patient Name: ?? DIMITRY Nielsen KRYSTENARTEMIO ? MRN: [facility]:[id number] ? date: 1960 ?Sex: M ?? Assigned Patient Location: MRI ?? Current Patient Location: MRI ?? Accession/Order Number: [id number] ?? Exam Date: 09/18/2023 ??09:52 ?Report Date: 09/18/2023 ??11:25 ? At the request of: ?? GERBER ??MARIE ? Procedure: ??MR lumbar spine wo con ? EXAM: MR lumbar spine wo con ? CLINICAL INDICATION: Degenerative Disc Disease M51.36 p ? COMPARISON: None ? TECHNIQUE/PROTOCOL: Noncontrast lumbar spine MR protocol (Sagittal T1, T2, ?? STIR ?? and axial T1, T2 sequences). ? FINDINGS: ?? Segmentation: Normal. ?? Conus: Terminates at L1. ?? Spinal Cord and Cauda Equina: Normal. ?? Pedicles: Digitally shortened. ?? Epidural Space: Prominent dorsal epidural lipomatosis throughout the lumbar ?? spine. ?? Alignment: Normal. ?? Marrow Signal: Degenerative marrow endplate changes at L2-L3. ?? Vertebral Body Heights: Maintained. ?? Sacroiliac Joints: Grossly normal given only partially visualized. ?? Paraspinal Soft Tissues: Normal. ?? Retroperitoneal Soft Tissues: No acute abnormalities. ?? Spondylotic Changes: Multilevel spondylotic changes include diffuse disc ?? desiccation and varying degrees of intervertebral disc height loss, ?? osteophytic ?? ridging, and facet/ligamentum flavum hypertrophy. ? T12-L1: Disc bulge indents the ventral thecal sac. This in conjunction with ?? mild bilateral facet/ligamentum flavum hypertrophy and epidural lipomatosis ?? overall results in moderate spinal canal narrowing. No high-grade foraminal ?? narrowing. ? L1-L2: Disc bulge with left central disc protrusion together indent the ?? ventral ?? thecal sac. These in conjunction with mild bilateral facet/ligamentum flavum ?? hypertrophy and epidural lipomatosis overall result in moderate spinal canal ?? narrowing. Mild bilateral foraminal narrowing. ? L2-L3: Disc bulge effaces the ventral thecal sac. This in conjunction with ?? mild ?? bilateral facet/ligamentum flavum hypertrophy and epidural lipomatosis overall ? results in advanced spinal canal narrowing. Disc material extends into the ?? right foramen and results in moderate right foraminal narrowing. Mild left ?? foraminal narrowing. ? L3-L4: Disc bulge effaces the ventral thecal sac. This in conjunction with ?? mild ?? bilateral facet/ligamentum flavum hypertrophy and epidural lipomatosis overall ? results in advanced spinal canal narrowing. Moderate to advanced bilateral ?? foraminal narrowing. ? L4-L5: Disc bulge effaces the ventral thecal sac. This in conjunction with ?? moderate bilateral facet/ligamentum flavum hypertrophy and epidural ?? lipomatosis ?? overall results in advanced spinal canal narrowing. Advanced bilateral ?? foraminal narrowing. ? L5-S1: No disc bulge or herniation. No high-grade spinal canal or foraminal ?? narrowing. Mild bilateral facet hypertrophy. ? MR/MR lumbar spine wo con ?? IMPRESSION: ?? 1. Multilevel spondylotic changes are superimposed on congenitally shortened ?? pedicles and epidural lipomatosis. Spinal canal narrowing is advanced at ?? L2-L3, ?? L3-L4, and L4-L5. ? 2. Foraminal narrowing is advanced bilaterally at L4-L5. Foraminal narrowing ?? is ?? moderate to advanced bilaterally at L3-L4. ? Electronically authenticated by: FANI ??GILMAR ?? Date: 09/18/2023 ??11:25 ? Dictated By: ?Fani Schafer M.D. ? Signed By: ?09/18/231127 ? DD/ 1125 ? TD/TT: ? Master Cosmetologist: Procedure Note Radiology, Radiologist, MD - 09/18/2023 [place] [address] Magnetic Resonance Report Signed Patient: DIMITRY BENJAMIN GMR#: [id number] : 1960cct:[id number] Age/Sex: 63 / MADM Date: 09/18/23 Loc: MRI Attending Dr: Gerber Salazar M.D. Ordering Physician: Gerber Salazar M.D. Date of Service: 09/18/23 Procedure(s): MR lumbar spine wo con Accession Number(s): [id number] cc: Gerber Salazar M.D. [facility] [place] [id number] Patient Name: DIMITRY BENJAMIN MRN: [id number] date: 1960 Sex: M Assigned Patient Location: MRI Current Patient Location: MRI Accession/Order Number: [id number] Exam Date: 09/18/2023 09:52 Report Date: 09/18/2023 11:25 At the request of: GERBER SALAZAR Procedure: MR lumbar spine wo con EXAM: MR lumbar spine wo con CLINICAL INDICATION: Degenerative Disc Disease M51.36 p COMPARISON: None TECHNIQUE/PROTOCOL: Noncontrast lumbar spine MR protocol (Sagittal T1, T2, STIR and axial T1, T2 sequences). FINDINGS: Segmentation: Normal. Conus: Terminates at L1. Spinal Cord and Cauda Equina: Normal. Pedicles: Digitally shortened. Epidural Space: Prominent dorsal epidural lipomatosis throughout thelumbar spine. Alignment: Normal. Marrow Signal: Degenerative marrow endplate changes at L2-L3. Vertebral Body Heights: Maintained. Sacroiliac Joints: Grossly normal given only partially visualized. Paraspinal Soft Tissues: Normal. Retroperitoneal Soft Tissues: No acute abnormalities. Spondylotic Changes: Multilevel spondylotic changes include diffuse disc desiccation and varying degrees of intervertebral disc height loss, osteophytic ridging, and facet/ligamentum flavum hypertrophy. T12-L1: Disc bulge indents the ventral thecal sac. This in conjunctionwith mild bilateral facet/ligamentum flavum hypertrophy and epidurallipomatosis overall results in moderate spinal canal narrowing. No high-gradeforaminal narrowing. L1-L2: Disc bulge with left central disc protrusion together indent the ventral thecal sac. These in conjunction with mild bilateral facet/ligamentumflavum hypertrophy and epidural lipomatosis overall result in moderate spinalcanal narrowing. Mild bilateral foraminal narrowing. L2-L3: Disc bulge effaces the ventral thecal sac. This in conjunction with mild bilateral facet/ligamentum flavum hypertrophy and epidural lipomatosisoverall results in advanced spinal canal narrowing. Disc material extends into the right foramen and results in moderate right foraminal narrowing. Mild left foraminal narrowing. L3-L4: Disc bulge effaces the ventral thecal sac. This in conjunction with mild bilateral facet/ligamentum flavum hypertrophy and epidural lipomatosisoverall results in advanced spinal canal narrowing. Moderate to advanced bilateral foraminal narrowing. L4-L5: Disc bulge effaces the ventral thecal sac. This in conjunction with moderate bilateral facet/ligamentum flavum hypertrophy and epidural lipomatosis overall results in advanced spinal canal narrowing. Advanced bilateral foraminal narrowing. L5-S1: No disc bulge or herniation. No high-grade spinal canal orforaminal narrowing. Mild bilateral facet hypertrophy. MR/MR lumbar spine wo con IMPRESSION: 1. Multilevel spondylotic changes are superimposed on congenitallyshortened pedicles and epidural lipomatosis. Spinal canal narrowing is advanced at L2-L3, L3-L4, and L4-L5. 2. Foraminal narrowing is advanced bilaterally at L4-L5. Foraminalnarrowing is moderate to advanced bilaterally at L3-L4. Electronically authenticated by: FANI SCHAFER Date: 09/18/2023 11:25 Dictated By: Fani Schafer M.D. Signed By:09/18/23 1128 DD/ 1125 TD/TT: Master Cosmetologist: Authorizing ProviderResult TypeResult StatusMarc Marie MDCLINISYNC IMAGING Final Result documented in this encounter Visit Diagnoses Not on filedocumented in this encounter Care Teams Team MemberRelationshipSpecialtyStart DateEnd Date Gerber Salazar MD [address] [place] [address] [facility] - [facility] Gerber Salazar MD [address] [place] [address] PCP - [place] MA08/29/24 Carrillo Jeffrey MD [address] [place] [address] Referring LgrsgastiBeirugazc39/10/24documented as of this encounter
--- OUTSIDE RECORDS SUMMARY | 2025-05-07 11:44 | XMS_ITS | Clinical Summary ---
Author Organization [facility] Address [address] [place] [address] Care Team Providers Care Belting And Webbing Inspector Name Role Phone Unavailable Primary Care Provider Unavailabl e Social History Tobacco UseTypesPacks/DayYears UsedDateSmoking Tobacco: Never AssessedUT Safety & EnvironmentAnswerDate RecordedFear of Current or Ex-PartnerNot on file 08/22/2023Emotionally AbusedNot on file08/22/2023hysically AbusedNot on file 08/22/2023Sexually AbusedNot on file08/22/2023hysically or Sexually AbusedNot on file08/22/2023Sex and Gender InformationValueDate RecordedSex Assigned at BirthNot on fileLegal ViyCcam3912/28/2021 12:39 AM EDTGender IdentityNot on file Sexual OrientationNot on file Plan of Treatment Not on file
--- OUTSIDE RECORDS SUMMARY | 2025-05-07 11:44 | XMS_ITS | Clinical Summary ---
Author Organization [facility] Healthcare Address [address] [place] [address] Care Team Providers Care Blacktop Paver Operator Name Role Phone Gerber Alvarado MD Primary Care Provider [phone] Carrillo Jeffrey MD Unavailable [phone] Gerber Alvarado MD Unavailable Allergies Active AllergyReactionsCriticalityNoted DateCommentsLisinoprilShortness of vibfzbTonf62/05/2024 Medications MedicationSigDispense QuantityRefillsLast FilledStart DateEnd DateStatus atorvastatin (Lipitor) 40 MG tablet Take 40 mg by mouth at ztmszlu62/12/2023Active triamcinolone (Kenalog) 0.5 % cream Indications:DermatitisApply topically 3 (three) times a day 60 g 4Active albuterol (2.5 MG/3ML) 0.083% nebulizer solution Indications:Chronic obstructive pulmonary disease, unspecified COPD type (HCC) Take 3 mL (2.5 mg) by nebulization every 4 (four) hours if needed for wheezing or shortness of breath 75 mL 5Active polyethylene glycol, PEG, 3350 (MiraLax) 17 GM/SCOOP powder Indications:Chronic constipationTake 17 g by mouth Daily 510 g 5Active metFORMIN XR (Glucophage-XR) 500 MG 24 hr tablet Indications:Type 2 diabetes mellitus with hyperglycemia, without long-term current use of insulin (HCC)Take 1 tablet (500 mg) by mouth in the morning and 1 tablet (500 mg) before bedtime. 180 tablet 5Active tiotropium (Spiriva HandiHaler) 18 MCG inhalation capsule Indications:Chronic obstructive pulmonary disease, unspecified COPD type (HCC) Place 1 capsule (18 mcg) into inhaler and inhale Daily 30 capsule 5Active budesonide-formoterol (Symbicort) 160-4.5 MCG/ACT inhaler Indications:Chronic obstructive pulmonary disease, unspecified COPD type (HCC) Inhale 2 puffs in the morning and 2 puffs before bedtime. Rinse mouth with water after use to reduce aftertaste and incidence of candidiasis. Do not swallow. 1 each 5Active albuterol HFA 90 mcg/act inhaler Indications:Chronic obstructive pulmonary disease, unspecified COPD type (HCC) Inhale 2 puffs every 4 (four) hours if needed for wheezing 18 g 5Active hydroCHLOROthiazide (HYDRODiuril) 25 MG tablet Indications:Benign hypertensionTake 2 tablets (50 mg) by mouth Daily 60 tablet 5Active ALPRAZolam (Xanax) 1 MG tablet Indications:Generalized anxiety disorderTake 1 tablet (1 mg) by mouth 4 (four) times a day as needed for anxiety 120 tablet 5Active semaglutide (Ozempic, 1 MG/DOSE,) 4 MG/3ML solution pen-injector Indications:Type 2 diabetes mellitus with hyperglycemia, without long-term current use of insulin ([facility])Inject 1 mg under the skin 1 (one) time per week 3 mL 5Active Active Problems ProblemNoted DateDiagnosed DateType 2 diabetes mellitus with polyneuropathy 08/10/2024 Assessment & Plan (08/10/2024 11:43 AM EST): Pain stable and monitor. Medicare annual wellness visit, zzfqqplgwe27/11/2024 Assessment & Plan (05/11/2024 12:18 PM EST): Reviewed labs. Discussed proper diet and regular aerobic exercise. Need aerobic exercise 5-6 days aweek for 30 minutes at a time. Smaller portions and limit total calories. Needs to complete cologuard. Tetanus every 10 years. Advised not to smoke. Class 2 severe obesity due to excess calories with serious comorbidity and body mass index (BMI) of35.0 to 35.9 in adult03/17/2024 Assessment & Plan (08/10/2024 11:42 AM EST): Weight loss indicated. Abnormal TSH12/11/2023Encounter for long-term (current) use of medications 12/02/2023Screening PSA (prostate specific antigen)12/02/2023GAD (generalized anxiety disorder)09/09/2023 Assessment & Plan (02/15/2025 11:04 AM EDT): Symptoms stable with xanax and use PRN. Assessment & Plan (11/10/2024 11:37 AM EDT): Symptoms stable with xanax and use PRN. Assessment & Plan (08/10/2024 11:42 AM EST): Symptoms stable with xanax and use PRN. Assessment & Plan (03/17/2024 10:53 AM EDT): Symptoms stable with xanax and use PRN. Assessment & Plan (12/02/2023 12:09 PM EDT): Symptoms stable with xanax and use PRN. Assessment & Plan (09/09/2023 11:56 AM EDT): Symptoms stable with xanax and use PRN. Primary mamwrnfb72/11/2024 Assessment & Plan (11/10/2024 11:37 AM EDT): Sleeping well with medication and continue. Assessment & Plan (08/10/2024 11:43 AM EST): Sleeping well with medication and continue. Assessment & Plan (03/17/2024 10:55 AM EDT): Not sleeping well and try doxepin. Assessment & Plan (12/02/2023 12:10 PM EDT): Not sleeping well and try ambien. Assessment & Plan (09/09/2023 11:56 AM EDT): Sleeping well with xanax and continue. Colon cancer hikziicai39/11/2024ilateral primary osteoarthritis of hip 09/09/2023 Assessment & Plan (12/02/2023 12:09 PM EDT): Increased pain and use OTC PRN. If worsens will need to see pain management. Assessment & Plan (09/09/2023 11:55 AM EDT): Increased pain and OA on x-ray. Discussed referral to pain management and wants to wait. Use OTC PRN. Lumbosacral spondylosis with srvsahaotpczv93/11/2024 Assessment & Plan (02/15/2025 11:05 AM EDT): Pain unchanged and follow with pain management. Use percocet PRN. Do not take at same time as xanax. Assessment & Plan (11/10/2024 11:37 AM EDT): Pain unchanged and follow with pain management. Use percocet PRN. Do not take at same time as xanax. Assessment & Plan (08/10/2024 11:42 AM EST): Pain unchanged and follow with pain management. Use percocet PRN. Do not take at same time as xanax. Assessment & Plan (03/17/2024 10:54 AM EDT): Increased pain and radicular symptoms. Prior MRI abnormal and refer to pain management. Use percocet PRN. Treat with prednisone. Assessment & Plan (09/09/2023 11:56 AM EDT): Increased pain and radicular symptoms. Check MRI. Use baclofen PRN. May need to see pain management. Seasonal allergic rhinitis due to okbhvl5209/09/2023 Assessment & Plan (09/09/2023 11:57 AM EDT): Symptoms controlled with medication and continue. Benign localized prostatic hyperplasia with lower urinary tract symptoms (LUTS) 08/05/2023ervical spondylosis with sutdzwyfpa50/05/2024 Assessment & Plan (11/10/2024 11:36 AM EDT): Pain unchanged and use OTC PRN. If continues to worsen will need to return to pain management. Assessment & Plan (12/02/2023 12:09 PM EDT): Pain worse and use OTC PRN. If continues to worsen will need to return to pain management. Chronic obstructive pulmonary flvrydw1608/05/2023 Assessment & Plan (02/15/2025 11:03 AM EDT): Breathing stable and continue spiriva. Use albuterol PRN. Discussed need to stop smoking. Assessment & Plan (11/10/2024 11:36 AM EDT): Breathing stable and continue spiriva. Use albuterol PRN. Discussed need to stop smoking. Assessment & Plan (08/10/2024 11:42 AM EST): Breathing stable and continue spiriva. Use albuterol PRN. Discussed need to stop smoking. Assessment & Plan (03/17/2024 10:53 AM EDT): Breathing stable and continue spiriva. Use albuterol PRN. Discussed need to stop smoking. Assessment & Plan (12/02/2023 12:09 PM EDT): Breathing stable and continue spiriva. Use albuterol PRN. Discussed need to stop smoking. Assessment & Plan (09/09/2023 11:55 AM EDT): Breathing stable and continue spiriva. Use albuterol PRN. Discussed need to stop smoking. Ivezqnssp26/05/2024 Assessment & Plan (09/09/2023 11:56 AM EDT): Problems swallowing and refer to surgery for EGD. Essential txhpedznvxap18/05/2024 Assessment & Plan (02/15/2025 11:03 AM EDT): BP controlled and monitor PRN. Assessment & Plan (11/10/2024 11:37 AM EDT): BP controlled and monitor PRN. Assessment & Plan (08/10/2024 11:42 AM EST): BP controlled and monitor PRN. Assessment & Plan (03/17/2024 10:53 AM EDT): BP controlled and monitor PRN. Assessment & Plan (12/02/2023 12:09 PM EDT): BP elevated today but previously controlled and monitor PRN. Assessment & Plan (09/09/2023 11:56 AM EDT): BP controlled and monitor PRN. Gastroesophageal reflux knnthcc1508/05/20233817Fjefpoeltwhb96/05/2024Other obstructive and reflux aczjeeiv51/05/2024Other secondary kyphosis, cervical ahjrhh4208/05/2023 Type 2 diabetes mellitus with hyperglycemia, without long-term current use of ialfbdi4108/05/2023 Assessment & Plan (02/15/2025 11:05 AM EDT): Not checking BS and due for A1C. Stick to ADA diet and limit carbs. Assessment & Plan (11/10/2024 11:37 AM EDT): Not checking BS but last A1C 6.6. Stick to ADA diet and limit carbs. Assessment & Plan (08/10/2024 11:43 AM EST): Not checking BS but recent A1C 6.6. Stick to ADA diet and limit carbs. Assessment & Plan (03/17/2024 10:55 AM EDT): Not checking BS but recent A1C 6.1. Stick to ADA diet and limit carbs. Assessment & Plan (12/02/2023 12:10 PM EDT): Not checking BS and due for A1C. Stick to ADA diet and limit carbs. Assessment & Plan (09/09/2023 11:57 AM EDT): Not checking BS and due for A1C. Stick to ADA diet and limit carbs. Tobacco xtwrznhriz80/05/2024 Resolved Problems ProblemNoted DateDiagnosed DateResolved DateRight ear impacted clmpxxi35/11/2024 08/10/2024 Assessment & Plan (05/11/2024 12:18 PM EST): Ear plugged and impaction on exam. Ear irrigated with water and cerumen removed with speculum. Canal clear after procedure. Use debrox or drops of baby oil to prevent build up of wax in future. Do not use q-tips inside ear. Wulgbgl74/05/2024Obesity (BMI 30-39.9)/ Encounters DateTypeDepartmentCare KycuEnemuggmfbx56/18/2025 11:00 AM EDTOffice Visit [facility] [address] [facility] [address] [place] [phone] Dar Leo DPM Xerosis cutis (Primary Dx); Diabetes mellitus due to underlying condition with diabetic polyneuropathy, unspecified whether shelter insulin use (HCC); Pain due to onychomycosis of toenails of both feet03/18/2025amboo flowsheet [facility] [address] [facility] [address] [place] [address] Dar Leo DPM 03/18/20258723Dchgnf62/22/2025Refill [facility] [address] [place] [phone] Gerber Alvarado MD Type 2 diabetes mellitus with hyperglycemia, without long-term current use of insulin (HCC)02/15/2025 10:00 AM EDTOffice Visit [facility] [address] [place] [phone] Gerber Alvarado MD Type 2 diabetes mellitus with hyperglycemia, without long-term current use of insulin (HCC) (Primary Dx); Essential hypertension ; Chronic obstructive pulmonary disease, unspecified COPD type (HCC); Lumbosacral spondylosis with radiculopathy; MITZY (generalized anxiety disorder) ; Screening PSA (prostate specific antigen); Abnormal TSH; Class 2 severe obesity due to excess calories with serious comorbidity and body mass index (BMI) of35.0 to 35.9 in adult ([facility]); Dyslipidemia ; Encounter for long-term (current) use of wakmycwqois11/18/2025amboo flowsheet [facility] [address] [place] [phone] Gerber Alvarado MD 02/10/2025[facility]ill [facility] [address] [place] [address] Gerber Alvarado MD Lumbosacral spondylosis with radiculopathy; Generalized anxiety disorderfrom Last 3 Months Immunizations ImmunizationAdministration DatesNext DueInfluenza, injectable, MDCK, preservative free, ntupkouveryq87/05/4454Gxqy63/03/2020 Family History Medical HistoryRelationNameCommentsNo Known AvxytzlxYmmdmrhv6SduyzfeteLuqnsy DiabetesMotherHeart diseaseMotherHypertensionMotherBreast cancerOthersiblingsNo Known ClfslnafLgk9MhsviadgXpybAtvcupWqrywyofVovvdzwr2IfxueYbppnxTjmzgzqlRnkuza CavjvsabSlwbsdaheamxhUisnut2AfivsSky0Fzbwf Social History Tobacco UseTypesPacks/DayYears UsedDateSmoking Tobacco: Every DayCigarettesLast attempted to quit: 06/02/2019Smokeless Tobacco: Never Tobacco Cessation:Ready to Q uit: Not Asked; Counseling Given: Yes Comments:Last smoked : < 1 month Alcohol UseStandard Drinks/WeekCommentsNever0 (1 standard drink = 0.6 oz pure alcohol)caffeine intake: 2-3 cups per dayPHQ-2AnswerDate RecordedPatient Health Questionnaire-2 Fvjhy253Sex and Gender InformationValueDate RecordedSex Assigned at BirthNot on fileLegal ArmDzjr1009/12/2022 7:26 PM EDTGender Identity Not on fileSexual OrientationNot on file Last Filed Vital Signs Vital SignReadingTime TakenCommentsBlood Zevmpspe959/6808 10:27 AM EDT Uubwc0677 10:27 AM TPSRtzbtxseawi21.2 ??C (97.1 ??F)02/15/2025 10:27 AM EDTRespiratory Ivgi296403/18/2025 11:00 AM EDTOxygen Vjfrgqgkmj47%02/15/2025 10:27 AM EDTInhaled Oxygen Concentration--Tzqpyj469 kg (234 lb)03/18/2025 11:00 AM EDT Djxoax837.7 cm (5' 8 )03/18/2025 11:00 AM EDTBody Mass Index35.58003/18/2025 11:00 AM EDT Plan of Treatment DateTypeDepartmentCare Team (Latest Contact Info)Rbcbxziqfpa50/11/2025 10:20 AM ESTOffice Visit [facility] [address] [facility] [address] [place] [address] Dar Leo, JULIEN [address] [facility] [address] [place] [address] Health MaintenanceDue DateLast DoneCommentsCT Vnllenkknbff1958Colonoscopy 1960FIT-DNA1958FIT1960FOBT1960 4835Chocnwmnktomb1958 Pneumococcal Vaccine: 65+ Years (1 of 2 - PCV)1977Diabetes: Retinopathy Opiofohnb21/3Diabetes: Urine Protein Khcyvrnxp13/12/2025 12/11/2023, 3Diabetes: Hemoglobin A1C501/08/2024, 12/11/2023, 01/14/2019, Additional history existsCOVID-19 Vaccine ( season) /, 10/28/2020, 10/06/2020Influenza Vaccine (#1)2025 05/05/2022Medicare Annual Wellness (AWV)olorectal Cancer Zyzocyutl24/13/2026Postponed from 1960 (Patient Refused) Procedures Procedure NamePriorityDate/TimeAssociated DiagnosisCommentsHEMOGLOBIN W2WAfgshxg 01/14/2019 from Last 3 Months or Most Recently Relevant to Health Maintenance Results * (ABNORMAL) Hemoglobin A1c (01/14/2019)ComponentValueRef RangeTest Method Analysis TimePerformed AtPathologist SignatureANGIOTENSIN 1 CONV7.4(H)4.0 - 6.0[facility] EXTERNAL LABESTIM. AVG GLU (EAG)165.68[facility] Specimen (Source)Anatomical Location / LateralityCollection Method / Volume Collection TimeReceived Time01/14/2019 Narrative Authorizing ProviderResult TypeResult StatusRebecroselyn Cintron MDLAB BLOOD ORDERABLESFinal ResultPerforming OrganizationAddressCity/State/ZIP CodePhone Number [facility] from Last 3 Months or Most Recently Relevant to Health Maintenance Insurance Care Teams Team MemberRelationshipSpecialtyStart DateEnd Date Gerber Alvarado MD [address] [place] [phone] [facility] - [facility]/05/23 Gerber Alvarado MD [address] [place] [phone] PCP - [place]08/29/24 Carrillo Jeffrey MD [address] [place] [phone] Referring ZftpsmngmJqnxewadf87/10/24
--- OUTSIDE RECORDS SUMMARY | 2025-05-07 11:44 | XMS_ITS | Encounter Summary ---
Author Organization [facility] Address [address] [place] [address] Care Team Providers Care Banking Representative Name Role Phone Gerber Alvarado MD Primary Care Provider [phone] Carrillo Jeffrey MD Unavailable [phone] Gerber Alvarado MD Unavailable Encounter Details DateTypeDepartmentCare Team (Latest Contact Info)Impjazjgqmp86/06/2024Clinisync Result Encounter [facility] External Department Unsolicited Provider, Generic External Data Social History Tobacco UseTypesPacks/DayYears UsedDateSmoking Tobacco: Every DayCigarettesLast attempted to quit: 06/02/2019Smokeless Tobacco: Never Comments:Last smoked : < 1 m onth Alcohol UseStandard Drinks/WeekCommentsNever0 (1 standard drink = 0.6 oz pure alcohol)caffeine intake: 2-3 cups per dayPHQ-2AnswerDate RecordedPatient Health Questionnaire-2 Tkpgy275Sex and Gender InformationValueDate RecordedSex Assigned at BirthNot on fileLegal AxuKuiq9909/12/2022 7:26 PM EDTGender Identity Not on fileSexual OrientationNot on filedocumented as of this encounter Functional Status * Over the past 2 weeks, how often have you been bothered by any of the following problems?QuestionAnswerDate of AssessmentAuthorLittle interest or pleasure in doing thingsSeveral days05/11/2024 11:00 AM Sosa Solis MA Feeling down, depressed, or hopelessNot at all05/11/2024 11:00 AM ESTMeyer, Sosa, MAPatient Health Questionnaire-2 Oxyhp704 11:00 AM Sosa Solis MA * QuestionAnswerDate [...] downNot at all05/11/2024 11:00 AM Sosa Jules MATrouble concentrating on things, such as reading the newspaper or watching televisionNot at all05/11/2024 11:00 AM Sosa Solis, MAMoving or speaking so slowly that other people could have noticed? Or the opposite - being so fidgety or restless that you have been moving around a lot more than usual.Not at all05/11/2024 11:00 AM Sosa Solis MAThoughts that you would be better off or hurting yourself in some way Not at all05/11/2024 11:00 AM Sosa Solis MAPatient Health Questionnaire-9 Sfjwt1154 11:00 AM Sosa Solis MA * How difficult have these problems made it for you to do your work, take care of things at home, or get along with other people?AnswerDate of Assessment AuthorNot difficult at all05/11/2024 11:00 AM Sosa Solis MA documented as of this encounter Plan of Treatment DateTypeDepartmentCare Team (Latest Contact Info)Ukaqknnbkjr96/11/2025 10:20 AM ESTOffice Visit [facility] [address] [place] [phone] Dar Leo DPM [address] [facility] 5 [place] [address] documented as of this encounter Procedures Procedure NamePriorityDate/TimeAssociated DiagnosisCommentsXR LUMBAR SPINE MIN 4V1 8:23 AM EDT documented in this encounter Results * XR LUMBAR SPINE MIN 4V (04/05/2024 8:23 AM EDT)Anatomical RegionLaterality ModalityOtherSpecimen (Source)Anatomical Location / LateralityCollection Method / VolumeCollection TimeReceived Time04/05/2024 8:23 AM EDT Narrative 04/05/2024 8:26 AM EDT [facility] ?[address] ? [place] [address] ?XRay Report ? Signed ? Patient: KRYSTENDIMITRY ULLOA G ?MR#: [id number] ?? : 1960 ?Acct:[id number] ?? Age/Sex: 64 / M ?ADM Date: 04/04/24 ?? Loc: RAD ? Attending Dr: Non-Staff Physician Cait ? Ordering Physician: Physician,Non-Staff Cait ?? Date of Service: 04/04/24 ?? Procedure(s): XR lumbar spine min 4V ?? Accession Number(s): [id number] ? cc: Gerber Alvarado M.D.; Jessy Cowart M.D. ? [facility] ? [address] ? [place] [address] ? Patient Name: ?? DIMITRY BENJAMIN ? MRN: [facility]:[id number] ? date: 1960 ?Sex: M ?? Assigned Patient Location: RAD ?? Current Patient Location: RAD ?? Accession/Order Number: [id number] ?? Exam Date: 04/04/2024 ??10:58 ?Report Date: 04/05/2024 ??08:23 ? At the request of: ?? NON-STAFF ??PHYSICIAN ? Procedure: ??XR lumbar spine min 4V ? EXAMINATION: XR lumbar spine min 4V ? HISTORY: Low back pain ? COMPARISON: No relevant comparison available. ? FINDINGS: ?? BONES: Mild anterior wedging of L1. Grade 1 retrolisthesis of L2 on 3 and; no ?? change in alignment during flexion and extension. Prominent sclerotic ?? degenerative endplate changes at C2-C3. Mild degenerative facet arthropathy ?? L4-L5, L5-S1. ?? DISC SPACES: Marked narrowing L2-L3. Moderate narrowing L1-L2, and L4-L5. Mild ? narrowing at remaining levels. ?? PARASPINOUS: Negative. No paraspinous abnormality is seen. ?? OTHER: Negative. ? XR/XR lumbar spine min 4V ?? IMPRESSION: ? 1. Mild anterior wedging of L1 vertebral body favoring remote compression ?? fracture. ?? 2. L2-L3 marked degenerative disc disease. Grade 1 retrolisthesis of L2 on 3 ?? without appreciable change during flexion and extension. ?? 3. Multilevel degenerative disc disease ? Electronically authenticated by: CARRILLO ??CHINO ?? Date: 04/05/2024 ??08:23 ? Dictated By: ?Carrillo Palomino M.D. ? Signed By: ?04/05/2426 ? DD/ 0823 ? TD/TT: ? Food Analyst: Procedure Note Radiology, Radiologist, - 04/05/2024 [place] [address] XRay Report Signed Patient: DIMITRY BENJAMIN R#: [id number] : 1960cct:[id number] Age/Sex: 64 / MADM Date: 04/04/24 Loc: [facility] Attending Dr: Vanessa-Staff Physician Cait Ordering Physician: PhysicianKarenStaff Cait Date of Service: 04/04/24 Procedure(s): XR lumbar spine min 4V Accession Number(s): [id number] cc: Gerber Alvarado M.D.; Jessy Cowart M.D. The [place] [id number] Patient Name: DIMITRY BENJAMIN MRN: [facility]:[id number] date: 1960 Sex: M Assigned Patient Location: [facility] Current Patient Location: [facility] Accession/Order Number: [id number] Exam Date: 04/04/2024 10:58 Report Date: 04/05/2024 08:23 At the request of: NON-STAFF PHYSICIAN Procedure: XR lumbar spine min 4V EXAMINATION: XR lumbar spine min 4V HISTORY: Low back pain COMPARISON: No relevant comparison available. FINDINGS: BONES: Mild anterior wedging of L1. Grade 1 retrolisthesis of L2 on 3 and;no change in alignment during flexion and extension. Prominent sclerotic degenerative endplate changes at C2-C3. Mild degenerative facetarthropathy L4-L5, L5-S1. DISC SPACES: Marked narrowing L2-L3. Moderate narrowing L1-L2, and L4-L5.Mild narrowing at remaining levels. PARASPINOUS: Negative. No paraspinous abnormality is seen. OTHER: Negative. XR/XR lumbar spine min 4V IMPRESSION: 1. Mild anterior wedging of L1 vertebral body favoring remote compression fracture. 2. L2-L3 marked degenerative disc disease. Grade 1 retrolisthesis of L2 on3 without appreciable change during flexion and extension. 3. Multilevel degenerative disc disease Electronically authenticated by: CARRILLO PALOMINO Date: 04/05/2024 08:23 Dictated By: Carrillo Palomino M.D. Signed By:04/05/24825 DD/ 2 TD/TT: Food Analyst: Authorizing ProviderResult TypeResult StatusGeneric External Data Provider CLINISYNC IMAGINGFinal Result documented in this encounter Visit Diagnoses Not on filedocumented in this encounter Care Teams Team MemberRelationshipSpecialtyStart DateEnd Date Gerber Alvarado MD [address] [place] [phone] PCP - GeneralFamily Medicine03/05/23 Gerber Alvarado MD [address] [place] [phone] PCP - [place]08/29/24 Carrillo Jeffrey MD [address] [place] [phone] Referring RtfozcvhoHpfupjtiz43/10/24documented as of this encounter
--- OUTSIDE RECORDS SUMMARY | 2025-05-07 11:44 | XMS_ITS | Encounter Summary ---
Author Organization [facility] Address [address] [place] [address] Care Team Providers Care Mains And Service Supervisor Name Role Phone Gerber Alvarado MD Primary Care Provider [phone] Carrillo Jeffrey MD Unavailable [phone] Gerber Alvarado MD Unavailable Encounter Details DateTypeDepartmentCare Team (Latest Contact Info)Kajeukuwvgb11/06/2024Clinisync Result Encounter [facility] Unsolicited Provider, Generic External Data Social History Tobacco UseTypesPacks/DayYears UsedDateSmoking Tobacco: Every DayCigarettesLast attempted to quit: 06/02/2019Smokeless Tobacco: Never Comments:Last smoked : < 1 m onth Alcohol UseStandard Drinks/WeekCommentsNever0 (1 standard drink = 0.6 oz pure alcohol)caffeine intake: 2-3 cups per dayPHQ-2AnswerDate RecordedPatient Health Questionnaire-2 Urrod485Sex and Gender InformationValueDate RecordedSex Assigned at BirthNot on fileLegal BzpIltq0209/12/2022 7:26 PM EDTGender Identity Not on fileSexual OrientationNot on filedocumented as of this encounter Functional Status * Over the past 2 weeks, how often have you been bothered by any of the following problems?QuestionAnswerDate of AssessmentAuthorLittle interest or pleasure in doing thingsSeveral days05/11/2024 11:00 AM Sosa Solis MA Feeling down, depressed, or hopelessNot at all05/11/2024 11:00 AM ESTMeyer, Sosa, MAPatient Health Questionnaire-2 [id number] 11:00 AM Sosa Solis MA * QuestionAnswerDate [...] 11:00 AM Sosa Solis MAPatient Health Questionnaire-9 [id number] 11:00 AM Sosa Solis MA * How difficult have these problems made it for you to do your work, take care of things at home, or get along with other people?AnswerDate of Assessment AuthorNot difficult at all05/11/2024 11:00 AM Sosa Solis MA documented as of this encounter Plan of Treatment DateTypeDepartmentCare Team (Latest Contact Info)Yliyasyndae23/11/2025 10:20 AM ESTOffice Visit [facility] [address] [place] [id number] Dar Leo DPM [address] [facility] [address] [place] [address] documented as of this encounter Procedures Procedure NamePriorityDate/TimeAssociated DiagnosisCommentsXR CERVICAL SPINE 2-3V1 8:16 AM EDT documented in this encounter Results * XR CERVICAL SPINE 2-3V (04/05/2024 8:16 AM EDT)Anatomical RegionLaterality ModalityOtherSpecimen (Source)Anatomical Location / LateralityCollection Method / VolumeCollection TimeReceived Time04/05/2024 8:16 AM EDT Narrative 04/05/2024 8:20 AM EDT [facility] ?[address] ? [place] [address] ?XRay Report ? Signed ? Patient: DIMITRY BENJAMIN G ?MR#: [id number] ?? : 1960 ?Acct:[id number] ?? Age/Sex: 64 / M ?ADM Date: 04/04/24 ?? Loc: RAD ? Attending Dr: Non-Staff Physician Cait ? Ordering Physician: Physician,Non-Staff Cait ?? Date of Service: 04/04/24 ?? Procedure(s): XR cervical spine 2-3V ?? Accession Number(s): [id number] ? cc: Gerber Alvarado M.D.; Jessy Cowart M.D. ? [facility] ? [address] ? [place] [address] ? Patient Name: ?? DIMITRY BENJAMIN ? MRN: [facility]:[id number] ? date: 1960 ?Sex: M ?? Assigned Patient Location: RAD ?? Current Patient Location: ? Accession/Order Number: [id number] ?? Exam Date: 04/04/2024 ??10:58 ?Report Date: 04/05/2024 ??08:16 ? At the request of: ?? NON-STAFF ??PHYSICIAN ? Procedure: ??XR cervical spine 2-3V ? EXAMINATION: XR cervical spine 2-3V ? HISTORY: Neck pain ? COMPARISON: XR C-spine 08/26/2019 ? FINDINGS: ?? BONES: Mechanical fusion C3-C7 via anterior plate and screws; no appreciable ?? hardware fracture loosening. Reversal normal lordotic curvature; unchanged. ?? Multilevel moderate degenerative facet arthropathy. ?? DISC SPACES: Osseous fusion C3-C4 through C6-C7. ?? PARASPINOUS: Negative. No paraspinous abnormality is seen. ?? OTHER: Negative. ? XR/XR cervical spine 2-3V ?? IMPRESSION: ? 1. Grossly stable surgical changes and degenerative changes. Limited ?? evaluation ?? of lower cervical spine due to obscuration by shoulder structures. ? Electronically authenticated by: CARRILLO ??CHINO ?? Date: 04/05/2024 ??08:16 ? Dictated By: ?Carrillo Palomino M.D. ? Signed By: ?04/05/24 0820 ? DD/ 0816 ? TD/TT: ? [employer] Web Developer: Procedure Note Radiology, Radiologist, - 04/05/2024 [place] [address] XRay Report Signed Patient: DIMITRY BENJAMIN GMR#: [id number] : 1960cct:[id number] Age/Sex: 64 / MADM Date: 04/04/24 Loc: [facility] Attending Dr: KarenStaff Physician Cait Ordering Physician: Jessy Cowart M.D. Date of Service: 04/04/24 Procedure(s): XR cervical spine 2-3V Accession Number(s): [id number] cc: Gerber Alvarado M.D.; Jessy Cowart M.D. The [place] [id number] Patient Name: DIMITRY BENJAMIN MRN: [id number] date: 1960 Sex: M Assigned Patient Location: [facility] Current Patient Location: Accession/Order Number: [id number] Exam Date: 04/04/2024 10:58 Report Date: 04/05/2024 08:16 At the request of: NON-STAFF PHYSICIAN Procedure: XR cervical spine 2-3V EXAMINATION: XR cervical spine 2-3V HISTORY: Neck pain COMPARISON: XR C-spine 08/26/2019 FINDINGS: BONES: Mechanical fusion C3-C7 via anterior plate and screws; noappreciable hardware fracture loosening. Reversal normal lordotic curvature;unchanged. Multilevel moderate degenerative facet arthropathy. DISC SPACES: Osseous fusion C3-C4 through C6-C7. PARASPINOUS: Negative. No paraspinous abnormality is seen. OTHER: Negative. XR/XR cervical spine 2-3V IMPRESSION: 1. Grossly stable surgical changes and degenerative changes. Limited evaluation of lower cervical spine due to obscuration by shoulder structures. Electronically authenticated by: CARRILLO PALOMINO Date: 04/05/2024 08:16 Dictated By: Carrillo Palomino M.D. Signed By:04/05/24819 DD/ 5 TD/TT: [employer] Web Developer: Authorizing ProviderResult TypeResult StatusGeneric External Data Provider [facility]NC IMAGINGFinal Result documented in this encounter Visit Diagnoses Not on filedocumented in this encounter Care Teams Team MemberRelationshipSpecialtyStart DateEnd Date Gerber Alvarado MD [address] [place] [phone] [facility] - [facility] Gerber Alvarado MD [address] [place] [phone] PCP - [place]08/29/24 Carrillo Jeffrey MD [address] [place] [phone] Referring XefdatntdQxmwrqmic40/10/24documented as of this encounter
--- OUTSIDE RECORDS SUMMARY | 2025-05-07 11:45 | XMS_ITS | CCD ---
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 Name Role Phone TORREY DAY Referring Unavailable [...] Provider MD Gerber Salazar Primary Care Provider [phone] DO Susana King Attending Provider Gerber Salazar MD Primary Care Provider [phone] Susana King DO Attending Provider Nato Jeffrey MD Unavailable [phone] Edilberto Chan MD Attending Provider Gerber Salazar Primary Care Unavailable Edilberto Chan Attending Unavailable Edilberto Chan Admitting Unavailable Marie, Gerber Primary Care Unavailable Edilberto Chan Attending Unavailable Edilberto Chan Admitting Unavailable Susana King Admitting Unavailable Gerber Salazar Primary Care Unavailable Susana King N Attending Unavailable Gerber Salazar MD Unavailable Wojciech JONES, Nato Unavailable Unavailable Wojciech JONES, Nato Unavailable Gerber Salazar MD Primary Care Provider Nato Jeffrey MD Unavailable Gerber Salazar MD Unavailable GERBER SALAZAR Attending Unavailable DAR HERR Attending Unavailable GERBER SALAZAR Attending Unavailable GERBER SALAZAR Attending Unavailable DAR HERR Attending Unavailable DAR HERR Attending Unavailable MARIE, GERBER Attending Unavailable WOJCIECH, NATO Attending Unavailable SUSANA KING Referring Unavailable Gerber Salazar MD Primary Care Provider Nato Jeffrey MD Unavailable Gerber Salazar MD Unavailable Allergies Allergy ClassificationReported Allergen(s)Allergy TypeDate of OnsetReaction(s) Facility (1 source)Amino AcidsDrug AllergyThe [facility] (20 sources)LisinoprilPropensity to adverse etmaibrxe23-13-0486EsdnskswxN[facility] (1 source)LisinoprilDrug Xqhkdxd97-92-2761EhaedjaxpK[facility] Medications Current Medications MedicationDrug Class(es)DatesSig (Normalized)Sig (Original)acetaminophen 500 mg oral tablet (8 sources)Start: 92-52-2458tgxl 2 tablets by mouth every six hours as needed for painAcetaminophen 500 mg Tablet Active 1000 MG PO Q6H as needed for Pain 4-7 120 30 June 17, 201912:00amStart: 13-09-1584abak 1000 mg by mouth every six hoursAcetaminophen Active 1000 MG PO Q6H 120 June 17, 2019 12:00am Start: 06-12-2019 End: 69-36-9437pxhl 1 tablet by mouth every eight hours as needed for pain Acetaminophen (Tylenol 8 Hour) 650 mg tablet extended release Discontinued 650 MG PO Q8H as needed for fever or pain June 12, 2019 12:00am June 17, 2019 2:24pmacetaminophen 325 mg / oxyCODONE hydrochloride 5 mg oral tablet (20 sources)Opioid AgonistStart: 09-22-2024 End: 90-26-3869eosj 1 tablet by mouth four times daily as needed for pain oxyCODONE-acetaminophen (Percocet) 5-325 MG tablet Indications: Lumbosacral spondylosis with radiculopathy Take 1 tablet by mouth 4 (four) times a day as needed for severe pain for up to 15 days 60 tablet 02/10/2025 02/25/2025 Active Start: 09-02-2024 End: 13-56-4710sbzu 1 tablet by mouth four times daily as needed for pain oxyCODONE-acetaminophen (Percocet) 5-325 MG tablet Indications: Lumbosacral spondylosis with radiculopathy Take 1 tablet by mouth 4 (four) times a day as needed for severe pain for up to 15 days 60 tablet 09/02/2024 09/17/2024 Active Start: 08-10-2024 End: 11-61-5292triz 1 tablet by mouth four times daily as needed for pain oxyCODONE-acetaminophen (Percocet) 5-325 MG tablet Indications: Lumbosacral spondylosis with radiculopathy Take 1 tablet by mouth 4 (four) times a day as needed for severe pain for up to 15 days 60 tablet 08/10/2024 08/25/2024 Active Start: 07-20-2024 End: 81-66-9392zuyg 1 tablet by mouth four times daily as needed for pain oxyCODONE-acetaminophen (Percocet) 5-325 MG tablet Indications: Lumbosacral spondylosis with radiculopathy Take 1 tablet by mouth 4 (four) times a day as needed for severe pain for up to 7 days 28 tablet 07/20/2024 07/27/2024 Active Start: 06-15-2024 End: 75-77-1911lmgv 1 tablet by mouth four times daily as needed for pain oxyCODONE-acetaminophen (Percocet) 5-325 MG tablet Indications: Lumbosacral spondylosis with radiculopathy Take 1 tablet by mouth 4 (four) times a day as needed for severe pain for up to 7 days 28 tablet 06/15/2024 06/22/2024 Active Start: 05-27-2024 End: 65-22-5984zpmj 1 tablet by mouth four times daily as needed for pain oxyCODONE-acetaminophen (Percocet) 5-325 MG tablet Indications: Lumbosacral spondylosis with radiculopathy Take 1 tablet by mouth 4 (four) times a day as needed for severe pain for up to 7 days 28 tablet 05/27/2024 06/03/2024 Active Start: 05-11-2024 End: 30-99-7714phiz 1 tablet by mouth four times daily as needed for pain oxyCODONE-acetaminophen (Percocet) 5-325 MG tablet Indications: Lumbosacral spondylosis with radiculopathy Take 1 tablet by mouth 4 (four) times a day as needed for severe pain for up to 7 days 28 tablet 05/11/2024 05/18/2024 Active Start: 13-41-7993tivt 1 tablet by mouth every four hours as needed for pain Oxycodone-Acetaminophen 5-325 mg tablet Active 1 - 2 TAB PO Q4H as needed for pain May 04, 2024 12:00amStart: 39-79-1200Xasdihwmq-Acetaminophen 5-325 mg tablet Active TAB PO May 04, 2024 12:00amStart: 04-02-2024 End: 95-31-3800qqlv 1 tablet by mouth four times daily as needed for pain oxyCODONE-acetaminophen (Percocet) 5-325 MG tablet Indications: Lumbosacral spondylosis with radiculopathy Take 1 tablet by mouth 4 (four) times a day as needed for severe pain for up to 7 days 28 tablet 04/02/2024 04/09/2024 Active Start: 03-17-2024 End: 65-77-7811ltwq 1 tablet by mouth four times daily as needed for pain oxyCODONE-acetaminophen (Percocet) 5-325 MG tablet Indications: Lumbosacral spondylosis with radiculopathy Take 1 tablet by mouth 4 (four) times a day as needed for severe pain for up to 7 days 28 tablet 03/17/2024 03/24/2024 Active Start: 10-06-2020 End: 08-51-0950vbqm 1 tablet by mouth every four to six hours as needed for pain Oxycodone-Acetaminophen (Percocet) 5-325 mg tablet Discontinued 1 TAB PO EVERY 4-6 HOURS as needed for pain 14 3 October 06, 2020 March 26, 2024 12:36pm Start: 06-12-2019 End: 84-77-6961hgvw 1 tablet by mouth every four hours as needed for pain Oxycodone-Acetaminophen (Percocet) 5-325 mg tablet Discontinued 1 TAB PO Q4H as needed for pain 20 June 12, 2019 June 17, 2019 2:[id number] 200 actuat albuterol 0.09 mg/actuat metered dose inhaler (20 sources)beta2-Adrenergic AgonistStart: 09-22-2024 End: 72-25-3472zoav 2 puff(s) by inhalation every four hours for wheezing albuterol HFA 90 mcg/act inhaler Indications: Chronic obstructive pulmonary disease, unspecified COPD type (HCC) Inhale 2 puffs every 4 (four) hours if needed for wheezing 18 g 5 11/10/2024 ActiveStart: 21-89-7476eeqpiovvn (2.5 MG/3ML) 0.083% nebulizer solution Indications: Chronic obstructive pulmonary disease, unspecified COPD type (HCC) Take 3 mL (2.5 mg) by nebulization every 4 (four) hours if needed for wheezing or shortness of breath 75 mL 3 07/07/2024 ActiveStart: 50-57-7164pkkr 2 puff(s) by mouth every four hours as needed for wheezingalbuterol HFA 90 mcg/act inhaler Indications: Chronic obstructive pulmonary disease, unspecified COPD type (CMS/HCC) INHALE 2 (TWO) Puffs BY MOUTH EVERY 4 HOURS NEEDED FOR WHEEZING or SHORTNESS OFBREATH 18 g 3 06/22/2024 ActiveStart: 61-28-1244xedd 2 puff(s) by inhalation every four hours for wheezingalbuterol HFA 90 mcg/act inhaler Indications: Chronic obstructive pulmonary disease, unspecified COPD type (CMS/HCC) Inhale 2 puffs every 4 (four) hours if needed for wheezing or shortness of breath 18 g 3 01/14/2024 Active Start: 06-12-2019 End: 07-61-7714nnoy 2.5 mg by inhalation every three hours as neededAlbuterol Sulfate 2.5 mg /3 mL (0.083 %) Solution For Nebulization Discontinued 2.5 MG INHALATION Q3H as needed for Shortness Of Breath 0 June 12, 2019 12:00am June 17, 2019 2:24pmStart: 05-21-2019 End: 47-20-0472bspl 1 puff(s) by inhalation every four hours as needed for wheezingAlbuterol Sulfate (Ventolin Hfa) 90 mcg/actuation Hfa Aerosol Inhaler Active 2 PUFF INHALATION Q4H as needed for Shortness Of Breath Or Wheezing June 17, 2019 12:00amALPRAZolam 1 mg oral tablet (20 sources)BenzodiazepineStart: 11-19-2024 End: 06-35-6002tlvq 1 tablet by mouth four times daily as needed for anxiety ALPRAZolam (Xanax) 1 MG tablet Indications: Generalized anxiety disorder Take 1 tablet (1 mg) by mouth 4 (four) times a day as needed for anxiety 120 tablet 02/10/2025 ActiveStart: 09-22-2024 End: 05-32-8845vkfk 1 tablet by mouth four times daily as needed for anxiety ALPRAZolam (Xanax) 1 MG tablet Indications: Generalized anxiety disorder (CMS/HCC) Take 1 tablet (1mg) by mouth 4 (four) times a day as needed for anxiety 120 tablet 10/26/2024 ActiveStart: 73-04-7794vlqm 1 tablet by mouth three times daily as needed for anxietyAlprazolam 1 mg tablet Active 1 MG PO Three times daily as needed for anxiety March 25, 2024 11:00pmStart: 02-14-2024 End: 25-53-5153fbfk 1 tablet by mouth four times daily as needed for anxiety ALPRAZolam (Xanax) 1 MG tablet Indications: Generalized anxiety disorder (CMS/HCC) TAKE 1 TABLET BYMOUTH FOUR TIMES DAILY NEEDED FOR ANXIETY 120 tablet 08/25/2024 ActiveStart: 06-12-2019 End: 14-88-4676rvlc 1 tablet by mouth twice daily as needed for anxiety Alprazolam 0.5 mg Tablet Discontinued 0.5 MG PO Twice daily as needed for Anxiety 0 June 17, 2019 12:00am March 26, 2024 12:36pmStart: 05-21-2019 End: 72-99-4943owxv 1 tablet by mouth three times daily as needed for anxiety Alprazolam 0.5 mg tablet Discontinued 0.5 MG PO Three times daily as needed for Anxiety May 21, 2019 12:00am June 12, 2019 11:07amatorvastatin 40 mg oral tablet (20 sources)HMG-CoA Reductase InhibitorStart: 32-97-8130fyse 1 tablet by mouth at bedtimeatorvastatin (Lipitor) 40 MG tablet Take 40 mg by mouth at bedtime 05/12/2023 ActiveStart: 05-21-2019 End: 39-63-3345cqkc 1 tablet by mouth at bedtimeatorvastatin (Lipitor) 40 MG tablet Take 40 mg by mouth at bedtime 05/12/2023 Activebaclofen 10 mg oral tablet (20 sources)gamma-Aminobutyric Acid-ergic Agonist End: 30-05-1200gjih 1 tablet by mouth three times daily as needed for muscle spasmsbaclofen (Lioresal) 10 MG tablet Take 10 mg by mouth 3 (three) times a day as needed for muscle spasms 11/10/2024 Dgnfqmcgtwnd88 actuat budesonide 0.16 mg/actuat / formoterol fumarate 0.0045 mg/actuat metered dose inhaler (20 sources)Corticosteroid, beta2-Adrenergic AgonistStart: 09-22-2024 End: 54-64-8946efri 2 puff(s) by inhalation in the morningbudesonide-formoterol (Symbicort) 160-4.5 MCG/ACT inhaler Indications: Chronic obstructive pulmonary disease, unspecified COPD type (HCC) Inhale 2 puffs in the morning and 2 puffs before bedtime. Rinse mouth with water after use to reduce aftertaste and incidence of candidiasis. Do not swallow. 1 each 5 11/10/2024 ActiveStart: 75-75-9043Kuvpscrhtq-Formoterol (Symbicort) 80-4.5 mcg/actuation HFA aerosol inhaler Active 1 INH INHALATION Twice daily March 25, 2024 11:00pmtake 2 puff(s) by inhalation in the morningbudesonide-formoterol (Symbicort) 160-4.5 MCG/ACT inhaler Inhale 2 puffs in the morning and 2 puffsbefore bedtime. Rinse mouth with water after use to reduce aftertaste and incidence of candidiasis.Do not swallow.. Activedoxepin hydrochloride 75 mg oral capsule (20 sources)Tricyclic AntidepressantStart: 09-35-2403Udzygbo Active MG PO March 25, 2024 11:00pmStart: 60-88-1397Qrdegfq Active MG PO March 26, 2024 12:00amStart: 03-17-2024 End: 71-56-1392rzuk 1 capsule by mouth at bedtimedoxepin (SINEquan) 75 MG capsule Indications: Primary insomnia Take 1 capsule (75 mg) by mouth at bedtime 30 capsule 5 03/17/2024 02/15/2025 DiscontinuedhydroCHLOROthiazide 25 mg oral tablet (20 sources)Thiazide DiureticStart: 79-39-8022garm 1 tablet by mouth once daily Hydrochlorothiazide 12.5 mg tablet Active 12.5 MG PO Daily May 04, 2024 12:00amStart: 07-04-2023 End: 65-38-7252diug 2 tablets by mouth once dailyhydroCHLOROthiazide (HYDRODiuril) 25 MG tablet Indications: Benign hypertension Take 2 tablets (50 m g) by mouth Daily 60 tablet 5 12/10/2024 ActiveStart: 05-21-2019 End: 00-42-6801uyam 1 tablet by mouth once dailyHydrochlorothiazide 25 mg tablet Discontinued 25 MG PO Daily June 13, 2019 12:00am June 17, 2019 2:24pmlactulose 667 mg/ml oral solution (8 sources)Osmotic LaxativeStart: 08-24-2024 End: 14-26-9393ojjb 30 mL by mouth twice daily as needed for constipation lactulose 20 gram/30 mL oral solution Indications: Chronic constipation Take 30 mL (20 g) by mouth 2 (two) times a day as needed (Constipation) 237 mL 08/24/2024 11/10/2024 Xbtbbcqzrbdj93 hr metFORMIN hydrochloride 500 mg extended release oral tablet (20 sources)BiguanideStart: 04-23-2024 End: 98-04-2614hpmu 1 tablet by mouth every twenty-four hours in the morning metFORMIN XR (Glucophage-XR) 500 MG 24 hr tablet Indications: Type 2 diabetes mellitus with hyperglycemia, without long-term current use of insulin (HCC) Take 1 tablet (500 mg) by mouth in the morning and 1 tablet (500 mg) before bedtime. 180 tablet 3 11/10/2024 ActiveStart: 42-01-1819zchz 1 tablet by mouth twice daily at mealtimeMetformin 500 mg Tablet Active 500 MG PO Twice daily with meals 60 30 June 17, 2019 12:00amStart: 05-21-2019 End: 14-59-4269krim 1 tablet by mouth twice daily at mealtimeMetformin 500 mg tablet extended release 24 hr Discontinued 500 MG PO Twice daily with meals May 21, 2019 12:00am June 17, 2019 2:24pmtake 1 tablet by mouth every twenty-four hours in the morningmetFORMIN XR (Glucophage-XR) 500 MG 24 hr tablet Take 500 mg by mouth in the morning and 500 mg before bedtime. Active polyethylene glycol 3350 43827 mg powder for oral solution (20 sources)Osmotic LaxativeStart: 52-54-5071bwdwgyxuloav glycol, PEG, 3350 (MiraLax) 17 GM/SCOOP powder Indications: Chronic constipation Take 17 g by mouth Daily 510 g 3 08/24/2024 ActivepredniSONE 50 mg oral tablet (2 sources)Start: 03-17-2024 End: 41-43-3905xvuu 1 tablet by mouth once dailypredniSONE (Deltasone) 50 MG tablet Indications: Lumbosacral spondylosis with radiculopathy Take 1 tablet (50 mg) by mouth Daily for 6 days 6 tablet 03/17/2024 03/23/2024 Activesemaglutide 14 mg oral tablet (20 sources)Start: 02-14-2024 End: 68-62-2844sgrh 1 tablet by mouth before mealtimesemaglutide (Rybelsus) 14 MG tablet Indications: Type 2 diabetes mellitus with hyperglycemia, without long-term current use of insulin (CMS/[facility]) Take 1 tablet (14 mg) by mouth in the morning. Take before meals. 30 tablet 5 04/23/2024 11/10/2024 Discontinued Semaglutide (2 sources)Start: 28-73-9217deuedu 1 mg by subcutaneous injection every week Semaglutide (Ozempic) 1 mg/dose (4 mg/3 mL) pen injector Active 1 MG SUBCUT every week May 13, 2024 12:00amStart: 24-96-4320Xcwigmcyvuu (Ozempic) 1 mg/dose (4 mg/3 mL) pen injector Active MG SUBCUT May 13, 2024 12:00am semaglutide (Ozempic, 1 MG/DOSE,) 4 MG/3ML solution pen-injector (20 sources)Start: 84-93-4640zhlzkf 1 mg by subcutaneous injection every week semaglutide (Ozempic, 1 MG/DOSE,) 4 MG/3ML solution pen-injector Indications: Type 2 diabetes mellitus with hyperglycemia, without long-term current use of insulin (HCC) Inject 1 mg under the skin 1 (one) time per week 3 mL 2 02/19/2025 ActiveStart: 48-06-3174emquqi 1 mg by subcutaneous injection every week semaglutide (Ozempic, 1 MG/DOSE,) 4 MG/3ML solution pen-injector Indications: Type 2 diabetes mellitus with hyperglycemia, without long-term current use of insulin (HCC) INJECT 1mg SUBCUTANEOUSLY (UNDER THE SKIN) ONCE A WEEK 3 mL 2 11/19/2024 ActiveStart: 52-45-8903wvwvnk 1 mg by subcutaneous injection every weeksemaglutide (Ozempic, 1 MG/DOSE,) 4 MG/3ML solution pen-injector Indications: Type 2 diabetes mellitus with hyperglycemia, without long-term current use of insulin (CMS/HCC) Inject 1 mg under the skin 1 (one) time per week 1 each 5 05/11/2024 ActiveSemaglutide (Rybelsus) 14 mg tablet (4 sources)Start: 69-64-7628xwgn 1 tablet by mouth once daily as needed Semaglutide (Rybelsus) 14 mg tablet Active 14 MG PO Daily as needed for takes when unable to take ozempic March 25, 2024 11:00pmStart: 03-26-2024 Semaglutide (Rybelsus) 14 mg tablet Active MG PO March 25, 2024 11:00pm Start: 37-98-7944Xjqszwmrzqt (Rybelsus) 14 mg tablet Active MG PO March 26, 2024 12:00amtiotropium 0.018 mg inhalation powder (20 sources)AnticholinergicStart: 78-90-1299iiwg 1 capsule by inhalation once dailytiotropium (Spiriva HandiHaler) 18 MCG inhalation capsule Indications: Chronic obstructive pulmonary disease, unspecified COPD type (HCC) Place 1 capsule (18 mcg) into inhaler and inhale Daily 30 capsule 5 11/10/2024 Active Start: 08-14-2023 End: 29-59-5319dwzq 1 capsule by inhalation in the morningtiotropium (Spiriva HandiHaler) 18 MCG inhalation capsule Indications: Chronic obstructive pulmonary disease, unspecified COPD type (CMS/HCC) Place 1 capsule (18 mcg) into inhaler and inhale in the morning. 30 capsule 11 08/14/2023 11/10/2024 Discontinued (Reorder)Tiotropium [place] (Spiriva With Handihaler) 18 mcg capsule, w/inhalation device (4 sources)Start: 89-97-7544iqti 1 capsule by inhalation once dailyTiotropium [place] (Spiriva With Handihaler) 18 mcg capsule, w/inhalation device Active 1 CAP INHALATION Daily March 25, 2024 11:00pm puncture 1 cap using device; one dose = 2 inhalationsStart: 16-47-3574tnaa 1 capsule by inhalation once daily Tiotropium [place] (Spiriva With Handihaler) 18 mcg capsule, w/inhalation device Active 1 CAP INHALATION Daily March 26, 2024 12:00am puncture 1 cap using device; one dose = 2 inhalationstriamcinolone acetonide 5 mg/ml topical cream (20 sources)CorticosteroidStart: 84-34-7606Mjybathlapupb Acetonide 0.5 % cream Active 1 APPLIC TOPICAL Daily May 13, 2024 12:00amStart: 05-13-2024 Triamcinolone Acetonide 0.5 % cream Active APPLIC TOPICAL May 13, 2024 12:00amStart: 79-01-2798eeocnxuataqzq (Kenalog) 0.5 % cream Indications: Dermatitis Apply topically 3 (three) times a day 60 g 2 05/11/2024 Active zolpidem tartrate 10 mg oral tablet (3 sources)gamma-Aminobutyric Acid-ergic AgonistStart: 12-02-2023 End: 31-88-3380txlfpnjr (Ambien) 10 MG tablet Indications: Primary insomnia Take 1 tablet (10 mg) by mouth as needed at bedtime for sleep 30 tablet 2 12/02/2023 03/17/2024 Discontinued Completed/Discontinued Medications MedicationDrug Class(es)DatesSig (Normalized)Sig (Original)amoxicillin 875 mg / clavulanate 125 mg oral tablet (4 sources)Penicillin-class AntibacterialStart: 06-18-2019 End: 83-50-9411mlgz 1 tablet by mouth twice dailyAmoxicillin-Pot Clavulanate 875-125 mg Tablet Discontinued 1 TAB PO Twice daily 20 June 18, 2019 12:00am March 26, 2024 12:36pmcyclobenzaprine hydrochloride 10 mg oral tablet (4 sources)Muscle RelaxantStart: 06-04-2019 End: 42-53-8791dxam 1 tablet by mouth every eight hours as needed for muscle spasmsCyclobenzaprine 10 mg Tablet Discontinued 10 MG PO Every 8 hours as needed for Muscle Spasm 29 04June 04, 2019 12:00am June 12, 2019 11:07am dexamethasone 4 mg oral tablet (4 sources)CorticosteroidStart: 06-04-2019 End: 47-74-8933ctsh 1 tablet by mouth twice dailyDexamethasone 4 mg tablet Discontinued 4 MG PO Twice daily 04 04June 04, 2019 12:00am 2018 3:37pmdocusate sodium 100 mg oral capsule (4 sources)Start: 06-17-2019 End: 93-09-8170cmjc 1 capsule by mouth twice daily as needed for constipation Docusate Sodium 100 mg Capsule Discontinued 100 MG PO Twice daily as needed for Constipation 60 June 17, 2019 12:00am March 26, 2024 12:36pm fluticasone propionate 0.05 mg/actuat metered dose nasal spray (4 sources)CorticosteroidStart: 05-21-2019 End: 53-99-5822Dujtkjrsdvx Propionate 50 mcg/actuation spray,suspension Discontinued 2 SPRAY INTRANASAL Daily as needed for Nasal Congestion May 21, 2019 12:00am June 17, 2019 2:24pm30 actuat fluticasone furoate 0.1 mg/actuat / vilanterol 0.025 mg/actuat dry powder inhaler (4 sources)Corticosteroid, beta2-Adrenergic AgonistStart: 05-21-2019 End: 39-55-5362Fyhcpitsmfq Furoate-Vilanterol (Breo Ellipta) 100-25 mcg/dose Blister With Device Discontinued 1 INH INHALATION Daily May 21, 2019 12:00March 26, 2024 12:31pm12 hr guaiFENesin 600 mg extended release oral tablet (4 sources)Start: 06-17-2019 End: 50-34-9596nsgb 1 tablet by mouth twice daily, then take 1 tablet by mouth every twelve hoursGuaifenesin (Mucinex) 600 mg Tablet Extended Release 12hr Discontinued 600 MG PO Twice daily 60 June 17, 2019 12:00am March 26, 2024 12:36pmlisinopril 20 mg oral tablet (4 sources)Angiotensin Converting Enzyme InhibitorStart: 05-21-2019 End: 69-31-2365jrdm 1 tablet by mouth once daily in the morningLisinopril 20 mg tablet Discontinued 20 MG PO Every morning May 21, 2019 12:00am June 12, 2019 11:07ammirtazapine 7.5 mg oral tablet (4 sources)Start: 06-17-2019 End: 55-21-8258wtzf 1 tablet by mouth once daily at bedtimeMirtazapine 7.5 mg Tablet Discontinued 7.5 MG PO Daily at bedtime 30 June 17, 2019 12:00am March 26, 2024 12:36pm24 hr nicotine 0.875 mg/hr transdermal system (8 sources)Cholinergic Nicotinic AgonistStart: 06-04-2019 End: 43-77-5513daplt 1 dose transdermal route every twenty-four hoursNicotine 21 mg/24 hr Patch 24 Hour Discontinued 1 EACH TRANSDERML Daily 30 June 17, 2019 12:00am March 26, 2024 12:36pmStart: 06-04-2019 End: 31-71-4104Tidnkouq Discontinued 1 EACH TRANSDERML Daily 30 June 17, 2019 12:00am March 26, 2024 12:36pmomeprazole 20 mg delayed release oral capsule (12 sources)Proton Pump InhibitorStart: 06-17-2019 End: 76-61-2149ckvm 2 capsules by mouth once dailyOmeprazole 20 mg Capsule,Delayed Release(Dr/Ec) Discontinued 40 MG PO Daily 60 June 17, 2019 12:00am March 26, 2024 12:36pmStart: 06-17-2019 End: 64-17-7239fbno 40 mg by mouth once dailyOmeprazole Discontinued 40 MG PO Daily 60 June 17, 2019 12:00am March 26, 2024 12:36pmStart: 06-12-2019 End: 95-93-5413areh 1 capsule by mouth once dailyOmeprazole 40 mg capsule,delayed release(DR/EC) Discontinued 40 MG PO Daily 0 June 12, 2019 11:06am June 17, 2019 2:24pmStart: 05-21-2019 End: 96-17-5411adlq 1 capsule by mouth twice dailyOmeprazole 40 mg capsule,delayed release(DR/EC) Discontinued 40 MG PO Twice daily May 21, 2019 12:00am June 12, 2019 11:07amoxyCODONE hydrochloride 5 mg oral tablet (8 sources)Opioid AgonistStart: 06-04-2019 End: 03-02-1970hnjl 1 tablet by mouth every four to six hours as needed for pain Oxycodone 5 mg tablet Discontinued 5 MG PO EVERY 4-6 HOURS as needed for pain - June 04, 2019 3:27pm June 04, 2019 3:34pmmicroencapsulated potassium chloride 20 meq extended release oral tablet (4 sources)Start: 06-17-2019 End: 01-36-7028Lvbbtgqma Chloride (Klor-Con M20) 20 mEq Tablet,Er Particles/Crystals Discontinued 20 MEQ PO Daily June 17, 2019 12:00am March 26, 2024 12:36pmprazosin 2 mg oral capsule (12 sources)alpha-Adrenergic BlockerStart: 06-05-2019 End: 36-50-0805lxml 1 capsule by mouth at bedtimePrazosin 2 mg capsule Discontinued 2 MG PO Bedtime June 17, 2019 2:23pm March 26, 2024 12:36pmtamsulosin hydrochloride 0.4 mg oral capsule (16 sources)alpha-Adrenergic BlockerStart: 06-12-2019 End: 15-90-5707aibw 1 capsule by mouth once dailyTamsulosin 0.4 mg Capsule Discontinued 0.4 MG PO Daily June 17, 2019 12:00am March 26, 2024 12:36pmStart: 06-05-2019 End: 49-54-2443kedp 2 capsules by mouth once dailyTamsulosin 0.4 mg capsule Discontinued 0.8 MG PO Daily June 05, 2019 12:00am June 12, 2019 11:10amStart: 06-05-2019 End: 62-00-0223nqzc 0.8 mg by mouth once dailyTamsulosin Discontinued 0.8 MG PO Daily June 05, 2019 12:00am June 12, 2019 11:10amStart: 05-21-2019 End: 73-40-1412kusi 1 capsule by mouth once daily in the morningTamsulosin 0.4 mg capsule Discontinued 0.4 MG PO Every morning May 21, 2019 12:00am 2018 7:33am Problems Active Problems Problem ClassificationProblemDateDocumented DateEpisodic/Chronic Administrative/social admission (4 sources)Other reduced mobility; Translations: [Impaired mobility and activities of daily living]02-62-3038AkqbjdywPprqacr on above:Problem List clean-up per request of Phys. 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 EHR CmteChronic obstructive pulmonary disease and bronchiectasis (20 sources)Chronic obstructive lung disease; Translations: [Chronic obstructive pulmonary disease, unspecified]Onset: 932031-67-3070EkfujurQlyitnfd mellitus with complications (20 sources)Type 2 diabetes mellitus with hyperglycemia; Translations: [Hyperglycemia due to type 2 diabetes mellitus]Onset: 74-11-6759VzpikidOdkbbudn mellitus without complication (4 sources)Diabetes mellitus; Translations: [Type 2 diabetes mellitus without complications]76-20-1595WcdwkvdAyxxcytn of white blood cells (4 sources)Leukocytosis; Translations: [Elevated white blood cell count, unspecified]92-35-2868PtxtehcRbveimt on above:Problem List clean-up per request of Phys. EHR CmteDisorders of lipid metabolism (20 sources)Hyperlipidemia, unspecified; Translations: [Dyslipidemia]Onset: 55-95-6346SaoffqkZlssswwmtg disorders (20 sources)Gastroesophageal reflux disease; Translations: [Gastro-esophageal reflux disease without esophagitis]Onset: 122046-65-1885PprhmobZkoigky on above:Problem List clean-up per request of Phys. EHR CmteEssential hypertension (20 sources)Essential (primary) hypertension; Translations: [Hypertensive disorder]Onset: 993981-71-5595IeatkxcTdtpc of unknown origin (8 sources)Fever; Translations: [Fever, unspecified]29-69-2107DgqzipbbVqnuifz on above:Problem List clean-up per request of Phys. EHR CmteFluid and electrolyte disorders (4 sources)Hyponatremia; Translations: [Hypo-osmolality and hyponatremia] 21-83-6574WlscvkcjSofsurc on above:Problem List clean-up per request of Phys. EHR CmteHyperplasia of prostate (20 sources)Benign prostatic hyperplasia; Translations: [Benign prostatic hyperplasia without lower urinary tract symptoms]Onset: ChronicMiscellaneous mental health disorders (20 sources)Primary insomnia; Translations: [Primary insomnia]Onset: 09-09-2023 27-43-4274ObkazsdKzjateo (4 sources)Onychomycosis; Translations: [Tinea unguium]86-97-4048Pozbomdn Osteoarthritis (20 sources)Primary coxarthrosis, bilateral; Translations: [Bilateral primary osteoarthritis of hip]Onset: 396819-50-7490BcweashThhtn acquired deformities (20 sources)Acquired kyphosis; Translations: [Other secondary kyphosis, cervical region]Onset: 507543-19-8110PsjyxkrKulmu aftercare (5 sources)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 EHR CmteOther connective tissue disease (4 sources)History of cervical spine fusion; Translations: [Arthrodesis status] 05-44-0911KxbvlnlpEckyxid on above:Problem List clean-up per request of Phys. EHR CmteOther connective tissue disease (2 sources)Pain of toes of bilateral feet; Translations: [Pain in right toe(s)] 37-96-7028JqyuecsxEshyl injuries and conditions due to external causes (4 sources)Minor head injury; Translations: [Unspecified injury of head, initial encounter]62-11-4890NkoyilvsNszafbq on above:Problem List clean-up per request of Phys. EHR CmteOther lower respiratory disease (4 sources)Respiratory obstruction; Translations: [Other specified respiratory disorders]14-74-7665EuetmbsrHxoryak on above:Problem List clean-up per request of Phys. EHR CmteOther nervous system disorders (2 sources)Chronic pain; Translations: [Other chronic pain]19-19-8123Xxwwtgy Other nervous system disorders (4 sources)Other chronic pain; Translations: [Other chronic pain]Onset: 388160-26-6937QbwfbwdSvxcd nervous system disorders (4 sources)Postoperative pain ; Translations: [Other acute postprocedural pain] 41-92-1584MacqladfDpacmzx on above:Problem List clean-up per request of Phys. EHR CmteOther nutritional; endocrine; and metabolic disorders (1 source)Morbid (severe) obesity due to excess calories; Translations: [MORBID SEVERE OBES D/T EXCESS MARIA FERNANDA]Onset: 21-25-6427AlauevuEprvc nutritional; endocrine; and metabolic disorders (17 sources)Morbid obesity; Translations: [Morbid (severe) obesity due to excess calories]Onset: 715824-20-3935KcibdtiMzpib nutritional; endocrine; and metabolic disorders (2 sources)Obesity caused by energy imbalance; Translations: [Morbid (severe) obesity due to excess calories]38-10-5715VgwqkzrVnpbl nutritional; endocrine; and metabolic disorders (20 sources)Severe obesity; Translations: [Class 3 severe obesity due to excess calories with serious comorbidity and body mass index (BMI) of 40.0 to 44.9 in adult ([facility])]Onset: 367382-16-1245EpleteoYkluk skin disorders (4 sources)Asteatosis cutis; Translations: [Xerosis cutis]89-47-1563Pfiozibd Other upper respiratory disease (20 sources)Allergic rhinitis due to pollen; Translations: [Allergic rhinitis due to pollen]Onset: 412380-31-3127LgvpaztNuldfvst codes; unclassified (4 sources)Tobacco user; Translations: [Tobacco use]18-73-9887Pzrjpyin Respiratory failure; insufficiency; arrest (adult) (4 sources)Respiratory failure; Translations: [Respiratory failure, unspecified, unspecified whether with hypoxia or hypercapnia]60-96-1598RltgusluYpopjso on above:Problem List clean-up per request of Phys. EHR CmteSpondylosis; intervertebral disc disorders; other back problems (20 sources)Cervical spondylosis; Translations: [Other spondylosis with myelopathy, cervical region]Onset: 571111-44-6642WwsumqeRxydwjk on above: Problem List clean-up per request of Phys. 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 EHR CmteOther nutritional; endocrine; and metabolic disorders (20 sources)Body mass index 30+ - obesity; Translations: [Obesity, unspecified] Onset: 08-05-2023 Resolved: 095045-05-2777PywhkfuOuanj screening for suspected conditions (not mental disorders or infectious disease) (20 sources)Encounter for screening for malignant neoplasm of prostate; Translations: [Patient encounter status]Onset: 999899-07-1346Ftrkgvos Spondylosis; intervertebral disc disorders; other back problems (20 sources)Neck pain; Translations: [Cervicalgia]Onset: 960120-41-1313 EpisodicComment on above:Problem List clean-up per request of Phys. EHR Cmte Results Test NameValueInterpretationReference RangeFacilityMLR HEMOGLOBIN A1Con 17-74-5383Nzrfxra [Mass/Vol]143 mg/dLNOMS ZcdicxqxxaRbP4j (Bld) [Mass fraction] 6.6 %High4.5 - 6.2 %NOMS HealthcareComment on above:ADA RECOMMENDED LIMIT 4.0 - 6.0 ADA THERAPEUTIC TARGET < 7.0 ACTION SUGGESTED > 7.0 Interpretation and review of laboratory resultsAbnormalNOMS HealthcareCLINISYNC NOMS HealthcareEMG 2 Extremitieson 26-02-8644GVRN HealthcareNVC 11-12 Nerveson 70-91-5551POUW HealthcareXR CERVICAL SPINE 2-3Von 44-45-4397[place] [address] XRay Report Signed Patient: SAMEER MONTALVO MR#: [id number] : 1960 Acct:[id number] Age/Sex: 64 / M ADM Date: 04/04/24 Loc: [facility] Attending Dr: KarenStaff Physician Cait Ordering Physician: Karen CowartStaff Cait Date of Service: 04/04/24 Procedure(s): XR cervical spine 2-3V Accession Number(s): [id number] cc: Gerber Salazar M.D.; Jessy Cowart M.D. The [address] [address] Patient Name: SAMEER MONTALVO MRN: [id number] date: 1960 Sex: M Assigned Patient Location: [facility] Current Patient Location: Accession/Order Number: [id number] Exam Date: 04/04/2024 10:58 Report Date: 04/05/2024 08:16 At the request of: NON-STAFF PHYSICIAN Procedure: XR cervical spine 2-3V EXAMINATION: XR cervical spine 2-3V HISTORY: Neck pain COMPARISON: XR C-spine 08/26/2019 FINDINGS: BONES: Mechanical fusion C3-C7 via anterior plate and screws; no appreciable hardware fracture loosening. Reversal normal lordotic curvature; unchanged. Multilevel moderate degenerative facet arthropathy. DISC SPACES: Osseous fusion C3-C4 through C6-C7. PARASPINOUS: Negative. No paraspinous abnormality is seen. OTHER: Negative. XR/XR cervical spine 2-3V IMPRESSION: 1. Grossly stable surgical changes and degenerative changes. Limited evaluation of lower cervical spine due to obscuration by shoulder structures. Electronically authenticated by: NATO MAGANA Date: 04/05/2024 08:16 Dictated By: Nato Magana M.D. Signed By: 04/05/24819 DD/ 5 TD/TT: Medical Collections Representative:TBHRadiology, Radiologist, MD - 04/05/2024 [place] [address] XRay Report Signed Patient: SAMEER MONTALVO MR#: [id number] : 1960 Acct:[id number] Age/Sex: 64 / M ADM Date: 04/04/24 Loc: RAD Attending Dr: Non-Staff Physician Cait Ordering Physician: PhysicianJessy M.D. Date of Service: 04/04/24 Procedure(s): XR cervical spine 2-3V Accession Number(s): [id number] cc: Gerber Salazar M.D.; Jessy Cowart M.D. The [place] [id number] Patient Name: SAMEER MONTALVO MRN: [id number] date: 1960 Sex: M Assigned Patient Location: RAD Current Patient Location: Accession/Order Number: [id number] Exam Date: 04/04/2024 10:58 Report Date: 04/05/2024 08:16 At the request of: NON-STAFF PHYSICIAN Procedure: XR cervical spine 2-3V EXAMINATION: XR cervical spine 2-3V HISTORY: Neck pain COMPARISON: XR C-spine 08/26/2019 FINDINGS: BONES: Mechanical fusion C3-C7 via anterior plate and screws; no appreciable hardware fracture loosening. Reversal normal lordotic curvature; unchanged. Multilevel moderate degenerative facet arthropathy. DISC SPACES: Osseous fusion C3-C4 through C6-C7. PARASPINOUS: Negative. No paraspinous abnormality is seen. OTHER: Negative. XR/XR cervical spine 2-3V IMPRESSION: 1. Grossly stable surgical changes and degenerative changes. Limited evaluation of lower cervical spine due to obscuration by shoulder structures. Electronically authenticated by: NATO MAGANA Date: 04/05/2024 08:16 Dictated By: Nato Magana M.D. Signed By: 04/05/24819 DD/ 5 TD/TT: Medical Collections Representative: GISELLA HealthcareRadiology Study observation (narrative)NOM HealthcareXR CERVICAL SPINE 2-3VOrdered By: Radiologist Radiology on 73-05-4499GAJV Healthcare Work Phone: XR LUMBAR SPINE MIN 4Von [phone] [address] XRay Report Signed Patient: SAMEER MONTALVO MR#: [id number] : 1960 Acct:[id number] Age/Sex: 64 / M ADM Date: 04/04/24 Loc: [facility] Attending Dr: Non-Staff Physician Cait Ordering Physician: PhysicianNonCorneliaStaff Cait Date of Service: 04/04/24 Procedure(s): XR lumbar spine min 4V Accession Number(s): [id number] cc: Gerber Salazar M.D.; Jessy Cowart M.D. The [place] [id number] Patient Name: SAMEER MONTALVO MRN: [id number] date: 1960 Sex: M Assigned Patient Location: RAD Current Patient Location: RAD Accession/Order Number: [id number] Exam Date: 04/04/2024 10:58 Report Date: 04/05/2024 08:23 At the request of: NON-STAFF PHYSICIAN Procedure: XR lumbar spine min 4V EXAMINATION: XR lumbar spine min 4V HISTORY: Low back pain COMPARISON: No relevant comparison available. FINDINGS: BONES: Mild anterior wedging of L1. Grade 1 retrolisthesis of L2 on 3 and; no change in alignment during flexion and extension. Prominent sclerotic degenerative endplate changes at C2-C3. Mild degenerative facet arthropathy L4-L5, L5-S1. DISC SPACES: Marked narrowing L2-L3. Moderate narrowing L1-L2, and L4-L5. Mild narrowing at remaining levels. PARASPINOUS: Negative. No paraspinous abnormality is seen. OTHER: Negative. XR/XR lumbar spine min 4V IMPRESSION: 1. Mild anterior wedging of L1 vertebral body favoring remote compression fracture. 2. L2-L3 marked degenerative disc disease. Grade 1 retrolisthesis of L2 on 3 without appreciable change during flexion and extension. 3. Multilevel degenerative disc disease Electronically authenticated by: NATO MAGANA Date: 04/05/2024 08:23 Dictated By: Nato Magana M.D. Signed By: 04/05/24825 DD/ 2 TD/TT: Medical Collections Representative:DEBRAHRadiology, Radiologist, - 04/05/2024 [place] [address] XRay Report Signed Patient: SAMEER MONTALVO MR#: [id number] : 1960 Acct:[id number] Age/Sex: 64 / M ADM Date: 04/04/24 Loc: [facility] Attending Dr: Vanessa-Staff Physician Chavira Ordering Physician: Jessy Cowart M.D. Date of Service: 04/04/24 Procedure(s): XR lumbar spine min 4V Accession Number(s): [id number] cc: Gerber Salazar M.D.; Jessy Cowart M.D. The [place] [id number] Patient Name: SAMEER MONTALVO MRN: [id number] date: 1960 Sex: M Assigned Patient Location: [facility] Current Patient Location: [facility] Accession/Order Number: [id number] Exam Date: 04/04/2024 10:58 Report Date: 04/05/2024 08:23 At the request of: NON-STAFF PHYSICIAN Procedure: XR lumbar spine min 4V EXAMINATION: XR lumbar spine min 4V HISTORY: Low back pain COMPARISON: No relevant comparison available. FINDINGS: BONES: Mild anterior wedging of L1. Grade 1 retrolisthesis of L2 on 3 and; no change in alignment during flexion and extension. Prominent sclerotic degenerative endplate changes at C2-C3. Mild degenerative facet arthropathy L4-L5, L5-S1. DISC SPACES: Marked narrowing L2-L3. Moderate narrowing L1-L2, and L4-L5. Mild narrowing at remaining levels. PARASPINOUS: Negative. No paraspinous abnormality is seen. OTHER: Negative. XR/XR lumbar spine min 4V IMPRESSION: 1. Mild anterior wedging of L1 vertebral body favoring remote compression fracture. 2. L2-L3 marked degenerative disc disease. Grade 1 retrolisthesis of L2 on 3 without appreciable change during flexion and extension. 3. Multilevel degenerative disc disease Electronically authenticated by: NATO MAGANA Date: 04/05/2024 08:23 Dictated By: Nato Magana M.D. Signed By: 04/05/24825 DD/ 2 TD/TT: Medical Collections Representative: [facility] RIGGS CENTERMoustapha HealthcareRadiology Study observation (narrative)[facility] HealthcareXR LUMBAR SPINE MIN 4VOrdered By: Radiologist Radiology on 53-44-6723[facility] Work Phone: LUMBAR SPINE WO CONon 64-10-3032[place] [address] Magnetic Resonance Report Signed Patient: SAMEER MONTALVO MR#: [id number] : 1960 Acct:[id number] Age/Sex: 63 / M ADM Date: 09/18/23 Loc: MRI Attending Dr: Gerber Salazar M.D. Ordering Physician: Gerber Salazar M.D. Date of Service: 09/18/23 Procedure(s): MR lumbar spine wo con Accession Number(s): [id number] cc: Gerber Salazar M.D. [place] [address] Patient Name: SAMEER MONTALVO MRN: [id number] date: 1960 Sex: M Assigned Patient Location: MRI Current Patient Location: MRI Accession/Order Number: [id number] Exam Date: 09/18/2023 09:52 Report Date: 09/18/2023 11:25 At the request of: GERBER ASLAZAR Procedure: MR lumbar spine wo con EXAM: MR lumbar spine wo con CLINICAL INDICATION: Degenerative Disc Disease M51.36 p COMPARISON: None TECHNIQUE/PROTOCOL: Noncontrast lumbar spine MR protocol (Sagittal T1, T2, STIR and axial T1, T2 sequences). FINDINGS: Segmentation: Normal. Conus: Terminates at L1. Spinal Cord and Cauda Equina: Normal. Pedicles: Digitally shortened. Epidural Space: Prominent dorsal epidural lipomatosis throughout the lumbar spine. Alignment: Normal. Marrow Signal: Degenerative marrow [...] hypertrophy and epidural lipomatosis overall results in moderate spinal canal narrowing. No high-grade foraminal narrowing. L1-L2: Disc bulge with left central disc protrusion together indent the ventral thecal sac. These in conjunction with mild bilateral facet/ligamentum flavum hypertrophy and epidural lipomatosis overall result in moderate spinal canal narrowing. Mild bilateral foraminal narrowing. L2-L3: Disc bulge effaces the ventral thecal sac. This in conjunction with mild bilateral facet/ligamentum flavum hypertrophy and epidural lipomatosis overall results in advanced spinal canal narrowing. Disc material extends into the right foramen and results in moderate right foraminal narrowing. Mild left foraminal narrowing. L3-L4: Disc bulge effaces the ventral thecal sac. This in conjunction with mild bilateral facet/ligamentum flavum hypertrophy and epidural lipomatosis overall results in advanced spinal canal narrowing. Moderate to advanced bilateral foraminal narrowing. L4-L5: Disc bulge effaces the ventral thecal sac. This in conjunction with moderate bilateral facet/ligamentum flavum hypertrophy and epidural lipomatosis overall results in advanced spinal canal narrowing. Advanced bilateral foraminal narrowing. L5-S1: No disc bulge or herniation. No high-grade spinal canal or foraminal narrowing. Mild bilateral facet hypertrophy. MR/MR lumbar spine wo con IMPRESSION: 1. Multilevel spondylotic changes are superimposed on congenitally shortened pedicles and epidural lipomatosis. Spinal canal narrowing is advanced at L2-L3, L3-L4, and L4-L5. 2. Foraminal narrowing is advanced bilaterally at L4-L5. Foraminal narrowing is moderate to advanced bilaterally at L3-L4. Electronically authenticated by: FANI SCHAFER Date: 09/18/2023 11:25 Dictated By: Fani Schafer M.D. Signed By: 09/18/23 1128 DD/ 1125 (more content not included)...TBHRadiology, Radiologist, MD - 09/18/2023 The [place] [id number] Magnetic Resonance Report Signed Patient: SAMEER MONTALVO MR#: [id number] : 1960 Acct:[id number] Age/Sex: 63 / M ADM Date: 09/18/23 Loc: MRI Attending Dr: Gerber Salazar M.D. Ordering Physician: Gerber Salazar M.D. Date of Service: 09/18/23 Procedure(s): MR lumbar spine wo con Accession Number(s): [id number] cc: Gerber Salazar M.D. The [address] [address] Patient Name: SAMEER MONTALVO MRN: [id number] date: 1960 Sex: M Assigned Patient Location: MRI Current Patient Location: MRI Accession/Order Number: [id number] Exam Date: 09/18/2023 09:52 Report Date: 09/18/2023 [...] Prominent dorsal epidural lipomatosis throughout the lumbar spine. Alignment: Normal. Marrow Signal: Degenerative marrow [...] hypertrophy and epidural lipomatosis overall results in moderate spinal canal narrowing. No high-grade foraminal narrowing. L1-L2: Disc bulge with left central disc protrusion together indent the ventral thecal sac. These in conjunction with mild bilateral facet/ligamentum flavum hypertrophy and epidural lipomatosis overall result in moderate spinal canal narrowing. Mild bilateral foraminal narrowing. L2-L3: Disc bulge effaces the ventral thecal sac. This in conjunction with mild bilateral facet/ligamentum flavum hypertrophy and epidural lipomatosis overall results in advanced spinal canal narrowing. Disc material extends into the right foramen and results in moderate right foraminal narrowing. Mild left foraminal narrowing. L3-L4: Disc bulge effaces the ventral thecal sac. This in conjunction with mild bilateral facet/ligamentum flavum hypertrophy and epidural lipomatosis overall results in advanced spinal canal narrowing. Moderate to advanced bilateral foraminal narrowing. L4-L5: Disc bulge effaces the ventral thecal sac. This in conjunction with moderate bilateral facet/ligamentum flavum hypertrophy and epidural lipomatosis overall results in advanced spinal canal narrowing. Advanced bilateral foraminal narrowing. L5-S1: No disc bulge or herniation. No high-grade spinal canal or foraminal narrowing. Mild bilateral facet hypertrophy. MR/MR lumbar spine wo con IMPRESSION: 1. Multilevel spondylotic changes are superimposed on congenitally shortened pedicles and epidural lipomatosis. Spinal canal narrowing is advanced at L2-L3, L3-L4, and L4-L5. 2. Foraminal narrowing is advanced bilaterally at L4-L5. Foraminal narrowing is moderate to advanced bilaterally at L3-L4. Electronically authenticated by: FANI SCHAFER Date: 09/18/2023 11:25 Dictated By: Fani Schafer M.D. Signed By: 09/18/23 1128 DD/ 1125 TD/TT: Medical Collections Representative: [facility] RIGGS CENTERMoustapha [facility] HospitalRadiology Study observation (narrative)[facility] LUMBAR SPINE WO CONOrdered By: Radiologist Radiology on 09-16-6227VJRB [facility] [employer] Work Phone: cbc AUTO DIFFon 62-94-8527BPHT #0.1 103/ulNormal 0.0-0.1[facility] HospitalComment on above:Performed By: #### CBC #### [facility] [address] [place] [address] Dr. Puente ChangBasophils/100 WBC (Bld)0.5 %Normal0.2-2.0[facility] Comment on above:Performed By: #### CBC #### [facility] [address] [place] [address] Dr. Cindi Valdivia #0.2 103/ulNormal0.0-0.7The [facility] HospitalComment on above: Performed By: #### CBC #### [facility] [address] [place] [address] Dr. Cindi Bradfordosinophils/100 WBC (Bld)1.8 %Normal0.9-7.0[facility] Comment on above:Performed By: #### CBC #### [facility] [address] [place] [address] Dr. Cindi Bradfordrythrocyte distribution width (RBC) [Ratio]14.5 %Zsxwon21.0-15.0 [facility] HospitalComment on above:Performed By: #### CBC #### [facility] [address] [place] [address] Dr. Cindi UnderwoodHematocrit (Bld) [Volume fraction]52.4 %Newqqz95.0-54.0The [facility] HospitalComment on above:Performed By: #### CBC #### [facility] [address] [place] [address] Dr. Cindi UnderwoodHemoglobin (Bld) [Mass/Vol]17.3 g/bLWzuynl25.0-18.0The [facility] HospitalComment on above:Performed By: #### CBC #### [facility] [address] [place] [address] Dr. Cindi UnderwoodIG #0.04 10e3/ulCritically high0.00-0.03The [facility] Comment on above:Performed By: #### CBC #### [facility] [address] [place] [address] Dr. Cindi UnderwoodIG %0.4 %Normal0.0-0.5The [facility] HospitalComment on above: Performed By: #### CBC #### [facility] [address] [place] [address] Dr. Cindi Camejo #1.9 103/ulNormal1.2-3.8The [facility] HospitalComment on above:Performed By: #### CBC #### [facility] [address] [place] [address] Dr. Cindi Donaldmphocytes/100 WBC (Bld)20.8 %Rghnvh00.5-60.0The [facility] HospitalComment on above:Performed By: #### CBC #### [facility] [address] [place] [address] Dr. Cindi UnderwoodMANUAL DIFF REQNONormalThe [facility] HospitalComment on above: Performed By: #### CBC #### [facility] [address] [place] [address] Dr. Cindi Miller (RBC) [Entitic mass]30.7 dtSmsjzw27.9-34.0The [facility] HospitalComment on above:Performed By: #### CBC #### [facility] [address] [place] [address] Dr. Cindi CristobalHC (RBC) [Mass/Vol]33.0 g/pEEkjjxv64.9-35.2The [facility] HospitalComment on above:Performed By: #### CBC #### [facility] [address] [place] [address] Dr. Cindi CristobalV (RBC) [Entitic vol]93.1 eGWunzer91.0-94.0The [facility] HospitalComment on above:Performed By: #### CBC #### [facility] [address] [place] [address] Dr. Cindi Kruse #0.5 103/ulNormal0.3-0.8The [facility] HospitalComment on above:Performed By: #### CBC #### [facility] [address] [place] [address] Dr. Cindi Persaudocytes/100 WBC (Bld)5.6 %Normal1.7-12.0The [facility] Comment on above:Performed By: #### CBC #### [facility] [facility] [address] [place] [address] Dr. Cindi Andres #6.5 103/ulNormal1.4-6.5The [facility] HospitalComment on above:Performed By: #### CBC #### [facility] [address] [place] [address] Dr. Cindi Downsutrophils/100 WBC (Bld)70.9 %Zwypnt25.0-75.0The [facility] HospitalComment on above:Performed By: #### CBC #### [facility] [address] [place] [address] Dr. Cindi Araujolet mean volume (Bld) [Entitic vol]10.8 fLNormal9.5-13.5The [facility] HospitalComment on above:Performed By: #### CBC #### [facility] [address] [place] [address] Dr. Cindi UnderwoodPLT190 103/tnLmvhqy835-905Qac [facility] HospitalComment on above: Performed By: #### CBC #### [facility] [address] [address] [address] Cindi UnderwoodRBC5.63 106/ulNormal4.70-6.10The [facility] HospitalComhavenwyck hospital on above:Performed By: #### CBC #### [facility] [address] [address] [address] Cindi UnderwoodWBC9.1 103/ulNormal4.0-11.0The [facility] HospitalComhavenwyck hospital on above: Performed By: #### CBC #### [facility] [address] [address] [address] Cindi UnderwoodGLYCOHEMOGLOBIN A1Con 83-28-7102HJV RECOMMENDATIONSEE St[facility] HospitalComhavenwyck [facility] on above:Result Comment: ADA RECOMMENDED LIMIT 4.0 - 6.0 ADA THERAPEUTIC TARGET < 7.0 ACTION SUGGESTED > 7.0Performed By: #### A1C #### [facility] [address] [place] [address] Dr. Cindi UnderwoodGlucose [Mass/Vol]163 mg/dLNormCleveland Clinic South Pointe HospitalComment on above:Performed By: #### A1C #### [facility] [address] [address] [address] Cindi UnderwoodHbA1c (Bld) [Mass fraction]7.3 %Critically high4.5-6.2[facility] HospitalComment on above:Performed By: #### A1C #### [facility] [address] [address] [address] Cindi UnderwoodLIPID PROFILEon 79-92-1558INQQ-HDL RATIO NORMSEE [facility] CenterComhavenwyck hospital on above:Result Comment: 3.3 - 4.4 LOW RISK 4.4 - 7.1 AVERAGE RISK 7.1 - 11.0 MODERATE RISK >11.0 HIGH RISKPerformed By: #### LIPID, TSH, BMP, LIVER #### [facility] [address] [place] [address] Dr. Cindi UnderwoodCholesterol [Mass/Vol]189 mg/dLNormal<=200The [facility] Comment on above:Performed By: #### LIPID, TSH, BMP, LIVER #### [facility] [address] [address] [address] Cindi Rodriguezesterol in HDL [Mass/Vol]33 mg/dLCritically fvm17-61Slu [facility] on above:Performed By: #### LIPID, TSH, BMP, LIVER #### [facility] [address] [address] [address] Cindi Rodriguezesterol in LDL [Mass/Vol]123.6 mg/dLNoCleveland Clinic Marymount HospitalComhavenwyck hospital on above:Performed By: #### LIPID, TSH, BMP, LIVER #### [facility] [address] [place] [address] Dr. Cindi Stover.total/Cholesterol in HDL [Mass ratio]5.7 {ratio} NormalThe [facility] HospitalComhavenwyck hospital on above:Performed By: #### LIPID, TSH, BMP, LIVER #### [facility] [address] [place] [address] Dr. Cindi Diallo NORMAL> or = 60 mg/dl - LOW CARDIOVASCULAR RISK <40 mg/dl - HIGH CARDIOVASCULAR RISKBarberton Citizens HospitalComhavenwyck hospital on above:Performed By: #### LIPID, TSH, BMP, LIVER #### [facility] [address] [place] [address] Dr. Cindi Britton CALC NORMALSEE BELOWBarberton Citizens HospitalComhavenwyck hospital on above:Result Comment: <100 mg/dl OPTIMAL 100 - 129 mg/dl NEAR OR ABOVE OPTIMAL 130 - 159 mg/dl BORDERLINE HIGH 160 - 189 mg/dl HIGH >190 mg/dl VERY HIGH Performed By: #### LIPID, TSH, BMP, LIVER #### [facility] [address] [place] [address] Dr. Cindi UnderwoodTriglyceride [Mass/Vol]162 mg/dLCritically high<=150[facility] on above:Performed By: #### LIPID, TSH, BMP, LIVER #### [facility] [address] [place] [address] Dr. Cindi TylerLDL CALC32.4 mg/dLNoCleveland Clinic Marymount HospitalComment on above: Performed By: #### LIPID, TSH, BMP, LIVER #### [facility] [address] [place] [address] Dr. Cindi Ruano PROFILEon 41-00-3997Hqdtsft [Mass/Vol]3.7 g/dLNormal3.4-5.0 The [facility] HospitalComment on above:Performed By: #### LIPID, TSH, BMP, LIVER #### [facility] [address] [place] [address] Dr. Cindi UnderwoodAlbumin/Globulin [Mass ratio]0.9 {ratio}NormalThe [facility] HospitalComment on above:Performed By: #### LIPID, TSH, BMP, LIVER #### [facility] [address] [place] [address] Dr. Cindi Kapoor [Catalytic activity/Vol]89 U/ZByktrm96-853Axv [facility] HospitalComment on above:Performed By: #### LIPID, TSH, BMP, LIVER #### [facility] [address] [place] [address] Dr. Cindi Morgan [Catalytic activity/Vol]44 U/QMeigmc85-20Apn [facility] HospitalComment on above:Performed By: #### LIPID, TSH, BMP, LIVER #### [facility] [address] [place] [address] Dr. Cindi Corona [Catalytic activity/Vol]21 U/PSjvezj89-68Bic [facility] Cleveland Westment on above:Performed By: #### LIPID, TSH, BMP, LIVER #### [facility] [address] [place] [address] Dr. Cindi Rowe, CONJUGATED0.1 mg/dLNormal0.0-0.2[facility] Comment on above:Performed By: #### LIPID, TSH, BMP, LIVER #### [facility] [address] [place] [address] Dr. Cindi Oconnellirubin [Mass/Vol]0.6 mg/dLNormal0.2-1.0[facility] Comment on above:Performed By: #### LIPID, TSH, BMP, LIVER #### [facility] [address] [address] [address] Cindi UnderwoodGlobulin (S) [Mass/Vol]4.1 g/dLNormalThe [facility] HospitalComment on above:Performed By: #### LIPID, TSH, BMP, LIVER #### [facility] [address] [place] [address] Dr. Cindi UnderwoodProtein [Mass/Vol]7.8 g/dLNormal6.4-8.2The [facility] Comment on above:Performed By: #### LIPID, TSH, BMP, LIVER #### [facility] [address] [place] [address] Dr. Cindi UnderwoodMICROALBUMIN, RAND URon 51-57-0050nZLK3.9 mg/LNormal<=30.0The [facility] HospitalComment on above:Performed By: #### MALBR #### [facility] [address] [place] [address] Dr. Cindi UnderwoodPROF CHEM 8 (BAS METB)on 91-23-0287Yefvg gap [Moles/Vol]8.6 mmol/LNormalThe [facility] HospitalComment on above:Performed By: #### LIPID, TSH, BMP, LIVER #### [facility] [address] [place] [address] Dr. Cindi UnderwoodCalcium [Mass/Vol]9.2 mg/dLNormal8.5-10.1The [facility] Comment on above:Performed By: #### LIPID, TSH, BMP, LIVER #### [facility] [address] [address] [address] Cindi UnderwoodChloride [Moles/Vol]102 mmol/JDlyalr54-484Yfg [facility] Comment on above:Performed By: #### LIPID, TSH, BMP, LIVER #### [facility] [address] [place] [address] Dr. Cindi UnderwoodCO2 [Moles/Vol]34.3 mmol/LCritically high21.0-32.0The [facility] HospitalComment on above:Performed By: #### LIPID, TSH, BMP, LIVER #### [facility] [address] [place] [address] Dr. Cindi UnderwoodCreatinine [Mass/Vol]0.87 mg/dLNormal0.70-1.30The [facility] HospitalComment on above:Performed By: #### LIPID, TSH, BMP, LIVER #### [facility] [address] [address] [address] Cindi BradfordGFR-AF LIBYAN>60Normal>=60The [facility] HospitalComment on above:Performed By: #### LIPID, TSH, BMP, LIVER #### [facility] [address] [address] [address] Cindi BradfordGFR-NON AF LIBYAN>60Normal>=60The [facility] HospitalComment on above:Performed By: #### LIPID, TSH, BMP, LIVER #### [facility] [address] [address] [address] Cindi UnderwoodGlucose [Mass/Vol]132 mg/dLCritically ofws92-444Msp [facility] HospitalComment on above:Performed By: #### LIPID, TSH, BMP, LIVER #### [facility] [address] [address] [address] Cindi UnderwoodPotassium [Moles/Vol]3.9 mmol/LNormal3.5-5.1The [facility] Comment on above:Performed By: #### LIPID, TSH, BMP, LIVER #### [facility] [address] [address] [address] Cindi UnderwoodSodium [Moles/Vol]141 mmol/FTuwujs965-440Onz [facility] Comment on above:Performed By: #### LIPID, TSH, BMP, LIVER #### [facility] [address] [address] [address] Cindi UnderwoodUrea nitrogen [Mass/Vol]9.0 mg/dLNormal7.0-18.0The [facility] HospitalComment on above:Performed By: #### LIPID, TSH, BMP, LIVER #### [facility] [address] [address] [address] Cindi UnderwoodUrea nitrogen/Creatinine [Mass ratio]10.3 mg/mgNormalThe [facility] HospitalComment on above:Performed By: #### LIPID, TSH, BMP, LIVER #### [facility] [address] [address] [address] Cindi Wright 28-19-8366VVK3.454 uIU/mLNormal0.358-3.740The [facility] Westment on above:Performed By: #### LIPID, TSH, BMP, LIVER #### [facility] [address] [address] [address] Cindi UnderwoodGLYCOHEMOGLOBIN A1Con 68-12-5007CDD RECOMMENDATIONSEE BELOWNormal The [facility] HospitalComhavenwyck hospital on above:Result Comment: ADA RECOMMENDED LIMIT 4.0 - 6.0 ADA THERAPEUTIC TARGET < 7.0 ACTION SUGGESTED > 7.0Performed By: #### A1C #### [facility] [address] [place] [address] Dr. Cindi UnderwoodGlucose [Mass/Vol]160 mg/dLNormalThUniversity Hospitals TriPoint Medical CenterComment on above:Performed By: #### A1C #### [facility] [address] [address] [address] Cindi UnderwoodHbA1c (Bld) [Mass fraction]7.2 %Critically high4.5-6.2The [facility] on above:Performed By: #### A1C #### [facility] [address] [address] [address] Cindi UnderwoodAmbulatory Clinical Summaryon 90-54-1243Iyhikmbsbr Clinical Summary{[id number]-[id number]-04-ee}CD:[id number]h Arthur G.H. Bing, MD, Cancer CenterPatient Educationon 18-39-5524Qtftsxn EducationBenign Prostatic Hyperplasia You have an enlarged prostate. This is common in elderly males. It is called BPH. This stands for benign prostate hyperplasia. The prostate gland is located in base of the bladder. When it grows, theprostate blocks the urethra. This is the tube [...] Document Reviewed: 02/20/2008 ExitCare? Patient Information ?2013 [employer].[facility], Cancer CenterUrology Office/Clinic Noteon 27-15-8460Wfddsxu Office/Clinic NoteChief Complaint This is a 60 year old [...] in the urine. Pt is not having anyburning with voiding. Review of Systems ROS - [...] denies hematuria, denies discharge, denies urinary frequency, deniesurinary hesitancy, mild nocturia, mild incontinence, denies genital sores, denies decreased libido,and denies erectile dysfunction. Physical Exam Vitals & [...] twice a day. A new prescription has b een sent to the drugstore. We will plan [...] encounter. Tamsulosin 0.4mg BID therapy, pt states thathe as seen improvement. Pt states that he [...] Urnls Dip Stick Auto w/o Microscopy POC 22787 2. 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 3. Urge incontinence (N39.41: Urge incontinence) Pt is having some leaking on the way to the bathroom. Orders: ciprofloxacin, 500 mg = 1 tab(s), Oral, q12hr, take 1 tablet the day prior to procedure, take 2nd tablet the day of the procedure, # 2 tab(s), Refills(s) 0, Pharmacy: [facility] 173, cm, 12/08/19 13:22:00 EDT, Height/Length Measured, 115, kg, 12/08/19... tamsulosin, 0.4 mg = 1 cap(s), Oral, Daily, # 30 cap(s), Refills(s) 1, Pharmacy: [facility] [facility] [address] 173, cm, 05/24/20 8:18:00 EST, Height/Length Dosing, 115, kg, 05/24/20 8:18:00 EST, Weight Dosing tamsulosin, 0.4 mg = 1 cap(s), Oral, BID, # 60 cap(s), Refills(s) 3, Pharmacy: [facility] [facility] 173, cm, 08/09/20 13:55:00 EST, Height/Length Dosing, 129.9, kg, 08/09/20 13:55:00 EST, Weight Dosing I have reviewed the previous health record information and history for this patient from Dr. Gonzalez Follow-up With When Contact Information Carlos Elizalde MD, King Stark In 3 months [facility] [address] [place] [address]- Additional Instructions: PVR Patient Education Benign Prostatic [...] Protein Urine Dipstick: Negative (08/09/20 13:46:00) Specific [place] Urine Dipstick: 1.025 (08/09/20 13:46:00) Urine Appearance Urine Dipstick: Clear (08/09/20 13:46:00) Urine Color Urine Dipstick: Yellow (08/09/20 13:46:00) Urobilinogen Urine Dipstick: 2 EU/dl (08/09/20 13:46:00) pH Urine Dipstick: 7 (08/09/20 13:46:00) Diagnostic Results Urinalysis was reviewed and shows no evidence of infection. PVR today was 82 cc. [facility] MD, Cancer CenterComment on above:Result Comment: Electronically Signed By: Carlos Elizalde MD, King Stark\.br\Date and Time Signed: 08/09/2113:51 EST\.br\Electronically Co-Signed By: Puja Garvin MA\.br\Date and Time Co- Signed: 08/09/20 14:48 ESTPre-Certification Formon 32-53-9802Ccw-Certification [id number]#1.00CD:127NoGreen Cross HospitalAmbulatory Clinical Summaryon 37-45-6279Enhqyvcoto Clinical Summary{[id number]}CD:262156IlwkheDegimqGreen Cross HospitalPatient Educationon 04-09-7670Crannwp EducationFamily Medicine Abdominal Pain Abdominal pain can be caused by many things. Your caregiver decides the seriousness of your pain byan examination and possibly blood tests and X-rays. Many cases can be observed and treated at home.Most abdominal pain is not caused by a [...] directed by your caregiver. ? Only take xexa-cwv-dltgiuc or prescription medicines for pain, discomfort, or [...] Document Reviewed: 02/02/2009 ExitCare? Patient Information ?2013 [employer].[facility], Cancer CenterUrology Office/Clinic Noteon 27-32-3536Gxdonbg Office/Clinic NoteChief Complaint Pt is here one month w PVR This patient is a 60-year-old gentleman with a history of bladder outlet obstruction symptoms and urinary retention. Is been taking tamsulosin 0.4 mg daily. He is here today for follow-up visit. [facility] Staff Pt is here for one month [...] on his self 5 to 6 times andhad burning last night and this morning. Hesitancy:Pt [...] in the urine. Pt is not having anyburning. Review of Systems ROS - Provider Constitutional: [...] denies hematuria, denies discharge, denies urinary frequency, deniesurinary hesitancy, denies nocturia, denies incontinence, denies genital [...] see him back in the office in 2weeks with a PVR. We did discuss the possibility of needing to repeat the cystoscopic examination and we will plan transurethral resection of prostate. 1. Urgency of urination (R39.15: Urgency of urination) mild/moderate Ordered: Urnls Dip Stick Auto w/o Microscopy POC 94521 2. Incomplete bladder emptying (R33.9: Retention of urine, unspecified) PVR today shows 518ml, pt has stopped the Oxybutynin. Ordered: CT Abdomen w/ Contrast Measure Post Void residual urine and/or bladder capacity by US- non-imaging 44474 3. BPH with urinary obstruction (N40.1: Benign [...] In 2 weeks [facility] [address] [place] [address]- Additional Instructions: Patient Education Abdominal Pain I, [...] Negative (06/28/20 11:26:00) Ketones Urine Dipstick: Negative (06/28/20::) Leukocytes Urine Dipstick: Trace (06/28/20::) Nitrite Urine Dipstick: Negative (06/28/20::) Protein Urine Dipstick: Negative (06/28/20::) Specific [place] Urine Dipstick: 1.010 (06/28/20::) Urine Appearance Urine Dipstick: Clear (06/28/20::) Urine Color Urine Dipstick: Light yellow (06/28/20::) Urobilinogen Urine Dipstick: Normal 0.2-1 EU/dl (06/28/20::) pH Urine Dipstick: 7 (06/28/20::) Diagnostic Results PVR today is over 500 cc. Urinalysis is negative for infection.[facility], MD, Cancer CenterComment on above:Result Comment: Electronically Signed By: Carlos Elizalde MD, King Stark\.br\Date and Time Signed: 06/28/2013:25 EST\.br\Electronically Co-Signed By: Puja Garvin MA\.br\Date and Time Co- Signed: 06/28/20 12:09 ESTAmbulatory Clinical Summaryon 63-30-6175Nsdermtega Clinical Summary{[id number]}CD:729892Yvrdzx [facility] HospitalPatient Educationon 61-70-2568Wbxfrmw EducationFamily Medicine Benign Prostatic Hypertrophy The prostate gland [...] This makes it harder to pass urine. Inthe early stages of enlargement, the bladder can [...] sound waves to electronically produce a picture ofthe prostate. It helps examine the prostate gland [...] procedure that uses electrodes to do the sameas the procedures listed above. Regardless of the method of treatment chosen, you and your caregiver will discuss the options. Withthis knowledge, you along with your caregiver can [...] Document Reviewed: 03/08/2008 ExitCare? Patient Information ?2013 ShareMeisterDelaware Hospital For The Chronically IllBitC[employer] [facility] MD, Cancer CenterUrology Office/Clinic Noteon 19-49-0206Nolcvkl Office/Clinic NoteChief Complaint Pt. here due to swollen testicles. This patient is a 60-year-old gentleman with a history of prostatic hyperplasia with bladder outletobstruction symptoms he also has a history of scrotal swelling which has resolved since his initialcomplaint. He is here today for urologic evaluation. HPI Staff Pt. here due to having swollen testicles. Pervious DX: BPH w/LUTS, post traumatic membranous urethral stricture, frequency, dysuria, urgency and urge incontinence. S/P Cysto/UD done 01/18/2020. Pt. was not able to give urine sample today. PVR 300ml. Pain with urination:Mild Pt. states when his testicles were swollen had some pain. Pt. states stillhave occasional burning. Blood in urine:No Incomplete bladder [...] denies hematuria, denies discharge, denies urinary frequency, deniesurinary hesitancy, denies nocturia, denies incontinence, denies genital [...] and to determine how well he is man aged using this new medication. Oxybutynin which is [...] med. as directed and to call when refillsare needed. 3. Nocturia (R35.1: Nocturia) 2-3x/night. 4. [...] urine and/or bladder capacity by US- non-imaging 02392 6. Edema of scrotum (N50.89: Other specified [...] Daily, # 30 cap(s), Refills(s) 1, Pharmacy: [facility] [facility], 173, cm, 05/24/20 8:18:00 EST, Height/Length Dosing, 115, kg, 05/24/20 8:18:00 EST, Weight Dosing I have reviewed the previous health record information and history for this pt. from Dr. Gonzalez. Follow-up With When Contact Information Carlos Elizalde MD, King Stark [address] [place] [address]- Additional Instructions: 1mos. w/ PVR Patient Education [...] This is within reasonable range for this patient.[facility], MD, Cancer CenterComment on above:Result Comment: Electronically Signed By: Carlos Elizalde MD, King Stark\.br\Date and Time Signed: 05/24/2010:32 EST\.br\Electronically Co-Signed By: Haritha Jean MA\.br\Date and Time Co- Signed: 05/24/20 08:57 ESTProvider Letteron [phone] Letter February 23, 2020 SAMEER MONTALVO [address] [place] [address] SAMEER MONTALVO 1960 Dear Sameer Montalvo, This letter is to inform you that you have missed at least two appointments in our office within a twelve-month period which you did not cancel. According to our records those missed appointments were on: 02/09/2020 + 02/23/2020. We make every effort to accommodate patients as quickly as possible. If we know you are not able tomake an appointment, we can schedule another patient who needs to see one of our providers. As our previous letter stated, there is a $30.00 charge for a second missed *no show* appointment. This is in accordance with our office policy. If you are unable to keep future appointments, please let us know 24 hours in advance. Sincerely, [facility], Marymount HospitalProvider Letteron [phone] Letter February 09, 2020 SAMEER MONTALVO [address] [place] [address] SAMEER MONTALVO 1960 Dear Sameer Montalvo, You missed your scheduled appointment on: 02-09-2020 and the purpose of this letter is to inform youof our *No Show Policy*. Our appointment slots [...] [facility] [address], [place] [address] UkxwpoTnkjtgOhioHealth Arthur G.H. Bing, MD, Cancer CenterUrology Office/Clinic Noteon [phone] Office/Clinic NoteChief Complaint cysto/ud HPI Staff cysto/ud. scope #3 [...] urine The Urethra was dilated to: 24 Kyrgyz with sounds. Removal: Cystoscope is removed. The [...] Elizalde MD, King Stark In 1 month [phone] Additional Instructions: w/PVR Patient Education Urinary Frequency Dysuria Benign Prostatic Hypertrophy IGricel, personally scribed for Dr. Gonzalez on 01/18/2020 [...] Hypertension: Mother. Primary malignant neoplasm of bone: Sister.[facility] Comment on above:Result Comment: Electronically Signed By: Carlos Elizalde MD, King Stark\.br\Date and Time Signed: 02/01/2008:59 EDT\.br\Electronically Co-Signed By: Gricel Pizarro\.br\Date and Time Co-Signed: 01/18/20 14:37 EDTConsent for Procedure/Surgeryon 33-52-5760Psqvrrg for Procedure/Surgery [id number]#1.00CD:127NoGreen Cross HospitalAmbulatory Clinical Summaryon 91-18-7276Ldlyfyyxvk Clinical Summary {[id number]}CD:989293WraxdxYsbiooOhioHealth Arthur G.H. Bing, MD, Cancer CenterAmbulatory Clinical Summary {[id number]-04}CD:240316IgvpneGzjjodOhioHealth Arthur G.H. Bing, MD, Cancer CenterAmbulatory Clinical Summary {[id number]}CD:624861OmcbghSetoudGreen Cross HospitalLab Reportson 67-29-3771Ued Reports [id number]#1.00CD:127[facility], Cancer CenterRAD - Ultrasound Reporton [id number] - Ultrasound Report [id number]#1.00CD:127[facility], Cancer CenterAmbulatory Clinical Summaryon 25-81-4786Xfhaktacyr Clinical Summary {[id number]-[id number]-[id number]}CD:333295QziwypDyfulzGreen Cross HospitalReminderson 50-41-2873Nwlnxacem From: Roselia Camacho To: EU - Clinical; Sent: 12/08/2019 16:01:29 EDT Show up: 12/15/2019 16:01:00 EDT Subject: Ambulatory Reminder Reminder/Recall 12/14/19 Renal US and PSA @ [facility]. Patient has cysto scheduled 12/27 to review results![facility], Cancer CenterMRI CERVICAL SPINE WO CONTRASTon 31-14-0472PIE CERVICAL SPINE WO CONTRASTMRI of the cervical spine without contrast. History: [...] spine. Mild intervertebral disc height loss throughout thecervical spine. Multilevel degenerative endplate changes with spurring [...] Signed by: Gilberto Cordoba DO 02/10/19 Final resultVibra Long Term Acute Care HospitalCT HEAD WO CONTRASTon 10-09-2018 CT HEAD WO CONTRASTCT Brain Contrast medium: Not utilized. History: Tremors [...] Signed by: Erik Mckeon MD 10/09/18 Final resultVibra Long Term Acute Care HospitalPULMONARY FUNCTIONon 09-08-2018 [place] [address] PULMONARY FUNCTION PATIENT NAME: SAMEER MONTALVO : 1960 MED REC NO: [id number] ROOM: ACCOUNT NO: [id number] ADMIT DATE: 09/02/2018 PROVIDER: Caio Sandhu MD DATE OF PROCEDURE: 09/02/2018 Spirometry was [...] underlying COPD. Clinical correlation is needed. CAIO SANDHU MD ABDOULAYE/[id number] Doc#: [id number] CC:[facility] HospitalXR CERVICAL SPINE (2-3 VIEWS)on 08-11-2018 XR CERVICAL SPINE (2-3 VIEWS)EXAMINATION: XR CERVICAL SPINE, 3 VIEWS: DATE AND TIME: 08/11/2018 at 8:34 AM. CLINICAL HISTORY: SEVERE POSTERIOR NECK PAIN. OTALGIA, UNSPECIFIED LATERALITY. COMPARISON: None. FINDINGS: Alignment is normal. There is advanced degenerative narrowing and spurring throughout thelower cervical spine beginning at C3-C4. No acute fracture. Dens atlas articulation within normal limits. Probable uncovertebral prominence bilaterally at C5-C6 and C6-C7. IMPRESSION: ADVANCED DEGENERATIVE CHANGES. NO ACUTE FRACTURE. Interpreted by: Lopez Paniagua MD Signed by: Lopez Paniagua MD 08/11/18 Final resultNormArkansas Valley Regional Medical CenterCBC With Platelet No Differential on 74-84-7998Gdabzvmpnqs distribution width Ratio (RBC)13.4 %Csatsu49.5-14.5 [facility] LoganHematocrit Volume Fraction (Bld)48.9 %Normal 42.0-52.0[facility] LoganHemoglobin mass conc (Bld)16.8 g/dLNormal 14.0-18.0[facility] LoganMCH Entitic mass (RBC)32.0 pgCritically high27.0-31.3MSedgwick County Memorial HospitalMCHC mass conc (RBC)34.4 %Normal 33.0-37.0[facility] LoganMCV Entitic volume (RBC)93.1 fLNormal 80.0-100.0[facility] LoganPlatelets #/vol (Bld)170 10*3/uLNormal 130-400[facility] LoganRBC #/vol (Bld)5.25 10*6/uLNormal4.70-6.10 [facility] LoganWBC #/vol (Bld)8.0 10*3/uLNormal4.8-10.8[facility] LoganComprehensive Metabolic Panelon 38-18-8740Oqeactv mass conc4.1 g/dLNormal3.9-4.9[facility] LoganALP enzyme act/vol80 U/L Utqcrq30-280MsrefColorado Mental Health Institute [facility] LoganALT enzyme act/vol30 U/LNormal0-41[facility] LoganAnion gap molar conc10 mmol/LNormal7-13[facility] LoganAST enzyme act/vol20 U/LNormal0-40[facility] Bilirubin mass conc0.6 mg/dLNormal0.0-1.2MSedgwick County Memorial HospitalCalcium mass conc8.6 mg/dLNormal8.6-10.2MSedgwick County Memorial HospitalChloride molar conc 98 mmol/KSzttkt44-138DahyjColorado [facility] Institute [facility] LoganCO2 molar conc32 mmol/L Critically fvth60-79OthpyColorado [facility] Health Institute [facility] LoganCreatinine mass conc0.80 mg/dL Normal0.70-1.20[facility] LoganGFR/1.73 sq M predicted among blacks MDRD vol rate/area (S/P/Bld)mL/min/{1.73_m2}Normal>60[facility] LoganComment on above:Result Comment: >60 mL/min/1.73m2 EGFR, calc. for ages 18 and older using the MDRD formula (not corrected for weight), is valid for stable renal function.GFR/1.73 sq M.predicted MDRD vol rate/areamL/min/{1.73_m2}Normal >60[facility] LoganComment on above:Result Comment: >60 mL/min/1.73m2 EGFR, calc. for ages 18 and older using the MDRD formula (not corrected for weight), is valid for stable renal function.Globulin mass conc (S)2.8 g/dLNormal2.3-3.5[facility] LoganGlucose mass eenr588 mg/dLCritically olxw09-578SufghColorado [facility] Health Institute [facility] LoganPotassium molar conc4.2 mmol/LNormal3.5-5.1MSedgwick County [facility] Hospital Protein mass conc6.9 g/dLNormal6.4-8.1MSoutheast Colorado Hospitalodium molar zpjh498 mmol/BWrcstg191-785FiitnColorado [facility] Health Institute [facility] LoganUrea nitrogen mass conc 10 mg/dLNormal8-23[facility] LoganCreatine Kinaseon 63-18-9492NQ enzyme act/owt983 U/LCritically high0-190[facility] LoganCulture, Urineon 56-89-3756Pxxtpjw, UrineORDER#: [id number] ORDERED BY: MCKENNA AMARO SOURCE: Urine Voided COLLECTED: 07/17/18 08:24 ANTIBIOTICS AT JACQUIE.: RECEIVED : 07/17/18 10:16 Culture, Urine FINAL 07/19/18 10:34 No growth 24 hoursNoRose Medical CenterHemoglobin A1con 07-17-2018 Hemoglobin A1c/Hemoglobin.total mass fraction (Bld)6.9 %Critically high4.8-5.9 [facility] LoganLipid Panelon 55-64-9241Megvttzvrdg in HDL mass conc29 mg/fNMtl54-17CuxaiColorado Mental Health Institute At Fort LoganComment on above:Result Comment: ATP III HDL Cholestrol Classification is low. Expected Values: Males: >55 = No Risk 35-55 = Moderate Risk <35 = High Risk Females: >65 = No Risk 45-65 = Moderate Risk <45 = High Risk NCEP Guidelines: Third Report October 2000 >59 = negative risk factor for CHD <40 = major risk factor for CHDCholesterol in LDL mass sgxz239 mg/dLNormal0-129 [facility] LoganComment on above:Result Comment: ATP III LDL Classification is Near Optimal.Cholesterol mass enaf769 mg/dLCritically high 0-199[facility] LoganComment on above:Result Comment: ATP III Cholesterol Classification is Borderline High.Triglyceride mass cibf236 mg/dL Critically high0-200[facility] LoganComment on above:Result Comment: ATP III Triglycerides Classification is High.TSH w/out Reflexon 04-41-3211Qqtyldyvgyo Qn4.170 uIU/mLNormal0.270-4.20[facility] LoganThyroxine Freeon 82-12-0468Jgcfoxfjp Free1.03 ng/dLNormal0.93-1.70[facility] Drugs of Abuse Panelon 50-16-8972Lzkf Screen Comment see belowVibra Long Term Acute Care HospitalComment on above:Result Comment: This method is a screening test to detect only these drug classes as part of a medical workup. Confirmatory testing by another method should be ordered if clinically indicated.UR Amphetamines ScreenNegativeNormalNegative <[facility] Barbiturates ScreenNegativeNormalNegative <[facility] Benzo Screen NegativeNormalNegative <[facility] Cannabinoids Screen NegativeNormalNegative <[facility] Cocaine ScreenNegative NormalNegative <[facility] Opiates ScreenNegativeNormal Negative <[facility] PCP ScreenNegativeNormalNegative < [facility] Microalbumin/Creatinine Ratio Randomon 38-97-1876Mmymydfsrbem/creatinine Ratiosee belowNormal0.0-30.0[facility] LoganComment on above:Result Comment: - UR Microalbumin concentration is less than 1.2 mg/dL. - Unable to calculate Microalbumin/Creatinine Ratio without a Microalbumin concentration.UR Creatinine Pdfjju295.8 mg/dLNormalNot Establ [facility] Microalbumin Random<1.20NormalNot [facility] SystemUrinalysis, reflex to microscopicon 68-47-9006Nezzoacpb Ql (U)NegativeNormalNegativeColor[facility] Institute [facility] LoganClarity Nom (U)Clear NormalClearMSedgwick County Memorial HospitalColor Nom (U)YellowNormalStraw/YellColorado Mental Health Institute [facility] LoganGlucose Ql (U)NegativeNormalNegSoutheast Colorado HospitalHemoglobin Ql (U)NegativeNormalNegSoutheast Colorado HospitalKetones Ql (U)NegativeNormalNegSoutheast Colorado HospitalLeukocyte esterase Test strip Ql (U)TRACEAbnormalNegativeColor[facility] Nitrite Ql (U)NegativeNormalNegSoutheast Colorado HospitalpH (U)7.5 [pH] Normal5.0-9.0[facility] LoganProtein Ql (U)NegativeNormalNegative [facility] Hospitalpecific gravity Relative Density (U)1.015Normal 1.005-1.03[facility] LoganUrobilinogen Qn (U)1.0 {Nunu'U}/dL Normal< 2.0[facility] LoganUrine Microscopicon 26-77-1994Qfthnfaq LM.HPF #/area (Urine sed)NegativeVibra Long Term Acute Care HospitalRBC #/vol (U)9-3Oriwafdg6-9UzgqaColorado Mental Health Institute At Fort LoganComment on above:Result Comment: Effective 05/26/2018 Urinalysis microscopic performed using the automated methodology (AUWI analyzer).Urine Epithelial Cells Dbwx3-8Kcfymw0-0 [facility] LoganComment on above:Result Comment: Effective 05/26/2018 Urinalysis microscopic performed using the automated methodology (AUWI analyzer).Urine Hyaline Casts Gyrv8-9Cqwims4-2HkoxxColorado Mental Health Institute At Fort LoganComment on above:Result Comment: Effective 05/26/2018 Urinalysis microscopic performed using the automated methodology (AUWI analyzer).Urine WBC Eobu1-33Hlazdlwd4-4DqdorColorado Mental Health Institute At Fort LoganComment on above:Result Comment: Effective 05/26/2018 Urinalysis microscopic performed using the automated methodology (AUWI analyzer).CBC With Platelet No Differentialon 53-86-9369Gjelmybenqc distribution width Ratio (RBC)14.7 %Critically high 11.5-14.5[facility] LoganHematocrit Volume Fraction (Bld)48.0 % Ifeudg77.0-52.0[facility] LoganHemoglobin mass conc (Bld)16.1 g/dL Ncdqaa05.0-18.0[facility] LoganMCH Entitic mass (RBC)31.9 pg Critically high27.0-31.3MSedgwick County Memorial HospitalMCHC mass conc (RBC)33.6 % Epjgmk73.0-37.0[facility] LoganMCV Entitic volume (RBC)94.9 fL Jcfrmb59.0-100.0[facility] LoganPlatelets #/vol (Bld)145 10*3/uL Roqoov871-061WronvColorado Mental Health Institute At Fort LoganRBC #/vol (Bld)5.05 10*6/uLNormal 4.70-6.10[facility] LoganWBC #/vol (Bld)5.5 10*3/uLNormal4.8-10.8 [facility] LoganCKMB with Indexon 81-34-0097KE enzyme act/qbq285 U/LCritically high0-190[facility] LoganCK.MB mass conc9.6 ng/mL Critically high0.0-6.7[facility] LoganCK.MB mass conc2.4 %Normal 0.0-3.5[facility] LoganComprehensive Metabolic Panelon 03-18-2018 Albumin mass conc4.4 g/dLNormal3.9-4.9[facility] LoganALP enzyme act/vol69 U/XFvpmxe42-242LyubdColorado Mental Health Institute At [facility] LoganALT enzyme act/vol33 U/L Normal0-41[facility] LoganAnion gap molar conc9 mmol/LNormal7-13 [facility] LoganAST enzyme act/vol26 U/LNormal0-40[facility] LoganBilirubin mass conc0.5 mg/dLNormal0.0-1.2MSedgwick County Memorial HospitalCalcium mass conc8.9 mg/dLNormal8.6-10.2MSedgwick [facility] Hospital Chloride molar conc98 mmol/VSliczr34-409UvtdcColorado Mental Health Institute At [facility] LoganCO2 molar conc31 mmol/LCritically upnu41-60DrobwColorado [facility] Institute [facility] LoganCreatinine mass conc0.79 mg/dLNormal0.70-1.20[facility] LoganGFR/1.73 sq M predicted among blacks MDRD vol rate/area (S/P/Bld)mL/min/{1.73_m2}Normal>60 [facility] LoganComment on above:Result Comment: >60 mL/min/1.73m2 EGFR, calc. for ages 18 and older using the MDRD formula (not corrected for weight), is valid for stable renal function.GFR/1.73 sq M.predicted MDRD vol rate/areamL/min/{1.73_m2}Normal >60[facility] LoganComment on above:Result Comment: >60 mL/min/1.73m2 EGFR, calc. for ages 18 and older using the MDRD formula (not corrected for weight), is valid for stable renal function.Globulin mass conc (S)2.4 g/dLNormal2.3-3.5[facility] LoganGlucose mass ozug592 mg/dLCritically uwxk46-703SwjylColor[facility] Institute [facility] LoganPotassium molar conc5.2 mmol/LCritically high3.5-5.1MSedgwick County Memorial HospitalProtein mass conc6.8 g/dLNormal6.4-8.1MSoutheast Colorado Hospitalodium molar biag774 mmol/ENpiody715-538AagqvColorado Mental Health Institute At Fort LoganUrea nitrogen mass conc10 mg/dLNormal8-23[facility] LoganHemoglobin A1con 31-08-2059Sklpsowwve A1c/Hemoglobin.total mass fraction (Bld)6.7 %Critically high4.8-5.9[facility] LoganHepatitis C Antibodyon 03-18-2018 Hepatitis C Antibody InterpNon-reactiveNormalColorado Mental Health Institute At Fort LoganLipid Panelon 52-98-1460Tsmuupyhzrz in HDL mass conc25 mg/mVVge86-20NeufsColorado Mental Health Institute At Fort LoganComment on above:Result Comment: ATP III HDL Cholestrol Classification is low. Expected Values: Males: >55 = No Risk 35-55 = Moderate Risk <35 = High Risk Females: >65 = No Risk 45-65 = Moderate Risk <45 = High Risk NCEP Guidelines: Third Report October 2000 >59 = negative risk factor for CHD <40 = major risk factor for CHDCholesterol in LDL mass iden035 mg/dLNormal0-129 [facility] LoganComment on above:Result Comment: ATP III LDL Classification is Near Optimal.Cholesterol mass kwiu501 mg/dLNormal0-199[facility] LoganComment on above:Result Comment: ATP III Cholesterol classification is Desirable.Triglyceride mass syvg175 mg/dLNormal0-200[facility] LoganComment on above:Result Comment: ATP III Triglycerides Classification is Normal.PSA Total with Free PSAon 71-40-0274PAQ/1.73 sq M predicted among non-blacks MDRD vol rate/area (S/P/Bld)0.1 ng/mLNormalColorado Mental Health Institute At Fort LoganProstate Specific Ag, Percent Free25 %NormalColorado Mental Health Institute At Fort LoganComment on above:Result Comment: INTERPRETIVE INFORMATION: Prostate Specific Antigen, Free Percentage Tykli uses the Juan Carlos Free PSA electrochemiluminescent [...] in individual patients. For related information, see www.eeGeo.Sabakat/8347460 Performed by [employer], [address] [place] [id number] www.[facility], Boaz Lu MD - Lab. DirectorProstate Specific Ag, Total0.4 ng/mLNormal0.0-4.0[facility] LoganComment on above:Result Comment: INTERPRETIVE INFORMATION: Prostate Specific Antigen The Juan Carlos [...] in healthy men or men with non-prostatic carcinoma.CBC With Platelet No Differentialon 44-27-2416Kkdbzbpcpnw distribution width Ratio (RBC)13.7 %Normal 11.5-14.5[facility] LoganHematocrit Volume Fraction (Bld)50.3 % Jrfqbu92.0-52.0[facility] LoganHemoglobin mass conc (Bld)16.7 g/dL Rxafeg55.0-18.0[facility] CenterH Entitic mass (RBC)31.5 pg Critically high27.0-31.3MMiddle Park Medical Center - GranbyHC mass conc (RBC)33.3 % Enjvfh77.0-37.0[facility] LoganMCV Entitic volume (RBC)94.7 fL Ccizyr51.0-100.0[facility] LoganPlatelets #/vol (Bld)158 10*3/uL Ctkizn640-484VuafsColorado Mental Health Institute At Fort LoganRBC #/vol (Bld)5.31 10*6/uLNormal 4.70-6.10[facility] LoganWBC #/vol (Bld)7.7 10*3/uLNormal4.8-10.8 [facility] LoganComprehensive Metabolic Panelon 94-10-5456Kcqhl gap molar conc10 mmol/LNormal7-13[facility] LoganAlbumin mass conc4.4 g/dLNormal3.9-4.9[facility] LoganALP enzyme act/vol76 U/LNormal 35-104[facility] LoganALT enzyme act/vol31 U/LNormal0-41[facility] LoganAST enzyme act/vol19 U/LNormal0-40[facility] LoganBilirubin mass conc0.4 mg/dLNormal0.0-1.2MSedgwick [facility] Hospital Calcium mass conc9.0 mg/dLNormal8.6-10.2MSedgwick County Memorial HospitalChloride molar conc96 mmol/GXtd54-413QvoxdColorado Mental Health Institute At [facility] LoganCO2 molar conc33 mmol/L Critically otcu43-91DcnskColorado Mental Health Institute [facility] LoganCreatinine mass conc0.59 mg/dL Low0.70-1.20[facility] LoganGFR/1.73 sq M predicted among blacks MDRD vol rate/area (S/P/Bld)mL/min/{1.73_m2}Normal>60[facility] LoganComment on above:Result Comment: >60 mL/min/1.73m2 EGFR, calc. for ages 18 and older using the MDRD formula (not corrected for weight), is valid for stable renal function.GFR/1.73 sq M.predicted MDRD vol rate/areamL/min/{1.73_m2}Normal >60[facility] LoganComment on above:Result Comment: >60 mL/min/1.73m2 EGFR, calc. for ages 18 and older using the MDRD formula (not corrected for weight), is valid for stable renal function.Globulin mass conc (S)2.3 g/dLNormal2.3-3.5[facility] LoganGlucose mass burp262 mg/dLCritically uvba90-276VbaffColorado Mental Health Institute [facility] LoganPotassium molar conc4.8 mmol/LNormal3.5-5.1MSedgwick [facility] Hospital Protein mass conc6.7 g/dLNormal6.4-8.1MSoutheast Colorado Hospitalodium molar oryz531 mmol/JQvmpkg378-021MqzxrColorado Mental Health Institute At [facility] LoganUrea nitrogen mass conc 13 mg/dLNormal6-20[facility] LoganHemoglobin A1con 08-21-2017 Hemoglobin A1c/Hemoglobin.total mass fraction (Bld)8.1 %Critically high4.8-5.9 [facility] LoganLipid Panelon 94-38-5148Ddusialgeck in HDL mass conc31 mg/cKNlj20-61XtbchColorado Mental Health Institute At Fort LoganComment on above:Result Comment: ATP III HDL Cholestrol Classification is low. Expected Values: Males: >55 = No Risk 35-55 = Moderate Risk <35 = High Risk Females: >65 = No Risk 45-65 = Moderate Risk <45 = High Risk NCEP Guidelines: Third Report October 2000 >59 = negative risk factor for CHD <40 = major risk factor for CHDCholesterol in LDL mass dzvq233 mg/dLCritically high0-129[facility] LoganComment on above:Result Comment: ATP III LDL Classification is High.Cholesterol mass hpla236 mg/dLCritically high0-199 [facility] LoganComment on above:Result Comment: ATP III Cholesterol Classification is Borderline High.Triglyceride mass vybq984 mg/dL Normal0-200[facility] LoganComment on above:Result Comment: ATP III Triglycerides Classification is Borderline High.TSH w/out Reflexon 08-21-2017 Thyrotropin Qn3.750 uIU/mLNormal0.270-4.20[facility] Vital Signs Date TimeVital SignValuePerforming YfhroldeaIjjzkqvb73-63-1747 11:00-0400Body ajailt770.7 cmDar Herr DPM Work Phone: [facility] CenterPhlmroufev50-45-8445 11:00-0400Body mass index (BMI) [Ratio]35.58 kg/g8KxktcwwwDar Herr DPM Work Phone: [facility] CenterLhyzzccrwt26-12-8787 11:00-0400Body jdbxif352.14 kgDar Herr DPM Work Phone: [place] [phone] 11:00-0400Respiratory rate18 /minDar Herr DPM Work Phone: [facility] CenterRzbdnwtpnt98-50-2112 10:27-0400Body dfmipi753.7 cmGerber Salazar MD Work Phone: [place] [address]Qsjiwksmqu48-31-8948 10:27-0400Body mass index (BMI) [Ratio]35.58 kg/m2Gerber Salazar MD Work Phone: [place] [address]Bvkcmhokia85-49-3656 10:27-0400Body temperature 97.11 [degF]Gerber Salazar MD Work Phone: [place] [address]Sfdynsltns33-42-7200 10:27-0400Body abyppb639.14 kgGerber Salazar MD Work Phone: [place] [address]Wmvuysenfz29-78-2573 10:27-0400Diastolic blood xbhccufd36 mm[Hg]Gerber Salazar MD Work Phone: [facility] CenterDirzjnfzos93-25-6662 10:27-0400Heart rate96 /min Gerber Salazar MD Work Phone: [facility] CenterSscmzxoevl09-06-2326 10:27-0400Respiratory rate20 /minGerber Salazar MD Work Phone: [facility] CenterRniazwwuzw71-42-8728 10:27-1886ToF8% (BldA) [Mass fraction]90 %Gerber Salazar MD Work Phone: [facility] CenterUyaypiodne17-48-9123 10:27-0400Systolic blood doymhvtu100 mm[Hg]Gerber Salazar MD Work Phone: [facility] CenterQolmjkjgsw98-58-2817 11:06-0400Body xfwiqi865.7 cmGerber Salazar MD Work Phone: [phone] [place], [place] [address]Wydhkpzsib83-81-0659 11:06-0400Body mass index (BMI) [Ratio]35.73 kg/m2Gerber Salazar MD Work Phone: [facility] CenterZarqznqrxt80-39-8385 11:06-0400Body temperature 97.11 [degF]Gerber Salazar MD Work Phone: [facility] CenterHymxdbxpeg54-58-2803 11:06-0400Body jocllv027.59 kgGerber Salazar MD Work Phone: [facility] CenterZzrmnlrjlw10-73-6258 11:06-0400Diastolic blood swuvbiby12 mm[Hg]Gerber Salazar MD Work Phone: [facility] CenterNsxxcvmejx53-97-6400 11:06-0400Heart lkiq410 /min Gerber Salazar MD Work Phone: [facility] CenterTxyxkhyckz36-52-8448 11:06-0400Respiratory rate20 /minGerber Salazar MD Work Phone: [facility] CenterVhbihsujub99-61-4482 11:06-9256FiU8% (BldA) [Mass fraction]95 %Gerber Salazar MD Work Phone: [facility] CenterEyvgijfdst97-26-4588 11:06-0400Systolic blood jhoydrhx172 mm[Hg]Gerber Salazar MD Work Phone: [phone])650-[address] [place], [place] [address]Nsnwolcfzr93-99-2366 11:11-0500Body mass index (BMI) [Ratio]42.27 kg/m2Gerber Salazar MD Work Phone: 1([phone])[address] [place], [place] [address]02-10-2025 11:11-0500Body temperature 97.2 [degF]Gerber Salazar MD Work Phone: [phone])[address]02-10-2025 11:11-0500Body xgaujy775.1 kgGerber Salazar MD Work Phone: [phone])[address]02-10-2025 11:11-0500Diastolic blood siuvpiyh93 mm[Hg]Gerber Salazar MD Work Phone: 1(337)[address] [place], [place] [address]02-10-2025 11:11-0500Heart rate78 /min Gerber Salazar MD Work Phone: [phone])[address] [place], [place] 6520102-10-2025 11:11-0275NvI4% (BldA) [Mass fraction]93 %Gerber Salazar MD Work Phone: 1(969)925-[address] [place], [place] [address]Zsyfrvhgnu03-85-6039 11:11-0500Systolic blood vtwopzga379 mm[Hg]Gerber Salazar MD Work Phone: [phone])[address]01-28-2025 10:32-0500Diastolic blood etdluosg52 mm[Hg]Gerber Salazar MD Work Phone: [phone]01-28-2025 10:32-0500 Heart rate80 /minGerber Salazar MD Work Phone: [phone]01-28-2025 10:32-0500 Respiratory rate16 /minGerber Salazar MD Work Phone: [phone]01-28-2025 10:32-0500 SaO2% (BldA) [Mass fraction]93 %Gerber Salazar MD Work Phone: [phone]01-28-2025 10:32-0500 Systolic blood mm[Hg]Gerber Salazar MD Work Phone: [phone]01-28-2025 09:29-0500 Body .72 cmGerber Salazar MD Work Phone: 1(545)[address] [place], [place] 6231901-28-2025 09:29-0500 Body crdlzo521.46 kgGerber Salazar MD Work Phone: [phone] [place], [place] 7183412-03-2024 09:36-0500 Diastolic blood datjrspf31 mm[Hg]Gerber Salazar MD Work Phone: [phone] [place], [place] 7183412-03-2024 09:36-0500 Heart rate81 /minGerber Salazar MD Work Phone: [phone])[address] [place], [place] 6231912-03-2024 09:36-0500 Respiratory rate16 /minGerber Salazar MD Work Phone: [phone])[address] [place], [place] 7183412-03-2024 09:36-0500 SaO2% (BldA) [Mass fraction]94 %Gerber Salazar MD Work Phone: [phone]12-03-2024 09:36-0500 Systolic blood mm[Hg]Gerber Salazar MD Work Phone: [phone] [place], [place] 7183412-03-2024 09:02-0500 Inhaled oxygen flow rate3 L/minGerber Salazar MD Work Phone: [phone]12-03-2024 08:21-0500 Body .72 cmGerber Salazar MD Work Phone: [phone])[address] [place], [place] 7183412-03-2024 08:21-0500 Body mmkmux552.46 kgGerber Salazar MD Work Phone: [phone])[address] [place], [place] 6231911-11-2024 11:15-0500 Body damnbg308.7 cmGerber Salazar MD Work Phone: [phone])[address] [place] [address]-11-2024 11:15-0500Body mass index (BMI) [Ratio]42.57 kg/m2Gerber Salazar MD Work Phone: [phone])[address] [place] [address]-11-2024 11:15-0500Body temperature 97.3 [degF]Gerber Salazar MD Work Phone: [phone])[address] [place] [address]-11-2024 11:15-0500Body vyobxs482.01 kgGerber Salazar MD Work Phone: [phone])[address] [place] [address]-11-2024 11:15-0500Diastolic blood xuwxkppm03 mm[Hg]Gerber Salazar MD Work Phone: 1(265)[address] [place] [address]-11-2024 11:15-0500Heart rate84 /min Gerber Salazar MD Work Phone: 1([phone])[address] [place] [address]-11-2024 11:15-0500Respiratory rate22 /minGerber Salazar MD Work Phone: 1(429)[address] [place] [address]-11-2024 11:15-3649VzG0% (BldA) [Mass fraction]96 %Gerber Salazar MD Work Phone: [phone] [place] 79[address]-11-2024 11:15-0500Systolic blood vecpawcm150 mm[Hg]Gerber Salazar MD Work Phone: 1(475)[address] [place] [address]-04-2024 13:06-0500Body .45 cmMD Gerber Salazar Work Phone: 1(350)[address] [place], [place] 6231911-04-2024 13:06-0500 Body mass index (BMI) [Ratio]42.4 kg/m2MD Gerber Salazar Work Phone: 1(518)[address] [place], [place] 6231911-04-2024 13:06-0500 Body srteov528.73 kgMD Gerber Salazar Work Phone: [facility]09-26-2024 13:19-0400 Body .45 [facility]2024 13:19-0400Body mass index (BMI) [Ratio]40.6 kg/e9ZbrjibzdsK[facility]tering [facility]09-26-2024 13:19-0400Body vcrlsa073.29 kgK[facility]tering [facility]09-24-2024 08:47-0400Body uvemqn208.7 cmDar Herr DPM Work Phone: [place] [address]Kwwgmwmdmc10-75-6893 08:47-0400Body mass index (BMI) [Ratio]40.29 kg/y5JyaojmnvDar Herr DPM Work Phone: [place] [address]Kvqgihuuqf27-24-1475 08:47-0400Body dkeebu280.2 kgDar Herr DPM Work Phone: [facility] CenterZkttheqweq39-19-8207 08:47-0400Diastolic blood qaylqbny63 mm[Hg]Dar Herr DPM Work Phone: [facility] CenterQwjnvwggrj34-31-8552 08:47-0400Heart rate75 /min Dar Herr DPM Work Phone: [place] [address]Grxhvwiyql88-04-9712 08:47-0400Respiratory rate18 /minDar Herr DPM Work Phone: [place] [address]Ffdkklvhst87-04-5192 08:47-0400Systolic blood ykcikkst216 mm[Hg]Dar Herr DPM Work Phone: [place] [address]Eqiofbxtkr83-46-0352 10:23-0400Body xmajcd285.7 cmGerber Salazar MD Work Phone: [place] [address]Gjmqwoyyze08-13-3258 10:23-0400Body mass index (BMI) [Ratio]40.29 kg/m2Gerber Salazar MD Work Phone: [place] [address]Pjzproxjhk20-62-9348 10:23-0400Body temperature 97.11 [degF]Gerber Salazar MD Work Phone: [facility] CenterNisbxktojj20-25-2976 10:0400Body rbithg367.2 kgGerber Salazar MD Work Phone: [facility]Pvotwywfpq62-19-3039 10:230400Diastolic blood unsbyotx52 mm[Hg]Gerber Salazar MD Work Phone: no[facility] HospitalCypgkmhejf84-34-8987 10:0400Heart rate75 /min Gerber Salazar MD Work Phone: [facility] CenterRisopnntkn88-06-8298 10:230400Respiratory rate20 /minGerber Salazar MD Work Phone: [facility] CenterEylqjpmxln09-86-6490 10:235724ElE9% (BldA) [Mass fraction]93 %Gerber Salazar MD Work Phone: noBarn[facility] HospitalQvfgsamdzf79-72-7240 10:Systolic blood mm[Hg]Gerber Salazar MD Work Phone: no[facility] Encounters Encounter DateEncounter TypeCare ProviderFacilityStart: 03-18-2025 End: 48-89-4265Akywbj Jess Herr DPM Work Phone: noMS CI PODIATRYStart: 03-18-2025 End: 04-00-8425Lcevqx flowsEdita Herr DPM Work Phone: noms CI PODIATRYStart: 03-18-2025 End: 50-69-8830Dvpint outpatient visit 15 minutesNicjulius Herr DPM Work Phone: noms CI PODIATRYComment on above:Xerosis cutis (Primary Dx); Diabetes mellitus due to underlying condition with diabetic polyneuropathy, 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); Pain due to onychomycosis of toenails of both feetStart: 03-18-2025 End: 97-73-0332zotueqqkjpINYDTENC A BROWNNot AvailableStart: 02-15-2025 End: 30-18-8943Jjlqaasuha Salazar MD Work Phone: [facility] CWM FMStart: 02-15-2025 End: 08-61-7597Caggtisuha Salazar MD Work Phone: [facility] FMStart: 02-15-2025 End: 16-16-2491Abdmxi outpatient visit 25 minutesGerber Salazar MD Work Phone: [facility] C[facility] FMComment on above:Type 2 diabetes mellitus with hyperglycemia, without long-term current use of insulin (HCC) (Primary Dx); Essential hypertension ; Chronic obstructive pulmonary disease, unspecified COPD type (HCC); Lumbosacral spondylosis with radiculopathy; MITZY (generalized anxiety disorder) ; Screening PSA (prostate specific antigen); Abnormal TSH; Class 2 severe obesity due to excess calories with serious comorbidity and body mass index (BMI) of35.0 to 35.9 in adult ([facility]-HCC); Dyslipidemia ; Encounter for long-term (current) use of medicationsStart: 02-15-2025 End: 48-04-4510fceltjbyuvOQWK NADERERNot AvailableStart: 02-10-2025 End: 70-06-4182VqnokkZhmy Naderer MD Work Phone: [facility] CWM FMComment on above:Lumbosacral spondylosis with radiculopathy; Generalized anxiety disorderStart: 01-19-2025 End: 23-41-5693DalvfvEimrGreg Salazar MD Work Phone: [facility] CWM FMComment on above:Generalized anxiety disorder ; Lumbosacral spondylosis with radiculopathyStart: 01-12-2025 End: 29-54-5912JipfflUawr Naderer MD Work Phone: [facility] C[facility] FMComment on above:Lumbosacral spondylosis with radiculopathyStart: 12-28-2024 End: 22-48-6554XnbqvhIirgGreg Salazar MD Work Phone: [facility] C[facility] FMComment on above:Generalized anxiety disorder ; Lumbosacral spondylosis with radiculopathyStart: 12-25-2024 End: 22-36-0071OkozqeXbdz Naderer MD Work Phone: [facility] C[facility] FMComment on above:Generalized anxiety disorderStart: 12-10-2024 End: 17-99-8349XjwdhhClcp Naderer MD Work Phone: [facility] CWM FMComment on above:Lumbosacral spondylosis with radiculopathy; Benign hypertensionStart: 11-10-2024 End: 23-74-0585Uxgquy Joann Salazar MD Work Phone: [facility] C[facility] FMStart: 11-10-2024 End: 48-48-5642Pprgrtsuha Salazar MD Work Phone: [facility] C[facility] FMStart: 11-10-2024 End: 38-54-2196Eymerc outpatient visit 25 Ashley Salazar MD Work Phone: [facility] CWM FMComment on above:Type 2 diabetes mellitus with hyperglycemia, without long-term current use of insulin (CMS/HCC) (Primary Dx); Essential hypertension (CMS/HCC); Chronic obstructive pulmonary disease, unspecified COPD type (CMS/HCC); Cervical spondylosis with myelopathy; MITZY (generalized anxiety disorder) (CMS/HCC); Primary insomnia; Lumbosacral spondylosis with radiculopathyStart: 11-10-2024 End: 96-25-9655nshccdfimuIEJF NADERERNot AvailableStart: 10-26-2024 End: 43-09-1699FcmimoXuzb Naderer MD Work Phone: [facility] CWM FMComment on above:Generalized anxiety disorder (CMS/HCC); Lumbosacral spondylosis with radiculopathyStart: 10-12-2024 End: 05-03-6714EdlgkvPqgk Naderer MD Work Phone: [facility] CWM FMComment on above:Lumbosacral spondylosis with radiculopathyStart: 09-07-2024 End: 01-54-8657dhdcvdlqdiCROWCBVI A BROWNNot AvailableStart: 09-07-2024 End: 62-52-6293Jzlzsf flowsheetNicholas Pebbles Brown DPM Work Phone: [facility] PODStart: 09-07-2024 End: 06-90-2615Zlsinl flowsheetNicholas A Brown DPM Work Phone: [facility] PODStart: 09-02-2024 End: 41-75-6975Nfaapkpfw encounterGerber Salazar MD Work Phone: [facility] CWM FMComment on above:Med RefillStart: 08-25-2024 End: 35-62-0930UqrqsvNxjv Naderer MD Work Phone: noms CWM FMComment on above:Generalized anxiety disorder (CMS/HCC)Start: 08-10-2024 End: 78-32-5107gerthjceugNNRL NADERERNot AvailableStart: 08-10-2024 End: 36-43-7406Yrxzax outpatient visit 25 minutesGerber Salazar MD Work Phone: noms CWM FMComment on above:Type 2 diabetes mellitus with hyperglycemia, without long-term current use of insulin (CMS/HCC) (Primary Dx); Essential hypertension (CMS/HCC); Chronic obstructive pulmonary disease, unspecified COPD type (CMS/HCC); Type 2 diabetes mellitus with polyneuropathy (CMS/HCC); Lumbosacral spondylosis with radiculopathy; MITZY (generalized anxiety disorder) (CMS/HCC); Primary insomnia; Class 3 severe obesity due to excess calories with serious comorbidity and body mass index (BMI) of40.0 to 44.9 in adult (CMS/HCC)Start: 19-49-5137Icv-patient / Non-visiteGrber Salazar MD Work Phone: [facility] Work Phone: Start: 07-28-2024 End: 06-02-4495Tzlujzfvr to same day surgery centerGerber Salazar MD Work Phone: [facility] Work Phone: Start: 07-28-2024 End: 32-96-0457sgclpdyeofQeyb Naderer MD Work Phone: [facility] Work Phone: Start: 07-20-2024 End: 20-03-2145AnzrzgBbrv Naderer MD Work Phone: noms CWM FMComment on above:Generalized anxiety disorder (CMS/HCC); Lumbosacral spondylosis with radiculopathyStart: 07-07-2024 End: 61-72-0557BlswkdCfyt Naderer MD Work Phone: noms CWM FMComment on above:Chronic obstructive pulmonary disease, unspecified COPD type (CMS/HCC) (Primary Dx); Benign hypertension (CMS/HCC)Start: 07-03-2024 End: 71-92-2616Thfaaoema Result EncounterGerber Salazar MD Work Phone: noms External Department UnsolicitedStart: 07-03-2024 End: 90-83-0557Etftszhpn Result EncounterGerber Salazar MD Work Phone: noms External Department UnsolicitedStart: 06-17-2024 End: 24-67-5430Chzogxc encounter procedureGerber Salazar MD Work Phone: [facility] Work Phone: Start: 06-15-2024 End: 01-92-9719IsbwjuIutt Naderer MD Work Phone: noms CWM FMComment on above:Generalized anxiety disorder (CMS/HCC); Lumbosacral spondylosis with radiculopathyStart: 06-09-2024 End: 53-87-6583Hrfmufw encounter procedureSstefania Jeffrey MD Work Phone: noms ST NEUROLOGYComment on above:Lumbar radiculopathy (Primary Dx)Start: 06-09-2024 End: 76-70-1973sndvimrfpqBARLUD BENEDICTNot AvailableStart: 72-70-3600Hqr- patient / Non-visitGerber Salazar MD Work Phone: [facility] Work Phone: Start: 06-02-2024 End: 04-80-7470Pnjystwqt to same day surgery centerGerber Salazar MD Work Phone: [facility] Work Phone: Start: 06-02-2024 End: 44-44-0337qcipebakyjJucn NadererFacility:[facility] Start: 05-27-2024 End: 58-94-2696PzlivhBdlv Naderer MD Work Phone: noms CWM FMComment on above:Lumbosacral spondylosis with radiculopathyStart: 05-13-2024 End: 31-78-7518chtvpwvlgkBlif Naderer MD Work Phone: [facility] Work Phone: Start: 05-13-2024 End: 25-81-9868Hsbjppa encounter procedureGerber Salazar MD Work Phone: [facility] Pain Management Work Phone: Start: 05-11-2024 End: 24-93-8803Ognmdc flowsNeville Saalzar MD Work Phone: noms CWM FMStart: 05-11-2024 End: 92-58-4557Cldgkb flowsNeville Salazar MD Work Phone: NOGZ CWM FMStart: 05-11-2024 End: 14-03-4605Cwbpild encounter procedureGerber Salazar MD Work Phone: noms HealthcareStart: 05-11-2024 End: 63-64-1816Phjkye follow up visit related to original Sid Salazar MD Work Phone: noms CWM FMComment on above:Medicare annual wellness visit, subsequent (Primary Dx); Type 2 diabetes mellitus with hyperglycemia, without long-term current use of insulin (CMS/HCC); Lumbosacral spondylosis with radiculopathy; Right ear impacted cerumen; DermatitisStart: 05-11-2024 End: 63-59-1149esogqvyrhtNGWT NADERERNot AvailableStart: 05-04-2024 End: 81-53-4445gyzbzvzqcnDS Marc Naderer Work Phone: [facility] Work Phone: Start: 05-04-2024 End: 37-72-5771Omyxsaw encounter procedureMD Gerber Salazar Work Phone: [facility] Neurosurgery Work Phone: start: 04-29-2024 End: 15-97-8393jxupwimepuSomt N BialaskiFacility:[facility] Hospitaltart: 04-29-2024 End: 21-24-0600Sdrldcrszn Mariola Salazar MD Work Phone: [facility] [place] Work Phone: start: 30-03-9974Rwgorzvkgu RecurringMD Gerber Salazar Work Phone: [facility] [place] Work Phone: start: 04-23-2024 End: 37-15-2077XldzjkVpge Naderer MD Work Phone: noms CWM FMComment on above:Generalized anxiety disorder (CMS/HCC); Type 2 diabetes mellitus with hyperglycemia, without long-term current use of insulin (CMS/HCC)Start: 04-17-2024 End: 69-26-8373NzmnraAvpx Naderer MD Work Phone: [facility] CWM FMComment on above:Generalized anxiety disorder (CMS/HCC)Start: 04-05-2024 End: 74-60-8469Yizaqvsao Result EncounterGeneric External Data ProviderNOMS External Department UnsolicitedStart: 04-05-2024 End: 85-39-1060Vrezospda Result EncounterGeneric External Data ProviderNOMS External Department UnsolicitedStart: 04-02-2024 End: 03-03-0435OyjsuuVchq Naderer MD Work Phone: noms CWM FMComment on above:Type 2 diabetes mellitus with hyperglycemia, without long-term current use of insulin ([facility]); Lumbosacral spondylosis with radiculopathyStart: 03-26-2024 End: 45-15-2308iklhcdrwdnEhamahfdnKettering Memorial Hospital Work Phone: Start: 03-26-2024 End: 21-21-1715Dcbwvhq encounter procedureAt[facility] Neurosurgery Work Phone: start: 03-24-2024 End: 56-94-5637Umdzdy Jess Herr DPM Work Phone: [facility] PODStart: 03-24-2024 End: 88-33-8684Pjdvbr Jess Herr DPM Work Phone: [facility] PODStart: 03-24-2024 End: 59-11-9753Wvzopsz encounter Mayuri Herr DPM Work Phone: noMS VA PODComment on above:Diabetes mellitus due to underlying condition with diabetic polyneuropathy, unspecified whether assisted insulin use ([facility]) (Primary Dx); Onychomycosis; Toe pain, bilateral; Xerosis cutisStart: 03-24-2024 End: 21-41-6522qkmvdxegxyFRDPDSTJ A BROWNNot AvailableStart: 03-17-2024 End: 84-44-3294Fegwme Joann Salazar MD Work Phone: noms CWM FMStart: 03-17-2024 End: 87-63-8234Ovbbbdlynda Salazar MD Work Phone: noms CWM FMStart: 03-17-2024 End: 77-00-9848Yiqybd outpatient visit 25 minutesGerber Salazar MD Work Phone: noms [facility] FMComment on above:Type 2 diabetes mellitus with hyperglycemia, without long-term current use of insulin (CMS/HCC) (Primary Dx); Essential hypertension (CMS/HCC); Lumbosacral spondylosis with radiculopathy; MITZY (generalized anxiety disorder) (CMS/HCC); Primary insomnia; Chronic obstructive pulmonary disease, unspecified COPD type (CMS/HCC); Colon cancer screening; Morbid (severe) obesity due to excess calories ([facility]); Body mass index (BMI) 38.0-38.9, adultStart: 09-18-2023 End: 00-80-8588Wwlbuimrr Result EncounterGerber Salazar MD Work Phone: noms External Department UnsolicitedStart: 09-18-2023 End: 32-22-0762Mxmvtknij Result EncounterGerber Salazar MD Work Phone: noms External Department UnsolicitedStart: 10-19-2022 End: 50-32-9615bvucnvekbpYO DOCTOR MISCFacility:U8Tyclj: 10-04-2022 End: 58-69-7899enyjhnxaeoFK GERBER A NADERERFacility:N2Rvfol: 11-15-2021 End: 52-85-2803uhwtamticoRH GERBER A NADERERFacility:L1Umwkd: 02-09-2019 End: 68-91-5237Pdfvezl encounter procedureDHSHANAE [facility] Medical Centertart: 02-02-2019 End: 77-73-7288Qltycdttg department patient visitREEast Morgan County Hospitaltart: 10-20-2018 End: 36-99-1288Sampqee encounter procedureFORREST [facility] Medical Centertart: 10-09-2018 End: 01-76-7266Ljmnswm encounter procedureFORREST [facility] Medical Centertart: 09-02-2018 End: 20-95-1828Rrnggfr encounter procedureREEast Morgan County Hospitaltart: 08-11-2018 End: 77-97-8530Mngkaly encounter procedureUCHealth Highlands [facility] Procedures DateProcedureProcedure DetailPerforming ClinicianStart: 43-21-3872Tvzklouw injection of lumbar spine using fluoroscopic guidanceGerber Salazar MD Work Phone: Start: 01-98-1559ZMB HEMOGLOBIN B9TGseoGerber Salazar MD Work Phone: Start: 06-09-2024 End: 44-34-0056Tixily emg ea extremty w/paraspinl area Dhara Jeffrey MD Work Phone: Start: 87-36-3837Dwtdrpwmv of spinal epidural space Gerber Salazar MD Work Phone: Start: 20-44-4348TE LUMBAR SPINE MIN 4VGeneric External Data ProviderStart: 25-51-8005UU CERVICAL SPINE 2-3VGeneric External Data ProviderStart: 36-25-6272EK LUMBAR SPINE WO CONGerber Salazar MD Work Phone: Start: 11-53-7986WTE screeningDR DOCTOR MISCComment on above:Performed By: #### [facility]ASC #### [facility] [address] [place] [address] Dr. Cindi UnderwoodStart: 01-44-2979Yzr spinal canal cervical w/o contrast matrl TORREY MITTALtart: 53-56-9796Op head/brain w/o contrast materialTORREY DAY Start: 07-37-4754Abuh differential functionREGSABINO MITTALtart: 42-35-0464Iabsl spine cervical 2 or 3 viewsTORREY DAY Plan of Treatment DateCare ActivityDetailAuthorStart: 70-97-2524Hsipuzsma for malignant neoplasm of colonColorectal Cancer ScreeningNOMS HealthcareComment on above:Postponed from 1960 (Patient Refused)Start: 06-10-2025 End: 86-81-6351Osoqleq encounter tfiyiguna96/11/2025 10:20 AM EST Office Visit [facility] [address] [place] [address] Dar Herr DPM [address] [address] [facility] CI PODIATRYStart: 05-18-2025 End: 62-56-8649Phvevep encounter rsmzkexiw72/18/2025 10:30 AM EST Office Visit [facility] [address] [place] [address] Gerber Salazar MD [address] [place] [address] [facility] CWBrendon FMStart: 11-11-2025Medicare Annual Wellness (AWV)Medicare Annual Wellness (AWV)[facility] HealthcareStart: 03-18-2025 End: 58-97-7179Abuatom encounter wsxjopqtr99/18/2025 11:00 AM EDT Office Visit [facility] [facility] [address] [address] Dar Herr DPM [address] [address] Diabetes mellitus due to underlying condition with diabetic polyneuropathy, 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) (Primary Dx); Pain due to onychomycosis of toenails ofboth feet; Xerosis cutis N[facility] CI PODIATRYComment on above:Diabetes mellitus due to underlying condition with diabetic polyneuropathy, 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) (Primary Dx); Pain due to onychomycosis of toenails of both feet; Xerosis cutisStart: 43-30-4740Rzqwsyjsh vaccinationNOMS HealthcareStart: 02-15-2025 End: 75-03-7939Plibm metabolic 1998 panel - Serum or PlasmaBasic metabolic panel Lab Routine Essential hypertension Expected: 02/15/2025 (Approximate), Expires: 02/15/2026NOM[facility] HealthcareComment on above:Expected: 02/15/2025 (Approximate), Expires: 02/15/2026Start: 02-15-2025 End: 75-41-7611HKB W Auto Differential panel - BloodCBC and differential Lab Routine Encounter for long-term (current) use of medications Expected: 01/29 (Approximate), Expires: 02/15/2026[facility] HealthcareComment on above: Expected: 02/15/2025 (Approximate), Expires: 02/15/2026Start: 02-15-2025 End: 86-17-0959Oywbicguhi A1c/Hemoglobin.total in BloodHemoglobin A1c Lab Routine Type 2 diabetes mellitus with hyperglycemia, without long-term current use of insulin (HCC) Expected: 02/15/2025 (Approximate), Expires: 02/15/2026[facility] HealthcareComment on above:Expected: 02/15/2025 (Approximate), Expires: 02/15/2026Start: 02-15-2025 End: 52-85-6964Zgimwfp function 2000 panel - Serum or PlasmaHepatic function panel Lab Routine Encounter for long-term (current) use of medications Expected: 02/15/2025 (Approximate), Expires: 02/15/2026[facility] HealthcareComment on above: Expected: 02/15/2025 (Approximate), Expires: 02/15/2026Start: 02-15-2025 End: 76-33-1702Gezma 1996 panel - Serum or PlasmaLipid panel Lab Routine Dyslipidemia Expected: 02/15/2025 (Approximate), Expires: 02/15/2026[facility] HealthcareComment on above:Expected: 02/15/2025 (Approximate), Expires: 02/15/2026Start: 02-15-2025 End: 01-17-0711Zqsdkttkjerh/Creatinine panel in random UrineMicroalbumin / creatinine, urine ratio Lab Routine Type 2 diabetes mellitus with hyperglycemia, without long-term current use of insulin (HCC) Expected: 02/15/2025 (Approximate), Expires: 02/15/2026[facility] Healthcare Work Phone: Comment on above:Expected: 02/15/2025 (Approximate), Expires: 02/15/2026Start: 02-15-2025 End: 59-86-3517Zfxlghgs specific Ag [Mass/volume] in Serum or PlasmaPSA Lab Routine Screening PSA (prostate specific antigen) Expected: 02/15/2025 (Approximate), Expires: 02/15/2026NONH HealthcareComment on above:Expected: 02/15/2025 (Approximate), Expires: 02/15/2026Start: 02-15-2025 End: 34-37-0910Fcfdpvwrtlv [Units/volume] in Serum or PlasmaTSH Lab Routine Abnormal TSH Expected: 02/15/2025 (Approximate), Expires: 02/15/2026NONH HealthcareComment on above:Expected: 02/15/2025 (Approximate), Expires: 02/15/2026Start: 02-15-2025 End: 07-37-7507Szabysbpn (T4) free [Mass/volume] in Serum or PlasmaT4, free Lab Routine Abnormal TSH Expected: 02/15/2025 (Approximate), Expires: 02/15/2026NONH HealthcareComment on above:Expected: 02/15/2025 (Approximate), Expires: 02/15/2026Start: 02-15-2025 End: 27-99-2464Tkhaesq encounter procedureNOOKLAHOMA HEART [facility] [place] FMComment on above:Arrived Start: 27-31-7885Zntkpvrjwb A1c measurementDiabetes: Hemoglobin K9LRNYG HealthcareStart: 26-06-0188Vmbss screening for proteinDiabetes: Urine Protein ScreeningNONH HealthcareStart: 11-16-2024 End: 19-69-3408Ppukywr encounter loymczklz00/19/2025 3:20 PM EDT Office Visit [facility] [address] [place] [address] Dar Herr DPM [address] [address] [facility] [place] PODStart: 11-10-2024 End: 53-89-6232Iqaangw encounter procedureNOMS CWM FMComment on above:Arrived Start: 09-07-2024 End: 66-53-4695Hhqihtw encounter procedureNOMS SC PODComment on above:Diabetes mellitus due to underlying condition with diabetic polyneuropathy, unspecified whether assisted insulin use ([facility]) (Primary Dx); Pain due to onychomycosis of toenails of both feet; Xerosis cutisStart: 21-71-7438Wbodxjua screeningDiabetes: Retinopathy Screening [facility] HealthcareStart: 08-10-2024 End: 10-13-8503Czbwhfe encounter ssqoywvqk79/10/2025 10:45 AM EST [facility] [address] [place] [address] Gerber Salazar MD [address] [place] [address] [facility] FMStart: 87-31-2185HwmbuvpwlOhioHealth Hardin Memorial Hospitaltart: 20-25-3511Fgbnogyqxv A1c measurementDiabetes: Hemoglobin O6MBQIOMineral Area Regional Medical Center Start: 06-09-2024 End: 92-68-3591Kagvsuq encounter bpsjyicqc28/10/2024 11:30 AM EST Procedure Visit [facility] [address] [facility] [address] [place] [address] Nato Jeffrey MD [address] [place] [address] [facility] NEUROLOGYStart: 06-02-2024 End: 90-24-0470Sqmkflw encounter /03/2024 10:00 AM EST Office Visit [facility] [address] [place] [address] Dar Herr DPM [address] [facility] [address] [place] [address] [facility] PODStart: 87-89-7968UijvtesliKettering Health [facility] Start: 05-11-2024 End: 90-42-9952Qruxlqdgyh A1c/Hemoglobin.total in BloodHemoglobin A1c Lab Routine Type 2 diabetes mellitus with hyperglycemia, without long-term current use of insulin ([facility]) Expected: 05/11/2024 (Approximate), Expires: 05/11/2025 [facility] Work Phone: Comment on above:Expected: 05/11/2024 (Approximate), Expires: 05/11/2025Start: 05-07-2024 End: 01-85-9978Hndgigm encounter wvyymnhxu33/07/2024 10:30 AM EST Office Visit [facility] [address] [place] [address] Gerber Salazar MD [address] [place] [address] NOMMoustapha [facility] FMStart: 96-95-4941Rgqxbpb [facility] Work Phone: Start: 65-67-7113Sjdfrcz [facility] Work Phone: Start: 03-24-2024 End: 37-13-2747Tsxkpch encounter procedureNOBROOKHAVEN HOS[facility]ITAL [facility] [place] PODComment on above:Diabetes mellitus due to underlying condition with diabetic polyneuropathy, 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 ([facility]) (Primary Dx); Onychomycosis; Toe pain, bilateral; Xerosis cutisStart: 03-17-2024 End: 77-58-3920Gnpctgl encounter /17/2024 10:30 AM EDT Office Visit [facility] [address] [place] [address] Gerber Salazar MD [address] [place] [address] ArrivedNOOKLAHOMA HEART [facility] [place] FMComment on above:ArrivedStart: 04-36-8848Vmbdjuase vaccinationInfluenza Vaccine (#1)[facility] HealthcareStart: 73-23-4323Uueux screening for proteinDiabetes: Urine Protein ScreeningNONH HealthcareStart: 04-16-2019 Hemoglobin A1c measurementDiabetes: Hemoglobin T9BUTEB HealthcareStart: 93-44-3963Veyxjbhtmppt Vaccine: 65+ Years (1 of 2 - PCV)Pneumococcal Vaccine: 65+ Years (1 of 2 - PCV)[facility] HealthcareStart: 74-93-0621Trshzdptaypc Vaccine: 65+ Years (1 of 2 - PCV)Pneumococcal Vaccine: 65+ Years (1 of 2 - PCV)[facility] HealthcareStart: 1958Medicare Annual Wellness (AWV)Medicare Annual Wellness (AWV)[facility] [facility] HealthcareStart: 64-10-3535Znfeurlcd for malignant neoplasm of colonNOBarnes-Jewish West County HospitalNoninvasive colorectal cancer DNA and occult blood screening [Presence] in StoolCologuard colon cancer screening Lab Routine Colon cancer screening Ordered: 03/17/2024[facility] Work Phone: Comment on above:Ordered: 4Patient Education [facility] Work Phone: [facility] Work Phone: [facility] 2 [facility] Immunizations Immunization DateImmunizationNotesCare LcblzbxqLhgewqiq23-02-3691Cnrkbydru, injectable, Madin Edilma Canine Kidney, preservative free, quadrivalentGerber Salazar MD Work Phone: [facility] CenterFdtmrmxcfv19-64-2163kaldukaoj virus vaccine, unspecified formulationGerber Salazar MD Work Phone: [facility] CenterLxxxvhxxbf50-83-9024zzauwor toxoid, reduced diphtheria toxoid, and acellular pertussis vaccine, adsorbedGerber Salazar MD Work Phone: [facility] Payers DatePayer CategoryPayerPolicy [id number] [id number] 2024Medicare (Managed Care)[employer] [id number] [id number] [id number] 2021Medicare [id number] [id number] [id number] [id number] 2..1.627442.3.57[id number] 2..1.155721.3.57[id number] 2..1.410039.3.57[id number] 2..1.824696.3.57[id number] 2.0.1.575950.3.57[id number] 2..1.302837.3.57[id number] 2.0.1.382932.3.57[id number] 2.16.840.1.343446.3.57[id number] 2.16.840.1.151803.3.57[id number] 2.16.840.1.941094.3.57[id number] 2..840.1.795070.3.57[id number] 2..840.1.185556.3.57[id number] 2..840.1.552213.3.57[id number] 2.840.1.885975.3.57[id number] 2..840.1.234449.3.57[id number] 2..840.1.035427.3.57[id number] 2..840.1.03[id number] 2.840.1.090634.3.579.2.531 [id number] 2.840.1.054[id number] 2.0.1.748625.3.579.2.531 Social History DateTypeDetailFacilityStart: 10-06-2020 End: 29-41-9576Mecoamj smoking status NHISSmoker (finding)[facility] Hospitaltart: 88-83-7019Apu Assigned At BirthGlenbeigh Hospitaltart: 12-02-2023 End: 34-53-8453Djnmgvv smoking status NHISSmokes tobacco dailyNOMS Healthcare End: 25-66-4106Taupqah of tobacco useCigarette SmokerNOMS HealthcareStart: 09-09-2023 End: 34-77-6695Gtfvcbl use and exposureSmokeless tobacco non-userNOMS Healthcare Start: 09-09-2023 End: 18-95-4913Kuybjyigx beverage intakeLifetime non-drinker (finding)[facility] HealthcareStart: 03-24-2024 End: 68-15-0369Ghsyhgk of Social functionNOMS HealthcareStart: 03-24-2024 End: 12-71-2954Oteudxi use panelNOMS HealthcareStart: 93-79-8344Ejwbhdg Comment Last smoked : < 1 monthNOMS HealthcareStart: 78-24-6332Mflmgpw Commentcaffeine intake: 2-3 cups per dayNOMS HealthcareStart: 13-76-0354Hll assigned at birthNot on fileNOMS HealthcareStart: 05-13-2024 End: 02-53-2713WddRejp (finding)[facility] Hospitaltart: 64-09-9194Kzdgdys smoking status NHISCurrent Heavy tobacco smokerOhioHealth Hardin Memorial Hospitaltart: 16-09-4552RziKyugYCJB HealthcareStart: 09-09-2023 Tobacco smoking status NHISEx-smokerNOBarnes-[facility] Medical Equipment Procedure CodeEquipment CodeEquipment Original TextEquipment IdentifierDatesBONE 5MM DUOFDAStart: 91-07-2096Ytku-screw internal spinal fixation system, non-sterile()[id number] FDAStart: 63-07-7303PIQV 5MM DUOFDAStart: 39-96-9922CNNV 6MM DUOFDAStart: 86-33-9668RCSP 6MM DUOFDAStart: 50-59-3339Vaqvkm fixation plate, non-bioabsorbable()[id number] FDAStart: 50-22-9643Ttuw- screw internal spinal fixation system, non-sterile()[id number] FDAStart: 77-50-9947GNNN 5MM DUOFDAStart: 98-49-1880YPWR 5MM DUOFDAStart: 47-85-5038HUHG 6MM DUOFDAStart: 14-82-9656GVZD 6MM DUOFDAStart: 65-22-5873ZMGR 5MM DUOFDAStart: 27-38-0389BUQW 5MM DUOFDAStart: 69-51-3351XEUF 6MM DUOFDAStart: 13-95-6555QGBL 6MM DUOFDAStart: 00-37-0714LYBT 5MM DUOFDAStart: 55-93-0121XWNY 5MM DUOFDAStart: 23-31-3961WYZH 6MM DUOFDAStart: 58-70-8375IQTT 6MM DUOFDAStart: 06-02-2019 Goals DatePatient GoalDesired Activity/State Functional Status JlfuYaicvajzuxNqdyzaQagdlgne44-71-7211Nkxfvqr Health Questionnaire 2 item (PHQ- 2) [Reported][facility] CenterDpnfapyvrf39-41-3721Slu difficult have these problems made it for you to do your work, take care of things at home, or get along with other people?Not difficult at all 05/11/2024 11:00 AM EST Sosa Wu MA Not difficult at [facility] Clinical Notes 03-17-2024 to 03-18-2025 Note Date & GbpuEonjGttdivqy22-07-3287 History of Present illness Narrative* Dar Herr, DP - 03/18/2025 11:00 AM EDT Patient: Sameer Nielsen Katia : 1960 PCP: Gerber Salazar MD SUBJECTIVE This is a 65 y.o. male that presents today with a CC of elongated, thick nails. Pt states nails have been elongated and thick for many years and cause pain with ambulation in shoegear. Pt has tried previous treatment with minimal relief. Pt presents today for nail care and treatment. Patient is DM2 Patient also presents today for follow-up of dry skin and fissures to feet and has intermittently been using prescribed or recommended pkdg-vft-vytjwow cream with minimal improvement. Allergies: Allergies Allergen Reactions Lisinopril Shortness of breath Past Medical History: Past Medical History: Diagnosis Date Anxiety BPH (benign prostatic hyperplasia) COPD (chronic obstructive pulmonary disease) (HCC) Diabetes (HCC) Dysphagia HLD (hyperlipidemia) HTN (hypertension) Medications: Current Outpatient Medications: albuterol (2.5 MG/3ML) 0.083% nebulizer solution, Take 3 mL (2.5 mg) by nebulization every 4 (four)hours if needed for wheezing or shortness of breath, Disp: 75 mL, Rfl: 3 albuterol HFA 90 mcg/act inhaler, Inhale 2 puffs every 4 (four) hours if needed for wheezing, Disp:18 g, Rfl: 5 ALPRAZolam (Xanax) 1 MG tablet, Take 1 tablet (1 mg) by mouth 4 (four) times a day as needed for anxiety, Disp: 120 tablet, Rfl: 0 atorvastatin (Lipitor) 40 MG tablet, Take 40 mg by mouth at bedtime, Disp: , Rfl: budesonide-formoterol (Symbicort) 160-4.5 MCG/ACT inhaler, Inhale 2 puffs in the morning and 2 puffs before bedtime. Rinse mouth with water after use to reduce aftertaste and incidence of candidiasis. Do not swallow., Disp: 1 each, Rfl: 5 hydroCHLOROthiazide (HYDRODiuril) 25 MG tablet, Take 2 tablets (50 mg) by mouth Daily, Disp: 60 tablet, Rfl: 5 metFORMIN XR (Glucophage-XR) 500 MG 24 hr tablet, Take 1 tablet (500 mg) by mouth in the morning and 1 tablet (500 mg) before bedtime., Disp: 180 tablet, Rfl: 3 polyethylene glycol, PEG, 3350 (MiraLax) 17 GM/SCOOP powder, Take 17 g by mouth Daily, Disp: 510 g,Rfl: 3 semaglutide (Ozempic, 1 MG/DOSE,) 4 MG/3ML solution pen-injector, Inject 1 mg under the skin 1 (one) time per week, Disp: 3 mL, Rfl: 2 tiotropium (Spiriva HandiHaler) 18 MCG inhalation capsule, Place 1 capsule (18 mcg) into inhaler and inhale Daily, Disp: 30 capsule, Rfl: 5 triamcinolone (Kenalog) 0.5 % cream, Apply topically 3 (three) times a day, Disp: 60 g, Rfl: 2 Social History: Social History Socioeconomic History Marital status: Spouse name: Not on file Number of children: Not on file Years of education: Not on file Highest education level: Not on file Occupational History Not on file Tobacco Use Smoking status: Every Day Current packs/day: 0.00 Types: Cigarettes Last attempt to quit: 06/02/2019 Years since quittin.7 Smokeless tobacco: Never Tobacco comments: Last smoked : < 1 month Vaping Use Vaping status: Never Used Substance and Sexual Activity Alcohol use: Never Comment: caffeine intake: 2-3 cups per day Drug use: Never Sexual activity: Defer Other Topics Concern Not on file Social History Narrative Not on file Social Drivers of Health Financial Resource Strain: Not on file Food Insecurity: Not on file Transportation Needs: Not on file Physical Activity: Not on file Stress: Not on file Social Connections: Not on file Intimate Partner Violence: Unknown (08/22/2023) Received from [facility] [place] [facility] Fear of Current or [...] growth with thin shiny atrophic skin bilaterally. positive Dry and scaly skin to bilateral feet and ankles with negative openings and skin or drainage VASC: Negative DP and negative PT pedal pulses NEURO: 5.07 [place] Gwen monofilament test diminished to digits and forefoot bilaterally 125Hz tuning fork diminished to 1st MPJ bilaterally ORTHO: Positive pain on palpation to toenails of the left 1,2,3,4,5 toes and right 1,2,3,4,5 toes ASSESSMENT 1. Diabetes mellitus due to underlying condition with diabetic polyneuropathy, unspecified whether assisted insulin use (HCC) 2. Pain due to onychomycosis of toenails of both feet 3. Xerosis cutis PLAN Discussed proper foot care [...] creams and lotions to feet daily Dar Herr DPM documented in this encounterMineral Area Regional Medical [id number] History of Present illness Narrative* Gerber Salazar MD - 02/15/2025 11:05 AM EDTAssociated Problem(s): Type 2 diabetes mellitus with hyperglycemia, without long-term current use of insulin (HCC) Not checking BS and due for A1C. Stick to ADA diet and limit carbs. * Gerber Salazar MD - 02/15/2025 11:05 AM EDTAssociated Problem(s): Lumbosacral spondylosis with radiculopathy Pain unchanged and follow with pain management. Use percocet PRN. Do not take at same time as xanax. * Gerber Salazar MD - 02/15/2025 11:04 AM EDTAssociated Problem(s): MITZY (generalized anxiety disorder) Symptoms stable with xanax and use PRN. * Gerber Salazar MD - 02/15/2025 11:03 AM EDTAssociated Problem(s): Essential hypertension BP controlled and monitor PRN. * Gerber Salazar MD - 02/15/2025 11:03 AM EDTAssociated Problem(s): Chronic obstructive pulmonary disease (HCC) Breathing stable and continue spiriva. Use albuterol PRN. Discussed need to stop smoking. * Gerber Salazar MD - 02/15/2025 10:00 AM EDT Subjective Patient ID: Sameer Montalvo is a 65 y.o. male who presents for Follow-up (3m). Follow up DM, HTN, pain, anxiety, and COPD. Not checking BS away from office and due for A1C. Triesto eat well and stick to ADA diet. Denies signs of elevated BS such as polyuria, polyphagia or polydipsia. Checking BP PRN and typically controlled. BP controlled today. Taking medication daily and tolerating without side effects. Pain unchanged. Continued pain in neck and hips. Pain with walking and standing. Using percocet PRN and helps. Anxiety stable. Not as stressed out or overwhelmed. Not as nervous or worry as much. Not as quinones or irritable. Using xanax PRN and helps when needed. COPD stable. Mild SOB and cough with exertion. Mild sputum in am. Using spiriva and symbicort daily. Usingalbuterol PRN which helps. Continues to smoke 1 [...] Addressed This Visit Chronic obstructive pulmonary disease (HCC) Breathing stable and continue spiriva. Use albuterol PRN. Discussed need to stop smoking. Essential hypertension BP controlled and monitor PRN. Relevant Orders Basic metabolic panel Dyslipidemia Relevant Orders Lipid panel Type 2 diabetes mellitus with hyperglycemia, without long-term current use of insulin ([facility]) - Primary Not checking BS and due for A1C. Stick to ADA diet and limit carbs. Relevant Orders Microalbumin / creatinine, urine ratio Hemoglobin A1c MITZY (generalized anxiety disorder) Symptoms stable with xanax and use PRN. Lumbosacral spondylosis with radiculopathy Pain unchanged and follow with pain management. Use percocet PRN. Do not take at same time as xanax. Encounter for long-term (current) use of medications Relevant Orders CBC and differential Hepatic function panel Screening PSA (prostate specific antigen) Relevant Orders PSA Abnormal TSH Relevant Orders TSH T4, free Class 2 severe obesity due to excess calories with serious comorbidity and body mass index (BMI) of35.0 to 35.9 in adult ([facility] documented in this encounterMineral Area Regional Medical [id number] Telephone encounter Note* Telephone Encounter - Christiana Navarrosalina - 01/19/2025 11:46 AM EDT Patient called stating he is aware he can't get these medications refilled until 01/27/25, but wanted to call in to ask for them now so they do get refilled on the . CHERIE [facility] CenterKvvxnktyms82-19-2007 Miscellaneous Notes* Telephone Encounter - Christiana Navarrosalina - 01/19/2025 11:46 AM EDT Patient called stating he is aware he can't get these medications refilled until 01/27/25, but wanted to call in to ask for them now so they do get refilled on the 30. CHERIE documented in this encounterMineral Area Regional Medical [id number] History of Present illness Narrative* Gerber Salazar MD - 11/10/2024 11:37 AM EDTAssociated Problem(s): Type 2 diabetes mellitus with hyperglycemia, without long-term current use of insulin (CMS/HCC) Not checking BS but last A1C 6.6. Stick to ADA diet and limit carbs. * Gerber Salazar MD - 11/10/2024 11:37 AM EDTAssociated Problem(s): Primary insomnia Sleeping well with medication and continue. * Gerber Salazar MD - 11/10/2024 11:37 AM EDTAssociated Problem(s): Lumbosacral spondylosis with radiculopathy Pain unchanged and follow with pain management. Use percocet PRN. Do not take at same time as xanax. * Gerber Salazar MD - 11/10/2024 11:37 AM EDTAssociated Problem(s): MITZY (generalized anxiety disorder) ([facility]) Symptoms stable with xanax and use PRN. * Gerber Salazar MD - 11/10/2024 11:37 AM EDTAssociated Problem(s): Essential hypertension (CMS/HCC) BP controlled and monitor PRN. * Gerber Salazar MD - 11/10/2024 11:36 AM EDTAssociated Problem(s): Chronic obstructive pulmonary disease (CMS/HCC) Breathing stable and continue spiriva. Use albuterol PRN. Discussed need to stop smoking. * Gerber Salazar MD - 11/10/2024 11:36 AM EDTAssociated Problem(s): Cervical spondylosis with myelopathy Pain unchanged and use OTC PRN. If continues to worsen will need to return to pain management. * Gerber Salazar MD - 11/10/2024 10:45 AM EDT Images from the original note were not included. Subjective Patient ID: Sameer Montalvo is a 64 y.o. male who presents for Follow-up (3 m). Follow up DM, HTN, pain, anxiety, insomnia, and COPD. Not checking BS away from office but last A1C6.6. Tries to eat well and stick to ADA diet. Denies signs of elevated BS such as polyuria, polyphagia or polydipsia. Checking BP PRN and typically controlled. BP controlled today. Taking medication daily and tolerating without side effects. Pain unchanged. Continued pain in neck and hips. Pain with walking and standing. Using percocet PRN and mild relief. Seen by pain management and injections not helping much. Anxiety stable. Not as stressed out or overwhelmed. Not as nervous or worry as much. Not as quinones or irritable. Using xanax PRN and helps when needed. Sleeping well with doxepin. Ableto fall asleep and stay asleep. Wakes up rested in am. COPD stable. Mild SOB and cough with [...] Assessment/Plan Problem List Items Addressed This Visit Cervical spondylosis with myelopathy Pain unchanged and use OTC PRN. If continues to worsen will need to return to pain management. Chronic obstructive pulmonary disease (CMS/HCC) Breathing stable and continue spiriva. Use albuterol PRN. Discussed need to stop smoking. Relevant Medications tiotropium (Spiriva HandiHaler) 18 MCG inhalation capsule budesonide-formoterol (Symbicort) 160-4.5 MCG/ACT inhaler albuterol HFA 90 mcg/act inhaler Essential hypertension (CMS/HCC) BP controlled and monitor PRN. Type 2 diabetes mellitus with hyperglycemia, without long-term current use of insulin (CMS/HCC) - Primary Not checking BS but last A1C 6.6. Stick to ADA diet and limit carbs. Relevant Medications metFORMIN XR (Glucophage-XR) 500 MG 24 hr tablet MITZY (generalized anxiety disorder) (CMS/HCC) Symptoms stable with xanax and use PRN. Primary insomnia Sleeping well with medication and continue. Lumbosacral spondylosis with radiculopathy Pain unchanged and follow with pain management. Use percocet PRN. Do not take at same time as xanax. Relevant Medications oxyCODONE-acetaminophen (Percocet) 5-325 MG tablet documented in this encounterMineral Area Regional Medical [id number] Telephone encounter Note* Telephone Encounter - Christiana Walter - 09/02/2024 11:06 AM EST Percocet needs refilled, but don't see on his chart. JN [facility] [id number] Miscellaneous Notes* Telephone Encounter - Christiana Navarromargaux - 09/02/2024 11:06 AM EST Percocet needs refilled, but don't see on his chart. JN documented in this encounterNOBarnes-Jewish West County HospitalVvemzgthbm73-77-1534 History of Present illness Narrative* Gerber Salazar MD - 08/10/2024 11:43 AM ESTAssociated Problem(s): Type 2 diabetes mellitus with polyneuropathy (CMS/HCC) Pain stable and monitor. * Gerber Salazar MD - 08/10/2024 11:43 AM ESTAssociated Problem(s): Type 2 diabetes mellitus with hyperglycemia, without long-term current use of insulin (CMS/HCC) Not checking BS but recent A1C 6.6. Stick to ADA diet and limit carbs. * Gerber Salazar MD - 08/10/2024 11:43 AM ESTAssociated Problem(s): Primary insomnia Sleeping well with medication and continue. * Gerber Salazar MD - 08/10/2024 11:42 AM ESTAssociated Problem(s): Lumbosacral spondylosis with radiculopathy Pain unchanged and follow with pain management. Use percocet PRN. Do not take at same time as xanax. * Gerber Salazar MD - 08/10/2024 11:42 AM ESTAssociated Problem(s): MITZY (generalized anxiety disorder) (CMS/HCC) Symptoms stable with xanax and use PRN. * Gerber Salazar MD - 08/10/2024 11:42 AM ESTAssociated Problem(s): Essential hypertension ([facility]) BP controlled and monitor PRN. * Gerber Salazar MD - 08/10/2024 11:42 AM ESTAssociated Problem(s): Class 3 severe obesity due to excess calories with serious comorbidity and body mass index (BMI) of 40.0 to 44.9 in adult ([facility]) Weight loss indicated. * Gerber Salazar MD - 08/10/2024 11:42 AM ESTAssociated Problem(s): Chronic obstructive pulmonary disease ([facility]) Breathing stable and continue spiriva. Use albuterol PRN. Discussed need to stop smoking. * Gerber Salazar MD - 08/10/2024 10:45 AM EST Images from the original note were not included. Subjective Patient ID: Sameer Montalvo is a 64 y.o. male who presents for No chief complaint on file.. Follow up DM, HTN, pain, anxiety, insomnia, and COPD. Not checking BS away from office but recent A1C 6.6. Tries to eat well and stick to ADA diet. Denies signs of elevated BS such as polyuria, polyphagia or polydipsia. Checking BP PRN and typically controlled. BP elevated today. Taking medication daily and tolerating without side effects. Pain getting worse. Increased pain in neck and hips. Pain with walking and standing. Using percocet PRN and mild relief. Seen by pain management and injections not helping much. Anxiety stable. Not as stressed out or overwhelmed. Not as nervous or worry as much. Not as quinones or irritable. Using xanax PRN and helps when needed. Sleeping well with doxepin. Able to fall asleep and stay asleep. Wakes up rested in am. COPD stable. Mild SOB and cough with [...] Addressed This Visit Chronic obstructive pulmonary disease ([facility]) Breathing stable and continue spiriva. Use albuterol PRN. Discussed need to stop smoking. Essential hypertension ([facility]) BP controlled and monitor PRN. Type 2 diabetes mellitus with hyperglycemia, without long-term current use of insulin ([facility]) - Primary Not checking BS but recent A1C 6.6. Stick to ADA diet and limit carbs. MITZY (generalized anxiety disorder) ([facility]) Symptoms stable with xanax and use PRN. Primary insomnia Sleeping well with medication and continue. Lumbosacral spondylosis with radiculopathy Pain unchanged and follow with pain management. Use percocet PRN. Do not take at same time as xanax. Relevant Medications oxyCODONE-acetaminophen (Percocet) 5-325 MG tablet Class 3 severe obesity due to excess calories with serious comorbidity and body mass index (BMI) of40.0 to 44.9 in adult ([facility]) Weight loss indicated. Type 2 diabetes mellitus with polyneuropathy ([facility]) Pain stable and monitor. documented in this encounterMineral Area Regional Medical [id number] [place] [address] Pain Management Procedure Note Signed Patient: Sameer Montalvo MR#: [id number] : 1960 Acct:[id number] Age/Sex: 64 / M Adm Date: 5 Loc: Room: Type: [facility] Attending Dr: Edilberto Chan MD Copies to: MD Edilberto Rodriguez MD~ Pain Procedure PROCEDURE PERFORMED BY: Edilberto Chan PROCEDURE DATE: 07/28/2024 PREPROCEDURE DIAGNOSIS:? Spondylosis with radiculopathy, lumbar region Chronic pain POSTPROCEDURE DIAGNOSIS:? Spondylosis with radiculopathy, lumbar region Chronic pain PROCEDURE:? Interlaminar epidural steroid injection at the L5/S1 level under fluoroscopic guidance. COMPLICATIONS:? None ANESTHESIA: Local CLINICAL NOTE:? The patient has a history of low back pain.? The patient requests the epidural in an attempt to improve the pain.? The risks, benefits, and alternatives of theprocedure were explained to the patient.? The patient wishes to proceed. PROCEDURE NOTE:? The patient was brought to the procedure room and placed in the prone position. The skin was prepped and draped with ChloraPrep and sterile drape.? 5 mL of 1% lidocaine were injected through a 27-gauge needle for local anesthesia.? An 18- gauge Tuohy needle was guided to L5/S1 interlaminar space under fluoroscopic guidance by the loss of resistance technique.? Contrast was injected under live fluoroscopy to ensure proper needle placement. After negative aspiration, 60 mg of methylprednisolone and 2 ml 0.25% marcaine was injected through the needle.? The needle was removed and band-aid was applied. The patient tolerated the procedure well and was transferred to recovery in stable condition. PLAN:? The patient was instructed to call the clinic in 1 week to inform us of any progress.? The patient was encouraged to call at any time with any questions or concerns. Documented By: Edilberto Chan MD 07/28/24 0951 Signed By: 07/28/[address] [place] [address] [place], [place] 1403501-07-2025 Telephone encounter Note* Telephone Encounter - SOSA WU - 07/07/2024 2:38 PM EST Patient would also like albuterol for his nebulizer machine. clm [facility] [id number] Miscellaneous Notes* Telephone Encounter - SOSA WU - 07/07/2024 2:38 PM EST Patient would also like albuterol for his nebulizer machine. clm documented in this [facility]12-10-2024 History of Present illness Narrative* Komal Tovar MA - 06/09/2024 11:30 AM EST Images from the original note were not included. Reason for Appointment: EMG Patient: Sameer Montalvo : 1960 EMG Computer: [employer] Referring Physician: Dr. Mcgill EMG: [facility] snow removal supervisor: Komal Tovar [facility] Office Location: [place] Reason for EMG: c/o balance difficulty. Difficulty standing for long periods of time. Back pain. Hxof neck surgery. Hx of DM, not taking blood thinners. Comments: Procedure explained to the patient who expressed understanding. documented in this [facility]11-11-2024 History of Present illness Narrative* Gerber Salazar MD - 05/11/2024 12:18 PM ESTAssociated Problem(s): Right ear impacted cerumen Ear plugged and impaction on exam. Ear irrigated with water and cerumen removed with speculum. Canal clear after procedure. Use debrox or drops of baby oil to prevent build up of wax in future. Do not use q-tips inside ear. * Gerber Salazar MD - 05/11/2024 12:18 PM ESTAssociated Problem(s): Medicare annual wellness visit, subsequent Reviewed labs. Discussed proper diet and regular aerobic exercise. Need aerobic exercise 5-6 days aweek for 30 minutes at a time. Smaller portions and limit total calories. Needs to complete cologuard. Tetanus every 10 years. Advised not to smoke. * Gerber Salazar MD - 05/11/2024 11:00 AM EST Images from the original note were not included. Subjective Patient ID: Sameer Montalvo is a 64 y.o. male who presents for Medicare Annual Wellness Visit Subsequent (Wellness/). Presents for medicare annual wellness visit. Patient feels well today. Weight down 14 pounds in thepast year but up 15 pounds in past [...] OTC drops and no change. Decreased hearing onleft but much worse on right. Review of [...] hyperglycemia, without long-term current use of insulin ([facility]) Relevant Medications semaglutide (Ozempic, 1 MG/DOSE,) [...] use q-tips inside ear. documented in this encounterMineral [facility] [id number] Evaluation note* Diagnosis Onset Date Resolution Status Admit Date Lumbar back pain acuteNov2023 1:07pmChronic painacuteNov2023 9:36amOther low back painacuteNov2023 9:36amOther spondylosis with radiculopathy, lumbar regionacuteNov2023 9:36amChronic painacute Maciej 2023 9:25amOther low back painacuteDecember 2023 9:25am Other spondylosis with radiculopathy, lumbar regionacuteDecember 2023 9:25am [facility] Work Phone: [phone]) 244-233210-24-2024 Telephone encounter Note* Telephone Encounter - Christiana Walter - 04/23/2024 3:58 PM EDT Percocet needs filled as well please. [place]. [facility] [id number] Miscellaneous Notes* Telephone Encounter - Christiana Navarrosalina - 04/23/2024 3:58 PM EDT Percocet needs filled as well please. [place]. documented in this encounterMineral Area Regional Medical [id number] Evaluation note* Diagnosis Onset Date Resolution Status Admit Date Lumbar back pain acuteSeptember 2023 1:22pmLumbar back painacuteNov2023 1:07pm Chronic painacuteNov2023 9:36amOther low back painacuteNov2023 9:36amOther spondylosis with radiculopathy, lumbar regionacute November 2023 9:36am [facility] Work Phone: 1(796) 374-957909-24-2024 History of Present illness Narrative* Dar Herr, JULIEN - 03/24/2024 9:00 AM EDT Patient: Sameer Nielsen Katia : 1960 PCP: Gerber Salazar MD SUBJECTIVE [...] prostatic hyperplasia) COPD (chronic obstructive pulmonary disease) ([facility]) Diabetes ([facility]) Dysphagia HLD (hyperlipidemia) ([facility]) HTN (hypertension) ([facility]) Medications: Current Outpatient Medications: albuterol HFA 90 [...] Partner Violence: Unknown (08/22/2023) [facility] [place] [employer] Fear of Current or [...] and negative PT pedal pulses NEURO: 5.07 [place] Gwen monofilament test diminished to digits and forefoot bilaterally 125Hz tuning fork diminished to 1st MPJ bilaterally ORTHO: Positive pain on palpation to nails 1 through 10 ASSESSMENT 1. 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 Onychomycosis 3. Toe pain, bilateral [...] creams and lotions to feet daily Dar Herr DPM documented in this encounterMineral Area Regional Medical [id number] History of Present illness Narrative* Gerber Salazar MD - 03/17/2024 10:55 AM EDTAssociated Problem(s): Type 2 diabetes mellitus with hyperglycemia, without long-term current use of insulin (CMS/HCC) Not checking BS but recent A1C 6.1. [...] AM EDTAssociated Problem(s): MITZY (generalized anxiety disorder) ([facility]) Symptoms stable with xanax and use PRN. * Gerber Salazar MD - 03/17/2024 10:53 AM EDTAssociated Problem(s): Essential hypertension (CMS/[facility]) BP controlled and monitor PRN. * Gerber Salazar MD - 03/17/2024 10:53 AM EDTAssociated Problem(s): Chronic obstructive pulmonary disease (CMS/HCC) Breathing stable and continue spiriva. Use albuterol PRN. Discussed need to stop smoking. * Gerber Salazar MD - 03/17/2024 10:30 AM EDT Images from the original note were not included. Subjective Patient ID: Sameer Montalvo is a 64 y.o. male who presents [...] Ambulatory referral to Neurosurgery documented in this encounterNONH HealthcareEvaluation noteNo assessment information availableMercy Memorial Hospital Work Phone: Evaluation note* Diagnosis Type 2 diabetes mellitus with hyperglycemia, without long-term current use of insulin (CMS/HCC) Lumbosacral spondylosis with radiculopathy documented in this encounter [facility] HealthcareEvaluation note* Diagnosis Type 2 diabetes [...] Generalized anxiety disorder (CMS/HCC) Generalized anxiety disorder documented in this encounter [facility] HealthcareEvaluation note* Diagnosis Type 2 diabetes [...] of insulin (CMS/HCC) documented in this encounter [facility] HealthcareEvaluation note* Diagnosis Onset Date Resolution Status Lumbar back pain [facility] Work Phone: Evaluation note* Diagnosis Type 2 diabetes mellitus without complication, without long-term current use of insulin ([facility])- Primary Essential hypertension ([facility]/HCC) Unspecified essential hypertension Type 2 diabetes mellitus with hyperglycemia, without long-term current use of insulin ([facility]/HCC) Bilateral primary osteoarthritis of hip DDD (degenerative disc disease), lumbar Degeneration of lumbar or lumbosacral intervertebral disc Dysphagia, unspecified type MITZY (generalized anxiety disorder) ([facility]/HCC) Generalized anxiety disorder Primary insomnia Persistent disorder of initiating or maintaining sleep Chronic obstructive pulmonary disease, unspecified COPD type (CMS/HCC) Colon cancer screening Special screening for malignant neoplasms, colon Seasonal allergic rhinitis due to pollen Type 2 diabetes mellitus with hyperglycemia, without long-term current use of insulin ([facility])- Primary Essential hypertension (CMS/HCC) Unspecified essential hypertension Cervical spondylosis with myelopathy Chronic obstructive pulmonary disease, unspecified COPD type (CMS/HCC) MITZY (generalized anxiety disorder) ([facility]) Generalized anxiety disorder Primary insomnia Persistent disorder of initiating or maintaining sleep Encounter for long-term (current) use of medications Encounter for long-term (current) use of other medications Screening PSA (prostate specific antigen) Special screening for malignant neoplasm of prostate Dyslipidemia ([facility]) Other and unspecified hyperlipidemia Obesity (BMI 30-39.9) Generalized anxiety disorder ([facility]/HCC) Generalized anxiety disorder Bilateral primary osteoarthritis of hip Body mass index [BMI] 37.0-37.9, adult (Z68.37) Type 2 diabetes mellitus with hyperglycemia, without long-term current use of insulin ([facility])- Primary Essential hypertension ([facility]) Unspecified essential hypertension Lumbosacral spondylosis with radiculopathy MITZY (generalized anxiety disorder) ([facility]) Generalized anxiety disorder Primary insomnia Persistent disorder of initiating or maintaining sleep Chronic obstructive pulmonary disease, unspecified COPD type (CMS/HCC) Colon cancer screening Special screening for malignant neoplasms, colon Morbid (severe) obesity due to excess calories ([facility]) Body mass index (BMI) 38.0-38.9, adult Medicare annual wellness visit, subsequent- Primary Type 2 diabetes mellitus with hyperglycemia, without long-term current use of insulin ([facility]) Lumbosacral spondylosis with radiculopathy Right ear impacted cerumen Impacted cerumen Dermatitis Contact dermatitis and other eczema, due to unspecified cause documented in this encounter [facility] HealthcareEvaluation note* Diagnosis Type 2 diabetes mellitus without complication, without long-term current use of insulin ([facility])- Primary Essential hypertension ([facility]) Unspecified essential hypertension Type 2 diabetes mellitus with hyperglycemia, without long-term current use of insulin ([facility]/HCC) Bilateral primary osteoarthritis of hip DDD (degenerative disc disease), lumbar Degeneration of lumbar or lumbosacral intervertebral disc Dysphagia, unspecified type MITZY (generalized anxiety disorder) ([facility]) Generalized anxiety disorder Primary insomnia Persistent disorder of initiating or maintaining sleep Chronic obstructive pulmonary disease, unspecified COPD type (CMS/HCC) Colon cancer screening Special screening for malignant neoplasms, colon Seasonal allergic rhinitis due to pollen Type 2 diabetes mellitus with hyperglycemia, without long-term current use of insulin ([facility])- Primary Essential hypertension ([facility]) Unspecified essential hypertension Cervical spondylosis with myelopathy Chronic obstructive pulmonary disease, unspecified COPD type (CMS/HCC) MITZY (generalized anxiety disorder) ([facility]) Generalized anxiety disorder Primary insomnia Persistent disorder of initiating or maintaining sleep Encounter for long-term (current) use of medications Encounter for long-term (current) use of other medications Screening PSA (prostate specific antigen) Special screening for malignant neoplasm of prostate Dyslipidemia ([facility]) Other and unspecified hyperlipidemia Obesity (BMI 30-39.9) Generalized anxiety disorder ([facility]/HCC) Generalized anxiety disorder Bilateral primary osteoarthritis of hip Body mass index [BMI] 37.0-37.9, adult (Z68.37) Type 2 diabetes mellitus with hyperglycemia, without long-term current use of insulin ([facility])- Primary Essential hypertension ([facility]) Unspecified essential hypertension Lumbosacral spondylosis with radiculopathy MITZY (generalized anxiety disorder) ([facility]) Generalized anxiety disorder Primary insomnia Persistent disorder of initiating or maintaining sleep Chronic obstructive pulmonary disease, unspecified COPD type ([facility]/HCC) Colon cancer screening Special screening for malignant neoplasms, colon Morbid (severe) obesity due to excess calories ([facility]) Body mass index (BMI) 38.0-38.9, adult Medicare annual wellness visit, subsequent- Primary Type 2 diabetes mellitus with hyperglycemia, without long-term current use of insulin ([facility]) Lumbosacral spondylosis with radiculopathy Right ear impacted cerumen Impacted cerumen Dermatitis Contact dermatitis and other eczema, due to unspecified cause Lumbosacral spondylosis with radiculopathy Diabetes mellitus due to underlying condition with diabetic polyneuropathy, 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 ([facility])- Primary Pain due to onychomycosis of toenails of both feet Xerosis cutis Other specified disease of sebaceous glands documented in this encounter [facility] HealthcareEvaluation note* Diagnosis Type 2 diabetes mellitus with hyperglycemia, without long-term current use of insulin ([facility])- Primary Essential hypertension ([facility]) Unspecified essential hypertension Lumbosacral spondylosis with radiculopathy MITZY (generalized anxiety disorder) ([facility]) Generalized anxiety disorder Primary insomnia Persistent disorder of initiating or maintaining sleep Chronic obstructive pulmonary disease, unspecified COPD type ([facility]) Colon cancer screening Special screening for malignant neoplasms, colon Morbid (severe) obesity due to excess calories ([facility]) Body mass index (BMI) 38.0-38.9, adult documented in this encounter [facility] HealthcareEvaluation note* Diagnosis Type 2 diabetes mellitus without complication, without long-term current use of insulin ([facility])- Primary Essential hypertension ([facility]) Unspecified essential hypertension Type 2 diabetes mellitus with hyperglycemia, without long-term current use of insulin ([facility]) Bilateral primary osteoarthritis of hip DDD (degenerative disc disease), lumbar Degeneration of lumbar or lumbosacral intervertebral disc Dysphagia, unspecified type MITZY (generalized anxiety disorder) ([facility]) Generalized anxiety disorder Primary insomnia Persistent disorder of initiating or maintaining sleep Chronic obstructive pulmonary disease, unspecified COPD type ([facility]) Colon cancer screening Special screening for malignant neoplasms, colon Seasonal allergic rhinitis due to pollen Type 2 diabetes mellitus with hyperglycemia, without long-term current use of insulin ([facility])- Primary Essential hypertension ([facility]) Unspecified essential hypertension Cervical spondylosis with myelopathy Chronic obstructive pulmonary disease, unspecified COPD type ([facility]/HCC) MITZY (generalized anxiety disorder) ([facility]) Generalized anxiety disorder Primary insomnia Persistent disorder of initiating or maintaining sleep Encounter for long-term (current) use of medications Encounter for long-term (current) use of other medications Screening PSA (prostate specific antigen) Special screening for malignant neoplasm of prostate Dyslipidemia ([facility]) Other and unspecified hyperlipidemia Obesity (BMI 30-39.9) Generalized anxiety disorder ([facility]) Generalized anxiety disorder Bilateral primary osteoarthritis of hip Body mass index [BMI] 37.0-37.9, adult (Z68.37) Type 2 diabetes mellitus with hyperglycemia, without long-term current use of insulin ([facility])- Primary Essential hypertension ([facility]/HCC) Unspecified essential hypertension Lumbosacral spondylosis with radiculopathy MITZY (generalized anxiety disorder) ([facility]) Generalized anxiety disorder Primary insomnia Persistent disorder of initiating or maintaining sleep Chronic obstructive pulmonary disease, unspecified COPD type ([facility]) Colon cancer screening Special screening for malignant neoplasms, colon Morbid (severe) obesity due to excess calories ([facility]) Body mass index (BMI) 38.0-38.9, adult Medicare annual wellness visit, subsequent- Primary Type 2 diabetes mellitus with hyperglycemia, without long-term current use of insulin ([facility]) Lumbosacral spondylosis with radiculopathy Right ear impacted cerumen Impacted cerumen Dermatitis Contact dermatitis and other eczema, due to unspecified cause Lumbar radiculopathy- Primary Thoracic or lumbosacral neuritis or radiculitis, unspecified documented in this encounter [facility] HealthcareEvaluation note* Diagnosis Type 2 diabetes mellitus without complication, without long-term current use of insulin ([facility])- Primary Essential hypertension ([facility]) Unspecified essential hypertension Type 2 diabetes mellitus with hyperglycemia, without long-term current use of insulin ([facility]) Bilateral primary osteoarthritis of hip DDD (degenerative disc disease), lumbar Degeneration of lumbar or lumbosacral intervertebral disc Dysphagia, unspecified type MITZY (generalized anxiety disorder) ([facility]) Generalized anxiety disorder Primary insomnia Persistent disorder of initiating or maintaining sleep Chronic obstructive pulmonary disease, unspecified COPD type ([facility]) Colon cancer screening Special screening for malignant neoplasms, colon Seasonal allergic rhinitis due to pollen Type 2 diabetes mellitus with hyperglycemia, without long-term current use of insulin ([facility])- Primary Essential hypertension ([facility]) Unspecified essential hypertension Cervical spondylosis with myelopathy Chronic obstructive pulmonary disease, unspecified COPD type ([facility]/HCC) MITZY (generalized anxiety disorder) ([facility]) Generalized anxiety disorder Primary insomnia Persistent disorder of initiating or maintaining sleep Encounter for long-term (current) use of medications Encounter for long-term (current) use of other medications Screening PSA (prostate specific antigen) Special screening for malignant neoplasm of prostate Dyslipidemia ([facility]) Other and unspecified hyperlipidemia Obesity (BMI 30-39.9) Generalized anxiety disorder ([facility]/HCC) Generalized anxiety disorder Bilateral primary osteoarthritis of hip Body mass index [BMI] 37.0-37.9, adult (Z68.37) Type 2 diabetes mellitus with hyperglycemia, without long-term current use of insulin ([facility])- Primary Essential hypertension ([facility]/) Unspecified essential hypertension Lumbosacral spondylosis with radiculopathy MITZY (generalized anxiety disorder) ([facility]/) Generalized anxiety disorder Primary insomnia Persistent disorder of initiating or maintaining sleep Chronic obstructive pulmonary disease, unspecified COPD type ([facility]) Colon cancer screening Special screening for malignant neoplasms, colon Morbid (severe) obesity due to excess calories ([facility]) Body mass index (BMI) 38.0-38.9, adult Medicare annual wellness visit, subsequent- Primary Type 2 diabetes mellitus with hyperglycemia, without long-term current use of insulin (/[facility]) Lumbosacral spondylosis with radiculopathy Right ear impacted cerumen Impacted cerumen Dermatitis Contact dermatitis and other eczema, due to unspecified cause Generalized anxiety disorder ([facility]) Generalized anxiety disorder Lumbosacral spondylosis with radiculopathy documented in this encounter [facility] HealthcareEvaluation note* Diagnosis Diabetes mellitus due to underlying condition with diabetic polyneuropathy, unspecified whether assisted insulin use ([facility])- Primary Onychomycosis Dermatophytosis of nail Toe pain, bilateral Xerosis cutis Other specified disease of sebaceous glands documented in this encounter [facility] HealthcareEvaluation note* Diagnosis Type 2 diabetes mellitus without complication, without long-term current use of insulin ([facility])- Primary Essential hypertension (/[facility]) Unspecified essential hypertension Type 2 diabetes mellitus with hyperglycemia, without long-term current use of insulin ([facility]) Bilateral primary osteoarthritis of hip DDD (degenerative disc disease), lumbar Degeneration of lumbar or lumbosacral intervertebral disc Dysphagia, unspecified type MITZY (generalized anxiety disorder) ([facility]) Generalized anxiety disorder Primary insomnia Persistent disorder of initiating or maintaining sleep Chronic obstructive pulmonary disease, unspecified COPD type ([facility]/HCC) Colon cancer screening Special screening for malignant neoplasms, colon Seasonal allergic rhinitis due to pollen Type 2 diabetes mellitus with hyperglycemia, without long-term current use of insulin ([facility])- Primary Essential hypertension (/[facility]) Unspecified essential hypertension Cervical spondylosis with myelopathy Chronic obstructive pulmonary disease, unspecified COPD type ([facility]/HCC) MITZY (generalized anxiety disorder) ([facility]) Generalized anxiety disorder Primary insomnia Persistent disorder of initiating or maintaining sleep Encounter for long-term (current) use of medications Encounter for long-term (current) use of other medications Screening PSA (prostate specific antigen) Special screening for malignant neoplasm of prostate Dyslipidemia ([facility]) Other and unspecified hyperlipidemia Obesity (BMI 30-39.9) Generalized anxiety disorder ([facility]/HCC) Generalized anxiety disorder Bilateral primary osteoarthritis of hip Body mass index [BMI] 37.0-37.9, adult (Z68.37) Type 2 diabetes mellitus with hyperglycemia, without long-term current use of insulin ([facility])- Primary Essential hypertension ([facility]) Unspecified essential hypertension Lumbosacral spondylosis with radiculopathy MITZY (generalized anxiety disorder) ([facility]) Generalized anxiety disorder Primary insomnia Persistent disorder of initiating or maintaining sleep Chronic obstructive pulmonary disease, unspecified COPD type ([facility]) Colon cancer screening Special screening for malignant neoplasms, colon Morbid (severe) obesity due to excess calories ([facility]) Body mass index (BMI) 38.0-38.9, adult Medicare annual wellness visit, subsequent- Primary Type 2 diabetes mellitus with hyperglycemia, without long-term current use of insulin ([facility]) Lumbosacral spondylosis with radiculopathy Right ear impacted cerumen Impacted cerumen Dermatitis Contact dermatitis and other eczema, due to unspecified cause Chronic obstructive pulmonary disease, unspecified COPD type ([facility])- Primary Benign hypertension ([facility]) Essential hypertension, benign documented in this encounter [facility]Evaluation [facility]* Diagnosis Type 2 diabetes mellitus without complication, without long-term current use of insulin ([facility])- Primary Essential hypertension ([facility]) Unspecified essential hypertension Type 2 diabetes mellitus with hyperglycemia, without long-term current use of insulin ([facility]) Bilateral primary osteoarthritis of hip DDD (degenerative disc disease), lumbar Degeneration of lumbar or lumbosacral intervertebral disc Dysphagia, unspecified type MITZY (generalized anxiety disorder) ([facility]) Generalized anxiety disorder Primary insomnia Persistent disorder of initiating or maintaining sleep Chronic obstructive pulmonary disease, unspecified COPD type ([facility]) Colon cancer screening Special screening for malignant neoplasms, colon Seasonal allergic rhinitis due to pollen Type 2 diabetes mellitus with hyperglycemia, without long-term current use of insulin ([facility])- Primary Essential hypertension ([facility]) Unspecified essential hypertension Cervical spondylosis with myelopathy Chronic obstructive pulmonary disease, unspecified COPD type ([facility]/HCC) MITZY (generalized anxiety disorder) ([facility]) Generalized anxiety disorder Primary insomnia Persistent disorder of initiating or maintaining sleep Encounter for long-term (current) use of medications Encounter for long-term (current) use of other medications Screening PSA (prostate specific antigen) Special screening for malignant neoplasm of prostate Dyslipidemia ([facility]) Other and unspecified hyperlipidemia Obesity (BMI 30-39.9) Generalized anxiety disorder ([facility]) Generalized anxiety disorder Bilateral primary osteoarthritis of hip Body mass index [BMI] 37.0-37.9, adult (Z68.37) Type 2 diabetes mellitus with hyperglycemia, without long-term current use of insulin ([facility])- Primary Essential hypertension ([facility]) Unspecified essential hypertension Lumbosacral spondylosis with radiculopathy MITZY (generalized anxiety disorder) ([facility]) Generalized anxiety disorder Primary insomnia Persistent disorder of initiating or maintaining sleep Chronic obstructive pulmonary disease, unspecified COPD type ([facility]) Colon cancer screening Special screening for malignant neoplasms, colon Morbid (severe) obesity due to excess calories ([facility]) Body mass index (BMI) 38.0-38.9, adult Medicare annual wellness visit, subsequent- Primary Type 2 diabetes mellitus with hyperglycemia, without long-term current use of insulin ([facility]) Lumbosacral spondylosis with radiculopathy Right ear impacted cerumen Impacted cerumen Dermatitis Contact dermatitis and other eczema, due to unspecified cause Generalized anxiety disorder ([facility]) Generalized anxiety disorder Lumbosacral spondylosis with radiculopathy documented in this encounter [facility] HealthcareEvaluation note* Diagnosis Type 2 diabetes mellitus without complication, without long-term current use of insulin ([facility])- Primary Essential hypertension ([facility]) Unspecified essential hypertension Type 2 diabetes mellitus with hyperglycemia, without long-term current use of insulin ([facility]) Bilateral primary osteoarthritis of hip DDD (degenerative disc disease), lumbar Degeneration of lumbar or lumbosacral intervertebral disc Dysphagia, unspecified type MITZY (generalized anxiety disorder) ([facility]) Generalized anxiety disorder Primary insomnia Persistent disorder of initiating or maintaining sleep Chronic obstructive pulmonary disease, unspecified COPD type ([facility]/HCC) Colon cancer screening Special screening for malignant neoplasms, colon Seasonal allergic rhinitis due to pollen Type 2 diabetes mellitus with hyperglycemia, without long-term current use of insulin ([facility])- Primary Essential hypertension ([facility]) Unspecified essential hypertension Cervical spondylosis with myelopathy Chronic obstructive pulmonary disease, unspecified COPD type ([facility]) MITZY (generalized anxiety disorder) ([facility]) Generalized anxiety disorder Primary insomnia Persistent disorder of initiating or maintaining sleep Encounter for long-term (current) use of medications Encounter for long-term (current) use of other medications Screening PSA (prostate specific antigen) Special screening for malignant neoplasm of prostate Dyslipidemia ([facility]) Other and unspecified hyperlipidemia Obesity (BMI 30-39.9) Generalized anxiety disorder ([facility]) Generalized anxiety disorder Bilateral primary osteoarthritis of hip Body mass index [BMI] 37.0-37.9, adult (Z68.37) Type 2 diabetes mellitus with hyperglycemia, without long-term current use of insulin ([facility])- Primary Essential hypertension ([facility]) Unspecified essential hypertension Lumbosacral spondylosis with radiculopathy MITZY (generalized anxiety disorder) ([facility]) Generalized anxiety disorder Primary insomnia Persistent disorder of initiating or maintaining sleep Chronic obstructive pulmonary disease, unspecified COPD type ([facility]) Colon cancer screening Special screening for malignant neoplasms, colon Morbid (severe) obesity due to excess calories ([facility]) Body mass index (BMI) 38.0-38.9, adult Medicare annual wellness visit, subsequent- Primary Type 2 diabetes mellitus with hyperglycemia, without long-term current use of insulin ([facility]) Lumbosacral spondylosis with radiculopathy Right ear impacted cerumen Impacted cerumen Dermatitis Contact dermatitis and other eczema, due to unspecified cause Type 2 diabetes mellitus with hyperglycemia, without long-term current use of insulin ([facility])- Primary Essential hypertension ([facility]) Unspecified essential hypertension Chronic obstructive pulmonary disease, unspecified COPD type ([facility]) Type 2 diabetes mellitus with polyneuropathy ([facility]) Type II or unspecified type diabetes mellitus with neurological manifestations, not stated as uncontrolled Lumbosacral spondylosis with radiculopathy MITZY (generalized anxiety disorder) ([facility]) Generalized anxiety disorder Primary insomnia Persistent disorder of initiating or maintaining sleep Class 3 severe obesity due to excess calories with serious comorbidity and body mass index (BMI) of40.0 to 44.9 in adult ([facility]) documented in this encounter [facility] HealthcareEvaluation note* Diagnosis Type 2 diabetes mellitus without complication, without long-term current use of insulin ([facility])- Primary Essential hypertension ([facility]) Unspecified essential hypertension Type 2 diabetes mellitus with hyperglycemia, without long-term current use of insulin ([facility]CC) Bilateral primary osteoarthritis of hip DDD (degenerative disc disease), lumbar Degeneration of lumbar or lumbosacral intervertebral disc Dysphagia, unspecified type MITZY (generalized anxiety disorder) ([facility]) Generalized anxiety disorder Primary insomnia Persistent disorder of initiating or maintaining sleep Chronic obstructive pulmonary disease, unspecified COPD type ([facility]/HCC) Colon cancer screening Special screening for malignant neoplasms, colon Seasonal allergic rhinitis due to pollen Type 2 diabetes mellitus with hyperglycemia, without long-term current use of insulin ([facility])- Primary Essential hypertension ([facility]) Unspecified essential hypertension Cervical spondylosis with myelopathy Chronic obstructive pulmonary disease, unspecified COPD type ([facility]/HCC) MITZY (generalized anxiety disorder) ([facility]) Generalized anxiety disorder Primary insomnia Persistent disorder of initiating or maintaining sleep Encounter for long-term (current) use of medications Encounter for long-term (current) use of other medications Screening PSA (prostate specific antigen) Special screening for malignant neoplasm of prostate Dyslipidemia ([facility]) Other and unspecified hyperlipidemia Obesity (BMI 30-39.9) Generalized anxiety disorder ([facility]/HCC) Generalized anxiety disorder Bilateral primary osteoarthritis of hip Body mass index [BMI] 37.0-37.9, adult (Z68.37) Type 2 diabetes mellitus with hyperglycemia, without long-term current use of insulin ([facility])- Primary Essential hypertension ([facility]) Unspecified essential hypertension Lumbosacral spondylosis with radiculopathy MITZY (generalized anxiety disorder) ([facility]) Generalized anxiety disorder Primary insomnia Persistent disorder of initiating or maintaining sleep Chronic obstructive pulmonary disease, unspecified COPD type ([facility]/HCC) Colon cancer screening Special screening for malignant neoplasms, colon Morbid (severe) obesity due to excess calories ([facility]) Body mass index (BMI) 38.0-38.9, adult Medicare annual wellness visit, subsequent- Primary Type 2 diabetes mellitus with hyperglycemia, without long-term current use of insulin ([facility]) Lumbosacral spondylosis with radiculopathy Right ear impacted cerumen Impacted cerumen Dermatitis Contact dermatitis and other eczema, due to unspecified cause Type 2 diabetes mellitus with hyperglycemia, without long-term current use of insulin ([facility])- Primary Essential hypertension ([facility]) Unspecified essential hypertension Chronic obstructive pulmonary disease, unspecified COPD type ([facility]) Type 2 diabetes mellitus with polyneuropathy ([facility]) Type II or unspecified type diabetes mellitus with neurological manifestations, not stated as uncontrolled Lumbosacral spondylosis with radiculopathy MITZY (generalized anxiety disorder) ([facility]) Generalized anxiety disorder Primary insomnia Persistent disorder of initiating or maintaining sleep Class 3 severe obesity due to excess calories with serious comorbidity and body mass index (BMI) of40.0 to 44.9 in adult ([facility]) Generalized anxiety disorder ([facility]) Generalized anxiety disorder documented in this encounter [facility] HealthcareEvaluation note* Diagnosis Type 2 diabetes mellitus without complication, without long-term current use of insulin ([facility])- Primary Essential hypertension ([facility]) Unspecified essential hypertension Type 2 diabetes mellitus with hyperglycemia, without long-term current use of insulin ([facility]) Bilateral primary osteoarthritis of hip DDD (degenerative disc disease), lumbar Degeneration of lumbar or lumbosacral intervertebral disc Dysphagia, unspecified type MITZY (generalized anxiety disorder) ([facility]) Generalized anxiety disorder Primary insomnia Persistent disorder of initiating or maintaining sleep Chronic obstructive pulmonary disease, unspecified COPD type ([facility]) Colon cancer screening Special screening for malignant neoplasms, colon Seasonal allergic rhinitis due to pollen Type 2 diabetes mellitus with hyperglycemia, without long-term current use of insulin ([facility])- Primary Essential hypertension ([facility]) Unspecified essential hypertension Cervical spondylosis with myelopathy Chronic obstructive pulmonary disease, unspecified COPD type ([facility]) MITZY (generalized anxiety disorder) ([facility]) Generalized anxiety disorder Primary insomnia Persistent disorder of initiating or maintaining sleep Encounter for long-term (current) use of medications Encounter for long-term (current) use of other medications Screening PSA (prostate specific antigen) Special screening for malignant neoplasm of prostate Dyslipidemia ([facility]) Other and unspecified hyperlipidemia Obesity (BMI 30-39.9) Generalized anxiety disorder ([facility]) Generalized anxiety disorder Bilateral primary osteoarthritis of hip Body mass index [BMI] 37.0-37.9, adult (Z68.37) Type 2 diabetes mellitus with hyperglycemia, without long-term current use of insulin ([facility])- Primary Essential hypertension ([facility]) Unspecified essential hypertension Lumbosacral spondylosis with radiculopathy MITZY (generalized anxiety disorder) ([facility]) Generalized anxiety disorder Primary insomnia Persistent disorder of initiating or maintaining sleep Chronic obstructive pulmonary disease, unspecified COPD type ([facility]) Colon cancer screening Special screening for malignant neoplasms, colon Morbid (severe) obesity due to excess calories ([facility]) Body mass index (BMI) 38.0-38.9, adult Medicare annual wellness visit, subsequent- Primary Type 2 diabetes mellitus with hyperglycemia, without long-term current use of insulin ([facility]) Lumbosacral spondylosis with radiculopathy Right ear impacted cerumen Impacted cerumen Dermatitis Contact dermatitis and other eczema, due to unspecified cause Type 2 diabetes mellitus with hyperglycemia, without long-term current use of insulin ([facility])- Primary Essential hypertension ([facility]) Unspecified essential hypertension Chronic obstructive pulmonary disease, unspecified COPD type ([facility]) Type 2 diabetes mellitus with polyneuropathy ([facility]) Type II or unspecified type diabetes mellitus with neurological manifestations, not stated as uncontrolled Lumbosacral spondylosis with radiculopathy MITZY (generalized anxiety disorder) ([facility]) Generalized anxiety disorder Primary insomnia Persistent disorder of initiating or maintaining sleep Class 3 severe obesity due to excess calories with serious comorbidity and body mass index (BMI) of40.0 to 44.9 in adult ([facility]) Lumbosacral spondylosis with radiculopathy Diabetes mellitus due to underlying condition with diabetic polyneuropathy, 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 ([facility])- Primary Pain due to onychomycosis of toenails of both feet Xerosis cutis Other specified disease of sebaceous glands documented in this encounter [facility]Evaluation note* Diagnosis Type 2 diabetes mellitus without complication, without long-term current use of insulin- Primary Essential hypertension ([facility]) Unspecified essential hypertension Type 2 diabetes mellitus with hyperglycemia, without long-term current use of insulin ([facility]) Bilateral primary osteoarthritis of hip DDD (degenerative disc disease), lumbar Degeneration of lumbar or lumbosacral intervertebral disc Dysphagia, unspecified type MITZY (generalized anxiety disorder) ([facility]) Generalized anxiety disorder Primary insomnia Persistent disorder of initiating or maintaining sleep Chronic obstructive pulmonary disease, unspecified COPD type ([facility]) Colon cancer screening Special screening for malignant neoplasms, colon Seasonal allergic rhinitis due to pollen Type 2 diabetes mellitus with hyperglycemia, without long-term current use of insulin ([facility])- Primary Essential hypertension ([facility]) Unspecified essential hypertension Cervical spondylosis with myelopathy Chronic obstructive pulmonary disease, unspecified COPD type ([facility]) MITZY (generalized anxiety disorder) ([facility]) Generalized anxiety disorder Primary insomnia Persistent disorder of initiating or maintaining sleep Encounter for long-term (current) use of medications Encounter for long-term (current) use of other medications Screening PSA (prostate specific antigen) Special screening for malignant neoplasm of prostate Dyslipidemia ([facility]) Other and unspecified hyperlipidemia Obesity (BMI 30-39.9) Generalized anxiety disorder ([facility]) Generalized anxiety disorder Bilateral primary osteoarthritis of hip Body mass index [BMI] 37.0-37.9, adult (Z68.37) Type 2 diabetes mellitus with hyperglycemia, without long-term current use of insulin ([facility])- Primary Essential hypertension ([facility]) Unspecified essential hypertension Lumbosacral spondylosis with radiculopathy MITZY (generalized anxiety disorder) ([facility]) Generalized anxiety disorder Primary insomnia Persistent disorder of initiating or maintaining sleep Chronic obstructive pulmonary disease, unspecified COPD type ([facility]) Colon cancer screening Special screening for malignant neoplasms, colon Morbid (severe) obesity due to excess calories ([facility]) Body mass index (BMI) 38.0-38.9, adult Medicare annual wellness visit, subsequent- Primary Type 2 diabetes mellitus with hyperglycemia, without long-term current use of insulin ([facility]) Lumbosacral spondylosis with radiculopathy Right ear impacted cerumen Impacted cerumen Dermatitis Contact dermatitis and other eczema, due to unspecified cause Type 2 diabetes mellitus with hyperglycemia, without long-term current use of insulin ([facility])- Primary Essential hypertension ([facility]) Unspecified essential hypertension Chronic obstructive pulmonary disease, unspecified COPD type ([facility]) Type 2 diabetes mellitus with polyneuropathy ([facility]) Type II or unspecified type diabetes mellitus with neurological manifestations, not stated as uncontrolled Lumbosacral spondylosis with radiculopathy MITZY (generalized anxiety disorder) ([facility]) Generalized anxiety disorder Primary insomnia Persistent disorder of initiating or maintaining sleep Class 3 severe obesity due to excess calories with serious comorbidity and body mass index (BMI) of40.0 to 44.9 in adult Lumbosacral spondylosis with radiculopathy documented in this encounter [facility] HealthcareEvaluation note* Diagnosis Type 2 diabetes mellitus without complication, without long-term current use of insulin- Primary Essential hypertension (CMS/HCC) Unspecified essential hypertension [...] Morbid (severe) obesity due to excess calories ([facility]) Body mass index (BMI) 38.0-38.9, adult Medicare annual wellness visit, subsequent- Primary Type 2 diabetes mellitus with hyperglycemia, without long-term current use of insulin ([facility]/HCC) Lumbosacral spondylosis with radiculopathy Right ear impacted cerumen Impacted cerumen Dermatitis Contact dermatitis and other eczema, due to unspecified cause Type 2 diabetes mellitus with hyperglycemia, without long-term current use of insulin ([facility])- Primary Essential hypertension ([facility]) Unspecified essential hypertension Chronic obstructive pulmonary disease, unspecified COPD type ([facility]) Type 2 diabetes mellitus with polyneuropathy ([facility]) Type II or unspecified type diabetes mellitus with neurological manifestations, not stated as uncontrolled Lumbosacral spondylosis with radiculopathy MITZY (generalized anxiety disorder) ([facility]) Generalized anxiety disorder Primary insomnia Persistent disorder of initiating or maintaining sleep Class 3 severe obesity due to excess calories with serious comorbidity and body mass index (BMI) of40.0 to 44.9 in adult Generalized anxiety disorder ([facility]) Generalized anxiety disorder Lumbosacral spondylosis with radiculopathy documented in this encounter [facility] HealthcareEvaluation note* Diagnosis Type 2 diabetes mellitus without complication, without long-term current use of insulin- Primary Essential hypertension ([facility]) Unspecified essential hypertension Type 2 diabetes mellitus with hyperglycemia, without long-term current use of insulin ([facility]) Bilateral primary osteoarthritis of hip DDD (degenerative disc disease), lumbar Degeneration of lumbar or lumbosacral intervertebral disc Dysphagia, unspecified type MITZY (generalized anxiety disorder) ([facility] [facility] Generalized anxiety disorder Primary insomnia Persistent disorder of initiating or maintaining sleep Chronic obstructive pulmonary disease, unspecified COPD type ([facility]) Colon cancer screening Special screening for malignant neoplasms, colon Seasonal allergic rhinitis due to pollen Type 2 diabetes mellitus with hyperglycemia, without long-term current use of insulin ([facility])- Primary Essential hypertension ([facility]) Unspecified essential hypertension Cervical spondylosis with myelopathy Chronic obstructive pulmonary disease, unspecified COPD type ([facility]) MITZY (generalized anxiety disorder) ([facility]) Generalized anxiety disorder Primary insomnia Persistent disorder of initiating or maintaining sleep Encounter for long-term (current) use of medications Encounter for long-term (current) use of other medications Screening PSA (prostate specific antigen) Special screening for malignant neoplasm of prostate Dyslipidemia ([facility]) Other and unspecified hyperlipidemia Obesity (BMI 30-39.9) Generalized anxiety disorder ([facility]) Generalized anxiety disorder Bilateral primary osteoarthritis of hip Body mass index [BMI] 37.0-37.9, adult (Z68.37) Type 2 diabetes mellitus with hyperglycemia, without long-term current use of insulin ([facility])- Primary Essential hypertension ([facility]) Unspecified essential hypertension Lumbosacral spondylosis with radiculopathy MITZY (generalized anxiety disorder) ([facility]) Generalized anxiety disorder Primary insomnia Persistent disorder of initiating or maintaining sleep Chronic obstructive pulmonary disease, unspecified COPD type ([facility]) Colon cancer screening Special screening for malignant neoplasms, colon Morbid (severe) obesity due to excess calories ([facility]) Body mass index (BMI) 38.0-38.9, adult Medicare annual wellness visit, subsequent- Primary Type 2 diabetes mellitus with hyperglycemia, without long-term current use of insulin ([facility]) Lumbosacral spondylosis with radiculopathy Right ear impacted cerumen Impacted cerumen Dermatitis Contact dermatitis and other eczema, due to unspecified cause Type 2 diabetes mellitus with hyperglycemia, without long-term current use of insulin ([facility])- Primary Essential hypertension ([facility]) Unspecified essential hypertension Chronic obstructive pulmonary disease, unspecified COPD type ([facility]) Type 2 diabetes mellitus with polyneuropathy ([facility]) Type II or unspecified type diabetes mellitus with neurological manifestations, not stated as uncontrolled Lumbosacral spondylosis with radiculopathy MITZY (generalized anxiety disorder) ([facility]) Generalized anxiety disorder Primary insomnia Persistent disorder of initiating or maintaining sleep Class 3 severe obesity due to excess calories with serious comorbidity and body mass index (BMI) of40.0 to 44.9 in adult Type 2 diabetes mellitus with hyperglycemia, without long-term current use of insulin ([facility])- Primary Essential hypertension ([facility]) Unspecified essential hypertension Chronic obstructive pulmonary disease, unspecified COPD type ([facility]) Cervical spondylosis with myelopathy MITZY (generalized anxiety disorder) ([facility]) Generalized anxiety disorder Primary insomnia Persistent disorder of initiating or maintaining sleep Lumbosacral spondylosis with radiculopathy Diabetes mellitus due to underlying condition with diabetic polyneuropathy, 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 ([facility])- Primary Pain due to onychomycosis of toenails of both feet Xerosis cutis Other specified disease of sebaceous glands documented in this encounter [facility]* Diagnosis Type 2 diabetes mellitus without complication, without long-term current use of insulin (HCC)- Primary Essential hypertension Unspecified essential hypertension Type 2 diabetes mellitus with hyperglycemia, without long-term current use of insulin ([facility]) Bilateral primary osteoarthritis of hip DDD (degenerative disc disease), lumbar Degeneration of lumbar or lumbosacral intervertebral disc Dysphagia, unspecified type MITZY (generalized anxiety disorder) Generalized anxiety disorder Primary insomnia Persistent disorder of initiating or maintaining sleep Chronic obstructive pulmonary disease, unspecified COPD type ([facility]) Colon cancer screening Special screening for malignant neoplasms, colon Seasonal allergic rhinitis due to pollen Type 2 diabetes mellitus with hyperglycemia, without long-term current use of insulin ([facility])- Primary Essential hypertension Unspecified essential hypertension Cervical spondylosis with myelopathy Chronic obstructive pulmonary disease, unspecified COPD type ([facility]) MITZY (generalized anxiety disorder) Generalized anxiety disorder Primary insomnia Persistent disorder of initiating or maintaining sleep Encounter for long-term (current) use of medications Encounter for long-term (current) use of other medications Screening PSA (prostate specific antigen) Special screening for malignant neoplasm of prostate Dyslipidemia Other and unspecified hyperlipidemia Obesity (BMI 30-39.9) Generalized anxiety disorder Generalized anxiety disorder Bilateral primary osteoarthritis of hip Body mass index [BMI] 37.0-37.9, adult (Z68.37) Type 2 diabetes mellitus with hyperglycemia, without long-term current use of insulin ([facility])- Primary Essential hypertension Unspecified essential hypertension Lumbosacral spondylosis with radiculopathy MITZY (generalized anxiety disorder) Generalized anxiety disorder Primary insomnia Persistent disorder of initiating or maintaining sleep Chronic obstructive pulmonary disease, unspecified COPD type ([facility]) Colon cancer screening Special screening for malignant neoplasms, colon Morbid (severe) obesity due to excess calories ([facility] Body mass index (BMI) 38.0-38.9, adult Medicare annual wellness visit, subsequent- Primary Type 2 diabetes mellitus with hyperglycemia, without long-term current use of insulin ([facility]) Lumbosacral spondylosis with radiculopathy Right ear impacted cerumen Impacted cerumen Dermatitis Contact dermatitis and other eczema, due to unspecified cause Type 2 diabetes mellitus with hyperglycemia, without long-term current use of insulin ([facility])- Primary Essential hypertension Unspecified essential hypertension Chronic obstructive pulmonary disease, unspecified COPD type ([facility]) Type 2 diabetes mellitus with polyneuropathy ([facility]) Type II or unspecified type diabetes mellitus with neurological manifestations, not stated as uncontrolled Lumbosacral spondylosis with radiculopathy MITZY (generalized anxiety disorder) Generalized anxiety disorder Primary insomnia Persistent disorder of initiating or maintaining sleep Class 3 severe obesity due to excess calories with serious comorbidity and body mass index (BMI) of40.0 to 44.9 in adult ([facility]) Type 2 diabetes mellitus with hyperglycemia, without long-term current use of insulin (HCC)- Primary Essential hypertension Unspecified essential hypertension Chronic obstructive pulmonary disease, unspecified COPD type (HCC) Cervical spondylosis with myelopathy MITZY (generalized anxiety disorder) Generalized anxiety disorder Primary insomnia Persistent disorder of initiating or maintaining sleep Lumbosacral spondylosis with radiculopathy Lumbosacral spondylosis with radiculopathy Benign hypertension Essential hypertension, benign documented in this encounter [facility]* Diagnosis Type 2 diabetes mellitus without complication, without long-term current use of insulin (HCC)- Primary Essential hypertension Unspecified essential hypertension Type 2 diabetes mellitus with hyperglycemia, without long-term current use of insulin ([facility]) Bilateral primary osteoarthritis of hip DDD (degenerative disc disease), lumbar Degeneration of lumbar or lumbosacral intervertebral disc Dysphagia, unspecified type MITZY (generalized anxiety disorder) Generalized anxiety disorder Primary insomnia Persistent disorder of initiating or maintaining sleep Chronic obstructive pulmonary disease, unspecified COPD type (HCC) Colon cancer screening Special screening for malignant neoplasms, colon Seasonal allergic rhinitis due to pollen Type 2 diabetes mellitus with hyperglycemia, without long-term current use of insulin (HCC)- Primary Essential hypertension Unspecified essential hypertension Cervical spondylosis with myelopathy Chronic obstructive pulmonary disease, unspecified COPD type (HCC) MITZY (generalized anxiety disorder) Generalized anxiety disorder Primary insomnia Persistent disorder of initiating or maintaining sleep Encounter for long-term (current) use of medications Encounter for long-term (current) use of other medications Screening PSA (prostate specific antigen) Special screening for malignant neoplasm of prostate Dyslipidemia Other and unspecified hyperlipidemia Obesity (BMI 30-39.9) Generalized anxiety disorder Generalized anxiety disorder Bilateral primary osteoarthritis of hip Body mass index [BMI] 37.0-37.9, adult (Z68.37) Type 2 diabetes mellitus with hyperglycemia, without long-term current use of insulin ([facility])- Primary Essential hypertension Unspecified essential hypertension Lumbosacral spondylosis with radiculopathy MITZY (generalized anxiety disorder) Generalized anxiety disorder Primary insomnia Persistent disorder of initiating or maintaining sleep Chronic obstructive pulmonary disease, unspecified COPD type (HCC) Colon cancer screening Special screening for malignant neoplasms, colon Morbid (severe) obesity due to excess calories ([facility]) Body mass index (BMI) 38.0-38.9, adult Medicare annual wellness visit, subsequent- Primary Type 2 diabetes mellitus with hyperglycemia, without long-term current use of insulin ([facility]) Lumbosacral spondylosis with radiculopathy Right ear impacted cerumen Impacted cerumen Dermatitis Contact dermatitis and other eczema, due to unspecified cause Type 2 diabetes mellitus with hyperglycemia, without long-term current use of insulin ([facility])- Primary Essential hypertension Unspecified essential hypertension Chronic obstructive pulmonary disease, unspecified COPD type ([facility]) Type 2 diabetes mellitus with polyneuropathy ([facility]) Type II or unspecified type diabetes mellitus with neurological manifestations, not stated as uncontrolled Lumbosacral spondylosis with radiculopathy MITZY (generalized anxiety disorder) Generalized anxiety disorder Primary insomnia Persistent disorder of initiating or maintaining sleep Class 3 severe obesity due to excess calories with serious comorbidity and body mass index (BMI) of40.0 to 44.9 in adult ([facility]) Type 2 diabetes mellitus with hyperglycemia, without long-term current use of insulin ([facility])- Primary Essential hypertension Unspecified essential hypertension Chronic obstructive pulmonary disease, unspecified COPD type ([facility]) Cervical spondylosis with myelopathy MITZY (generalized anxiety disorder) Generalized anxiety disorder Primary insomnia Persistent disorder of initiating or maintaining sleep Lumbosacral spondylosis with radiculopathy Generalized anxiety disorder Generalized anxiety disorder documented in this encounter [facility]* Diagnosis Type 2 diabetes mellitus without complication, without long-term current use of insulin ([facility])- Primary Essential hypertension Unspecified essential hypertension Type 2 diabetes mellitus with hyperglycemia, without long-term current use of insulin ([facility]) Bilateral primary osteoarthritis of hip DDD (degenerative disc disease), lumbar Degeneration of lumbar or lumbosacral intervertebral disc Dysphagia, unspecified type MITZY (generalized anxiety disorder) Generalized anxiety disorder Primary insomnia Persistent disorder of initiating or maintaining sleep Chronic obstructive pulmonary disease, unspecified COPD type (HCC) Colon cancer screening Special screening for malignant neoplasms, colon Seasonal allergic rhinitis due to pollen Type 2 diabetes mellitus with hyperglycemia, without long-term current use of insulin ([facility])- Primary Essential hypertension Unspecified essential hypertension Cervical spondylosis with myelopathy Chronic obstructive pulmonary disease, unspecified COPD type (HCC) MITZY (generalized anxiety disorder) Generalized anxiety disorder Primary insomnia Persistent disorder of initiating or maintaining sleep Encounter for long-term (current) use of medications Encounter for long-term (current) use of other medications Screening PSA (prostate specific antigen) Special screening for malignant neoplasm of prostate Dyslipidemia Other and unspecified hyperlipidemia Obesity (BMI 30-39.9) Generalized anxiety disorder Generalized anxiety disorder Bilateral primary osteoarthritis of hip Body mass index [BMI] 37.0-37.9, adult (Z68.37) Type 2 diabetes mellitus with hyperglycemia, without long-term current use of insulin ([facility])- Primary Essential hypertension Unspecified essential hypertension Lumbosacral spondylosis with radiculopathy MITZY (generalized anxiety disorder) Generalized anxiety disorder Primary insomnia Persistent disorder of initiating or maintaining sleep Chronic obstructive pulmonary disease, unspecified COPD type ([facility]) Colon cancer screening Special screening for malignant neoplasms, colon Morbid (severe) obesity due to excess calories ([facility]) Body mass index (BMI) 38.0-38.9, adult Medicare annual wellness visit, subsequent- Primary Type 2 diabetes mellitus with hyperglycemia, without long-term current use of insulin ([facility]) Lumbosacral spondylosis with radiculopathy Right ear impacted cerumen Impacted cerumen Dermatitis Contact dermatitis and other eczema, due to unspecified cause Type 2 diabetes mellitus with hyperglycemia, without long-term current use of insulin ([facility])- Primary Essential hypertension Unspecified essential hypertension Chronic obstructive pulmonary disease, unspecified COPD type ([facility]) Type 2 diabetes mellitus with polyneuropathy ([facility]) Type II or unspecified type diabetes mellitus with neurological manifestations, not stated as uncontrolled Lumbosacral spondylosis with radiculopathy MITZY (generalized anxiety disorder) Generalized anxiety disorder Primary insomnia Persistent disorder of initiating or maintaining sleep Class 3 severe obesity due to excess calories with serious comorbidity and body mass index (BMI) of40.0 to 44.9 in adult ([facility]) Type 2 diabetes mellitus with hyperglycemia, without long-term current use of insulin ([facility])- Primary Essential hypertension Unspecified essential hypertension Chronic obstructive pulmonary disease, unspecified COPD type ([facility]) Cervical spondylosis with myelopathy MITZY (generalized anxiety disorder) Generalized anxiety disorder Primary insomnia Persistent disorder of initiating or maintaining sleep Lumbosacral spondylosis with radiculopathy Generalized anxiety disorder Generalized anxiety disorder Lumbosacral spondylosis with radiculopathy documented in this encounter [facility]* Diagnosis Type 2 diabetes mellitus without complication, without long-term current use of insulin ([facility])- Primary Essential hypertension Unspecified essential hypertension Type 2 diabetes mellitus with hyperglycemia, without long-term current use of insulin ([facility]) Bilateral primary osteoarthritis of hip DDD (degenerative disc disease), lumbar Degeneration of lumbar or lumbosacral intervertebral disc Dysphagia, unspecified type MITZY (generalized anxiety disorder) Generalized anxiety disorder Primary insomnia Persistent disorder of initiating or maintaining sleep Chronic obstructive pulmonary disease, unspecified COPD type (HCC) Colon cancer screening Special screening for malignant neoplasms, colon Seasonal allergic rhinitis due to pollen Type 2 diabetes mellitus with hyperglycemia, without long-term current use of insulin ([facility])- Primary Essential hypertension Unspecified essential hypertension Cervical spondylosis with myelopathy Chronic obstructive pulmonary disease, unspecified COPD type (HCC) MITZY (generalized anxiety disorder) Generalized anxiety disorder Primary insomnia Persistent disorder of initiating or maintaining sleep Encounter for long-term (current) use of medications Encounter for long-term (current) use of other medications Screening PSA (prostate specific antigen) Special screening for malignant neoplasm of prostate Dyslipidemia Other and unspecified hyperlipidemia Obesity (BMI 30-39.9) Generalized anxiety disorder Generalized anxiety disorder Bilateral primary osteoarthritis of hip Body mass index [BMI] 37.0-37.9, adult (Z68.37) Type 2 diabetes mellitus with hyperglycemia, without long-term current use of insulin ([facility])- Primary Essential hypertension Unspecified essential hypertension Lumbosacral spondylosis with radiculopathy MITZY (generalized anxiety disorder) Generalized anxiety disorder Primary insomnia Persistent disorder of initiating or maintaining sleep Chronic obstructive pulmonary disease, unspecified COPD type ([facility]) Colon cancer screening Special screening for malignant neoplasms, colon Morbid (severe) obesity due to excess calories ([facility] Body mass index (BMI) 38.0-38.9, adult Medicare annual wellness visit, subsequent- Primary Type 2 diabetes mellitus with hyperglycemia, without long-term current use of insulin ([facility]) Lumbosacral spondylosis with radiculopathy Right ear impacted cerumen Impacted cerumen Dermatitis Contact dermatitis and other eczema, due to unspecified cause Type 2 diabetes mellitus with hyperglycemia, without long-term current use of insulin ([facility])- Primary Essential hypertension Unspecified essential hypertension Chronic obstructive pulmonary disease, unspecified COPD type ([facility]) Type 2 diabetes mellitus with polyneuropathy ([facility]) Type II or unspecified type diabetes mellitus with neurological manifestations, not stated as uncontrolled Lumbosacral spondylosis with radiculopathy MITZY (generalized anxiety disorder) Generalized anxiety disorder Primary insomnia Persistent disorder of initiating or maintaining sleep Class 3 severe obesity due to excess calories with serious comorbidity and body mass index (BMI) of40.0 to 44.9 in adult ([facility] Type 2 diabetes mellitus with hyperglycemia, without long-term current use of insulin (HCC)- Primary Essential hypertension Unspecified essential hypertension Chronic obstructive pulmonary disease, unspecified COPD type (HCC) Cervical spondylosis with myelopathy MITZY (generalized anxiety disorder) Generalized anxiety disorder Primary insomnia Persistent disorder of initiating or maintaining sleep Lumbosacral spondylosis with radiculopathy Lumbosacral spondylosis with radiculopathy documented in this encounter [facility]* Diagnosis Type 2 diabetes mellitus without complication, without long-term current use of insulin (HCC)- Primary Essential hypertension Unspecified essential hypertension Type 2 diabetes mellitus with hyperglycemia, without long-term current use of insulin (HCC) Bilateral primary osteoarthritis of hip DDD (degenerative disc disease), lumbar Degeneration of lumbar or lumbosacral intervertebral disc Dysphagia, unspecified type MITZY (generalized anxiety disorder) Generalized anxiety disorder Primary insomnia Persistent disorder of initiating or maintaining sleep Chronic obstructive pulmonary disease, unspecified COPD type (HCC) Colon cancer screening Special screening for malignant neoplasms, colon Seasonal allergic rhinitis due to pollen Type 2 diabetes mellitus with hyperglycemia, without long-term current use of insulin (HCC)- Primary Essential hypertension Unspecified essential hypertension Cervical spondylosis with myelopathy Chronic obstructive pulmonary disease, unspecified COPD type (HCC) MITZY (generalized anxiety disorder) Generalized anxiety disorder Primary insomnia Persistent disorder of initiating or maintaining sleep Encounter for long-term (current) use of medications Encounter for long-term (current) use of other medications Screening PSA (prostate specific antigen) Special screening for malignant neoplasm of prostate Dyslipidemia Other and unspecified hyperlipidemia Obesity (BMI 30-39.9) Generalized anxiety disorder Generalized anxiety disorder Bilateral primary osteoarthritis of hip Body mass index [BMI] 37.0-37.9, adult (Z68.37) Type 2 diabetes mellitus with hyperglycemia, without long-term current use of insulin (HCC)- Primary Essential hypertension Unspecified essential hypertension Lumbosacral spondylosis with radiculopathy MITZY (generalized anxiety disorder) Generalized anxiety disorder Primary insomnia Persistent disorder of initiating or maintaining sleep Chronic obstructive pulmonary disease, unspecified COPD type (HCC) Colon cancer screening Special screening for malignant neoplasms, colon Morbid (severe) obesity due to excess calories ([facility]) Body mass index (BMI) 38.0-38.9, adult Medicare annual wellness visit, subsequent- Primary Type 2 diabetes mellitus with hyperglycemia, without long-term current use of insulin ([facility]) Lumbosacral spondylosis with radiculopathy Right ear impacted cerumen Impacted cerumen Dermatitis Contact dermatitis and other eczema, due to unspecified cause Type 2 diabetes mellitus with hyperglycemia, without long-term current use of insulin ([facility])- Primary Essential hypertension Unspecified essential hypertension Chronic obstructive pulmonary disease, unspecified COPD type ([facility]CC) Type 2 diabetes mellitus with polyneuropathy [facility] [facility] Type II or unspecified type diabetes mellitus with neurological manifestations, not stated as uncontrolled Lumbosacral spondylosis with radiculopathy MITZY (generalized anxiety disorder) Generalized anxiety disorder Primary insomnia Persistent disorder of initiating or maintaining sleep Class 3 severe obesity due to excess calories with serious comorbidity and body mass index (BMI) of40.0 to 44.9 in adult ([facility]) Type 2 diabetes mellitus with hyperglycemia, without long-term current use of insulin ([facility])- Primary Essential hypertension Unspecified essential hypertension Chronic obstructive pulmonary disease, unspecified COPD type ([facility]) Cervical spondylosis with myelopathy MITZY (generalized anxiety disorder) Generalized anxiety disorder Primary insomnia Persistent disorder of initiating or maintaining sleep Lumbosacral spondylosis with radiculopathy Generalized anxiety disorder Generalized anxiety disorder Lumbosacral spondylosis with radiculopathy documented in this encounter [facility] HealthcareEvaluation note* Diagnosis Type 2 diabetes mellitus without complication, without long-term current use of insulin ([facility])- Primary Essential hypertension Unspecified essential hypertension Type 2 diabetes mellitus with hyperglycemia, without long-term current use of insulin ([facility]) Bilateral primary osteoarthritis of hip DDD (degenerative disc disease), lumbar Degeneration of lumbar or lumbosacral intervertebral disc Dysphagia, unspecified type MITZY (generalized anxiety disorder) Generalized anxiety disorder Primary insomnia Persistent disorder of initiating or maintaining sleep Chronic obstructive pulmonary disease, unspecified COPD type (HCC) Colon cancer screening Special screening for malignant neoplasms, colon Seasonal allergic rhinitis due to pollen Type 2 diabetes mellitus with hyperglycemia, without long-term current use of insulin ([facility])- Primary Essential hypertension Unspecified essential hypertension Cervical spondylosis with myelopathy Chronic obstructive pulmonary disease, unspecified COPD type (HCC) MITZY (generalized anxiety disorder) Generalized anxiety disorder Primary insomnia Persistent disorder of initiating or maintaining sleep Encounter for long-term (current) use of medications Encounter for long-term (current) use of other medications Screening PSA (prostate specific antigen) Special screening for malignant neoplasm of prostate Dyslipidemia Other and unspecified hyperlipidemia Obesity (BMI 30-39.9) Generalized anxiety disorder Generalized anxiety disorder Bilateral primary osteoarthritis of hip Body mass index [BMI] 37.0-37.9, adult (Z68.37) Type 2 diabetes mellitus with hyperglycemia, without long-term current use of insulin ([facility])- Primary Essential hypertension Unspecified essential hypertension Lumbosacral spondylosis with radiculopathy MITZY (generalized anxiety disorder) Generalized anxiety disorder Primary insomnia Persistent disorder of initiating or maintaining sleep Chronic obstructive pulmonary disease, unspecified COPD type ([facility]) Colon cancer screening Special screening for malignant neoplasms, colon Morbid (severe) obesity due to excess calories ([facility] Body mass index (BMI) 38.0-38.9, adult Medicare annual wellness visit, subsequent- Primary Type 2 diabetes mellitus with hyperglycemia, without long-term current use of insulin ([facility]) Lumbosacral spondylosis with radiculopathy Right ear impacted cerumen Impacted cerumen Dermatitis Contact dermatitis and other eczema, due to unspecified cause Type 2 diabetes mellitus with hyperglycemia, without long-term current use of insulin ([facility])- Primary Essential hypertension Unspecified essential hypertension Chronic obstructive pulmonary disease, unspecified COPD type ([facility]) Type 2 diabetes mellitus with polyneuropathy ([facility]) Type II or unspecified type diabetes mellitus with neurological manifestations, not stated as uncontrolled Lumbosacral spondylosis with radiculopathy MITZY (generalized anxiety disorder) Generalized anxiety disorder Primary insomnia Persistent disorder of initiating or maintaining sleep Class 3 severe obesity due to excess calories with serious comorbidity and body mass index (BMI) of40.0 to 44.9 in adult ([facility]) Type 2 diabetes mellitus with hyperglycemia, without long-term current use of insulin ([facility])- Primary Essential hypertension Unspecified essential hypertension Chronic obstructive pulmonary disease, unspecified COPD type ([facility]) Cervical spondylosis with myelopathy MITZY (generalized anxiety disorder) Generalized anxiety disorder Primary insomnia Persistent disorder of initiating or maintaining sleep Lumbosacral spondylosis with radiculopathy Lumbosacral spondylosis with radiculopathy Generalized anxiety disorder Generalized anxiety disorder documented in this encounter [facility] HealthcareEvaluation note* Diagnosis Type 2 diabetes mellitus without complication, without long-term current use of insulin ([facility])- Primary Essential hypertension Unspecified essential hypertension Type 2 diabetes mellitus with hyperglycemia, without long-term current use of insulin ([facility]) Bilateral primary osteoarthritis of hip DDD (degenerative disc disease), lumbar Degeneration of lumbar or lumbosacral intervertebral disc Dysphagia, unspecified type MITZY (generalized anxiety disorder) Generalized anxiety disorder Primary insomnia Persistent disorder of initiating or maintaining sleep Chronic obstructive pulmonary disease, unspecified COPD type (HCC) Colon cancer screening Special screening for malignant neoplasms, colon Seasonal allergic rhinitis due to pollen Type 2 diabetes mellitus with hyperglycemia, without long-term current use of insulin ([facility])- Primary Essential hypertension Unspecified essential hypertension Cervical spondylosis with myelopathy Chronic obstructive pulmonary disease, unspecified COPD type (HCC) MITZY (generalized anxiety disorder) Generalized anxiety disorder Primary insomnia Persistent disorder of initiating or maintaining sleep Encounter for long-term (current) use of medications Encounter for long-term (current) use of other medications Screening PSA (prostate specific antigen) Special screening for malignant neoplasm of prostate Dyslipidemia Other and unspecified hyperlipidemia Obesity (BMI 30-39.9) Generalized anxiety disorder Generalized anxiety disorder Bilateral primary osteoarthritis of hip Body mass index [BMI] 37.0-37.9, adult (Z68.37) Type 2 diabetes mellitus with hyperglycemia, without long-term current use of insulin ([facility])- Primary Essential hypertension Unspecified essential hypertension Lumbosacral spondylosis with radiculopathy MITZY (generalized anxiety disorder) Generalized anxiety disorder Primary insomnia Persistent disorder of initiating or maintaining sleep Chronic obstructive pulmonary disease, unspecified COPD type (HCC) Colon cancer screening Special screening for malignant neoplasms, colon Morbid (severe) obesity due to excess calories ([facility]) Body mass index (BMI) 38.0-38.9, adult Medicare annual wellness visit, subsequent- Primary Type 2 diabetes mellitus with hyperglycemia, without long-term current use of insulin ([facility]) Lumbosacral spondylosis with radiculopathy Right ear impacted cerumen Impacted cerumen Dermatitis Contact dermatitis and other eczema, due to unspecified cause Type 2 diabetes mellitus with hyperglycemia, without long-term current use of insulin ([facility])- Primary Essential hypertension Unspecified essential hypertension Chronic obstructive pulmonary disease, unspecified COPD type (HCC) Type 2 diabetes mellitus with polyneuropathy ([facility]) Type II or unspecified type diabetes mellitus with neurological manifestations, not stated as uncontrolled Lumbosacral spondylosis with radiculopathy MITZY (generalized anxiety disorder) Generalized anxiety disorder Primary insomnia Persistent disorder of initiating or maintaining sleep Class 3 severe obesity due to excess calories with serious comorbidity and body mass index (BMI) of40.0 to 44.9 in adult ([facility]) Type 2 diabetes mellitus with hyperglycemia, without long-term current use of insulin (HCC)- Primary Essential hypertension Unspecified essential hypertension Chronic obstructive pulmonary disease, unspecified COPD type (HCC) Cervical spondylosis with myelopathy MITZY (generalized anxiety disorder) Generalized anxiety disorder Primary insomnia Persistent disorder of initiating or maintaining sleep Lumbosacral spondylosis with radiculopathy Type 2 diabetes mellitus with hyperglycemia, without long-term current use of insulin (HCC)- Primary Essential hypertension Unspecified essential hypertension Chronic obstructive pulmonary disease, unspecified COPD type (HCC) Lumbosacral spondylosis with radiculopathy MITZY (generalized anxiety disorder) Generalized anxiety disorder Screening PSA (prostate specific antigen) Special screening for malignant neoplasm of prostate Abnormal TSH Class 2 severe obesity due to excess calories with serious comorbidity and body mass index (BMI) of35.0 to 35.9 in adult ([facility]) Dyslipidemia Other and unspecified hyperlipidemia Encounter for long-term (current) use of medications Encounter for long-term (current) use of other medications documented in this encounter [facility] HealthcareEvaluation note* Diagnosis Type 2 diabetes mellitus without complication, without long-term current use of insulin (HCC)- Primary Essential hypertension Unspecified essential hypertension Type 2 diabetes mellitus with hyperglycemia, without long-term current use of insulin (HCC) Bilateral primary osteoarthritis of hip DDD (degenerative disc disease), lumbar Degeneration of lumbar or lumbosacral intervertebral disc Dysphagia, unspecified type MITZY (generalized anxiety disorder) Generalized anxiety disorder Primary insomnia Persistent disorder of initiating or maintaining sleep Chronic obstructive pulmonary disease, unspecified COPD type (HCC) Colon cancer screening Special screening for malignant neoplasms, colon Seasonal allergic rhinitis due to pollen Type 2 diabetes mellitus with hyperglycemia, without long-term current use of insulin (HCC)- Primary Essential hypertension Unspecified essential hypertension Cervical spondylosis with myelopathy Chronic obstructive pulmonary disease, unspecified COPD type (HCC) MITZY (generalized anxiety disorder) Generalized anxiety disorder Primary insomnia Persistent disorder of initiating or maintaining sleep Encounter for long-term (current) use of medications Encounter for long-term (current) use of other medications Screening PSA (prostate specific antigen) Special screening for malignant neoplasm of prostate Dyslipidemia Other and unspecified hyperlipidemia Obesity (BMI 30-39.9) Generalized anxiety disorder Generalized anxiety disorder Bilateral primary osteoarthritis of hip Body mass index [BMI] 37.0-37.9, adult (Z68.37) Type 2 diabetes mellitus with hyperglycemia, without long-term current use of insulin ([facility])- Primary Essential hypertension Unspecified essential hypertension Lumbosacral spondylosis with radiculopathy MITZY (generalized anxiety disorder) Generalized anxiety disorder Primary insomnia Persistent disorder of initiating or maintaining sleep Chronic obstructive pulmonary disease, unspecified COPD type ([facility]) Colon cancer screening Special screening for malignant neoplasms, colon Morbid (severe) obesity due to excess calories ([facility]) Body mass index (BMI) 38.0-38.9, adult Medicare annual wellness visit, subsequent- Primary Type 2 diabetes mellitus with hyperglycemia, without long-term current use of insulin ([facility]) Lumbosacral spondylosis with radiculopathy Right ear impacted cerumen Impacted cerumen Dermatitis Contact dermatitis and other eczema, due to unspecified cause Type 2 diabetes mellitus with hyperglycemia, without long-term current use of insulin ([facility])- Primary Essential hypertension Unspecified essential hypertension Chronic obstructive pulmonary disease, unspecified COPD type ([facility]) Type 2 diabetes mellitus with polyneuropathy ([facility]) Type II or unspecified type diabetes mellitus with neurological manifestations, not stated as uncontrolled Lumbosacral spondylosis with radiculopathy MITZY (generalized anxiety disorder) Generalized anxiety disorder Primary insomnia Persistent disorder of initiating or maintaining sleep Class 3 severe obesity due to excess calories with serious comorbidity and body mass index (BMI) of40.0 to 44.9 in adult ([facility]) Type 2 diabetes mellitus with hyperglycemia, without long-term current use of insulin ([facility])- Primary Essential hypertension Unspecified essential hypertension Chronic obstructive pulmonary disease, unspecified COPD type ([facility]) Cervical spondylosis with myelopathy MITZY (generalized anxiety disorder) Generalized anxiety disorder Primary insomnia Persistent disorder of initiating or maintaining sleep Lumbosacral spondylosis with radiculopathy Type 2 diabetes mellitus with hyperglycemia, without long-term current use of insulin ([facility])- Primary Essential hypertension Unspecified essential hypertension Chronic obstructive pulmonary disease, unspecified COPD type (HCC) Lumbosacral spondylosis with radiculopathy MITZY (generalized anxiety disorder) Generalized anxiety disorder Screening PSA (prostate specific antigen) Special screening for malignant neoplasm of prostate Abnormal TSH Class 2 severe obesity due to excess calories with serious comorbidity and body mass index (BMI) of35.0 to 35.9 in adult ([facility]) Dyslipidemia Other and unspecified hyperlipidemia Encounter for long-term (current) use of medications Encounter for long-term (current) use of other medications Xerosis cutis- Primary Other specified disease of sebaceous glands Diabetes mellitus due to underlying condition with diabetic polyneuropathy, unspecified whether assisted insulin use (HCC) Pain due to onychomycosis of toenails of both feet documented in this encounter [facility] HealthcareReason for referral (narrative)* Consultation (Routine) - Pending ReviewSpecialtyDiagnoses / ProceduresReferred By ContactReferred To Contact Neurosurgery Diagnoses Lumbosacral spondylosis with radiculopathy Gerber Salazar MD [address] [place] [address] Horacio Bermudez MD [address] [place] [address], [address] [place] [address] Referral IDStatusReasonStart DateExpiration DateVisits RequestedVisits [id number] Review Specialty Services Required / [facility] HealthcareReason for visit Narrative* Other Medical (Routine) - Closed SpecialtyDiagnoses / ProceduresReferred By ContactReferred To ContactNeurology Diagnoses Low back pain, unspecified Procedures MT NERVE CONDUCTION STUDIES 9-10 STUDIES MT NEEDLE EMG EA EXTREMTY W/PARASPINL AREA COMPLETE Susana King MD Phone: tel: fax: Marcus Ward, [address] [place] [address] Phone: tel: fax: Referral IDStatusReasonStholden DateExpiration DateVisits RequestedVisits [id number] Perform Procedure / [facility] Healthcare Summary Purpose Family History Relationship Condition Age at Onset Recorded Date/T shira mother Diabetes mellitus Unknown Congestive heart failureUnknownHypertensionUnknownfatherArthritisUnknownsister Malignant neoplasm of colonUnknownsisterMalignant neoplasm of boneUnknown Advance Directives Advance Directive Response Recorded Date/ Time Advance Directives No May 2:16pm Advance Directive Response Recorded Date/ Time Advance Directives No May 1:16pm Chief Complaint and Reason for Visit Chief Complaint low back pain Chief Complaint low back pain lumbar f/u after failed ptReason for VisitLumbar back pain Chief Complaint Admit Date low [...] 13, 2024 9:36am Other spondylosis with radiculopathy, [facility] May 13, 2024 9:36am Chief Complaint Admit Date lumbar April 29, 2024 1 0:00am f/u after failed pt May 04, 2024 1 :07pm REFF BY DR. SUSANA KING May 13, 2024 9:36am Back Pain June 02, 2024 8 :00am Back Pain June 02, 2024 8 :58am F/U LEFT LUMBAR TRANSFORAMINAL EPI Decem 2023 9:25am Back Pain July 28, 2024 9 :15am Back Pain July 28, 2024 9 :51am Reason for Visit Admit Date Lumbar back pain May 04, 2024 1 :07pm Chronic pain May 13, 2024 9:36am Other low back pain May 13, 2024 9:36am Other spondylosis with radiculopathy, [facility] May 13, 2024 9:36am Chronic pain June 17, 2024 9:25am Other low back pain June 17, 2024 9:25am Other [facility] June 17, 2024 9:25am Reason for Referral SpecialtyDiagnoses / ProceduresReferred By ContactReferred To Contact Diagnoses Lumbosacral spondylosis with radiculopathy Gerber Salazar MD [address] [place] [address] Referral IDStatusReasonStart DateExpiration DateVisits RequestedVisits [id number] / Procedures Referred By ContactReferred To Contact Diagnoses Type 2 diabetes mellitus with hyperglycemia, without long-term current use of insulin ([facility]) Gerber Salazar MD [address] [place] [address] Referral IDStatusReasonStart DateExpiration DateVisits RequestedVisits [id number]/ Additional Source Comments (unrecognized sect ion and content) No Status Records FoundNo Status Records FoundNo Status Records FoundNo Status Records FoundNo Status Records FoundNo Status Records Found INFORMATION SOURCE (unrecogn ized section and content) DATE CREATED AUTHOR 07/27/2018 [facility] DATE CREATED AUTHOR AUTHOR'S ORGANIZ ATION 02/12/2019 [facility] DATE CREATED AUTHOR AUTHOR'S ORGANIZ ATION 08/10/2020 [facility] DATE CREATED AUTHOR AUTHOR'S ORGANIZ ATION 10/26/2022 [facility] DATE CREATED AUTHOR AUTHOR'S ORGANIZ ATION 08/06/2024 [facility] DATE CREATED AUTHOR AUTHOR'S ORGANIZ ATION 03/19/2025 [facility] Care Teams (unrecognized sec tion and content) Team Status: Active Member Role Status Dates Gerber Salazar MD Primary Care Provider Active Team Status: Inactive Member Role Status Dates Gerber Salazar MD Primary Care Provider Active S tart: March 26, 2024 End: March 26, 2024Eric Tejas King , DOAttending ProviderActiveStart: March 26, 2024 End: March 26, 2024Team MemberRelationshipSpecialtyStart DateEnd Date Gerber Salazar MD [address] [place] [address] PCP - GeneralFamily Medicine03/05/23Team MemberRelationshipSpecialtyStart DateEnd Date Gerber Salazar MD [address] [place] [address] [facility] - [facility]/05/23Team MemberRelationshipSpecialtyStart DateEnd Date Gerber Salazar MD [address] [place] [address] [facility] - [facility]03/05/23 Team Status: Active Member Role Status Dates Gerber Salazar MD Primary Care Provider Active S tart: April 29, 2024 Susana King DOAttending ProviderActiveStart: April 29, 2024 Team Status: Inactive Member Role Status Dates Gerber Salazar MD Primary Care Provider Active S tart: May 04, 2024 End: May 04, 2024Susana King DOAttending ProviderActiveStart: May 04, 2024 End: May 04, 2024 Team Status: Inactive Member Role Status Dates Gerber Salazar MD Primary Care Provider Active S tart: May 13, 2024 End: May 13, 2024Thjade Chan MDAttending ProviderActiveStart: May 13, 2024 End: May 13, 2024AMADEO Carolinaeferring ProviderActiveStart: May 13, 2024 End: May 13, 2024Team MemberRelationshipSpecialtyStart DateEnd Date Gerber Salazar MD [address] [place] [phone] [facility] - [facility]/05/23Team MemberRelationshipSpecialtyStart DateEnd Date Gerber Salazar MD [address] [place] [phone] [facility] - [facility] Medicine03/05/23Team MemberRelationshipSpecialtyStart DateEnd Date Gerber Salazar MD [address] [place] [address] PCP - GeneralFamily Medicine03/05/23Team MemberRelationshipSpecialtyStart DateEnd Date Gerber Salazar MD [address] [place] [address] PCP - GeneralFamily Medicine03/05/23Team MemberRelationshipSpecialtyStart DateEnd Date Gerber Salazar MD [address] [place] [address] PCP - Generalmily Medicine03/05/23Team MemberRelationshipSpecialtyStart DateEnd Date Gerber Salazar MD [address] [place] [address] PCP - Generalmily Medicine03/05/23 Nato Jeffrey MD [address] [place] [address] Referring JyjuqapkiQpeektpvg00/10/24Team MemberRelationshipSpecialtyStart Date End Date Gerber Salazar MD [address] [place] [address] PCP - Generalmily Medicine03/05/23 Nato Jeffrey MD [address] [place] [address] Referring IfcyqeyzaHronmkkdx69/10/24Team MemberRelationshipSpecialtyStart Date End Date Gerber Salazar MD [address] [place] [address] PCP - GeneralFamily Medicine03/05/23Team MemberRelationshipSpecialtyStart DateEnd Date Gerber Salazar MD [address] [place] [address] PCP - Generalmily Medicine03/05/23Team MemberRelationshipSpecialtyStart DateEnd Date Gerber Salazar MD [address] [place] [address] PCP - Generalmi Medicine03/05/23 Nato Jeffrey MD [address] [place] [address] Referring JfbmxdxdeAposcdget78/10/24Team MemberRelationshipSpecialtyStart Date End Date Gerber Salazar MD [address] [place] [address] PCP - Generalmily Medicine03/05/23 Nato Jeffrey MD [address] [place] [address] Referring MrzyisikrCmjhipgpd63/10/24Team MemberRelationshipSpecialtyStart Date End Date Gerber Salazar MD [address] [place] [address] PCP - Generalmily Medicine03/05/23 Nato Jeffrey MD [address] [place] [address] Referring LmaewrpzlEzpsobyku91/10/24 Team Status: Inactive Member Role Status Dates Gerber Salazar MD Primary Care Provider Active S tart: April 29, 2024 End: April 29, 2024Eric Tejas King DOAttending ProviderActiveStart: April 29, 2024 End: April 29, 2024 Team Status: Inactive Member Role Status Dates Gerber Salazar MD Primary Care Provider Active S tart: June 02, 2024 End: June 02omas NIMESH Chanttending ProviderActiveStart: June 02, 2024 End: June 02, 2024 Team Status: Active Member Role Status Dates Gerber Salazar MD Primary Care Provider Active S tart: June 02, 2024 Edilberto Chan MDAttending Provider, Other ProviderActiveStart: June 02, 2024 Team Status: Inactive Member Role Status Dates Gerber Salazar MD Primary Care Provider Active S tart: June 17, 2024 End: June 17, 2024Thomas NIMESH Chanttending ProviderActiveStart: June 17, 2024 End: June 17, 2024 Team Status: Inactive Member Role Status Dates Gerber Salazar MD Primary Care Provider Active S tart: July 28, 2024 End: July 28, 2024Thjade Chan MDAttending ProviderActiveStart: July 28, 2024 End: July 28, 2024 Team Status: Active Member Role Status Dates Gerber Salazar MD Primary Care Provider Active S tart: July 28, 2024 Edilberto Chan MDAttending Provider, Other ProviderActiveStart: July 28, 2024 Team MemberRelationshipSpecialtyStart DateEnd Date Gerber Salazar MD [address] [place] [address] [facility] - [facility] Nato Jeffrey MD [address] [place] [address] Referring YaepoctxqMjmkaenps26/10/24Team MemberRelationshipSpecialtyStart Date End Date Gerber Salazar MD [address] [place] [address] PCP - Generalmily Medicine03/05/23 Nato Jeffrey MD [address] [place] [address] Referring DgtbipelkJqsjcfsdg56/10/24Team MemberRelationshipSpecialtyStart Date End Date Gerber Salazar MD [address] [place] [address] PCP - [facility] Medicine03/05/23 Nato Jeffrey MD [address] [place] [address] Referring RcmobkzmgUtvclitgh69/10/24Team MemberRelationshipSpecialtyStart Date End Date Gerber Salazar MD [address] [place] [address] PCP - [facility] Medicine03/05/23 Nato Jeffrey MD [address] [place] [address] Referring SzhbphdkgXiwacgxtb36/10/24Team MemberRelationshipSpecialtyStart Date End Date Gerber Salazar MD [address] [place] [address] [facility] - [facility] Gerber Salazar MD [address] [place] [address] PCP - Raquel NUNO08/29/24 Nato Jeffrey MD [address] [place] [address] Referring AjloqvqmbZcxqhzpxs11/10/24Team MemberRelationshipSpecialtyStart Date End Date Gerber Salazar MD [address] [place] [address] [facility] - [facility]/23 Gerber Salazar MD [address] [place] [address] PCP - Raquel NUNO08/29/24 Nato Jeffrey MD [address] [place] [address] Referring YaehervilZjuueztju35/10/24Team MemberRelationshipSpecialtyStart Date End Date Gerber Salazar MD [address] [place] [address] PCP - [facility]03/05/23 Gerber Salazar MD [address] [place] [address] PCP - Raquel NUNO08/29/24 Nato Jeffrey MD [address] [place] [address] Referring NfaajfzzmOyceuvgvt09/10/24Team MemberRelationshipSpecialtyStart Date End Date Gerber Salazar MD [address] [place] [address] PCP - GeneralFamily Medicine03/05/23 Gerber Salazar MD [address] [place] [address] PCP - Raquel HI08/29/24 Nato Jeffrey MD [address] [place] [address] Referring XfinnjhzxMgmvzesio33/10/24Team MemberRelationshipSpecialtyStart Date End Date Gerber Salazar MD [address] [place] [address] PCP - [facility]03/05/23 Gerber Salazar MD [address] [place] [address] PCP - Raquel HI08/29/24 Nato Jeffrey MD [address] [place] [address] Referring BfreafhslUpldouzos23/10/24Team MemberRelationshipSpecialtyStart Date End Date Gerber Salazar MD [address] [place] [address] PCP - GeneralFamily Medicine03/05/23 Gerber Salazar MD [address] [place] [address] PCP - Raquel HI08/29/24 Nato Jeffrey MD [address] [place] [address] Referring FmjnhrjinStnmsfavz66/10/24Team MemberRelationshipSpecialtyStart Date End Date Gerber Salazar MD [address] [place] [address] [facility] - [facility] Gerber Salazar MD [address] [place] [address] PCP - [place] HI08/29/24 Nato Jeffrey MD [address] [place] [address] Referring DgkgswynqGrzpfzips55/10/24Te MemberRelationshipSpecialtyStart Date End Date Gerber Salazar MD [address] [place] [address] [facility] - [facility] Gerber Salazar MD [address] [place] [address] PCP - [place] HI08/29/24 Nato Jeffrey MD [address] [place] [address] Referring FewjsuqokPnompshfp89/10/24Te MemberRelationshipSpecialtyStart Date End Date Gerber Salazar MD [address] [place] [address] PCP - GeneralFamily Medicine03/05/23 Gerber Salazar MD [address] [place] [address] PCP - [place] HI08/29/24 Nato Jeffrey MD [address] [place] [address] Referring WsabiwbljZvggwcsme65/10/24Team MemberRelationshipSpecialtyStart Date End Date Gerber Salazar MD [address] [place] [address] PCP - [facility] Medicine03/05/23 Gerber Salazar MD [address] [place] [address] PCP - [place] HI08/29/24 Nato Jeffrey MD [address] [place] [address] Referring HkbmswvqbRoyuillsr70/10/24Team MemberRelationshipSpecialtyStart Date End Date Gerber Salazar MD [address] [place] [address] PCP - [facility] Medicine03/05/23 Gerber Salazar MD [address] [place] [address] PCP - [place] HI08/29/24 Nato Jeffrey MD [address] [place] [address] Referring NjgqggscpKhggfibxi76/10/24Team MemberRelationshipSpecialtyStart Date End Date Gerber Salazar MD [address] [place] [address] [facility]23 Gerber Salazar MD [address] [place] [address] PCP - Raquel NUNO08/29/24 Nato Jeffrey MD [address] [place] [address] Referring WzpzfvvviQwobdumxe24/10/24Team MemberRelationshipSpecialtyStart Date End Date Gerber Salazar MD [address] [place] [address] PCP - [facility]03/05/23 Gerber Salazar MD [address] [place] [address] PCP - Raquel NUNO08/29/24 Nato Jeffrey MD [address] [place] [address] Referring MosgyarhxOkldvjhjr55/10/24 Goals (unrecognized section and content) Goals may be documented in a n alternate sectionGoals may be documented in an alternate sectionGoals may be documented in an alternate section Reason for Visit (unrecogniz ed section and content) ReasonOnset DateCommentsMed Vvdene774ReasonCommentsMed RefillReasonOnset DateCommentsMed Injias444ReasonCommentsMedicare Annual Wellness Visit SubsequentWellnessReasonOnset DateCommentsMed Ckfvch244ReasonComments Follow-up3 mReasonCommentsMed RefillReasonCommentsDM Foot CareDm nail careReason Onset DateCommentsMed Gpodke89/12/2024ReasonOnset DateCommentsMed Refill 07/20/2024ReasonOnset DateCommentsMed Evlccp34/10/2024ReasonOnset DateComments Med Zuqsic53/ReasonOnset DateCommentsMed Locerv41/ReasonComments Follow-up3 mReasonOnset DateCommentsMed Tldegu61/05/2025ReasonOnset DateComments Med Noxaoa01/ReasonOnset DateCommentsMed Pfuttb47/ReasonOnset Date CommentsMed Rbonzd1501/19/2025ReasonOnset DateCommentsMed Zimtaf43Reason CommentsFollow-xz3kRufzhfTuvvfivjHX Foot Care FOR RECORDS PERTAINING TO PATIENTS WHO ARE [...] BE BASED ON THE PRIMARY CLINICAL RECORDS. [employer] [facility]. provides no warranty or guarantee of the accuracy or completeness of information in this document.
--- NOTE | 2025-05-07 11:48 | CT_ITS ---
[address] [address] Patient Name: DIMITRY BENJAMIN MRN: [id number] date: 1960 Sex: M Assigned Patient Location: ER Current Patient Location: ER Accession/Order Number: [id number] Exam Date: 05/07/2025 12:40 Report Date: 05/07/2025 13:09 At the request of: EFRAIN SUÁREZ DO Procedure: CT int auditory canals w con CT int auditory canals w con 05/07/2025 12:48 PM SIGNS AND SYMPTOMS: r/o malignant otitis externa (left), left ureter pain, redness, swelling, and drainage for one week CONTRAST: 100 mL of intravenous Optiray 300 TECHNIQUE: Using a multi-detector scanner, 0.5 x 0.3 mm axial scans of the temporal bone were acquired with IV contrast using a high-resolution bone technique. The scans were retrospectively targeted for right and left side, and subsequently reconstructed in the coronal and sagittal plane.CT was performed with one or more of the following dose reduction techniques: Automated exposure control, adjustment of the mA and/or kV according to patient size, or use of iterative reconstruction technique. COMPARISON: None. FINDINGS: Right: The middle ear cleft is within normal limits and the ossicles are within normal limits. The cochlea, vestibule, vestibular and cochlear aqueduct are within normal limits. The facial nerve canal is within normal limits. The semicircular canals are within normal limits. The internal auditory canal is within normal limits. The external auditory canal and mastoid air cells are within normal limits. The carotid canal and jugular foramen are within normal limits. The temporomandibular joint is within normal limits. Left: The middle ear cleft is within normal limits and the ossicles are within normal limits. The cochlea, vestibule, vestibular and cochlear aqueduct are within normal limits. The facial nerve canal is within normal limits. The semicircular canals are within normal limits. The internal auditory canal is within normal limits. There is soft tissue thickening and enhancement along the cartilaginous segments of the left external auditory canal extending into the soft tissues of the left ear. The left external auditory canal is patent. This is consistent with the suspicion for otitis externa. There is no evidence of abscess formation. The left mastoid air cells are within normal limits. The bony segment of the left external auditory canal is within normal limits without erosive changes. The carotid canal and jugular foramen are within normal limits. The temporomandibular joint is intact. CT/CT int auditory canals w con IMPRESSION: There is soft tissue thickening and enhancement along the cartilaginous segments of the left external auditory canal extending into the soft tissues of the left ear. This is consistent with the suspicion for otitis externa. There is no evidence of abscess formation. The left mastoid air cells are within normal limits. The bony segment of the left external auditory canal is within normal limits without erosive changes. Impression dictated by: Geo Green M.D. 05/07/2025 1:09 PM Dictation Location: [place] [address] Electronically authenticated by: [id number] Y Date: 05/07/2025 13:09
[2025-05-07 12:00] LABS: Hematocrit 49.2 % (42.0-54.0); Hemoglobin 16.5 g/dL (14.0-18.0); Immature Granulocytes Abs Auto 0.02 10^3/uL (0.00-0.03); Immature Granulocytes Pct Auto 0.2 % (0.0-0.5); Lymphocytes Absolute Auto 1.9 10^3/uL (1.2-3.8); Mean Corpuscular HGB Conc 33.5 g/dL (29.9-35.2); Mean Corpuscular Hemoglobin 31.5 pg (25.9-34.0); Mean Corpuscular Volume 93.9 fL (80.0-94.0); Platelet Count 243 10^3/uL (150-450); Red Blood Count 5.24 10^6/uL (4.70-6.10); White Blood Count 11.6 10^3/uL (4.0-11.0)
[2025-05-07 12:19] LABS: Anion Gap 10.9; Blood Urea Nitrogen 8.0 mg/dL (7.0-18.0); Calcium 8.9 mg/dL (8.5-10.1); Carbon Dioxide 31.1 mmol/L (21.0-32.0); Chloride 102 mmol/L (98-107); Estimated GFR (African America >60 (>=60 mL/min/1.73m^2); Estimated GFR (Non-African Ame >60 (>=60 mL/min/1.73m^2); Glucose 82 mg/dL (74-106); Potassium 4.0 mmol/L (3.5-5.1); Sodium 140 mmol/L (136-145)
[2025-05-07] MEDS: CIPROFLOXACIN HCL/DEXAMETH 0.3%/0.1% OTIC SUSP 150 DROP/7.5 ML BOTTLE OT (13:28)
--- NOTE | 2025-05-08 09:01 | ED.GENADUL1 ---
HPI HPI - General Adult General Chief complaint: Ear Stated complaint: L EAR REDNESS SWELLING Time Seen by Provider: 05/07/25 11:13 Source: patient Mode of arrival: walk-in History of Present Illness HPI narrative: Patient is a 65-year-old male presenting to the emergency department for evaluation of left ear pain. Patient states that over the last 1 week he has been having pain in the left ear. He has not been on any antibiotics. He has been using ghww-apx-uikvcbg remedies such as peroxide, however symptoms of persisted. He states he has muffled hearing in the left ear as well. He denies fevers or chills. No nausea or vomiting. No chest pain or shortness of breath. He does have a history of imm-oyvdxyg-diajwxnye type 2 diabetes and is a smoker. Related Data Home Medications ?Medication ?Instructions ?Recorded ?Confirmed alprazolam 1 mg tablet 1 mg PO QID 03/11/24 05/07/25 atorvastatin 40 mg tablet 40 mg PO BEDTIME 03/11/24 05/07/25 hydrochlorothiazide 25 mg tablet 50 mg PO DAILY 03/11/24 05/07/25 metformin 500 mg tablet,extended 500 mg PO BID 03/11/24 05/07/25 release 24 hr tiotropium bromide 18 mcg capsule 1 cap inhalation DAILY 03/11/24 05/07/25 with inhalation device (Spiriva with HandiHaler) semaglutide 1 mg/dose (4 mg/3 mL) 1 mg subcut .weekly 05/07/25 05/07/25 subcutaneous pen injector (Ozempic) Previous Rx's ?Medication ?Instructions ?Recorded hydrocodone 5 mg-acetaminophen 300 1 tab PO Q6H PRN pain 3 days #7 03/11/24 mg tablet tabs ciprofloxacin HCl 500 mg tablet 500 mg PO Q12H 7 days #14 tabs 05/07/25 (Cipro) Allergies Allergy/AdvReac Type Severity Reaction Status Date / Time No Known Drug Allergies Allergy Verified 05/07/25 11:08 Opioid HPI Opioid Management Most Recent Opioid Data: Last Pain Scale 8 05/07/25, 11:11 Review of Systems ROS Status of ROS 10 or more systems reviewed and unremarkable except as noted in history and below PFSH PFSH Social History Little interest or pleasure in doing things: not at all Feeling down, depressed, or hopeless: not at all Exam Narrative Exam Narrative: CONSTITUTIONAL: Well-appearing, answering questions and following commands appropriately SKIN: Was warm and dry. EYES: No conjunctival exudates. EARS, NOSE, THROAT: The left external auditory canal is edematous and mildly erythematous. The external ear/pinna is tender to manipulation with tragal tenderness. The auricle is erythematous and swollen with debris. The bilateral TMs are pearly lubin without erythema or bulging. There is no granulation tissue at the bony cartilaginous junctions. RESPIRATORY: Clear to auscultation bilaterally, no wheezes, crackles, or stridor, no use of accessory muscles CARDIOVASCULAR: Normal rate and regular rhythm. There is no S3, S4, murmur, rub. GASTROINTESTINAL: Abdomen is nondistended. MUSCULOSKELETAL: No peripheral edema. NEUROLOGIC: Patient is awake and alert. Facies were symmetrical. Decreased hearing in the left ear compared to the right. Sensation intact to light touch in the V1/V2/V3 distribution of the face. No ptosis. PERRLA. EOMI. Tongue protrudes midline. Ambulates with a steady gait. Finger-nose intact. Constitutional Vital Signs, click to edit/add: Last Vital Signs Temp 97.5 F L 05/07/25 11:11 Pulse 81 05/07/25 11:11 Resp 16 05/07/25 11:11 BP 160/86 H 05/07/25 11:11 Pulse Ox 96 05/07/25 11:11 O2 Del Method Room Air 05/07/25 11:11 Course Vital Signs Vital signs: Vital Signs Temperature 97.5 F L 05/07/25 11:11 Pulse Rate 81 05/07/25 11:11 Respiratory Rate 16 05/07/25 11:11 Blood Pressure 160/86 H 05/07/25 11:11 Pulse Oximetry 96 05/07/25 11:11 Oxygen Delivery Method Room Air 05/07/25 11:11 Temperature 97.5 F L 05/07/25 11:11 Pulse Rate 81 05/07/25 11:11 Respiratory Rate 16 05/07/25 11:11 Blood Pressure 160/86 H 05/07/25 11:11 Pulse Oximetry 96 05/07/25 11:11 Oxygen Delivery Method Room Air 05/07/25 11:11 Medical Decision Making MDM Narrative Medical decision making narrative: Patient is a 65-year-old male, history significant for aww-pvaiwui-gduvnqamo type 2 diabetes, presenting to the emergency department a 1 week history of left ear pain. His vital signs arrival are within normal limits. He is afebrile and hemodynamically stable. Patient's history and physical examination is consistent with left otitis externa. He exhibits no systemic symptoms or signs of sepsis, he is currently afebrile. Other than muffled hearing, he has no cranial nerve involvement on exam. Though of lower likelihood, given his history of xfg-emhyrjy-iqupnphio type 2 diabetes, I am concerned for possible malignant otitis externa. Therefore, IV was established and laboratory studies were obtained. CT IAC with IV contrast was ordered. Laboratory studies were significant for mild leukocytosis of 11.6. No other significant electrolyte or metabolic derangement. His ESR and CRP only mildly elevated. On review of external documentation, his hemoglobin A1c seems to be decently controlled at 6.6%. CT IAC independently reviewed and interpreted by myself and radiology demonstrated soft tissue thickening and enhancement along the cartilaginous segments of the left external auditory canal extending into the soft tissues of the left ear. This is consistent with the suspicion for otitis externa. There is no evidence of abscess formation. The left mastoid air cells are within normal limits. The bony segment of the left external auditory canal is within normal limits without erosive changes. I do believe the patient is stable for discharge. He is requesting to be discharged as well. Patient's presentation is most likely consistent with left-sided otitis externa. They were instructed to follow up with his PCP in the next 3 to 5 days. Return precautions were given including any new or worsening symptoms, including worsening ear pain, fevers, or any other concerning symptoms. They were given a prescription for Ciprodex eardrops and oral ciprofloxacin 500 mg twice daily x 7 days. Patient understands and agrees to the plan. FINAL IMPRESSION: #Acute left-sided otitis externa #History of yex-tnbxjhh-oeofipqzf type 2 diabetes DISPOSITION: Discharged home CONDITION: Good Medical Records Medical records reviewed: Yes I reviewed the patient's medical records Lab Data Lab results reviewed: Yes I reviewed the patient's lab results Labs: Lab Results 05/07/25 Range/Units 11:50 WBC 11.6 H (4.0-11.0) 10^3/uL RBC 5.24 (4.70-6.10) 10^6/uL Hgb 16.5 (14.0-18.0) g/dL Hct 49.2 (42.0-54.0) % MCV 93.9 (80.0-94.0) fL MCH 31.5 (25.9-34.0) pg MCHC 33.5 (29.9-35.2) g/dL RDW 13.3 (11.0-15.0) % Plt Count 243 (150-450) 10^3/uL MPV 9.9 (9.5-13.5) fL Neut % (Auto) 73.2 (43.0-75.0) % Lymph % (Auto) 16.5 L (20.5-60.0) % [place] % (Auto) 6.0 (1.7-12.0) % Eos % (Auto) 3.5 (0.9-7.0) % Baso % (Auto) 0.6 (0.2-2.0) % Neut # (Auto) 8.5 H (1.4-6.5) 10^3/uL Lymph # (Auto) 1.9 (1.2-3.8) 10^3/uL [place] # (Auto) 0.7 (0.3-0.8) 10^3/uL Eos # (Auto) 0.4 (0.0-0.7) 10^3/uL Baso # (Auto) 0.1 (0.0-0.1) 10^3/uL Abs Immat Gran (auto) 0.02 (0.00-0.03) 10^3/uL Imm/Tot Granulo (auto) 0.2 (0.0-0.5) % ESR 22 H (<=20) mm/hr Sodium 140 (136-145) mmol/L Potassium 4.0 (3.5-5.1) mmol/L Chloride 102 (98-107) mmol/L Carbon Dioxide 31.1 (21.0-32.0) mmol/L Anion Gap 10.9 BUN 8.0 (7.0-18.0) mg/dL Creatinine 0.75 (0.70-1.30) mg/dL Est GFR ( Amer) >60 (>=60 mL/min/1.73m^2) Est GFR (Non-Af Amer) >60 (>=60 mL/min/1.73m^2) BUN/Creatinine Ratio 10.7 Glucose 82 (74-106) mg/dL Calcium 8.9 (8.5-10.1) mg/dL C-Reactive Protein 0.89 H (<=0.50) mg/dL Imaging Data CT IAC: Attestation: I personally reviewed and interpreted this imaging study as follows: Radiologist's impression: ITS Impressions Internal Auditory Canal CT 05/07/25 11:48 IMPRESSION: There is soft tissue thickening and enhancement along the cartilaginous segments of the left external auditory canal extending into the soft tissues of the left ear. This is consistent with the suspicion for otitis externa. There is no evidence of abscess formation. The left mastoid air cells are within normal limits. The bony segment of the left external auditory canal is within normal limits without erosive changes. Impression dictated by: Geo Green M.D. 05/07/2025 1:09 PM Dictation Location: [place] [address] Electronically authenticated by: [id number] Y Date: 05/07/2025 13:09 Discharge Plan Discharge Chief Complaint: Ear Clinical Impression: Otitis externa Patient Disposition: Home, Self-Care Time of Disposition Decision: 13:24 Condition: Fair Mode of Transportation: Private Vehicle Prescriptions / Home Meds: New ciprofloxacin HCl [Cipro] 500 mg tablet 500 mg PO Q12H 7 Days Qty: 14 0RF No Action alprazolam 1 mg tablet 1 mg PO QID hydrochlorothiazide 25 mg tablet 50 mg PO DAILY metformin 500 mg tablet extended release 24 hr 500 mg PO BID atorvastatin 40 mg tablet 40 mg PO BEDTIME tiotropium bromide [Spiriva with HandiHaler] 18 mcg capsule, w/inhalation device 1 cap INHALATION DAILY hydrocodone-acetaminophen 5-300 mg tablet 1 tab PO Q6H PRN (Reason: pain) 3 Days Qty: 7 0RF Ozempic 1 mg/dose (4 mg/3 mL) pen injector 1 mg SUBCUT .weekly Print Language: Wolof Instructions: [facility] (ED) Referrals: Gerber Alvarado MD [Primary Care Provider, Family Practice] - 1 week Discharge Date/Time: 05/07/25 13:36
== END 2025-05-07 13:36 | disposition home or self-care (01) ==
PROVIDERS: Emergency Provider Student in an Organized Health Care Education/Training Program; PCP Family Medicine
DX: H60.92 Unspecified otitis externa, left ear (principal); E11.9 Type 2 diabetes mellitus without complications; F17.200 Nicotine dependence, unspecified, uncomplicated; Z79.84 Long term (current) use of oral hypoglycemic drugs; Z79.85 Long-term (current) use of injectable non-insulin antidiabetic drugs
CPT/HCPCS: 36415; 70481; 80048; 85025; 85652; 86140; 99285; Q9967